=== PATIENT | male | born 1955 | race Caucasian/White ===

== ENCOUNTER 2016-04-16 00:38 | Emergency (ER) | payer BC, OTHER ==
[2016-04-16] MEDS ORDERED: IPRATROPIUM-ALBUTEROL 3 ML NEB INHALATION STA (01:43)
[2016-04-16 02:15] VITALS: PULSE 82
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
--- NOTE | 2016-04-16 02:43 | XR ---
EXAMINATION TYPE: XR chest 2V DATE OF EXAM: 04/16/2016 2:23 AM COMPARISON: 03/26/2016 HISTORY: Cough TECHNIQUE: Frontal and lateral views of the chest are obtained. FINDINGS: Heart and mediastinum are normal. Lungs are clear of consolidation. There are no hilar mas ses. There is no sign of pleural effusion. There are sternal wires. Bony thorax is intact. IMPRESSION: No active cardiac pulmonary disease. No change.
[2016-04-16 03:21] VITALS: BP 129/75; RESP 18; TEMP 97.9
== END 2016-04-16 03:23 | disposition home or self-care (01) ==
LOC: EC 00:38
DX: R05 Cough (principal); T46.4X5A Adverse effect of angiotensin-converting-enzyme inhibitors, initial encounter; I10 Essential (primary) hypertension; E78.5 Hyperlipidemia, unspecified; E11.9 Type 2 diabetes mellitus without complications; F41.9 Anxiety disorder, unspecified; F32.9 Major depressive disorder, single episode, unspecified; Z79.82 Long term (current) use of aspirin; Z79.84 Long term (current) use of oral hypoglycemic drugs; Z79.899 Other long term (current) drug therapy; Z88.2 Allergy status to sulfonamides; Z88.3 Allergy status to other anti-infective agents; Z88.5 Allergy status to narcotic agent; Z87.891 Personal history of nicotine dependence
CPT/HCPCS: 71020; 87502; 94640; 99284

== ENCOUNTER 2016-05-01 14:33 | Inpatient (IN) | payer BC, OTHER ==
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
[2016-05-01] MEDS ORDERED: LORazepam 2 MG/ML SYRINGE IM STA (19:00)
[2016-05-01] MEDS ORDERED: MAGNESIUM HYDROXIDE 2,400 MG/10 ML CUP PO PRN (21:39)
[2016-05-01] MEDS ORDERED: MAG HYDROX/AL HYDROX/SIMETH 30 ML CUP PO PRN (21:39)
[2016-05-01] MEDS ORDERED: ACETAMINOPHEN TAB 325 MG TAB PO PRN (21:39)
[2016-05-01] MEDS ORDERED: ZIPRASIDONE 20 MG VIAL IM PRN (21:39)
[2016-05-01] MEDS ORDERED: NITROGLYCERIN SL TABS 0.4 MG TAB SUBLINGUAL PRN ×2 (21:43→22:38)
[2016-05-01] MEDS ORDERED: ONDANSETRON 4 MG/2 ML VIAL IM PRN (22:34)
[2016-05-01] MEDS ORDERED: ONDANSETRON 4 MG TAB PO PRN (22:34)
[2016-05-01] MEDS ORDERED: IBUPROFEN 600 MG TAB PO PRN (22:40)
[2016-05-01] MEDS: ATORVASTATIN 20 MG TAB PO SCH (22:50)
[2016-05-01] MEDS: traZODone HCL 50 MG TAB PO SCH (22:50)
[2016-05-01] MEDS: LORazepam 1 MG TAB PO SCH (22:50)
[2016-05-02] MEDS: LORazepam 1 MG TAB PO SCH ×6 (00:38→23:22)
[2016-05-02] MEDS: DIPHENOX-ATROP 2.5-0.025 MG 1 EACH TAB PO PRN (01:48)
[2016-05-02 03:13] VITALS: BMI 38.4
[2016-05-02 06:18] LABS: Glucose,Whole Blood 140 mg/dL (75-99)
[2016-05-02] MEDS: glipiZIDE 5 MG TAB PO SCH ×2 (09:34→17:56)
[2016-05-02] MEDS: LISINOPRIL 20 MG TAB PO SCH (09:49)
[2016-05-02] MEDS: ASPIRIN 81 MG CHEW PO SCH (09:49)
[2016-05-02] MEDS: NICOTINE 14MG/24HR PATCH TRANSDERM SCH (09:50)
[2016-05-02] MEDS: FLUoxetine HCL 20 MG CAP PO SCH (09:52)
[2016-05-02] MEDS: PANTOPRAZOLE 40 MG TABLET PO SCH (09:52)
[2016-05-02] MEDS ORDERED: HYDROcodone/APAP 5-325MG 1 EACH TAB PO PRN (09:54)
[2016-05-02] MEDS: ALBUTEROL INHALER 60 PUFF/8 GM INHALER INHALATION PRN (11:10)
[2016-05-02 11:30] LABS: Anisocytosis Slight; Basophils # (A) 0.1 k/uL (0-0.2); Basophils % (A) 1 %; CH 32.4; CHCM 33.6; Eosinophils # (A) 0.1 k/uL (0-0.7); Eosinophils % (A) 0 %; HCT 35.7 % (39.0-53.0); HDW 2.67; HGB 11.6 gm/dL (13.0-17.5); Luc # (Auto) 0.28; Luc % (Auto) 2; Lymphocytes # (A) 3.4 k/uL (1.0-4.8); Lymphocytes % (A) 29 %; MCH 31.6 pg (25.0-35.0); MCHC 32.5 g/dL (31.0-37.0); MCV 97.2 fL (80.0-100.0); Macrocytosis Slight; Mean Platelet Volume 7.3; Monocytes # (A) 0.9 k/uL (0-1.0); Monocytes % (A) 7 %; Neutrophils # (A) 7.2 k/uL (1.3-7.7); Neutrophils % (A) 60 %; RBC 3.68 m/uL (4.30-5.90); RDW 16.9 % (11.5-15.5); WBC 11.9 k/uL (3.8-10.6); WBC (Perox) 12.44
[2016-05-02 12:02] LABS: ALT 86 U/L (21-72); AST 80 U/L (17-59); Alkaline Phosphatase 116 U/L (38-126); Anion Gap 13 mmol/L; Bilirubin, Delta 0.4 mg/dL (0.0-0.2); Blood Urea Nitrogen 21 mg/dL (9-20); Calcium 9.3 mg/dL (8.4-10.2); Carbon Dioxide 24 mmol/L (22-30); Chloride 102 mmol/L (98-107); Glucose 105 mg/dL (74-99); Non-African American GFR(MDRD) >60 (>60 ml/min/1.73 sqM); Potassium 3.7 mmol/L (3.5-5.1); Sodium 139 mmol/L (137-145); Total Bilirubin 1.8 mg/dL (0.2-1.3)
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
[2016-05-02] MEDS: FOLIC ACID 1 MG TAB PO SCH (12:50)
[2016-05-02] MEDS: THIAMINE 100 MG TAB PO SCH (12:50)
[2016-05-02] MEDS: HYDROcodone/APAP 5-325MG 1 EACH TAB PO PRN ×2 (12:51→20:55)
[2016-05-02 12:57] LABS: Glucose,Whole Blood 115 mg/dL (75-99)
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
[2016-05-02 17:22] LABS: Glucose,Whole Blood 178 mg/dL (75-99)
[2016-05-02] MEDS: traZODone HCL 50 MG TAB PO SCH (20:31)
[2016-05-02] MEDS: lamoTRIgine 100 MG TAB PO SCH (20:31)
[2016-05-02] MEDS: ATORVASTATIN 20 MG TAB PO SCH (20:31)
[2016-05-02 21:26] LABS: Glucose,Whole Blood 172 mg/dL (75-99)
[2016-05-03] MEDS: LORazepam 2 MG/ML SYRINGE IM PRN (02:39)
[2016-05-03] MEDS: LORazepam 1 MG TAB PO SCH ×4 (06:07→20:54)
[2016-05-03] MEDS: ALBUTEROL INHALER 60 PUFF/8 GM INHALER INHALATION PRN ×2 (06:10→10:49)
[2016-05-03] MEDS: HYDROcodone/APAP 5-325MG 1 EACH TAB PO PRN ×3 (06:16→22:34)
[2016-05-03 07:17] LABS: Glucose,Whole Blood 169 mg/dL (75-99)
[2016-05-03] MEDS: ASPIRIN 81 MG CHEW PO SCH (07:59)
[2016-05-03] MEDS: LISINOPRIL 20 MG TAB PO SCH (07:59)
[2016-05-03] MEDS: glipiZIDE 5 MG TAB PO SCH ×2 (07:59→17:59)
[2016-05-03] MEDS: NICOTINE 14MG/24HR PATCH TRANSDERM SCH (07:59)
[2016-05-03] MEDS: FLUoxetine HCL 20 MG CAP PO SCH (08:01)
[2016-05-03] MEDS: PANTOPRAZOLE 40 MG TABLET PO SCH (08:02)
[2016-05-03 10:09] LABS: ALT 76 U/L (21-72); AST 64 U/L (17-59); Alkaline Phosphatase 126 U/L (38-126); Anion Gap 15 mmol/L; Blood Urea Nitrogen 24 mg/dL (9-20); Calcium 9.4 mg/dL (8.4-10.2); Carbon Dioxide 22 mmol/L (22-30); Chloride 103 mmol/L (98-107); Glucose 156 mg/dL (74-99); Non-African American GFR(MDRD) >60 (>60 ml/min/1.73 sqM); Potassium 3.7 mmol/L (3.5-5.1); Sodium 140 mmol/L (137-145); Total Bilirubin 1.6 mg/dL (0.2-1.3)
[2016-05-03] MEDS: FOLIC ACID 1 MG TAB PO SCH (11:12)
[2016-05-03] MEDS: THIAMINE 100 MG TAB PO SCH (11:14)
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
[2016-05-03 12:47] LABS: Glucose,Whole Blood 108 mg/dL (75-99)
[2016-05-03 18:11] LABS: Glucose,Whole Blood 165 mg/dL (75-99)
[2016-05-03 19:56] LABS: Glucose,Whole Blood 159 mg/dL (75-99)
[2016-05-03] MEDS: ATORVASTATIN 20 MG TAB PO SCH (20:52)
[2016-05-03] MEDS: lamoTRIgine 100 MG TAB PO SCH (20:52)
[2016-05-03] MEDS: traZODone HCL 50 MG TAB PO SCH (22:30)
[2016-05-04] MEDS: LORazepam 2 MG/ML SYRINGE IM PRN (05:25)
[2016-05-04 06:12] LABS: Glucose,Whole Blood 168 mg/dL (75-99)
[2016-05-04] MEDS: HYDROcodone/APAP 5-325MG 1 EACH TAB PO PRN ×3 (07:12→21:18)
[2016-05-04] MEDS: glipiZIDE 5 MG TAB PO SCH ×2 (07:57→17:48)
[2016-05-04] MEDS: ASPIRIN 81 MG CHEW PO SCH (08:33)
[2016-05-04] MEDS: PANTOPRAZOLE 40 MG TABLET PO SCH (08:33)
[2016-05-04] MEDS: FLUoxetine HCL 20 MG CAP PO SCH (08:33)
[2016-05-04] MEDS: LISINOPRIL 20 MG TAB PO SCH (08:33)
[2016-05-04] MEDS: LORazepam 1 MG TAB PO SCH ×2 (08:33→21:17)
[2016-05-04] MEDS: NICOTINE 14MG/24HR PATCH TRANSDERM SCH (08:36)
[2016-05-04] MEDS: ALBUTEROL INHALER 60 PUFF/8 GM INHALER INHALATION PRN ×3 (09:06→18:53)
[2016-05-04] MEDS: FOLIC ACID 1 MG TAB PO SCH (10:55)
[2016-05-04] MEDS: THIAMINE 100 MG TAB PO SCH (10:56)
--- NOTE | 2016-05-04 11:47 | P.DS ---
Providers Date of admission: 05/01/16 21:19 Attending physician: Abiel Cochran MD Consults: 05/01/16 21:39 Consult Physician Routine Consulting Provider: Parmjit Murdock Consult Reason/Comments: h&p and medical follow-up Do you want consulting provider notified?: Yes, Notify in am Primary care physician: Parmjit Roque Mathieu - Discharge Diagnosis(es) (1) Injury due to unintentional cut, puncture, perforation or hemorrhage during administration of enema Current Visit: Yes Status: Resolved Priority: Medium (2) Alcohol use disorder, severe, dependence Current Visit: Yes Status: Acute Priority: High (3) Alcohol withdrawal Current Visit: Yes Status: Resolved Priority: High (4) Sedative, hypnotic or anxiolytic abuse Current Visit: Yes Status: Chronic Priority: High (5) Marital conflict Current Visit: Yes Status: Chronic Priority: High (6) Conflict between patient and family Current Visit: Yes Status: Chronic Priority: High (7) Alcohol-induced mood disorder Current Visit: Yes Status: Chronic Priority: Medium (8) Personality disorder, unspecified Current Visit: Yes Status: Chronic Priority: High (9) Elevated liver enzymes Current Visit: No Status: Chronic Priority: Medium Hospital Course: DENTIFYING DATA: He is a 60-year-old male admitted to the psychiatric unit involuntarily. His completed a Petition/Application for Hospitalization. On the petition she wrote "last night Anthony asked me where your jugular vein was. He then went into the bathroom and came out with a cut on his left wrist that was bleeding. I bandaged it. He told me he cut it with electric razor. He then looked for his fifth of jodi. He has been drinking at least a fifth of liquor a day. He slept, woke up and said he was going to the hospital because he wanted to . He then passed out on bed. Today he cut his right wrist in a suicide attempt." HISTORY OF PRESENT ILLNESS: I reviewed the medical record and interviewed Mr. Feldman. He was angry about the circumstances that led to this admission. He stated he accidentally cut his wrist and vehemently denied that he cut his wrist with the intent to end his life. He described a situation where he was attempting to change a double edged razor blade. He was tremulous and dropped the plate. He attempted to grab the blade "before it fell into the sink drain" and in the process the blade cut his wrist. The ER physician documented that Mr. Feldman's explanation of the incident was improbable because the cut was a deep single laceration to the wrist that required multiple sutures for closure. He described feeling depressed but denied that he had thoughts of or suicide. He was depressed over his relationship with his daughter, her decision to limit contact with her children and his son's behavior. He stated his son who is a heroin user recently threatened several people. He is concerned because he believes this son is unstable as a result of his experiencing this during the [place] War. He denied persistent feelings of sadness and pessimism. He denied feeling as though he were a failure. He denied feelings of guilt or punishment. He denied self dislike and self criticalness. She denied crying episodes, agitation, loss of interest and indecisiveness. He does not feel worthless, irritable or has difficulty with concentration or attention. A recurrent theme during the interview was his lack of personal responsibility for his actions and the response of others due to his behavior. The theme was present in his description of his relationship with his , his daughter,his less than honorable discharge from the [facility], a past legal problem, his alcohol use and his prior psychiatric hospitalizations. With regard to his alcohol use, he drinks up to one fifth of jodi daily. He denies that he has encountered problems as a result of his alcohol use. He drinks because he has a persistent "sore throat". He has not tried cutting down his drinking and minimized the complaints of family regarding his alcohol use. His initial CIWA score was 22 indicating severe symptoms of alcohol withdrawal He denied use of other drugs to get high, help him sleep or changes mood. He denied use of marijuana. According to medical record there is some concern about excessive use of opiate pain medications. However, he denied that he has ever misuse prescribed opiate pain medications. PAST PSYCHIATRIC HISTORY: This is his fourth admission to the unit. The last was in February 2016. His completed a petition indicating that he was not caring for himself and he was demonstrating paranoid thinking. The admitting psychiatrist noted that he was depressed and expressed feeling of hopelessness. He was transferred to medicine service the day of admission because he was "caught swallowing" his fentanyl patch. Once medically stabilized he returned to the psychiatric unit. 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 He stated that his outpatient psychiatrist is Dr. Jeffery. SUBSTANCE USE HISTORY: He has a history of alcohol use disorder including one admission to [facility] about 2 years ago" for the treatment of his alcohol use problems. He alleged he his drinks less than one fifth of jodi per day but the information from his is that he drinks at least one fifth per day. He minimizes his alcohol use. As mentioned above, we have some evidence of abuse of prescribed opiates pain medications. However, he denies that he has ever misused or abused prescription opiate pain medications. He is complained of tremulousness, nausea and abdominal distress. He has night sweats and sound sensitivity. He denied tactile or visual disturbances. HOSPITAL COURSE: We admitted him to the psychiatric unit under the care of this commercial insurance underwriter. We provided a biopsychosocial assessment. The underwriting consultant private mortgage banker safe completed the physical exam and medical history. The private mortgage banker safe diagnosed history of pancreatitis, BPH, IBS, history of coronary disease and CABG, diabetes type 2, hypertension, sleep apnea, chronic back pain and elevated liver enzymes. We addressed his alcohol withdrawal with a CIWA and lorazepam. He had severe symptoms of alcohol withdrawal uncomplicated by delirium or psychosis. He alleged that he has been drinking (according to his at least 1 pint of jodi per day) over the last 2 months. However, the history of pancreatitis and a chronically elevated liver enzymes suggest that his alcohol use has been present for much longer period of time. We continued his outpatient psychotropic medications including fluoxetine 40 mg daily, Lamictal 200 mg at bedtime and trazodone 50 mg at bedtime. We substituted his outpatient dose of Xanax (2 mg twice a day) with lorazepam 1 mg 4 times a day. We gradually reduce the dose to 1 mg twice a day and recommended he stop all benzodiazepines because of his chronic and high alcohol use. He is not interested in reentering a substance use treatment program. Throughout the hospitalization he maintained that he did not intentionally cut himself. Laceration to his wrist was in accident as he was trying to change a double ends razor blade. We suspect that the self injury that led to this hospitalization was related to the alcohol and benzodiazepine use because his memory of events is not consistent with that provided to the social insurance specialist by his . An ongoing theme during our interviews was the perceptions that he has been mistreated by family. He shows little insight or understanding of his responsibility in the marital and family conflict. At time of discharge he complained of feeling angry towards his and family. However, he denied thoughts of harm to himself, his for his family. His plan is to move leave his and family and move to [place] in the fall of 2016. He described feelings of depression but denied hopelessness or helplessness. He denied psychotic symptoms. Patient Condition at Discharge: Fair Plan - Discharge Summary New Discharge Prescriptions: FLUoxetine HCL [PROzac] 40 mg PO DAILY 30 Days lamoTRIgine [LaMICtal] 200 mg PO HS 30 Days traZODone HCL [Desyrel] 50 mg PO HS 30 Days Discharge Medication List Nitroglycerin Sl Tabs [Nitrostat] 0.4 mg SUBLINGUAL Q5M PRN 04/12/15 [History] Enalapril [Vasotec] 5 mg PO BID 04/13/15 [History] Aspirin 81 mg PO DAILY 10/31/15 [History] Omeprazole 40 mg PO DAILY 10/31/15 [History] glipiZIDE [Glucotrol] 5 mg PO AC-BID tab 02/20/16 [Rx] Atorvastatin [Lipitor] 20 mg PO HS 03/26/16 [History] Meclizine [Antivert] 12.5 mg PO Q6H #20 tablet 03/26/16 [Rx] Albuterol Inhaler [Ventolin Hfa Inhaler] 1 - 2 puff INHALATION RT-Q6H PRN [History] FLUoxetine HCL [PROzac] 40 mg PO DAILY 30 Days 05/04/16 [Rx] lamoTRIgine [LaMICtal] 200 mg PO HS 30 Days 05/04/16 [Rx] traZODone HCL [Desyrel] 50 mg PO HS 30 Days 05/04/16 [Rx] Follow up Appointment(s)/Referral(s): [facility] [Outside] - 1 Week (Saturday May 07, 2016 at 9 am with Brendon. Saturday June 04, [address] at [address] Saha.) Parmjit Murdock MD [Primary Care Provider] - 1 Week Patient Instructions/Handouts: Depression (DC), Suicide Prevention for Adults ( DC) Activity/Diet/Wound Care/Special Instructions: Activity and diet as tolerated. Avoid the use of street drugs and alcohol. Take all medications as prescribed. When you are in need of refills on your medications please contact your outpatient medical provider and/or psychiatrist to have this done. Please go to scheduled outpatient appointment for aftercare. If symptoms return or become worse call the crisis line at and/ or go to the nearest emergency room for an evaluation. Discharge Disposition: HOME SELF-CARE
--- NOTE | 2016-05-04 12:11 | P.PN ---
Progress Note - Text SUBJECTIVE: The patient denied having thoughts of or suicide. He denied alcohol withdrawal symptoms except increased sensitivity to sound. He continues to deny that the laceration to his wrist was a suicide attempt. He talked about his anger towards his and family. He continues to minimize his responsibility for the impairment in their relationships. For example, he is angry at his daughter for not allowing him to visit with his grandchildren. He believes that she is present contact with the children because he became angry when he called her a "troll". We had planned on discharging him home after the family meeting. However, his became distressed during the meeting because he "would not admit" the laceration was a suicide attempt. Both he and his ended the meeting distressed. He alleged that he would not go home to live with her. He alleged that he could not live with other family (he has estranged himself from family and friends). When the social worker masters suggested discharged to a alf he replied "I'll just go back to drinking." OBJECTIVE: He presented as a casually groomed moderately obese and pale appearing male who was pleasant on approach. He maintained eye contact and attended to the exam. He had a clean dry bandage on his right wrist. He had a angry facial expression. He was alert and oriented to person, place and time. He showed no abnormality of psychomotor behavior. He had no abnormal movements. His speech was spontaneous with normal rate, rhythm and volume. His affect was dysphoric consisting of mixture of anger, depression and anxiety. He denied suicidal ideation or wishes. He denied homicidal ideation. He denied depressive cognitions such as hopelessness, helplessness or worthlessness. ASSESSMENT: He has no signs and symptoms of alcohol withdrawal. I suspect his presentation was later to combine use of alcohol and high-dose benzodiazepines. I also suspect that he may not have full recollection of what occurred when he cut his wrist. He is denying thoughts of suicide or self-harm. He remains angry at his and family and is refusing to return home. PLAN: Cancel the discharge to allow the overall level of emotional distress between he and his to joanna, continue to taper lorazepam, continue other psychotropic medications as prescribed, continue to encourage participation in therapeutic groups and activities, evaluate clinical status response to treatment daily basis.
[2016-05-04 12:44] LABS: Glucose,Whole Blood 105 mg/dL (75-99)
[2016-05-04] MEDS: DIPHENOX-ATROP 2.5-0.025 MG 1 EACH TAB PO PRN (13:36)
[2016-05-04 17:41] LABS: Glucose,Whole Blood 125 mg/dL (75-99)
[2016-05-04 20:21] LABS: Glucose,Whole Blood 108 mg/dL (75-99)
[2016-05-04 21:12] LABS: Appearance,Urine Clear (Clear); Bilirubin,Urine Negative (Negative); Glucose,Urine (UA) Negative (Negative); Ketones,Urine Negative (Negative); Leukocyte Esterase,Urine Negative (Negative); Nitrite,Urine Negative (Negative); PH, Urine 5.5 (5.0-8.0); Protein,Urine Negative (Negative); Specific Gravity,Urine 1.009 (1.001-1.035); UA Billing (MACRO vs. MICRO) CHEM; Urobilinogen,Urine <2.0 mg/dL (<2.0)
[2016-05-04] MEDS: ATORVASTATIN 20 MG TAB PO SCH (21:16)
[2016-05-04] MEDS: traZODone HCL 50 MG TAB PO SCH (21:17)
[2016-05-04] MEDS: lamoTRIgine 100 MG TAB PO SCH (21:17)
[2016-05-05] MEDS: HYDROcodone/APAP 5-325MG 1 EACH TAB PO PRN ×2 (05:56→13:46)
[2016-05-05 06:28] LABS: Glucose,Whole Blood 147 mg/dL (75-99)
[2016-05-05] MEDS: ASPIRIN 81 MG CHEW PO SCH (08:44)
[2016-05-05] MEDS: LORazepam 1 MG TAB PO SCH (08:44)
[2016-05-05] MEDS: glipiZIDE 5 MG TAB PO SCH ×2 (08:44→16:21)
[2016-05-05] MEDS: FLUoxetine HCL 20 MG CAP PO SCH (08:44)
[2016-05-05] MEDS: PANTOPRAZOLE 40 MG TABLET PO SCH (08:45)
[2016-05-05] MEDS: LISINOPRIL 20 MG TAB PO SCH (09:56)
[2016-05-05] MEDS: FOLIC ACID 1 MG TAB PO SCH (12:20)
[2016-05-05] MEDS: THIAMINE 100 MG TAB PO SCH (12:20)
[2016-05-05 12:32] LABS: Glucose,Whole Blood 73 mg/dL (75-99)
[2016-05-05] MEDS: ALBUTEROL INHALER 60 PUFF/8 GM INHALER INHALATION PRN (12:33)
[2016-05-05] MEDS ORDERED: lamoTRIgine 100 MG TAB PO SCH (13:00)
--- NOTE | 2016-05-05 15:13 | P.PN ---
Progress Note - Text SUBJECTIVE: We talked about the family meeting yesterday. He and his argued throughout the meeting. She does not believe the cut to his wrist was accidental and wanted him to remain in the hospital longer. He on the other hand maintains that the cut was accidental and not a suicide attempt. She also brought up his statements that he made suggesting suicidal thoughts and threats. He again minimize the statements alleging he made them out of anger or to gain her attention. He again complained about his relationship with his and children. He reiterated that his plans are to "tough it out at home" until he is able to move to [place] and live in his motor home. He again denied that he cut himself in a suicide attempt or suicide gesture. He continues to maintain that it was an accident as he was attempting to change a razor blade. He complained of right hand pain, numbness of his thumb and index finger and difficulty opposing his thumb and his fingers. OBJECTIVE: He presented as a casually dressed 60-year-old male who was pleasant and cooperative. He maintained eye contact and attended to interview. He had a blunted but bright facial expression. He was alert and oriented to person, place and time. He showed no abnormality of psychomotor activity. He had a slow but stable gait. His speech was spontaneous with normal rate, rhythm and volume. His affect was slightly depressed but appropriate and stable. He denied suicidal ideation or wishes. He denied depressive cognitions such as hopelessness, helplessness and worthlessness. He did not express ideas reference or paranoid ideation. His thinking was abstract and associations were coherent and goal directed. ASSESSMENT: He is showing minimal symptoms of depression and continues denied that the laceration on his wrist was a suicide attempt. He is complaining of increasing pain and decreased functioning of the hand. PLAN: Decrease lorazepam to 1 mg daily then discontinue tomorrow, continue other medications as prescribed, consult medicine for reevaluation of a laceration. Continue encourage participation in therapeutic groups and activities. Evaluate clinical status response to treatment daily basis.
[2016-05-05 17:37] LABS: Glucose,Whole Blood 116 mg/dL (75-99)
--- NOTE | 2016-05-05 19:02 | CONS ---
I am covering for Dr. Parmjit Murdock. REASON FOR CONSULTATION: Weakness and numbness of the right hand. HISTORY OF PRESENT ILLNESS: This 54-year-old gentleman with a past history of depression. GERD, diabetes mellitus, hypertension, history of sleep apnea, history of CAD, CABG being followed by Dr. Parmjit Murdock in the outpatient setting admitted with lacerated wound on the right wrist, apparent suicidal attempt, which was sutured in the ER which is clean, incised. Currently the patient is complaining of numbness, weakness and some pain and difficulty in folding the fingers on the right hand. It is more toward the lateral 3 digits than the medial ones. There is no history of any fever, rigors, chills. No history of headache, loss of consciousness, any seizures. No history of any complaints to other legs at this time. PAST MEDICAL HISTORY: History of diabetes mellitus, history of GERD, hypertension, hyperlipidemia, sleep apnea, appendectomy, CAD, CABG. Medications prior to admission include home medications are: 1. Glucotrol 5 mg a.c. b.i.d. 2. Omeprazole 40 mg p.o. daily. 3. Nitrostat 0.4 sublingual p.r.n. 4. Antivert 12.5 mg every 6 hours p.r.n. 5. Vasotec 5 mg p.o. b.i.d. 6. Lipitor 20 mg q.h.s. 7. Aspirin 81 mg daily. 81 to 2 puffs every 6 hours p.r.n. 9. Desyrel. 10. Lamictal. 11. Prozac 40 mg daily. ALLERGIES ARE KETOROLAC, FLAGYL, SULFA. FAMILY HISTORY: No history of heart disease, strokes in the family. SOCIAL HISTORY: History of alcohol. REVIEW OF SYSTEMS: ENT: No diminished hearing or diminished vision. CARDIOVASCULAR: No angina or palpitations. RESPIRATORY: No cough. GI: No nausea. : No dysuria. NERVOUS: As mentioned earlier. ALLERGY/IMMUNOLOGY: No asthma or hay fever. MUSCULOSKELETAL: As mentioned earlier. HEMATOLOGY/ONCOLOGY: No history of anemia. ENDOCRINE: Diabetes mellitus. CONSTITUTIONAL: As mentioned earlier. DERMATOLOGY: Negative. PSYCHIATRY: As mentioned earlier. PHYSICAL EXAM: Patient alert and oriented x3. Pulse 99, blood pressure 126/69, respirations 18, temperature 97.9 pulse ox normal. HEENT: Conjunctivae normal. Oral mucosa moist. NECK: No jugular venous distention. No carotid bruits. No lymph node enlargement. CARDIOVASCULAR: S1 and S2 muffled. No S3. No S4. RESPIRATORY: Breath sounds diminished at the bases. No rhonchi. No crackles. Abdomen is soft, nontender. No masses palpable. LEGS: No edema. No swelling. NERVOUS SYSTEM: Higher function as mentioned. Cranial nerves 2-12 intact grossly intact. Right hand incised wound is lacerated wound which is sutured in the right wrist present. Otherwise, minimal weakness and difficulty in motion. Some pain and some swelling of all the fingers noted, mainly the lateral 3 digits. SKIN: As mentioned earlier. LYMPHATIC: No lymphadenopathy in neck, axillae or groin. Lab investigations are WBC 11.9, hemoglobin 11.6. Glucose 73, AST, ALT noted. ASSESSMENT: 1. Lacerated wound on the right wrist and numbness, rule out median nerve injury or compression. 2. Rule out carpal tunnel syndrome. 3. Increased AST, ALT. 4. Diabetes mellitus type 2. 5. Increased WBC. 6. Anemia, normocytic. 7. History of hypertension. 8. Hyperlipidemia. 9. Coronary artery disease, coronary artery bypass grafting. 10. History of sleep apnea. 11. Depression. 12. History of nephrolithiasis. 13. History of irritable bowel syndrome. 14. History of gastric ulcer. 15. History of diverticulitis. 16. History of degenerative joint disease, chronic low back pain 17. History of migraine. 18. History of cholecystectomy. 19. Anxiety, depression, posttraumatic stress disorder. 20. Remote history of nicotine dependence. 21. History of EtOH. RECOMMENDATIONS AND DISCUSSION: In this 60-year-old gentleman who presented with multiple medical problems, will monitor the patient closely. Continue symptomatic treatment. The patient appears to have some neurological findings in the right hand. I would recommend a neurology consultation to rule out the possibility of median nerve injury or even a carpal tunnel compression which could be related to direct injury or because of the swelling associated with the incision as well as suturing. In case of abnormal finding, I would also recommend an orthopedic consultation to evaluate the injury as well. Otherwise, recommend Motrin for now and continue the rest of the medications. Diabetes control. The wound does not look infected, but will continue to follow. Further recommendations to follow. The patient may be asked to follow up with Dr. Murdock closely after discharge. MEGAN
[2016-05-05 20:13] LABS: Glucose,Whole Blood 111 mg/dL (75-99)
[2016-05-05] MEDS: lamoTRIgine 100 MG TAB PO SCH (21:05)
[2016-05-05] MEDS: ATORVASTATIN 20 MG TAB PO SCH (21:05)
[2016-05-05] MEDS: traZODone HCL 50 MG TAB PO SCH (21:05)
[2016-05-06] MEDS: HYDROcodone/APAP 5-325MG 1 EACH TAB PO PRN ×3 (03:06→16:59)
[2016-05-06] MEDS: ALBUTEROL INHALER 60 PUFF/8 GM INHALER INHALATION PRN ×3 (05:36→20:39)
[2016-05-06 05:56] LABS: Glucose,Whole Blood 186 mg/dL (75-99)
[2016-05-06] MEDS: ASPIRIN 81 MG CHEW PO SCH (08:55)
[2016-05-06] MEDS: PANTOPRAZOLE 40 MG TABLET PO SCH (08:55)
[2016-05-06] MEDS: glipiZIDE 5 MG TAB PO SCH ×2 (08:56→16:57)
[2016-05-06] MEDS: FLUoxetine HCL 20 MG CAP PO SCH (08:56)
[2016-05-06] MEDS: LISINOPRIL 20 MG TAB PO SCH (08:56)
[2016-05-06] MEDS ORDERED: LORazepam 1 MG TAB PO SCH (09:00)
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
[2016-05-06] MEDS: FOLIC ACID 1 MG TAB PO SCH (12:05)
[2016-05-06] MEDS: THIAMINE 100 MG TAB PO SCH ×2 (12:05→21:16)
[2016-05-06 12:46] LABS: Glucose,Whole Blood 87 mg/dL (75-99)
[2016-05-06] MEDS: INSULIN LISPRO (humaLOG) 300 UNIT/3 ML VIAL SQ SCH ×3 (12:55→21:13)
[2016-05-06 13:38] LABS: Hemoglobin A1C 6.3 % (4.2-6.1)
--- NOTE | 2016-05-06 13:43 | P.PN ---
Progress Note - Text SUBJECTIVE: He complained of pain, numbness and weakness of his right hand. He requested an increase in Narco for pain. He also expressed concern about the taper of lorazepam. I explained my concerns about his use of lorazepam and alcohol. He is denying alcohol withdrawal symptoms. He is denied feeling depressed or having thoughts of or suicide. He continues to maintain that he did not cut his risk in a suicide attempt. He was concerned that his may object to his discharge tomorrow OBJECTIVE: Medicine and neurology consult appreciated. He presented as a casually groomed pleasant and appropriate 60-year-old male. He maintained eye contact and attended to the interview. The lacerations on his right wrist was intact. He had swelling of his first 3 digits on the right hand. He had difficulty making a fist. He had slight bilateral hand tremor. He did not demonstrate abnormality of psychomotor activity. He had a slow but steady gait. His speech was spontaneous with normal rate, rhythm and volume. He had no articulation difficulties. His affect was dysphoric with a mixture of anxiety and depression. His affect was stable and appropriate. He denied suicidal ideation or wishes. He denied homicidal ideation. He denied depressive cognitions such as hopelessness, helplessness or worthlessness. He did not express ideas reference or paranoid ideation. His thinking was abstract and associations were coherent and logical. He denied hallucinations and did not appear to responding to internal stimuli. ASSESSMENT: He is much improved from admission and is demonstrating no alcohol withdrawal symptoms. Medicine and neurology evaluated the symptoms in his right hand. Neurology recommended IV steroids to reduce inflammation, nerve conduction studies and orthopedic follow-up as an outpatient. PLAN: Continue Prozac 40 mg daily, Lamictal 200 mg at bedtime and trazodone 50 mg at bedtime. Follow recommendations of the consulting neurologist regarding methylprednisolone administration. Encourage continued participation in therapeutic groups and activities. Evaluate clinical status response to treatment daily basis. Upon discharge 05/07/2016.
[2016-05-06 17:45] LABS: Glucose,Whole Blood 135 mg/dL (75-99)
[2016-05-06 20:29] LABS: Glucose,Whole Blood 250 mg/dL (75-99)
[2016-05-06] MEDS: ATORVASTATIN 20 MG TAB PO SCH (21:16)
[2016-05-06] MEDS: lamoTRIgine 100 MG TAB PO SCH (21:16)
[2016-05-06] MEDS: traZODone HCL 50 MG TAB PO SCH (22:34)
[2016-05-06] MEDS: diphenhydrAMINE 25 MG CAP PO PRN (22:34)
[2016-05-07] MEDS: HYDROcodone/APAP 5-325MG 1 EACH TAB PO PRN ×4 (00:19→17:47)
[2016-05-07 02:55] VITALS: PULSE 95; RESP 18; TEMP 98.3
[2016-05-07] MEDS: diphenhydrAMINE 25 MG CAP PO PRN ×2 (03:39→14:35)
[2016-05-07 07:10] LABS: Glucose,Whole Blood 232 mg/dL (75-99)
[2016-05-07] MEDS: glipiZIDE 5 MG TAB PO SCH ×2 (07:58→17:48)
[2016-05-07] MEDS: INSULIN LISPRO (humaLOG) 300 UNIT/3 ML VIAL SQ SCH ×3 (07:58→18:02)
[2016-05-07] MEDS: ALBUTEROL INHALER 60 PUFF/8 GM INHALER INHALATION PRN ×2 (10:08→14:01)
[2016-05-07] MEDS: ASPIRIN 81 MG CHEW PO SCH (10:15)
[2016-05-07] MEDS: LISINOPRIL 20 MG TAB PO SCH ×2 (10:15→10:17)
[2016-05-07] MEDS: FLUoxetine HCL 20 MG CAP PO SCH (10:15)
[2016-05-07] MEDS: PANTOPRAZOLE 40 MG TABLET PO SCH (10:15)
[2016-05-07 12:25] LABS: Glucose,Whole Blood 126 mg/dL (75-99)
--- NOTE | 2016-05-07 12:44 | P.PN ---
Progress Note - Text SUBJECTIVE: He is thinking that "maybe" the laceration to his wrist was not accidental. The ED physician and neurologist told him that the cut was too long into deep to have been in accident. He remembers the razor blade following from his hands but does not remember cutting himself. I suggested that his use of alcohol and Xanax may have affected his memory; that he may may have a "blackout". She appeared resistant to the idea that his use of alcohol and benzodiazepines may have affected his memory. He is embarrassed that he may have cut his wrist intentionally. He talked about the effect of his self-harm on his family particularly on whether his daughter would consider the action in her decision to allow him to see his grandchildren. He talked about his anger and depression, his distress not be allowed to to see his daughter's children and the ongoing conflict with his and son. He complained of continued pain and numbness of the first 3 fingers of his right hand. He found little relief from the initial infusion of the prednisolone. OBJECTIVE: He presented as a casually groomed and dressed 60-year-old male who was pleasant on approach. He maintained eye contact and attended to the interview. His right wrist was bandaged. He had a distressed facial expression and crying intermittently during the interview. He showed no abnormality of psychomotor activity and no abnormal movements. His speech was spontaneous with normal rate, rhythm and volume. His affect was depressed and not reactive. He denied suicidal ideation and homicidal ideation. He expressed depressive cognitions including hopelessness and helplessness. He denied feelings of worthlessness. There is no evidence of psychotic thinking. ASSESSMENT: He is more depressed than on prior encounters. He is beginning to question his belief that the laceration on his wrist was unintentional. PLAN: I explained that he should not drink alcohol or continue with Xanax. I discussed aftercare and follow-up with the director social service and she arranged for him to meet with his outpatient therapist, Brendon, on , 05/10/2016 at 9: 40 AM. He is to schedule follow-up with [facility] in one week. Discharge home with follow-up appointments as scheduled.
[2016-05-07] MEDS: FOLIC ACID 1 MG TAB PO SCH (14:43)
[2016-05-07 17:22] LABS: Glucose,Whole Blood 243 mg/dL (75-99)
[2016-05-07 18:18] VITALS: BP 139/66
== END 2016-05-07 18:48 | disposition home or self-care (01) | DRG 885 ==
LOC: EC 14:33 → 3MHU 21:19
PROVIDERS: ADMIT Psychiatry & Neurology Psychiatry; ATTEND Psychiatry & Neurology Psychiatry
PROC: 0HQDXZZ Repair Right Lower Arm Skin, External Approach (ICD-10-PCS; principal; 2016-05-01)
PROC: HZ2ZZZZ Detoxification Services for Substance Abuse Treatment (ICD-10-PCS; 2016-05-01)
DX: F33.9 Major depressive disorder, recurrent, unspecified (principal); I10 Essential (primary) hypertension; E11.9 Type 2 diabetes mellitus without complications; F10.24 Alcohol dependence with alcohol-induced mood disorder; F10.239 Alcohol dependence with withdrawal, unspecified; D64.9 Anemia, unspecified; F11.10 Opioid abuse, uncomplicated; S61.511A Laceration without foreign body of right wrist, initial encounter; F43.10 Post-traumatic stress disorder, unspecified; I25.10 Atherosclerotic heart disease of native coronary artery without angina pectoris; F13.10 Sedative, hypnotic or anxiolytic abuse, uncomplicated; T38.0X5A Adverse effect of glucocorticoids and synthetic analogues, initial encounter; F41.9 Anxiety disorder, unspecified; G89.4 Chronic pain syndrome; K57.30 Diverticulosis of large intestine without perforation or abscess without bleeding; K29.70 Gastritis, unspecified, without bleeding; R20.0 Anesthesia of skin; G47.00 Insomnia, unspecified; K44.9 Diaphragmatic hernia without obstruction or gangrene; K42.9 Umbilical hernia without obstruction or gangrene; R20.2 Paresthesia of skin; R74.8 Abnormal levels of other serum enzymes; G43.909 Migraine, unspecified, not intractable, without status migrainosus; E78.5 Hyperlipidemia, unspecified; K58.9 Irritable bowel syndrome, unspecified; N40.0 Benign prostatic hyperplasia without lower urinary tract symptoms; G47.30 Sleep apnea, unspecified; K21.9 Gastro-esophageal reflux disease without esophagitis; M54.5 Low back pain; J02.9 Acute pharyngitis, unspecified; M47.9 Spondylosis, unspecified; F60.9 Personality disorder, unspecified; D72.829 Elevated white blood cell count, unspecified; L50.0 Allergic urticaria; Z65.3 Problems related to other legal circumstances; Z63.9 Problem related to primary support group, unspecified; Z79.84 Long term (current) use of oral hypoglycemic drugs; Z79.899 Other long term (current) drug therapy; Z79.82 Long term (current) use of aspirin; Z95.1 Presence of aortocoronary bypass graft; Z87.442 Personal history of urinary calculi; Z87.11 Personal history of peptic ulcer disease; Z90.49 Acquired absence of other specified parts of digestive tract; Z87.891 Personal history of nicotine dependence; Z83.3 Family history of diabetes mellitus; Z82.49 Family history of ischemic heart disease and other diseases of the circulatory system; Z87.81 Personal history of (healed) traumatic fracture; Z77.29 Contact with and (suspected) exposure to other hazardous substances; Z88.1 Allergy status to other antibiotic agents; Z88.5 Allergy status to narcotic agent; Z88.2 Allergy status to sulfonamides; Z87.828 Personal history of other (healed) physical injury and trauma; Z91.81 History of falling; Z87.19 Personal history of other diseases of the digestive system; Z81.3 Family history of other psychoactive substance abuse and dependence; Z63.0 Problems in relationship with spouse or partner; Z71.41 Alcohol abuse counseling and surveillance of alcoholic; X78.8XXA Intentional self-harm by other sharp object, initial encounter; Y92.002 Bathroom of unspecified non-institutional (private) residence as the place of occurrence of the external cause
CPT/HCPCS: 12002; 80053; 80306; 81003; 82075; 82248; 83036; 84443; 85025; 94640; 99285

== ENCOUNTER 2016-05-11 08:32 | Day surgery (SDC) | payer BC ==
[2016-02-09 14:39] VITALS: BMI 35.2
[~2016-05-11 08:32] MED LIST: LACTATED RINGERS 1,000 ML IV SCH
[2016-05-11 08:57] VITALS: TEMP 97.9
[2016-05-11] MEDS ORDERED: LIDOCAINE 1% 20 ML VIAL (10MG/ML) FOR IV START INTRADERMA ONE (08:57)
[2016-05-11] MEDS ORDERED: LIDOCAINE 1% 20 ML VIAL (10MG/ML) FOR IV START INTRADERMA PRN (09:02)
[2016-05-11 09:09] LABS: Glucose,Whole Blood 125 mg/dL (75-99)
[2016-05-11] MEDS ORDERED: LACTATED RINGERS 1,000 ML IV SCH (09:15)
[2016-05-11] MEDS ORDERED: PROPOFOL 10 MG/ML 20 ML VIAL IV ONE (09:32)
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
--- NOTE | 2016-05-11 09:51 | P.PCN ---
Date of Procedure: 05/11/16 Procedure(s) Performed: Preoperative Dx: Peptic ulcer disease Postoperative Dx: Erosive gastritis, mild distal esophagitis Procedure: EGD with Bx Anesthesia: Sedation Endoscopist: Dr. Galindo Specimens: Antrum, distal esophagus Endoscopic Procedure: The patient was on the endoscopy table in the left decubitus position. The Olympus gastroscope was inserted into the oropharynx and passed under direct visualization to the region of the third portion of the duodenum. From that point the scope was slowly withdrawn inspecting all surfaces carefully. There were no neoplastic inflammatory or polypoid lesions throughout the duodenum. The pylorus was widely patent. The stomach was carefully inspected. There was evidence of old blood in the stomach. There was gastritis present with multiple small superficial erosions seen. Biopsies of the antrum took place. Retroflexion revealed a normal hiatus. The esophagus was then carefully examined. There was mild distal esophagitis present. This measured less than 1 mL in size and was non-circumferential. Biopsies were taken. The remainder the esophagus appear normal. The patient was then taken to the recovery room in stable condition per anesthesia guidelines. Recommendations: Await biopsy results. Continue antiacid therapy. Minimize alcohol use. The patient admitted to drinking heavily this week.
[2016-05-11 10:01] VITALS: RESP 18
[2016-05-11 10:30] VITALS: BP 136/73; PULSE 62
== END 2016-05-11 10:56 | disposition home or self-care (01) ==
LOC: ORWHC2ENDO 08:32
PROVIDERS: ATTEND Surgery
DX: K29.50 Unspecified chronic gastritis without bleeding (principal); R13.10 Dysphagia, unspecified; K20.9 Esophagitis, unspecified; Z87.11 Personal history of peptic ulcer disease; J44.9 Chronic obstructive pulmonary disease, unspecified; J45.909 Unspecified asthma, uncomplicated; F39 Unspecified mood [affective] disorder; Z87.891 Personal history of nicotine dependence; Z79.84 Long term (current) use of oral hypoglycemic drugs; Z79.82 Long term (current) use of aspirin; Z79.891 Long term (current) use of opiate analgesic; Z79.899 Other long term (current) drug therapy; Z95.1 Presence of aortocoronary bypass graft; Z88.2 Allergy status to sulfonamides; Z88.1 Allergy status to other antibiotic agents; Z88.8 Allergy status to other drugs, medicaments and biological substances
CPT/HCPCS: 88305; 88342; 43239; J2704; 99153

== ENCOUNTER 2016-05-22 22:20 | Inpatient (IN) | payer BC, OTHER ==
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
[2016-05-23] MEDS ORDERED: LORazepam 2 MG/ML SYRINGE IM STA (01:01)
[2016-05-23] MEDS ORDERED: HALOPERIDOL LACTATE 5 MG/ML 1 ML VIAL IM STA (01:02)
[2016-05-23 13:27] LABS: Glucose,Whole Blood 210 mg/dL (75-99)
[2016-05-23] MEDS ORDERED: ACETAMINOPHEN TAB 325 MG TAB PO PRN (14:41)
[2016-05-23] MEDS ORDERED: MAG HYDROX/AL HYDROX/SIMETH 30 ML CUP PO PRN (14:41)
[2016-05-23] MEDS ORDERED: MAGNESIUM HYDROXIDE 2,400 MG/10 ML CUP PO PRN (14:41)
[2016-05-23] MEDS ORDERED: LORazepam 1 MG TAB PO PRN (14:43)
[2016-05-23 15:41] VITALS: BMI 37.0
[2016-05-23] MEDS: HYDROcodone/APAP 5-325MG 1 EACH TAB PO PRN ×2 (16:26→21:55)
[2016-05-23] MEDS: GABAPENTIN 100 MG CAP PO SCH ×2 (16:26→21:55)
[2016-05-23] MEDS: LORazepam 1 MG TAB PO PRN ×2 (16:27→21:57)
[2016-05-23] MEDS: LOPERAMIDE 2 MG CAP PO PRN ×2 (16:42→21:06)
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
[2016-05-23 17:19] LABS: Glucose,Whole Blood 142 mg/dL (75-99)
[2016-05-23] MEDS ORDERED: NITROGLYCERIN SL TABS 0.4 MG TAB SUBLINGUAL PRN (18:19)
[2016-05-23] MEDS: ASPIRIN 81 MG CHEW PO SCH (18:54)
[2016-05-23] MEDS: ATORVASTATIN 40 MG TAB PO SCH (18:54)
[2016-05-23] MEDS: PANTOPRAZOLE 40 MG TABLET PO SCH (18:54)
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
[2016-05-23 21:54] LABS: Glucose,Whole Blood 175 mg/dL (75-99)
[2016-05-23] MEDS: lamoTRIgine 100 MG TAB PO SCH (21:55)
[2016-05-23] MEDS: LISINOPRIL 10 MG TAB PO SCH (21:55)
[2016-05-24] MEDS: LORazepam 1 MG TAB PO PRN ×2 (04:35→12:48)
[2016-05-24] MEDS: HYDROcodone/APAP 5-325MG 1 EACH TAB PO PRN ×3 (04:35→21:02)
[2016-05-24 05:56] LABS: Glucose,Whole Blood 126 mg/dL (75-99)
[2016-05-24] MEDS: glipiZIDE 5 MG TAB PO SCH ×2 (09:16→16:34)
[2016-05-24] MEDS: ATORVASTATIN 40 MG TAB PO SCH (09:17)
[2016-05-24] MEDS: LISINOPRIL 10 MG TAB PO SCH ×2 (09:17→20:59)
[2016-05-24] MEDS: GABAPENTIN 100 MG CAP PO SCH (09:17)
[2016-05-24] MEDS: PANTOPRAZOLE 40 MG TABLET PO SCH (09:17)
[2016-05-24] MEDS: ASPIRIN 81 MG CHEW PO SCH (09:17)
[2016-05-24] MEDS: FLUoxetine HCL 20 MG CAP PO SCH (09:17)
[2016-05-24] MEDS: ALBUTEROL INHALER 60 PUFF/8 GM INHALER INHALATION PRN ×3 (09:21→20:34)
[2016-05-24] MEDS: LOPERAMIDE 2 MG CAP PO PRN ×2 (09:31→21:04)
[2016-05-24 10:59] LABS: Basophils # (A) 0.1 k/uL (0-0.2); Basophils % (A) 1 %; CH 31.4; CHCM 32.4; Eosinophils # (A) 0.1 k/uL (0-0.7); Eosinophils % (A) 1 %; HCT 35.9 % (39.0-53.0); HDW 3.78; HGB 11.6 gm/dL (13.0-17.5); Hypochromasia Moderate; Luc # (Auto) 0.27; Luc % (Auto) 3; Lymphocytes # (A) 2.5 k/uL (1.0-4.8); Lymphocytes % (A) 28 %; MCH 31.4 pg (25.0-35.0); MCHC 32.3 g/dL (31.0-37.0); MCV 97.4 fL (80.0-100.0); Mean Platelet Volume 6.8; Monocytes # (A) 0.4 k/uL (0-1.0); Monocytes % (A) 5 %; Neutrophils # (A) 5.5 k/uL (1.3-7.7); Neutrophils % (A) 62 %; Poikilocytosis Slight; RBC 3.69 m/uL (4.30-5.90); RDW 15.7 % (11.5-15.5); WBC 8.9 k/uL (3.8-10.6)
[2016-05-24 11:09] LABS: ALT 56 U/L (21-72); AST 48 U/L (17-59); Alkaline Phosphatase 111 U/L (38-126); Amylase 40 U/L (30-110); Anion Gap 16 mmol/L; Blood Urea Nitrogen 13 mg/dL (9-20); Carbon Dioxide 21 mmol/L (22-30); Chloride 103 mmol/L (98-107); Glucose 290 mg/dL (74-99); Non-African American GFR(MDRD) >60 (>60 ml/min/1.73 sqM); Potassium 3.2 mmol/L (3.5-5.1); Sodium 140 mmol/L (137-145); Total Bilirubin 2.3 mg/dL (0.2-1.3); Total Protein 6.6 g/dL (6.3-8.2)
[2016-05-24 12:42] LABS: Glucose,Whole Blood 199 mg/dL (75-99)
[2016-05-24 13:08] LABS: Hemoglobin A1C 6.3 % (4.2-6.1)
--- NOTE | 2016-05-24 13:52 | P.PN ---
Progress Note - Text SUBJECTIVE: Patient endorses poor sleep "Up three or four times",lot of somatic complain , talked about his depression and anger due to ongoing conflict with and not able to see his daughter children for 6 months,he reports that he has been drinking more since he lost his license last year because"I had blackout",his insight to his SA issue is impaired saying "I am not using Vicodin as before , only [place] ,I do drink in moderation "I discussed with him his use of alcohol , Xanax and Opium affected his memory and mental stability but he was resistant to the idea and blaming his depression on his living situation and struggling with pain saying"Now I can not use my right hand and I have pain and numbness especially on first 3 fingers" OBJECTIVE: Patient is casually dressed ,pleasant on approach,good eyes contact,mood "Angry because my petitioned me",affect is labile ,speech is spontaneous and normal in rate and rhythm,he expressed feeling helpless and overwhelmed with living situation,he denies suicidal or homicidal ideation ,no psychotic features ,his insight to his SA is questionable ASSESSMENT: Patient is depressed ,somatic preoccupied ,blaming his and daughter for his ongoing depression ,still indecisive about future of his marriage PLAN: Decrease PRN Ativan and [place],increase Neurontin for anxiety and pain , discussed possibility of inpatient SA rehab however patient was resistant ,add Seroquel for sleep ,continue Prozac and Lamictal ,encourage groups participation
[2016-05-24] MEDS: GABAPENTIN 300 MG CAP PO SCH ×2 (16:34→20:58)
[2016-05-24 18:05] LABS: Glucose,Whole Blood 182 mg/dL (75-99)
[2016-05-24 19:54] LABS: Glucose,Whole Blood 214 mg/dL (75-99)
[2016-05-24] MEDS: QUEtiapine 50 MG TAB PO SCH (20:59)
[2016-05-24] MEDS: lamoTRIgine 100 MG TAB PO SCH (20:59)
[2016-05-24] MEDS: LORazepam 0.5 MG TAB PO PRN (21:01)
[2016-05-24] MEDS ORDERED: POTASSIUM CHLORIDE ER 20 MEQ TAB.ER PO ONE (22:24)
[2016-05-25 06:08] LABS: Glucose,Whole Blood 105 mg/dL (75-99)
[2016-05-25] MEDS: LORazepam 0.5 MG TAB PO PRN (06:48)
[2016-05-25] MEDS: HYDROcodone/APAP 5-325MG 1 EACH TAB PO PRN ×3 (06:48→23:27)
[2016-05-25] MEDS: INSULIN LISPRO (humaLOG) 300 UNIT/3 ML VIAL SQ SCH ×4 (07:56→20:41)
[2016-05-25] MEDS: glipiZIDE 5 MG TAB PO SCH ×2 (08:07→17:36)
[2016-05-25] MEDS: ATORVASTATIN 40 MG TAB PO SCH (09:34)
[2016-05-25] MEDS: LISINOPRIL 10 MG TAB PO SCH ×2 (09:34→22:08)
[2016-05-25] MEDS: ASPIRIN 81 MG CHEW PO SCH (09:34)
[2016-05-25] MEDS: GABAPENTIN 300 MG CAP PO SCH ×3 (09:37→22:08)
[2016-05-25] MEDS: PANTOPRAZOLE 40 MG TABLET PO SCH (09:37)
[2016-05-25] MEDS: FLUoxetine HCL 20 MG CAP PO SCH (09:37)
[2016-05-25] MEDS: IBUPROFEN 400 MG TAB PO PRN (09:38)
[2016-05-25 12:32] LABS: Glucose,Whole Blood 112 mg/dL (75-99)
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
[2016-05-25 14:15] LABS: Potassium 3.8 mmol/L (3.5-5.1)
[2016-05-25] MEDS ORDERED: ONDANSETRON 4 MG TAB PO PRN (14:17)
[2016-05-25] MEDS: QUEtiapine 25 MG TAB PO PRN (16:26)
[2016-05-25] MEDS: ALBUTEROL INHALER 60 PUFF/8 GM INHALER INHALATION PRN ×2 (16:42→20:43)
[2016-05-25] MEDS: LOPERAMIDE 2 MG CAP PO PRN (17:16)
[2016-05-25 17:17] LABS: Glucose,Whole Blood 117 mg/dL (75-99)
[2016-05-25 20:07] LABS: Glucose,Whole Blood 171 mg/dL (75-99)
[2016-05-25] MEDS: FAMOTIDINE 20 MG TAB PO SCH (22:08)
[2016-05-25] MEDS: lamoTRIgine 100 MG TAB PO SCH (22:08)
[2016-05-25] MEDS: QUEtiapine 50 MG TAB PO SCH (22:08)
[2016-05-26 06:53] LABS: Glucose,Whole Blood 114 mg/dL (75-99)
[2016-05-26] MEDS: HYDROcodone/APAP 5-325MG 1 EACH TAB PO PRN ×3 (06:56→22:40)
[2016-05-26] MEDS: INSULIN LISPRO (humaLOG) 300 UNIT/3 ML VIAL SQ SCH ×4 (07:52→20:39)
[2016-05-26] MEDS: glipiZIDE 5 MG TAB PO SCH ×2 (07:53→17:25)
--- NOTE | 2016-05-26 08:59 | P.PN ---
Progress Note - Text Interval history: The patient is found in the hallway he follows me to an interview room. He is being seen today in coverage for Dr. East. The patient states he was readmitted because he was relapsing with alcohol. We have been monitoring him for alcohol withdrawal. Vital signs stable. Ativan was discontinued yesterday. He is finding the Seroquel helpful for anxiety. He reports full attendance of groups she's been eating and he feels that he is stabilizing. His mood is improving. He is somewhat apprehensive about the family meeting scheduled for this weekend involving his but feels more assured that his brother will help stabilize the meeting. He states that it seems he has changed his drug of choice from opiates to alcohol. We discussed the possibility of attending inpatient chemical dependency rehab he states "I' ve done rehab". Mental status exam: The patient is an overweight male he seated calmly he's pleasant and cooperative. Hygiene grooming adequate speech fluent spontaneous nonpressured. He reports his moods improving he is reporting no acute suicidal or homicidal ideation today. He is reporting no symptoms of psychosis is no evidence of psychosis. Thought process is linear there is no evidence of hypomanic or manic symptoms. Insight and judgment is improving. He demonstrates no verbal or physical aggressiveness. There is no evidence of tremor. Plan: The patient will continue on his current medications they have recently been adjusted. He appears to be stabilizing. We will monitor him for safety area we will continue to monitor vital signs he is encouraged to continue participating in the milieu.
[2016-05-26] MEDS: LISINOPRIL 10 MG TAB PO SCH ×2 (09:05→21:53)
[2016-05-26] MEDS: ATORVASTATIN 40 MG TAB PO SCH (09:05)
[2016-05-26] MEDS: ASPIRIN 81 MG CHEW PO SCH (09:05)
[2016-05-26] MEDS: LORATADINE 10 MG TAB PO SCH (09:05)
[2016-05-26] MEDS: FAMOTIDINE 20 MG TAB PO SCH ×2 (09:08→21:52)
[2016-05-26] MEDS: PANTOPRAZOLE 40 MG TABLET PO SCH (09:09)
[2016-05-26] MEDS: GABAPENTIN 300 MG CAP PO SCH ×3 (09:09→21:53)
[2016-05-26] MEDS: lamoTRIgine 100 MG TAB PO SCH ×2 (09:09→21:52)
[2016-05-26] MEDS: FLUoxetine HCL 20 MG CAP PO SCH (09:09)
[2016-05-26] MEDS: QUEtiapine 25 MG TAB PO PRN (09:10)
[2016-05-26 11:59] LABS: Glucose,Whole Blood 145 mg/dL (75-99)
[2016-05-26] MEDS: SODIUM CHLORIDE 0.65% NASAL SPRAY 44 ML BTL NASAL PRN ×2 (12:03→20:15)
[2016-05-26] MEDS: ALBUTEROL INHALER 60 PUFF/8 GM INHALER INHALATION PRN ×2 (12:50→21:49)
[2016-05-26] MEDS: LOPERAMIDE 2 MG CAP PO PRN ×2 (15:26→22:40)
[2016-05-26 17:27] LABS: Glucose,Whole Blood 139 mg/dL (75-99)
[2016-05-26] MEDS ORDERED: diphenhydrAMINE 50 MG CAP PO STA (18:32)
[2016-05-26 20:15] LABS: Glucose,Whole Blood 187 mg/dL (75-99)
[2016-05-26] MEDS: IBUPROFEN 400 MG TAB PO PRN (20:15)
[2016-05-26] MEDS: QUEtiapine 50 MG TAB PO SCH (21:53)
[2016-05-26] MEDS: traZODone HCL 50 MG TAB PO PRN (22:46)
[2016-05-27] MEDS: QUEtiapine 25 MG TAB PO PRN (03:41)
[2016-05-27] MEDS: SODIUM CHLORIDE 0.65% NASAL SPRAY 44 ML BTL NASAL PRN ×3 (03:41→23:23)
[2016-05-27 06:37] LABS: Glucose,Whole Blood 117 mg/dL (75-99)
[2016-05-27] MEDS: glipiZIDE 5 MG TAB PO SCH ×2 (07:54→17:28)
[2016-05-27] MEDS: HYDROcodone/APAP 5-325MG 1 EACH TAB PO PRN ×3 (07:54→23:19)
[2016-05-27] MEDS: INSULIN LISPRO (humaLOG) 300 UNIT/3 ML VIAL SQ SCH ×4 (07:54→21:01)
[2016-05-27] MEDS: ALBUTEROL INHALER 60 PUFF/8 GM INHALER INHALATION PRN ×4 (09:08→22:01)
[2016-05-27] MEDS: ASPIRIN 81 MG CHEW PO SCH (09:32)
[2016-05-27] MEDS: GABAPENTIN 300 MG CAP PO SCH (09:33)
[2016-05-27] MEDS: FAMOTIDINE 20 MG TAB PO SCH ×2 (09:33→21:04)
[2016-05-27] MEDS: FLUoxetine HCL 20 MG CAP PO SCH (09:33)
[2016-05-27] MEDS: LORATADINE 10 MG TAB PO SCH (09:33)
[2016-05-27] MEDS: PANTOPRAZOLE 40 MG TABLET PO SCH (09:33)
[2016-05-27] MEDS: ATORVASTATIN 40 MG TAB PO SCH (09:33)
[2016-05-27] MEDS: LISINOPRIL 10 MG TAB PO SCH ×2 (09:33→21:05)
[2016-05-27] MEDS: lamoTRIgine 100 MG TAB PO SCH ×2 (09:33→21:04)
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
[2016-05-27 12:19] LABS: Glucose,Whole Blood 188 mg/dL (75-99)
[2016-05-27] MEDS: IBUPROFEN 400 MG TAB PO PRN (12:46)
[2016-05-27] MEDS: GABAPENTIN 400 MG CAP PO SCH ×2 (15:00→21:09)
[2016-05-27 17:30] LABS: Glucose,Whole Blood 101 mg/dL (75-99)
[2016-05-27 19:59] LABS: Glucose,Whole Blood 180 mg/dL (75-99)
[2016-05-27] MEDS: QUEtiapine 50 MG TAB PO SCH (21:08)
[2016-05-27] MEDS: traZODone HCL 50 MG TAB PO PRN (21:15)
[2016-05-28] MEDS: SODIUM CHLORIDE 0.65% NASAL SPRAY 44 ML BTL NASAL PRN ×2 (05:50→23:16)
[2016-05-28 05:51] LABS: Glucose,Whole Blood 113 mg/dL (75-99)
[2016-05-28] MEDS: HYDROcodone/APAP 5-325MG 1 EACH TAB PO PRN ×3 (07:54→23:14)
[2016-05-28] MEDS: QUEtiapine 25 MG TAB PO PRN (07:54)
[2016-05-28] MEDS: INSULIN LISPRO (humaLOG) 300 UNIT/3 ML VIAL SQ SCH ×4 (08:20→20:20)
[2016-05-28] MEDS: ALBUTEROL INHALER 60 PUFF/8 GM INHALER INHALATION PRN ×4 (08:57→21:14)
[2016-05-28] MEDS: ASPIRIN 81 MG CHEW PO SCH (09:54)
[2016-05-28] MEDS: glipiZIDE 5 MG TAB PO SCH ×2 (09:54→16:54)
[2016-05-28] MEDS: PANTOPRAZOLE 40 MG TABLET PO SCH (09:54)
[2016-05-28] MEDS: FAMOTIDINE 20 MG TAB PO SCH (09:55)
[2016-05-28] MEDS: lamoTRIgine 100 MG TAB PO SCH ×2 (09:55→21:55)
[2016-05-28] MEDS: LISINOPRIL 10 MG TAB PO SCH ×2 (09:55→21:55)
[2016-05-28] MEDS: FLUoxetine HCL 20 MG CAP PO SCH (09:56)
[2016-05-28] MEDS: LORATADINE 10 MG TAB PO SCH (09:56)
[2016-05-28] MEDS: GABAPENTIN 400 MG CAP PO SCH (09:56)
[2016-05-28] MEDS: ATORVASTATIN 40 MG TAB PO SCH (09:56)
[2016-05-28 13:06] LABS: Glucose,Whole Blood 93 mg/dL (75-99)
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
[2016-05-28] MEDS: hydrOXYzine PAMOATE 25 MG CAP PO PRN (14:50)
[2016-05-28] MEDS: GABAPENTIN 300 MG CAP PO SCH ×2 (16:14→21:55)
[2016-05-28] MEDS: IBUPROFEN 400 MG TAB PO PRN (16:53)
[2016-05-28 17:26] LABS: Glucose,Whole Blood 148 mg/dL (75-99)
[2016-05-28 19:48] LABS: Glucose,Whole Blood 157 mg/dL (75-99)
[2016-05-28] MEDS: traZODone HCL 50 MG TAB PO PRN (21:55)
[2016-05-28] MEDS: QUEtiapine 50 MG TAB PO SCH (21:55)
[2016-05-29] MEDS: SODIUM CHLORIDE 0.65% NASAL SPRAY 44 ML BTL NASAL PRN ×2 (06:23→22:42)
[2016-05-29] MEDS: hydrOXYzine PAMOATE 25 MG CAP PO PRN (06:23)
[2016-05-29 06:32] LABS: Glucose,Whole Blood 136 mg/dL (75-99)
[2016-05-29] MEDS: HYDROcodone/APAP 5-325MG 1 EACH TAB PO PRN ×3 (06:44→22:40)
[2016-05-29] MEDS: glipiZIDE 5 MG TAB PO SCH ×2 (07:58→17:58)
[2016-05-29] MEDS: GABAPENTIN 300 MG CAP PO SCH ×3 (07:59→21:06)
[2016-05-29] MEDS: ASPIRIN 81 MG CHEW PO SCH (07:59)
[2016-05-29] MEDS: ATORVASTATIN 40 MG TAB PO SCH (07:59)
[2016-05-29] MEDS: LORATADINE 10 MG TAB PO SCH (07:59)
[2016-05-29] MEDS: lamoTRIgine 100 MG TAB PO SCH ×2 (07:59→21:07)
[2016-05-29] MEDS: FLUoxetine HCL 20 MG CAP PO SCH (07:59)
[2016-05-29] MEDS: PANTOPRAZOLE 40 MG TABLET PO SCH (08:00)
[2016-05-29] MEDS: LISINOPRIL 10 MG TAB PO SCH ×2 (08:00→21:06)
[2016-05-29] MEDS: INSULIN LISPRO (humaLOG) 300 UNIT/3 ML VIAL SQ SCH ×4 (08:02→20:14)
--- NOTE | 2016-05-29 08:47 | P.PN ---
Subjective SUBJECTIVE: The patient states "My told me lot of bad news ,I do feel terrible", patient stated that his youngest daughter lost her dog , has infection and abdominal pain since her three months ago,his son is using Steroid and his three grandchildren having bad Flu ,he reports high anxiety and does not feel that Vistaril is helping ,was able to sleep 6 -7 hours with Trazodone and Seroquel .He rates his anxiety and pain 8/10 ,10 being the worse,discussed treatment options and to avoid any habit forming drugs ,patient was receptive. He states that it seems he has changed his drug of choice from opiates to alcohol. We discussed the possibility of attending inpatient chemical dependency rehab he states "I've done rehab" Mental status exam: The patient is an overweight male he seated calmly he's pleasant and cooperative. Hygiene grooming adequate speech fluent spontaneous ,was tearful at times when talking about his children , he is reporting no acute suicidal or homicidal ideation today. He is reporting no symptoms of psychosis is no evidence of brent. Thought process is linear ,at times circumstantial. Insight and judgment is fair He demonstrates no verbal or physical aggressiveness. There is no evidence of tremor. Plan: Discontinue Vistaril and add low dose of Seroquel TID PRN for anxiety, continue rest of medications . We will monitor him for safety area we will continue to monitor vital signs he is encouraged to continue participating in the milieu. I called patient who stated that she did not remove guns from home as she was busy taking care of her sick grandchildren ,according to her she will remove all guns from home tonight Objective - Vital Signs Vital signs: Vital Signs Temp 97.9 F 05/29/16 06:32 Pulse 86 05/29/16 08:02 Resp 18 05/29/16 08:02 BP 112/63 05/29/16 08:02 Pulse Ox 96 05/27/16 14:58 - Labs CBC & Chem 7: 05/24/16 09:45 05/25/16 09:22 Labs: Abnormal Lab Results - Last 24 Hours (Table) 05/28/16 05/28/16 05/29/16 Range/Units 17:21 19:47 06:31 POC Glucose (mg/dL) 148 H 157 H 136 H (75-99) mg/dL
[2016-05-29] MEDS: ALBUTEROL INHALER 60 PUFF/8 GM INHALER INHALATION PRN ×3 (09:23→20:56)
[2016-05-29 12:56] LABS: Glucose,Whole Blood 99 mg/dL (75-99)
[2016-05-29] MEDS: IBUPROFEN 400 MG TAB PO PRN (15:31)
[2016-05-29] MEDS: QUEtiapine 25 MG TAB PO PRN (16:15)
[2016-05-29 17:01] LABS: Glucose,Whole Blood 239 mg/dL (75-99)
[2016-05-29 20:17] LABS: Glucose,Whole Blood 146 mg/dL (75-99)
[2016-05-29] MEDS: QUEtiapine 50 MG TAB PO SCH (21:10)
[2016-05-30 06:24] LABS: Glucose,Whole Blood 146 mg/dL (75-99)
[2016-05-30] MEDS: QUEtiapine 25 MG TAB PO PRN (06:37)
[2016-05-30] MEDS: IBUPROFEN 400 MG TAB PO PRN ×2 (06:38→14:15)
[2016-05-30] MEDS: HYDROcodone/APAP 5-325MG 1 EACH TAB PO PRN ×2 (06:38→14:12)
[2016-05-30] MEDS: SODIUM CHLORIDE 0.65% NASAL SPRAY 44 ML BTL NASAL PRN (06:38)
[2016-05-30 06:58] VITALS: TEMP 97.7
[2016-05-30] MEDS: glipiZIDE 5 MG TAB PO SCH ×2 (08:01→18:09)
[2016-05-30] MEDS: ASPIRIN 81 MG CHEW PO SCH (08:02)
[2016-05-30] MEDS: ATORVASTATIN 40 MG TAB PO SCH (08:02)
[2016-05-30] MEDS: LORATADINE 10 MG TAB PO SCH (08:05)
[2016-05-30] MEDS: lamoTRIgine 100 MG TAB PO SCH (08:05)
[2016-05-30] MEDS: GABAPENTIN 300 MG CAP PO SCH ×2 (08:05→16:26)
[2016-05-30] MEDS: PANTOPRAZOLE 40 MG TABLET PO SCH (08:05)
[2016-05-30] MEDS: FLUoxetine HCL 20 MG CAP PO SCH (08:06)
[2016-05-30] MEDS: LISINOPRIL 10 MG TAB PO SCH (08:06)
[2016-05-30] MEDS: INSULIN LISPRO (humaLOG) 300 UNIT/3 ML VIAL SQ SCH ×3 (08:10→18:09)
[2016-05-30] MEDS: ALBUTEROL INHALER 60 PUFF/8 GM INHALER INHALATION PRN ×2 (09:03→17:02)
[2016-05-30 12:39] LABS: Glucose,Whole Blood 110 mg/dL (75-99)
[2016-05-30 14:54] VITALS: RESP 16
[2016-05-30 16:28] VITALS: BP 112/55; PULSE 86
[2016-05-30 17:02] LABS: Glucose,Whole Blood 179 mg/dL (75-99)
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
[2016-05-31] MEDS ORDERED: NALTREXONE HCL 50 MG TAB PO SCH (09:00)
== END 2016-05-30 18:51 | disposition home or self-care (01) | DRG 885 ==
LOC: EC 22:20 → 3MHU 05-23 13:06
PROVIDERS: ADMIT Psychiatry & Neurology Psychiatry; ATTEND Psychiatry & Neurology Psychiatry
DX: F33.9 Major depressive disorder, recurrent, unspecified (principal); E11.9 Type 2 diabetes mellitus without complications; R45.851 Suicidal ideations; F10.239 Alcohol dependence with withdrawal, unspecified; I10 Essential (primary) hypertension; E78.5 Hyperlipidemia, unspecified; F43.10 Post-traumatic stress disorder, unspecified; G47.30 Sleep apnea, unspecified; G89.4 Chronic pain syndrome; I25.10 Atherosclerotic heart disease of native coronary artery without angina pectoris; K21.9 Gastro-esophageal reflux disease without esophagitis; K57.30 Diverticulosis of large intestine without perforation or abscess without bleeding; K58.9 Irritable bowel syndrome, unspecified; N40.0 Benign prostatic hyperplasia without lower urinary tract symptoms; Z79.82 Long term (current) use of aspirin; Z82.49 Family history of ischemic heart disease and other diseases of the circulatory system; Z87.891 Personal history of nicotine dependence; Z95.1 Presence of aortocoronary bypass graft; Z88.2 Allergy status to sulfonamides; Z79.899 Other long term (current) drug therapy
CPT/HCPCS: 36415; 80051; 80053; 80306; 80320; 82150; 83036; 83690; 85025; 94640; 96372; 99285

== ENCOUNTER → 2016-06-18 | Outpatient (CLI) | payer BC, OTHER ==
--- NOTE | 2016-06-18 12:56 | XR ---
EXAMINATION TYPE: XR lumbar spine with bend/flex DATE OF EXAM: 06/18/2016 12:45 PM CLINICAL HISTORY: Low back pain TECHNIQUE: Frontal, lateral, and dynamic flexion and extension lateral images of the lumbar spine are obtained. COMPARISON: Lumbar spine x-ray September 14, 2015. CT abdomen and pelvis May 27, 2015 FINDINGS: There are 5 lumbar type vertebral bodies redemonstrated. The lumbar spine shows satisfact ory alignment without evidence of acute fracture or dislocation. Vertebral body heights are within no rmal limits. Mild disc space narrowing and spurring at L2-L3 and L3-L4 levels is redemonstrated. Dee Dee lacey flexion and extension views show no suspicious subluxation or increased disc space narrowing. Vas cular calcification of overlying abdominal aorta and iliac branch vessels is noted. Cholecystectomy c lips are redemonstrated. IMPRESSION: Stable degenerative changes as detailed above.
== END ==
LOC: RADXRMAIN 12:27
PROVIDERS: ATTEND Psychiatry & Neurology Neurology
DX: M47.816 Spondylosis without myelopathy or radiculopathy, lumbar region (principal)
CPT/HCPCS: 72114

== ENCOUNTER → 2016-07-18 | Outpatient (CLI) | payer BC ==
[2016-07-18 14:37] LABS: Blood Urea Nitrogen 14 mg/dL (9-20); Non-African American GFR(MDRD) >60 (>60 ml/min/1.73 sqM)
--- NOTE | 2016-07-18 15:39 | CT ---
EXAMINATION TYPE: CT soft tissue neck w con DATE OF EXAM: 07/18/2016 3:30 PM COMPARISON: NONE HISTORY: Cough and throat swelling x 5 months. Right neck swelling (marked by BB). Hemoptysis x [address] DLP: 640.70 mGycm CONTRAST: Patient injected with 100 mL of Omnipaque 300. TECHNIQUE: Axial images at 3 mm thick sections. Reconstructed images in the coronal plane and sagitt al plane are reviewed. FINDINGS: Limited CT sections are obtained the lung apices. The lung apices appear clear. CT neck: The torus tubarius and fossa of Rosenmuller are normal. Director [employer] spaces are normal. Para nasal sinuses and mastoid air cells are clear. Parotid glands appear normal and symmetrical. Submandibular glands, are normal. Parapharyngeal spac es are normal. No suspicious adenopathy is evident. The hypopharynx appears within normal limits. Vocal cord level appear symmetrical. Thyroid as visualized is normal. Osseous structures are normal. BB was placed over palpable region on the right lower neck. This is below the salivary glands. No und erlying masses are identified. IMPRESSIONS: 1. Normal CT neck. 2. No suspicious mass at the level of the palpable area marked by the BB. This lies below the salivar y gland. Consider salivary gland prominence on the right compared to the left.
== END | disposition home or self-care (01) ==
LOC: RADCTMAIN 13:52
PROVIDERS: ATTEND Otolaryngology
DX: J32.9 Chronic sinusitis, unspecified (principal); R13.10 Dysphagia, unspecified
CPT/HCPCS: 82565; 84520; 70491; 36415; Q9967

== ENCOUNTER → 2016-07-27 | Outpatient (CLI) | payer BC ==
--- NOTE | 2016-07-27 12:20 | XR ---
EXAMINATION TYPE: XR chest 2V DATE OF EXAM: 07/27/2016 12:12 PM COMPARISON: 04/16/16 HISTORY: Shortness of breath TECHNIQUE: Frontal and lateral views of the chest are obtained. FINDINGS: Scattered senescent parenchymal changes noted. Hyperinflation compatible with COPD. No evidence for infiltrate. No evidence for atelectasis. Heart size is stable. Mediastinal structures are stable and grossly unremarkable. No evidence for hilar prominence. Degenerative changes dorsal spine. IMPRESSION: 1. No evidence for acute pulmonary disease.
== END ==
LOC: RADXRMAIN 11:58
PROVIDERS: ATTEND Orthopaedic Surgery Hand Surgery
DX: Z00.00 Encounter for general adult medical examination without abnormal findings (principal)
CPT/HCPCS: 71020

== ENCOUNTER → 2017-01-29 | Outpatient (CLI) | payer MEDICARE, BC ==
--- NOTE | 2017-01-29 17:47 | MR ---
EXAMINATION TYPE: MR brain wo con DATE OF EXAM: 01/29/2017 COMPARISON: NONE HISTORY: Some Memory Loss, Headaches Daily CONTRAST: Performed utilizing 0 mL intravenous Gadavist gadolinium contrast. TECHNIQUE: Multiplanar, multiecho imaging on a 3.0 Alina magnet is performed through the brain. Stud y is performed within 24 hours of arrival to the hospital. The craniovertebral junction is normal. The pituitary is normal. Diffusion-weighted imaging is performed. No abnormal hyperintensity is present to suggest an acute i ntracranial infarct or acute ischemic change. Some artifact from vascular pulsation is present in the temporal lobes. No suspicious signal abnormal ity is identified. Ventricles and sulci are appropriate for the patient age. IMPRESSIONS: 1. No acute intracranial process.
== END ==
LOC: RADMRIMAIN 15:29
PROVIDERS: ATTEND Psychiatry & Neurology Pain Medicine
DX: R41.3 Other amnesia (principal)
CPT/HCPCS: 70551

== ENCOUNTER 2017-02-05 17:07 | Emergency (ER) | payer MEDICARE, BC ==
[2017-02-05 17:11] VITALS: BP 126/60; PULSE 87; RESP 16; TEMP 97
[2017-02-05] MEDS ORDERED: HYDROmorphone 1 MG/ML 1 ML SYRINGE IM STA (17:31)
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
== END 2017-02-05 18:03 | disposition home or self-care (01) ==
LOC: EC 17:07
DX: G89.4 Chronic pain syndrome (principal); M54.5 Low back pain; E78.5 Hyperlipidemia, unspecified; I10 Essential (primary) hypertension; I25.10 Atherosclerotic heart disease of native coronary artery without angina pectoris; K21.9 Gastro-esophageal reflux disease without esophagitis; Z87.891 Personal history of nicotine dependence; Z79.82 Long term (current) use of aspirin; Z79.899 Other long term (current) drug therapy; Z88.1 Allergy status to other antibiotic agents; Z88.2 Allergy status to sulfonamides; Z88.6 Allergy status to analgesic agent; Z82.69 Family history of other diseases of the musculoskeletal system and connective tissue
CPT/HCPCS: 99283; 96372; J1170

== ENCOUNTER 2017-03-03 20:11 | Inpatient (IN) | payer MEDICARE, BC ==
[2017-03-03 20:33] LABS: Glucose,Whole Blood 274 mg/dL (75-99)
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
[2017-03-03 21:11] LABS: Anisocytosis Slight; Basophils # (A) 0.1 k/uL (0-0.2); Basophils % (A) 1 %; CH 29.6; CHCM 31.5; Eosinophils # (A) 0.3 k/uL (0-0.7); Eosinophils % (A) 3 %; HCT 43.3 % (39.0-53.0); HDW 2.58; HGB 13.6 gm/dL (13.0-17.5); Luc # (Auto) 0.27; Luc % (Auto) 3; Lymphocytes # (A) 1.9 k/uL (1.0-4.8); Lymphocytes % (A) 23 %; MCH 29.7 pg (25.0-35.0); MCHC 31.4 g/dL (31.0-37.0); MCV 94.5 fL (80.0-100.0); Mean Platelet Volume 7.4; Monocytes # (A) 0.8 k/uL (0-1.0); Monocytes % (A) 9 %; Neutrophils # (A) 5.2 k/uL (1.3-7.7); Neutrophils % (A) 62 %; RBC 4.58 m/uL (4.30-5.90); RDW 16.2 % (11.5-15.5); WBC 8.4 k/uL (3.8-10.6); WBC (Perox) 8.93
--- NOTE | 2017-03-03 21:12 | XR ---
EXAMINATION TYPE: XR chest 2V DATE OF EXAM: 03/03/2017 COMPARISON: 07/27/2016 HISTORY: Dizziness TECHNIQUE: Frontal and lateral views of the chest are obtained. FINDINGS: There is no heart failure nor confluent pneumonic infiltrate. There is some linear density at the left lung base. There are sternal wires. Mediastinum is normal. Bony thorax is intact. IMPRESSION: There is some new linear infiltrate and atelectasis at the left lung base compared to la st exam. No heart failure.
[2017-03-03 21:21] LABS: Calcium 9.2 mg/dL (8.4-10.2); Potassium 4.3 mmol/L (3.5-5.1); Total Protein 6.5 g/dL (6.3-8.2)
[2017-03-03 21:23] LABS: Creatine Kinase 65 U/L (55-170)
[2017-03-03 21:26] LABS: Glucose,Whole Blood 310 mg/dL (75-99)
[2017-03-03 21:27] LABS: INR 0.9 (<1.2); Prothrombin Time 9.4 sec (9.0-12.0)
--- NOTE | 2017-03-03 21:28 | CT ---
EXAMINATION TYPE: CT brain wo con DATE OF EXAM: 03/03/2017 COMPARISON: 02/12/2016 HISTORY: Prior on synapse 2015, dizziness for 1 week with multiple syncopal episodes CT DLP: DLP:1047.10 mGycm Automated exposure control for dose reduction was used. FINDINGS: Ventricles and sulci appear normal. There is no mass effect nor midline shift. There is no sign of in tracranial hemorrhage. The calvarium is intact. IMPRESSION: NEGATIVE CT SCAN OF THE BRAIN. NO CHANGE.
[2017-03-03 21:36] LABS: Creatine Kinase MB 1.8 ng/mL (0.0-2.4); Troponin I <0.012 ng/mL (0.000-0.034)
[2017-03-03 21:40] LABS: Appearance,Urine Clear (Clear); Bilirubin,Urine Negative (Negative); Glucose,Urine (UA) 4+ (Negative); Ketones,Urine Negative (Negative); Leukocyte Esterase,Urine Negative (Negative); Nitrite,Urine Negative (Negative); PH, Urine 5.5 (5.0-8.0); Protein,Urine Trace (Negative); Specific Gravity,Urine 1.019 (1.001-1.035); UA Billing (MACRO vs. MICRO) CHEM
[2017-03-03 21:41] LABS: Partial Thromboplastin Time 19.6 sec (22.0-30.0)
[2017-03-03] MEDS ORDERED: INSULIN REGULAR 100 UNIT/ML VIAL SQ ONE (21:42)
[2017-03-03] MEDS ORDERED: SODIUM CHLORIDE 0.9% 500 ML IV STA (21:42)
[2017-03-03] MEDS ORDERED: HYDROcodone/APAP 10-325MG 1 EACH TAB PO ONE (22:23)
[2017-03-03 22:44] LABS: Glucose,Whole Blood 291 mg/dL (75-99)
[2017-03-03 23:28] LABS: Glucose,Whole Blood 374 mg/dL (75-99)
[2017-03-03] MEDS ORDERED: NALOXONE 0.4 MG/ML 1 ML VIAL IV PRN (23:53)
[2017-03-03] MEDS ORDERED: SODIUM CHLORIDE 0.9% 1,000 ML IV STA (23:55)
[2017-03-04 00:54] LABS: Glucose,Whole Blood 262 mg/dL (75-99)
[2017-03-04 01:04] VITALS: BMI 38.9
[2017-03-04] MEDS: SODIUM CHLORIDE 0.9% 1,000 ML IV SCH ×3 (02:43→17:50)
[2017-03-04] MEDS: traZODone HCL 50 MG TAB PO SCH ×2 (02:44→20:59)
[2017-03-04] MEDS: QUEtiapine 50 MG TAB PO SCH ×2 (02:44→20:59)
[2017-03-04] MEDS: QUEtiapine 25 MG TAB PO SCH ×2 (02:44→20:59)
[2017-03-04 02:50] LABS: Creatine Kinase 93 U/L (55-170)
[2017-03-04 03:01] LABS: Troponin I <0.012 ng/mL (0.000-0.034)
[2017-03-04 03:12] LABS: Creatine Kinase MB 2.9 ng/mL (0.0-2.4)
[2017-03-04] MEDS: HYDROcodone/APAP 10-325MG 1 EACH TAB PO PRN ×3 (05:34→17:48)
[2017-03-04 06:01] LABS: Glucose,Whole Blood 243 mg/dL (75-99)
[2017-03-04] MEDS: INSULIN ASPART 100 UNIT/ML 1 ML 10 ML VIAL SQ SCH ×4 (06:33→21:13)
[2017-03-04] MEDS ORDERED: HYDROcodone/APAP 10-325MG 1 EACH TAB PO SCH (09:00)
[2017-03-04 09:20] LABS: Creatine Kinase 96 U/L (55-170)
[2017-03-04 09:34] LABS: Troponin I <0.012 ng/mL (0.000-0.034)
[2017-03-04] MEDS ORDERED: ALBUTEROL NEBULIZED 2.5 MG/3 ML INHALATION PRN (10:36)
[2017-03-04] MEDS: ASPIRIN 325 MG TAB PO SCH (12:05)
[2017-03-04] MEDS: FLUoxetine HCL 20 MG CAP PO SCH (12:05)
[2017-03-04] MEDS: LOSARTAN 50 MG TAB PO SCH (12:06)
[2017-03-04] MEDS: MAGNESIUM OXIDE 400 MG TAB PO SCH (12:06)
[2017-03-04] MEDS: glipiZIDE 5 MG TAB PO SCH ×2 (12:06→17:50)
[2017-03-04] MEDS: lamoTRIgine 100 MG TAB PO SCH ×2 (12:06→20:59)
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
[2017-03-04 12:21] LABS: Glucose,Whole Blood 230 mg/dL (75-99)
--- NOTE | 2017-03-04 12:59 | ECHOF ---
Referral Reason:syncope MEASUREMENTS -------- HEIGHT: 170.2 cm WEIGHT: 112.5 kg BP: 99/58 RVIDd: 3.7 cm (< 3.3) IVSd: 1.0 cm (0.6 - 1.1) LVIDd: 4.7 cm (3.9 - 5.3) LVPWd: 1.1 cm (0.6 - 1.1) IVSs: 1.6 cm LVIDs: 3.0 cm LVPWs: 1.5 cm LAESV Index (A-L): 22.99 ml/m Ao Diam: 3.1 cm (2.0 - 3.7) AV Cusp: 2.1 cm (1.5 - 2.6) LA Diam: 4.6 cm (2.7 - 3.8) EPSS: 0.6 cm MV E Barry: 1.00 m/s MV DecT: 255 ms MV A Barry: 0.80 m/s MV E/A Ratio: 1.24 RAP: 5.00 mmHg RVSP: 10.76 mmHg MV EF SLOPE: 106.05 mm/s (70 - 150) MV EXCURSION: 1.82 cm (> 18.000) FINDINGS -------- Sinus rhythm. This was a technically adequate study. The left ventricular size is normal. Left ventricular wall thickness is normal. Overall left vent ricular systolic function is normal with, an EF between 55 - 60 %. The right ventricle is mildly enlarged. Normal LA size by volume 22+/-6 ml/m2. The right atrium is normal in size. Aortic valve is trileaflet and is mildly thickened. There is no evidence of aortic regurgitation. There is no evidence of aortic stenosis. The mitral valve leaflets are mildly thickened. There is trace to mild mitral regurgitation. Trace tricuspid regurgitation present. Right ventricular systolic pressure is normal at < 35 mmHg. There is no evidence of pulmonary hypertension. The pulmonic valve was not well visualized. The aortic root size is normal. IVC Not well visulized. CONCLUSIONS -------- 1. Sinus rhythm. 2. This was a technically adequate study. 3. The left ventricular size is normal. 4. Left ventricular wall thickness is normal. 5. Overall left ventricular systolic function is normal with, an EF between 55 - 60 %. 6. The right ventricle is mildly enlarged. 7. Normal LA size by volume 22+/-6 ml/m2. 8. Aortic valve is trileaflet and is mildly thickened. 9. The mitral valve leaflets are mildly thickened. 10. There is trace to mild mitral regurgitation. 11. Trace tricuspid regurgitation present. 12. Right ventricular systolic pressure is normal at < 35 mmHg. 13. There is no evidence of pulmonary hypertension. 14. The pulmonic valve was not well visualized. 15. The aortic root size is normal. 16. IVC Not well visulized. ONLINE CONTENT EDITOR: Ashok Ren RDCS
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
--- NOTE | 2017-03-04 14:52 | CONS ---
CONSULTATION This is a 61-year-old obese gentleman who sees a pyridine operator in the [facility]. His primary care physician is Dr. Plascencia. He came into the hospital after having some diarrhea for 3 days, feeling weak, tired, exhausted, and while he was trying to walk, he did not have any strength in his legs and he fell down 3 times and he also hurt himself. He never lost consciousness. This fall/syncope or near syncope appears to be noncardiac in origin. He does have lumbosacral spine disease and has some weakness in his legs. There may be some motor weakness as well. At the time of my evaluation, he has no orthostatic changes. He is resting comfortably. Denies any chest pain or shortness of breath. His troponin levels appear to be normal. So far, there is no evidence of any arrhythmia on his event monitor, but he is hypokalemic with a potassium level of 3.0, and he is already receiving potassium supplements. This gentleman has history of CAD and previous bypass surgery. According to him, more than 15 years ago. Details are not available. He also has the history of hypertension, hypercholesterolemia and chronic pain syndrome with lumbosacral spine disease. PAST MEDICAL HISTORY: 1. CAD with previous bypass surgery, details are unavailable. 2. Hypertension. 3. Hyperlipidemia. 4. History of back pain with lumbosacral spine disease and on pain medications. ALLERGIES: He is allergic to FLAGYL, TORADOL and SULFA. MEDICATIONS: At home include magnesium oxide, Seroquel, Protonix, losartan 100 mg daily, [place], atorvastatin 40 mg daily, aspirin and he takes Lamictal and trazodone. PHYSICAL EXAMINATION: Blood pressure is 140/70. No orthostatic changes. Pulse rate is 80 per minute. HEENT: Unremarkable. Fundus was not examined by me. Neck is supple. There is JVD of 1 cm. No carotid bruit. Heart exam reveals S1, S2 with somewhat distant heart sounds. Lungs reveal diminished air entry. Abdomen is soft, nontender. Lower extremities with diminished pulses. Central nervous system is normal. EKG revealed sinus mechanism with incomplete right bundle branch block type pattern, nonspecific ST-T changes. Troponin levels are normal. This patient also has some chronic cough and reactive airway disease-type picture. IMPRESSION: 1. Episode of fall, not related to cardiac etiology. Probably this may be related to his spine disease with some motor dysfunction or lack of coordination. 2. Coronary artery disease with previous bypass surgery. No evidence of acute ongoing ischemia. 3. Acute bronchitis/bronchial asthma, advised Pulmonary evaluation. 4. Evidence of recent diarrhea, some dehydration. RECOMMENDATIONS: Cardiac-linton, no intervention. Will continue monitoring. Obtain echocardiogram. I will recommend a pulmonary evaluation and also evaluation from Dr. Arslan Manriquez to look for any lumbosacral spine disease that may require intervention. We will supplement potassium aggressively. I discussed my thoughts in detail with the patient. Thank you very much for the consult. MMODL / IJN: [id number] /
--- NOTE | 2017-03-04 15:11 | XR ---
EXAMINATION TYPE: XR lumbar spine 2 or 3V DATE OF EXAM: 03/04/2017 CLINICAL HISTORY: pain TECHNIQUE: Three views of the lumbar spine are submitted. COMPARISON: None. FINDINGS: There are 5 lumbar type vertebral bodies identified. The lumbar spine shows satisfactory alignment w ithout evidence of acute fracture or dislocation. Vertebral body heights are within normal limits. Mild degenerative disc space narrowing and spondylosis. Facet joint arthropathy. The overlying soft tissue appears unremarkable. IMPRESSION: No acute fracture or dislocation is seen in the lumbar spine. ICD 10 NO FRACTURE, INITIAL EVALUATION
--- NOTE | 2017-03-04 15:29 | CT ---
EXAMINATION TYPE: CT chest wo con DATE OF EXAM: 03/04/2017 COMPARISON: September 18, 2014 HISTORY: Cough x [address] DLP: 765.[address] of the chest was performed with lung and mediastinal window settings submitted. The la ck of contrast limits evaluation of the vascular, mediastinal and parenchymal structures including th e upper abdomen. LUNGS: Left basilar dependent atelectasis noted. No pulmonary nodule or mass is detected. No pleural effusion. No CT evidence of interstitial lung disease. MEDIASTINUM/ROBERTA: Thoracic aorta is of normal caliber with limited evaluation given lack of contrast . The heart is not enlarged. No evidence for mediastinal mass. No lymph nodes greater than 1cm. UPPER ABDOMEN: Small amount of pneumobilia noted. Cholecystectomy clips are in place. OTHER: No significant other abnormality. IMPRESSION: 1. No distinct abnormality to account for the patient's symptoms. 2. Small amount of pneumobilia.
[2017-03-04] MEDS: IPRATROPIUM-ALBUTEROL 3 ML NEB INHALATION SCH ×3 (15:42→20:01)
--- NOTE | 2017-03-04 16:22 | US ---
EXAMINATION TYPE: US kidneys/renal and bladder DATE OF EXAM: 03/04/2017 COMPARISON: 02/14/2016 CLINICAL HISTORY: [place]. Abnormal labs EXAM MEASUREMENTS: Right Kidney: 10.9 x 6.3 x 6.8 cm Left Kidney: 11.8 x 4.9 x 6.1 cm Right Kidney: No hydronephrosis or masses seen. Dromedary hump. Left Kidney: No hydronephrosis or masses seen Bladder: distended, wnl as visualized Bilateral Jets not seen There is no evidence for hydronephrosis at this point in time. No nephrolithiasis is seen. No kalyn s are identified. The urinary bladder is anechoic. IMPRESSION: Poor distention of the urinary bladder. Kidneys appear unremarkable. .
[2017-03-04 16:55] LABS: Glucose,Whole Blood 226 mg/dL (75-99)
[2017-03-04] MEDS: HEPARIN SODIUM,PORCINE 5,000 UNIT/ML 1 ML VIAL SQ SCH (17:50)
[2017-03-04] MEDS: methylPREDNISolone SOD SUCCI 40 MG/ML 1 ML VIAL IV SCH (17:56)
[2017-03-04] MEDS: BUDESONIDE 0.5 MG/2 ML NEBU INHALATION SCH (20:01)
[2017-03-04 20:51] LABS: Glucose,Whole Blood 274 mg/dL (75-99)
[2017-03-04] MEDS: MONTELUKAST 10 MG TAB PO SCH (20:59)
[2017-03-05] MEDS: HEPARIN SODIUM,PORCINE 5,000 UNIT/ML 1 ML VIAL SQ SCH ×3 (00:04→17:30)
[2017-03-05] MEDS: HYDROcodone/APAP 10-325MG 1 EACH TAB PO PRN ×4 (00:04→17:31)
[2017-03-05] MEDS: methylPREDNISolone SOD SUCCI 40 MG/ML 1 ML VIAL IV SCH ×3 (00:04→20:33)
[2017-03-05] MEDS ORDERED: HYDROmorphone 2 MG/ML 1 ML SYRINGE IVP STA (03:12)
[2017-03-05] MEDS: SODIUM CHLORIDE 0.9% 1,000 ML IV SCH ×2 (04:51→09:43)
[2017-03-05] MEDS: PANTOPRAZOLE 40 MG TABLET PO SCH (06:09)
[2017-03-05] MEDS: glipiZIDE 5 MG TAB PO SCH (06:09)
[2017-03-05 06:18] LABS: Glucose,Whole Blood 307 mg/dL (75-99)
[2017-03-05] MEDS: INSULIN ASPART 100 UNIT/ML 1 ML 10 ML VIAL SQ SCH ×3 (07:03→17:53)
[2017-03-05] MEDS: BUDESONIDE 0.5 MG/2 ML NEBU INHALATION SCH ×2 (07:34→20:23)
[2017-03-05] MEDS: IPRATROPIUM-ALBUTEROL 3 ML NEB INHALATION SCH ×4 (07:34→20:23)
[2017-03-05] MEDS ORDERED: INSULIN DETEMIR 100 UNIT/ML 10 ML VIAL SQ SCH (09:00)
[2017-03-05] MEDS: FLUoxetine HCL 20 MG CAP PO SCH (09:28)
[2017-03-05] MEDS: ATORVASTATIN 40 MG TAB PO SCH (09:28)
[2017-03-05] MEDS: ASPIRIN 325 MG TAB PO SCH (09:28)
[2017-03-05] MEDS: MAGNESIUM OXIDE 400 MG TAB PO SCH (09:29)
[2017-03-05] MEDS: lamoTRIgine 100 MG TAB PO SCH ×2 (09:29→20:33)
[2017-03-05] MEDS: LOSARTAN 50 MG TAB PO SCH (09:30)
[2017-03-05] MEDS: LEVOFLOXACIN 250 MG TAB PO SCH (09:30)
[2017-03-05 11:39] LABS: Glucose,Whole Blood 423 mg/dL (75-99)
[2017-03-05] MEDS: amLODIPine 5 MG TAB PO SCH ×2 (12:21→20:42)
[2017-03-05] MEDS: HYDROmorphone 2 MG/ML 1 ML SYRINGE IVP PRN ×2 (12:22→18:48)
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
[2017-03-05 13:35] LABS: Glucose,Whole Blood 441 mg/dL (75-99)
[2017-03-05] MEDS ORDERED: INSULIN ASPART 100 UNIT/ML 1 ML 10 ML VIAL SQ ONE (13:35)
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
--- NOTE | 2017-03-05 14:32 | P.PN ---
Subjective Progress Note Date: 03/05/17 Principal diagnosis: Falls Patient seen and examined. Patient states his breathing is much better today. He is still complaining of lower extremity weakness. His CT results are discussed with him today. Objective - Vital Signs Vital signs: Vital Signs Temp 96.8 F L 03/05/17 12:00 Pulse 77 03/05/17 12:00 Resp 16 03/05/17 12:00 BP 138/64 03/05/17 12:00 Pulse Ox 93 L 03/05/17 12:00 Intake & Output 03/04/17 03/05/17 03/05/17 18:59 06:59 18:59 Intake Total 200 625 840 Output Total 600 Balance -400 625 840 Weight 112.7 kg 113.3 kg Intake: IV 625 Sodium Chloride 0.9% 1, 625 000 ml @ 125 mls/hr IV . Q8H [facility] Rx#:[id number] Oral 200 840 Output: Urine 600 Other: Voiding Method Toilet Toilet Toilet Urinal Urinal Urinal Incontinent Incontinent Incontinent # Voids 0 # Bowel Movements 0 - Exam Gen.: Patient is alert and oriented 3, no acute distress, morbidly obese Cardiovascular: Regular rate and rhythm, S1/S2 Lungs: Diffuse bilateral expiratory wheezing - improving Abdomen: Soft nontender nondistended positive bowel sounds Extremities: No edema - Labs CBC & Chem 7: 03/03/17 20:35 03/03/17 20:35 Labs: Abnormal Lab Results - Last 24 Hours (Table) 03/04/17 03/04/17 03/04/17 Range/Units 02:11 16:54 20:49 POC Glucose (mg/dL) 226 H 274 H (75-99) mg/dL Hemoglobin A1c 8.9 H (4.0-6.0) % 03/05/17 03/05/17 03/05/17 Range/Units 06:15 11:35 13:31 POC Glucose (mg/dL) 307 H 423 H 441 H (75-99) mg/dL Hemoglobin A1c (4.0-6.0) % Assessment and Plan Assessment: AECOPD Left basilar atelectasis, no evidence of pneumonia on CT scan Mild hemoptysis History of tobacco use CAMILLE DM2 ASCAD Generalized weakness GERD/PUD Dyslipidemia Hypertension Suspected LUCINA History of alcohol abuse, pancreatitis Depression Chronic pain syndrome Maintain O2 saturation > 90%, currently on RA Bronchodilators Pulmicort Solumedrol taper Antibiotics: Levaquin Neuro and cardio recs Gentle hydration Blood sugar control Singulair Sputum culture GI and DVT prophylaxis Incentive spirometry and pulmonary hygiene Pain control Continued smoking cessation Outpatient PFT and PSG recommended CT results discussed with patient. No need for further imaging from pulmonary standpoint at this time. Respiratory status is stable.
[2017-03-05 14:54] LABS: Glucose,Whole Blood 436 mg/dL (75-99)
--- NOTE | 2017-03-05 15:30 | P.PN ---
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 On history of CAD with prior bypass surgery which details are unavailable, hypertension, hyperlipidemia and back pain with lumbosacral disease. He is admitted to the hospital after having some diarrhea for a few days, feeling weak , tired, exhausted mother is trying to walk he lost the strength in his legs. He never lost consciousness. Patient has been monitored on telemetry and has not been found to have any arrhythmia. His troponin levels were negative. The patient has been hypertensive today and is currently on losartan 100 mg daily. Continue the patient, he had a rough night. Had episodes of leg weakness without evidence of hypotension or arrhythmias. Objective - Vital Signs Vital signs: Vital Signs Temp 97.9 F 03/05/17 14:56 Pulse 78 03/05/17 14:56 Resp 18 03/05/17 14:56 BP 107/56 03/05/17 14:56 Pulse Ox 93 L 03/05/17 14:56 Intake & Output 03/04/17 03/05/17 03/05/17 18:59 06:59 18:59 Intake Total 200 625 840 Output Total 600 Balance -400 625 840 Weight 112.7 kg 113.3 kg Intake: IV 625 Sodium Chloride 0.9% 1, 625 000 ml @ 125 mls/hr IV . Q8H [facility] Rx#:[id number] Oral 200 840 Output: Urine 600 Other: Voiding Method Toilet Toilet Toilet Urinal Urinal Urinal Incontinent Incontinent Incontinent # Voids 0 # Bowel Movements 0 - Exam PHYSICAL EXAMINATION: HEENT: Head is atraumatic, normocephalic. Pupils equal, round. Neck is supple. There is no elevated jugular venous pressure. HEART EXAMINATION: Heart sounds regular, S1 and S2 normal. No murmur or gallop heard. CHEST EXAMINATION: Lungs reveal diminished air entry. No chest wall tenderness is noted on palpation or with deep breathing. ABDOMEN: Soft, obese, nontender. Bowel sounds are heard. No organomegaly noted. EXTREMITIES: 2+ peripheral pulses with no evidence of peripheral edema and no calf tenderness noted. NEUROLOGIC patient is awake, alert and oriented x3. . - Labs CBC & Chem 7: 03/03/17 20:35 03/03/17 20:35 Labs: Abnormal Lab Results - Last 24 Hours (Table) 03/04/17 03/04/17 03/04/17 Range/Units 02:11 16:54 20:49 POC Glucose (mg/dL) 226 H 274 H (75-99) mg/dL Hemoglobin A1c 8.9 H (4.0-6.0) % 03/05/17 03/05/17 03/05/17 Range/Units 06:15 11:35 13:31 POC Glucose (mg/dL) 307 H 423 H 441 H (75-99) mg/dL Hemoglobin A1c (4.0-6.0) % 03/05/17 Range/Units 14:53 POC Glucose (mg/dL) 436 H (75-99) mg/dL Hemoglobin A1c (4.0-6.0) % Assessment and Plan Assessment: #1 episodes of falling secondary to lower extremity weakness #2 bronchitis/bronchial asthma and pulmonary is on consultation #3 coronary artery disease with prior bypass surgery, no evidence of acute ongoing ischemia # 4 recent diarrhea with some dehydration Plan: From cardiology's perspective, patient is falling are not cardiac in origin. At this time we recommend follow-up with his primary director drug. We will follow the patient on an as-needed basis. Please do not hesitate to contact us with questions. [employer] note has been reviewed, I agree with a documented findings and plan of care. Patient was seen and examined.
[2017-03-05] MEDS ORDERED: ALPRAZolam 0.5 MG TAB PO STA (15:35)
[2017-03-05] MEDS: INSULIN REGULAR 100 UNIT in SODIUM CHLORIDE 0.9% 100 ML IV SCH (17:21)
[2017-03-05 17:33] LABS: Glucose,Whole Blood 293 mg/dL (75-99)
[2017-03-05 18:07] LABS: Glucose,Whole Blood 222 mg/dL (75-99)
[2017-03-05 20:09] LABS: Glucose,Whole Blood 112 mg/dL (75-99)
[2017-03-05] MEDS: traZODone HCL 50 MG TAB PO SCH (20:32)
[2017-03-05] MEDS: MONTELUKAST 10 MG TAB PO SCH (20:32)
[2017-03-05] MEDS: QUEtiapine 25 MG TAB PO SCH (20:33)
[2017-03-05] MEDS: QUEtiapine 50 MG TAB PO SCH (20:33)
[2017-03-05 21:12] LABS: Glucose,Whole Blood 114 mg/dL (75-99)
[2017-03-05 22:26] LABS: Glucose,Whole Blood 197 mg/dL (75-99)
--- NOTE | 2017-03-05 23:55 | MR ---
EXAMINATION TYPE: MR lumbar spine wo con DATE OF EXAM: 03/05/2017 COMPARISON: 05/03/2014 HISTORY: Frequent falls, bladder incontinence, chronic LBP TECHNIQUE: Multiplanar, multisequence images of the lumbar spine were acquired. Lumbar vertebra have normal alignment. Disc spaces are fairly normal. Lumbar nerve roots appear dax l. There is no evidence of lumbar disc herniation. Posterior elements are intact. Sacroiliac joints a re intact. There is no paraspinal mass. I see no bony destructive process. The neuroforamina are fair ly well-maintained. There is no spinal stenosis.. IMPRESSION: Lumbar spine appears normal for age. No change compared to old exam.
[2017-03-06] MEDS: HYDROcodone/APAP 10-325MG 1 EACH TAB PO PRN ×3 (00:15→12:28)
[2017-03-06] MEDS: HEPARIN SODIUM,PORCINE 5,000 UNIT/ML 1 ML VIAL SQ SCH ×3 (00:16→17:30)
[2017-03-06 00:17] LABS: Glucose,Whole Blood 215 mg/dL (75-99)
[2017-03-06] MEDS: HYDROmorphone 2 MG/ML 1 ML SYRINGE IVP PRN ×2 (01:21→08:34)
[2017-03-06 02:15] LABS: Glucose,Whole Blood 197 mg/dL (75-99)
[2017-03-06 04:06] LABS: Glucose,Whole Blood 162 mg/dL (75-99)
[2017-03-06 06:22] LABS: Glucose,Whole Blood 151 mg/dL (75-99)
[2017-03-06] MEDS: BUDESONIDE 0.5 MG/2 ML NEBU INHALATION SCH (07:20)
[2017-03-06] MEDS: IPRATROPIUM-ALBUTEROL 3 ML NEB INHALATION SCH ×3 (07:20→15:08)
[2017-03-06 08:22] VITALS: RESP 16
[2017-03-06 08:23] LABS: Glucose,Whole Blood 185 mg/dL (75-99)
[2017-03-06] MEDS: methylPREDNISolone SOD SUCCI 40 MG/ML 1 ML VIAL IV SCH (08:23)
[2017-03-06] MEDS: MAGNESIUM OXIDE 400 MG TAB PO SCH (08:24)
[2017-03-06] MEDS: lamoTRIgine 100 MG TAB PO SCH (08:24)
[2017-03-06] MEDS: ASPIRIN 325 MG TAB PO SCH (08:24)
[2017-03-06] MEDS: ATORVASTATIN 40 MG TAB PO SCH (08:24)
[2017-03-06] MEDS: FLUoxetine HCL 20 MG CAP PO SCH (08:24)
[2017-03-06] MEDS: LEVOFLOXACIN 250 MG TAB PO SCH (08:24)
[2017-03-06] MEDS: LOSARTAN 50 MG TAB PO SCH (08:24)
[2017-03-06] MEDS: INSULIN ASPART 100 UNIT/ML 1 ML 10 ML VIAL SQ SCH ×3 (08:25→17:28)
[2017-03-06] MEDS: PANTOPRAZOLE 40 MG TABLET PO SCH (08:25)
[2017-03-06] MEDS: amLODIPine 5 MG TAB PO SCH (08:25)
[2017-03-06] MEDS: INSULIN REGULAR 100 UNIT in SODIUM CHLORIDE 0.9% 100 ML IV SCH (10:07)
[2017-03-06 10:23] LABS: Glucose,Whole Blood 289 mg/dL (75-99)
--- NOTE | 2017-03-06 10:23 | P.PN ---
Subjective Progress Note Date: 03/06/17 We are covering for [facility] 03/06/17- patient being seen examined and followed up with today on rounds. Patient states his breathing has been stable. He is seen on room air. Denies any shortness of breath cough or congestion. He continues to have some complaints of lower extremity weakness. She did undergo a fall related to bilateral lower extremity weakness. Ortho is on consults and the patient did undergo an MRI of the lumbar spine which showed that the lumbar spine appears normal for age and there was no change compared to old exam. Cardiology was also on consult for the patient and feels the patient's fall was not cardiac in origin and have signed off and will see the patient on an as-needed basis. All have the reports have been reviewed. Objective - Vital Signs Vital signs: Vital Signs Temp 97.2 F L 03/06/17 07:00 Pulse 57 L 03/06/17 07:37 Resp 16 03/06/17 07:00 BP 110/58 03/06/17 07:00 Pulse Ox 96 03/06/17 07:20 Intake & Output 03/05/17 03/06/17 03/06/17 18:59 06:59 18:59 Intake Total 850.267 52.067 15.366 Balance 850.267 52.067 15.366 Intake: Intake, IV Titration 10.267 52.067 15.366 Amount Insulin Regular 100 unit 10.267 52.067 15.366 In Sodium Chloride 0.9% 100 ml @ Titrate IV .Q0M [facility] Rx#:[id number] Oral 840 Other: Voiding Method Toilet Toilet Toilet Urinal Urinal Urinal Incontinent # Voids 1 1 # Bowel Movements 0 - Exam GENERAL EXAM: Alert, active, comfortable in no apparent distress. HEAD: Normocephalic. EYES: Normal reaction of pupils, equal size. NOSE: Clear with pink turbinates. THROAT: No erythema or exudates. NECK: No masses, no JVD. CHEST: No chest wall deformity. LUNGS: Equal air entry with very faint expiratory wheeze no crackles, rhonchi or dullness. CVS: S1 and S2 normal with no audible mumurs, regular rhythm. ABDOMEN: No hepatosplenomegaly, normal bowel sounds, no guarding or rigidity. EXTREMITIES: No edema noted, pedal pulses palpable. SKIN: No rashes - Labs CBC & Chem 7: 03/03/17 20:35 03/03/17 20:35 Labs: Abnormal Lab Results - Last 24 Hours (Table) 03/05/17 03/05/17 03/05/17 Range/Units 11:35 13:31 14:53 POC Glucose (mg/dL) 423 H 441 H 436 H (75-99) mg/dL 03/05/17 03/05/17 03/05/17 Range/Units 17:13 18:02 20:07 POC Glucose (mg/dL) 293 H 222 H 112 H (75-99) mg/dL 03/05/17 03/05/17 03/06/17 Range/Units 21:09 22:14 00:04 POC Glucose (mg/dL) 114 H 197 H 215 H (75-99) mg/dL 03/06/17 03/06/17 03/06/17 Range/Units 02:03 04:03 06:12 POC Glucose (mg/dL) 197 H 162 H 151 H (75-99) mg/dL 03/06/17 Range/Units 08:00 POC Glucose (mg/dL) 185 H (75-99) mg/dL Assessment and Plan Assessment: Assessment AECOPD Left basilar atelectasis, no evidence of pneumonia on CT scan Mild hemoptysis History of tobacco use CAMILLE DM2 ASCAD Generalized weakness GERD/PUD Dyslipidemia Hypertension Suspected LUCINA History of alcohol abuse, pancreatitis Depression Chronic pain syndrome Plan Maintain O2 saturation > 90%, currently on RA Bronchodilators Pulmicort Solumedrol taper Antibiotics: Levaquin Neuro and cardio recs Gentle hydration Blood sugar control Singulair Sputum culture GI and DVT prophylaxis Incentive spirometry and pulmonary hygiene Pain control Continued smoking cessation Outpatient PFT and PSG recommended CT results discussed with patient. No need for further imaging from pulmonary standpoint at this time. Respiratory status is stable. I performed an examination of the patient and discussed their management with the nurse practitioner. I have reviewed the nurse practitioner's note and agree with the documented findings and plan of care.
[2017-03-06] MEDS ORDERED: INSULIN DETEMIR 100 UNIT/ML 10 ML VIAL SQ SCH (10:45)
[2017-03-06 11:43] LABS: Glucose,Whole Blood 244 mg/dL (75-99)
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
[2017-03-06 15:23] VITALS: BP 103/55; PULSE 70; TEMP 97.6
[2017-03-06 17:43] LABS: Glucose,Whole Blood 312 mg/dL (75-99)
== END 2017-03-06 17:55 | disposition home health service (06) | DRG 552 ==
LOC: EC 20:11 → 6SEL 23:56 → 5MS5E 03-05 12:44
PROVIDERS: ADMIT Internal Medicine; ATTEND Internal Medicine
DX: M51.16 Intervertebral disc disorders with radiculopathy, lumbar region (principal); N17.9 Acute kidney failure, unspecified; E11.65 Type 2 diabetes mellitus with hyperglycemia; I11.9 Hypertensive heart disease without heart failure; F33.9 Major depressive disorder, recurrent, unspecified; J44.1 Chronic obstructive pulmonary disease with (acute) exacerbation; J98.11 Atelectasis; M43.16 Spondylolisthesis, lumbar region; E66.9 Obesity, unspecified; E78.00 Pure hypercholesterolemia, unspecified; E86.0 Dehydration; E87.6 Hypokalemia; F17.200 Nicotine dependence, unspecified, uncomplicated; F41.1 Generalized anxiety disorder; F43.10 Post-traumatic stress disorder, unspecified; G47.00 Insomnia, unspecified; G47.30 Sleep apnea, unspecified; G89.4 Chronic pain syndrome; I25.10 Atherosclerotic heart disease of native coronary artery without angina pectoris; K21.9 Gastro-esophageal reflux disease without esophagitis; K27.9 Peptic ulcer, site unspecified, unspecified as acute or chronic, without hemorrhage or perforation; K57.30 Diverticulosis of large intestine without perforation or abscess without bleeding; R29.6 Repeated falls; R32 Unspecified urinary incontinence; Z87.820 Personal history of traumatic brain injury; T38.0X5A Adverse effect of glucocorticoids and synthetic analogues, initial encounter; Z79.4 Long term (current) use of insulin; Z79.82 Long term (current) use of aspirin; Z79.899 Other long term (current) drug therapy; Z82.49 Family history of ischemic heart disease and other diseases of the circulatory system; Z83.3 Family history of diabetes mellitus; Z87.442 Personal history of urinary calculi; Z95.1 Presence of aortocoronary bypass graft
CPT/HCPCS: 36415; 70450; 71020; 71250; 72100; 72148; 76770; 80053; 81003; 82550; 82553; 83036; 84484; 85025; 85379; 85610; 85730; 87070; 87205; 93005; 93306; 94640; 94760; 96360; 96361; 99285

== ENCOUNTER 2017-07-14 23:49 | Emergency (ER) | payer MEDICARE, BC ==
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
[2017-07-15 00:30] LABS: Basophils % (A) 1 %; Eosinophils # (A) 0.2 k/uL (0-0.7); Eosinophils % (A) 3 %; HCT 41.6 % (39.0-53.0); HGB 14.2 gm/dL (13.0-17.5); Lymphocytes # (A) 2.6 k/uL (1.0-4.8); Lymphocytes % (A) 39 %; MCH 28.7 pg (25.0-35.0); MCHC 34.2 g/dL (31.0-37.0); MCV 83.9 fL (80.0-100.0); Mean Platelet Volume 7.3; Monocytes # (A) 0.4 k/uL (0-1.0); Monocytes % (A) 6 %; Neutrophils # (A) 3.1 k/uL (1.3-7.7); Neutrophils % (A) 47 %; Platelet Count 213 k/uL (150-450); RBC 4.95 m/uL (4.30-5.90); RDW 15.2 % (11.5-15.5); WBC 6.6 k/uL (3.8-10.6)
[2017-07-15] MEDS ORDERED: ORPHENADRINE 30 MG/ML 2 ML VIAL IM STA (00:44)
[2017-07-15 00:48] LABS: ALT 35 U/L (21-72); AST 37 U/L (17-59); Albumin 3.9 g/dL (3.5-5.0); Alkaline Phosphatase 146 U/L (38-126); Amylase 41 U/L (30-110); Anion Gap 16 mmol/L; Blood Urea Nitrogen 12 mg/dL (9-20); Calcium 9.2 mg/dL (8.4-10.2); Carbon Dioxide 22 mmol/L (22-30); Chloride 108 mmol/L (98-107); Glucose 183 mg/dL (74-99); Lipase 118 U/L (23-300); Magnesium 1.8 mg/dL (1.6-2.3); Sodium 146 mmol/L (137-145); Total Bilirubin 0.5 mg/dL (0.2-1.3); Total Protein 6.8 g/dL (6.3-8.2)
[2017-07-15 00:49] LABS: D-Dimer 0.68 mg/L FEU (<0.60); Prothrombin Time 9.5 sec (9.0-12.0)
[2017-07-15 00:52] LABS: Creatine Kinase 195 U/L (55-170)
--- NOTE | 2017-07-15 00:52 | XR ---
EXAMINATION TYPE: XR chest 1V portable DATE OF EXAM: 07/15/2017 COMPARISON: 04/02/2017 HISTORY: Chest pain TECHNIQUE: Single frontal view of the chest is obtained. FINDINGS: There is no heart failure nor confluent pneumonic infiltrate. There are sternal wires. Cos tophrenic angles are clear. There are chest leads. IMPRESSION: No active cardiopulmonary disease. Inspiration is improved slightly compared to old exam .
[2017-07-15 00:54] LABS: Partial Thromboplastin Time 21.3 sec (22.0-30.0)
[2017-07-15 01:05] LABS: Troponin I <0.012 ng/mL (0.000-0.034)
[2017-07-15 01:10] LABS: Creatine Kinase MB 3.4 ng/mL (0.0-2.4)
[2017-07-15] MEDS ORDERED: RX INFO: IV CONTRAST WAS GIVEN 1 EACH MISC MISCELLANE PRN (01:32)
[2017-07-15] MEDS ORDERED: MORPHINE SULF 5MG/10ML VL IV STA (02:07)
--- NOTE | 2017-07-15 02:11 | CT ---
EXAMINATION TYPE: CT chest angio for PE DATE OF EXAM: 07/15/2017 COMPARISON: 10/31/2015 HISTORY: Prior on synapse, chronic low back pain and chest pain today, history of hypertension, eleva augusto d-dimer R/O PE CT DLP: 817.20 mGycm Automated exposure control for dose reduction was used. CONTRAST: CT Chest for pulmonary embolism performed with with IV Contrast, patient injected with 70 mL of Isovu e 370. FINDINGS: There is slight coarsening of pulmonary interstitial markings in the subpleural lung bases and working manager ior lung banks. There is no evidence of a pulmonary mass. There is no pleural effusion. There is no pericardial effusion. There is air in the anterior biliary tree. There are clips from cholecystectomy . There is normal contrast opacification of the pulmonary arteries. I see no filling defects. There is no evidence of aortic aneurysm or dissection. There is no mediastinal adenopathy. IMPRESSION: No evidence of pulmonary embolism. There is new minimal subpleural interstitial infiltrate at the jessica g bases compared to old exam. There is new air in the biliary tree probably from surgery.
[2017-07-15 03:45] VITALS: BP 168/78; PULSE 80; RESP 17; TEMP 97.9
== END 2017-07-15 03:51 | disposition home or self-care (01) ==
LOC: EC 23:49
DX: M54.9 Dorsalgia, unspecified (principal); G89.29 Other chronic pain; R07.9 Chest pain, unspecified; I25.10 Atherosclerotic heart disease of native coronary artery without angina pectoris; K21.9 Gastro-esophageal reflux disease without esophagitis; E78.5 Hyperlipidemia, unspecified; I10 Essential (primary) hypertension; M46.90 Unspecified inflammatory spondylopathy, site unspecified; F90.9 Attention-deficit hyperactivity disorder, unspecified type; F32.9 Major depressive disorder, single episode, unspecified; F43.10 Post-traumatic stress disorder, unspecified; Z87.891 Personal history of nicotine dependence; Z95.1 Presence of aortocoronary bypass graft; Z79.82 Long term (current) use of aspirin; Z79.891 Long term (current) use of opiate analgesic; Z79.52 Long term (current) use of systemic steroids; Z88.6 Allergy status to analgesic agent; Z88.1 Allergy status to other antibiotic agents; Z88.2 Allergy status to sulfonamides
CPT/HCPCS: 36415; 93005; 85379; 80053; 82150; 82550; 82553; 83690; 83735; 84484; 85025; 85610; 85730; 71045; 71275; 99285; 96374; 96372; J2360; Q9967; J2270

== ENCOUNTER 2017-10-04 21:43 | Emergency (ER) | payer MEDICARE, BC ==
[2017-10-04 21:48] VITALS: TEMP 98.2
[2017-10-04 22:55] LABS: Anisocytosis Slight; Appearance,Urine Clear (Clear); Basophils % (A) 1 %; Bilirubin,Urine Negative (Negative); Blood,Urine Negative (Negative); Color,Urine Yellow; Eosinophils # (A) 0.2 k/uL (0-0.7); Eosinophils % (A) 3 %; Glucose,Urine (UA) Negative (Negative); HCT 43.3 % (39.0-53.0); HGB 14.6 gm/dL (13.0-17.5); Ketones,Urine Negative (Negative); Leukocyte Esterase,Urine Negative (Negative); Lymphocytes # (A) 2.6 k/uL (1.0-4.8); Lymphocytes % (A) 30 %; MCH 30.2 pg (25.0-35.0); MCHC 33.6 g/dL (31.0-37.0); MCV 89.9 fL (80.0-100.0); Mean Platelet Volume 6.5; Monocytes # (A) 0.5 k/uL (0-1.0); Monocytes % (A) 6 %; Neutrophils # (A) 4.9 k/uL (1.3-7.7); Neutrophils % (A) 58 %; Nitrite,Urine Negative (Negative); PH, Urine 6.5 (5.0-8.0); Platelet Count 220 k/uL (150-450); Protein,Urine Trace (Negative); RBC 4.82 m/uL (4.30-5.90); RDW 16.6 % (11.5-15.5); Specific Gravity,Urine 1.017 (1.001-1.035); Urobilinogen,Urine <2.0 mg/dL (<2.0); WBC 8.4 k/uL (3.8-10.6)
[2017-10-04 23:03] LABS: ALT 35 U/L (21-72); AST 28 U/L (17-59); Albumin 4.4 g/dL (3.5-5.0); Alkaline Phosphatase 119 U/L (38-126); Anion Gap 14 mmol/L; Blood Urea Nitrogen 18 mg/dL (9-20); Calcium 9.7 mg/dL (8.4-10.2); Carbon Dioxide 20 mmol/L (22-30); Chloride 108 mmol/L (98-107); Glucose 208 mg/dL (74-99); Lipase 99 U/L (23-300); Potassium 4.3 mmol/L (3.5-5.1); Sodium 142 mmol/L (137-145); Total Bilirubin 0.4 mg/dL (0.2-1.3)
--- NOTE | 2017-10-04 23:57 | CT ---
EXAMINATION TYPE: CT renal stones wo con DATE OF EXAM: 10/04/2017 HISTORY: Right flank pain, R/O stones CT DLP: 1192.20 mGycm. Automated Exposure Control for Dose Reduction was Utilized. TECHNIQUE: CT scan of the abdomen and pelvis is performed without oral or IV contrast. COMPARISON: 05/27/2015 FINDINGS: Lung bases are clear. There is no pleural effusion. There is air in the anterior biliary t ree. Spleen appears normal. There is no pancreatic mass. There are clips from cholecystectomy. Bile d ucts are not dilated. There is no adrenal mass. There are numerous bilateral small renal calculi. The ureters are not dilat ed. There is no retroperitoneal adenopathy. There is no ascites. There is no intestinal wall thickeni ng. There are no dilated loops. Bladder distends smoothly. There is no evidence of a pelvic mass. The re is 15 mm rounded nodular density in the peritoneal fat on the left side lateral to the splenic fle xure of the colon. There is no sign of free air. Appendix is not seen. There is no sign of appendicitis. IMPRESSION: Numerous bilateral renal calculi without evidence of obstruction. The number of calcifications is sig nificantly increased compared to old exam. There is a stable nodule in the intraperitoneal fat in the left upper quadrant of uncertain significance. Appendix is not seen no sign of appendicitis. There is more air in the biliary tree compared to last exam consistent with reflux.
[2017-10-05] VITALS: BP 111/63; PULSE 73; RESP 18
[2017-10-05] MEDS ORDERED: MORPHINE SULFATE 2 MG/ML SYRINGE IVP STA (00:10)
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
== END 2017-10-05 00:46 | disposition home or self-care (01) ==
LOC: EC 21:43
DX: N20.0 Calculus of kidney (principal); R19.02 Left upper quadrant abdominal swelling, mass and lump; E78.5 Hyperlipidemia, unspecified; I10 Essential (primary) hypertension; I25.10 Atherosclerotic heart disease of native coronary artery without angina pectoris; K21.9 Gastro-esophageal reflux disease without esophagitis; G89.4 Chronic pain syndrome; F32.9 Major depressive disorder, single episode, unspecified; F41.9 Anxiety disorder, unspecified; Z87.891 Personal history of nicotine dependence; Z79.52 Long term (current) use of systemic steroids; Z79.82 Long term (current) use of aspirin; Z79.891 Long term (current) use of opiate analgesic; Z79.899 Other long term (current) drug therapy; Z88.1 Allergy status to other antibiotic agents; Z88.2 Allergy status to sulfonamides; Z88.6 Allergy status to analgesic agent; Z90.49 Acquired absence of other specified parts of digestive tract
CPT/HCPCS: 36415; 80053; 83690; 85025; 81003; 74150; 99284; 96374; J2270

== ENCOUNTER → 2017-10-17 | Outpatient (CLI) | payer MEDICARE, BC ==
--- NOTE | 2017-10-17 17:21 | XR ---
EXAMINATION TYPE: XR KUB DATE OF EXAM: 10/17/2017 COMPARISON: 05/30/2015 HISTORY: Bilateral renal stones TECHNIQUE: 2 supine views. FINDINGS: There is no sign of intestinal obstruction or pneumoperitoneum. Fecal pattern is normal. Th ere are 4 mm calcification over the central left kidney. There are clips from cholecystectomy. There is no evidence of a mass. IMPRESSION: There is probably left renal calculus without change. Nonacute abdomen.
== END | disposition home or self-care (01) ==
LOC: RADXRMAIN 16:27
PROVIDERS: ATTEND Urology
DX: N20.0 Calculus of kidney (principal)
CPT/HCPCS: 74018

== ENCOUNTER 2017-11-22 08:16 | Emergency (ER) | payer MEDICARE, BC ==
[2017-11-22 08:23] VITALS: RESP 18
[2017-11-22] MEDS ORDERED: SODIUM CHLORIDE 0.9% 1,000 ML IV STA ×2 (08:35)
[2017-11-22] MEDS ORDERED: MORPHINE SULFATE 2 MG/ML SYRINGE IVP STA ×2 (08:35→10:16)
[2017-11-22] MEDS ORDERED: ONDANSETRON 4 MG/2 ML VIAL IVP STA (08:35)
[2017-11-22] MEDS ORDERED: TAMSULOSIN 0.4 MG CAP.ER.24H PO STA (08:38)
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
[2017-11-22 09:08] LABS: Basophils # (A) 0.1 k/uL (0-0.2); Basophils % (A) 1 %; Eosinophils # (A) 0.3 k/uL (0-0.7); Eosinophils % (A) 3 %; HCT 42.3 % (39.0-53.0); HGB 13.8 gm/dL (13.0-17.5); Lymphocytes # (A) 2.9 k/uL (1.0-4.8); Lymphocytes % (A) 34 %; MCH 30.2 pg (25.0-35.0); MCHC 32.6 g/dL (31.0-37.0); MCV 92.7 fL (80.0-100.0); Mean Platelet Volume 6.5; Monocytes # (A) 0.5 k/uL (0-1.0); Monocytes % (A) 6 %; Neutrophils # (A) 4.5 k/uL (1.3-7.7); Neutrophils % (A) 53 %; Platelet Count 207 k/uL (150-450); RBC 4.56 m/uL (4.30-5.90); RDW 14.6 % (11.5-15.5); WBC 8.5 k/uL (3.8-10.6)
--- NOTE | 2017-11-22 09:10 | XR ---
EXAMINATION TYPE: XR KUB DATE OF EXAM: 11/22/2017 9:03 AM CLINICAL HISTORY: Left flank pain with history of nephrolithiasis. TECHNIQUE: Single upright image of the abdomen is obtained. COMPARISON: 10/17/2017. FINDINGS: Mildly dilated loops of small bowel are seen within the left mid abdomen in given this briana ent's history of left flank pain is could represent sentinel loops surrounding inflammation or ileus. Air-fluid levels are scattered throughout the right mid abdomen and left upper quadrant. There appea rs to be a 7 mm left renal calculus and possible second ill-defined 3 mm calculus. Stool is noted within the rectal vault and no colonic dilatation is seen. Lung bases are well aerated . Post CABG changes the chest are noted with dehiscence of the visualized sternotomy wires. Surgical clips from prior cholecystectomy are present within the right upper quadrant. Mild degenerative young es of the lumbosacral junction are noted. IMPRESSION: 1. Mildly dilated left upper quadrant small bowel loops given the patient's left upper quadrant pain may represent sentinel loops of adjacent inflammatory change or mild ileus. 2. Left-sided nephrolithiasis overall appearing similar to the prior of 10/17/2017.
[2017-11-22 09:17] LABS: ALT 29 U/L (21-72); AST 29 U/L (17-59); Albumin 4.2 g/dL (3.5-5.0); Alkaline Phosphatase 80 U/L (38-126); Amylase 68 U/L (30-110); Anion Gap 12 mmol/L; Appearance,Urine Clear (Clear); Bacteria,Urine Rare /hpf; Bilirubin,Urine Negative (Negative); Blood Urea Nitrogen 17 mg/dL (9-20); Blood,Urine Large (Negative); Calcium 9.4 mg/dL (8.4-10.2); Carbon Dioxide 21 mmol/L (22-30); Chloride 107 mmol/L (98-107); Color,Urine Yellow; Glucose 133 mg/dL (74-99); Glucose,Urine (UA) Negative (Negative); Ketones,Urine Negative (Negative); Leukocyte Esterase,Urine Negative (Negative); Lipase 300 U/L (23-300); Mucus,Urine Rare /hpf; Nitrite,Urine Negative (Negative); PH, Urine 5.5 (5.0-8.0); Potassium 3.9 mmol/L (3.5-5.1); Protein,Urine Negative (Negative); RBC,Urine >182 /hpf (0-5); Sodium 140 mmol/L (137-145); Specific Gravity,Urine 1.013 (1.001-1.035); Squamous Epithelial Cell,Urine <1 /hpf (0-4); Total Bilirubin 0.8 mg/dL (0.2-1.3); Total Protein 6.8 g/dL (6.3-8.2); Urobilinogen,Urine <2.0 mg/dL (<2.0)
--- NOTE | 2017-11-22 09:58 | CT ---
EXAMINATION TYPE: CT abdomen pelvis wo con DATE OF EXAM: 11/22/2017 COMPARISON: 10/04/2017 HISTORY: 61-year-old male pain, Left flank pain. CT DLP: 1146 mGycm. Automated exposure control for dose reduction was used. TECHNIQUE: Contiguous axial scanning of the abdomen and pelvis without IV contrast. Coronal and sagit soumya reconstructions performed. FINDINGS: Heart normal size without pericardial effusion. Coronary vessel calcifications are present. Lung base s clear without pleural effusion. Redemonstrated pneumobilia preferentially in the left liver lobe. C holecystectomy clips. Adrenal glands, spleen with anterior splenule, and pancreas show no gross abnormality by noncontrast CT. Bilateral nephrolithiasis redemonstrated. Approximately 8 on the right measuring up to 3 mm and 10 on the left, mostly punctate, largest measuring 7 mm. Mild bilateral perinephric stranding is unchanged likely senescent change. No hydronephrosis on either side. No suspicious calcification seen along th e course of either ureter. Mild atherosclerotic calcifications within the abdominal aorta and iliac arteries. 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 No dilated small bowel, free fluid, or free air. Mild stool burden without pericolonic inflammatory change. Redundant sigmoid colon. No mesenteric or retroperitoneal lymphadenopathy. Scattered prominent but nonenlarged mesenteric lymp h nodes are noted. Bladder is urine distended. Prostate gland mildly enlarged at 4.8 cm wide. No abnormal fluid collecti on in the pelvis or pelvic lymphadenopathy. Bones: Degenerative changes of the hips and lower lumbar spine. No osseous destructive process. IMPRESSION: 1. Redemonstrated bilateral nonobstructive nephrolithiasis measuring up to 3 mm on the right and 7 m m and the left. No hydronephrosis or suspicious ureteral calculus seen. 2. 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 Stable back to at least 2016. Portosystemic shunting can be seen i n the setting of portal venous hypertension. There are no additional CT findings of portal venous hyp ertension. Clinically correlate. 3. Stable pneumobilia likely secondary to prior sphincterotomy.
[2017-11-22 10:36] VITALS: BP 127/58; PULSE 58; TEMP 97.8
== END 2017-11-22 10:54 | disposition home or self-care (01) ==
LOC: EC 08:16
DX: N20.0 Calculus of kidney (principal); G89.29 Other chronic pain; K56.7 Ileus, unspecified; I25.10 Atherosclerotic heart disease of native coronary artery without angina pectoris; K21.9 Gastro-esophageal reflux disease without esophagitis; E78.5 Hyperlipidemia, unspecified; I10 Essential (primary) hypertension; N40.0 Benign prostatic hyperplasia without lower urinary tract symptoms; F41.9 Anxiety disorder, unspecified; F32.9 Major depressive disorder, single episode, unspecified; F43.10 Post-traumatic stress disorder, unspecified; Z90.49 Acquired absence of other specified parts of digestive tract; Z95.1 Presence of aortocoronary bypass graft; Z95.818 Presence of other cardiac implants and grafts; Z87.891 Personal history of nicotine dependence; Z87.19 Personal history of other diseases of the digestive system; Z79.82 Long term (current) use of aspirin; Z79.891 Long term (current) use of opiate analgesic; Z79.52 Long term (current) use of systemic steroids; Z79.899 Other long term (current) drug therapy; Z88.6 Allergy status to analgesic agent; Z88.1 Allergy status to other antibiotic agents; Z88.2 Allergy status to sulfonamides
CPT/HCPCS: 36415; 80053; 82150; 83690; 85025; 81001; 87086; 74018; 74176; 99284; 96374; 96375; 96376; 96361 ×2; J2405; J2270

== ENCOUNTER → 2018-02-18 | Outpatient (CLI) | payer MEDICARE, BC ==
--- NOTE | 2018-02-18 21:20 | MR ---
EXAMINATION TYPE: MR lumbar spine wo con DATE OF EXAM: 02/18/2018 COMPARISON: Prior MRIs lumbar spine March 05, 2017 HISTORY: Low back pain per order. Chronic back pain for 40 years per patient. TECHNIQUE: Multiplanar, multisequence imaging of the lumbar spine is performed without IV contrast. FINDINGS: Sagittal images of the lumbar spine show vertebral body heights and alignment to remain sat isfactory. Multilevel disc desiccation is redemonstrated but this space heights are maintained. No ne w or large posterior disc herniations are seen on sagittal images. The conus medullaris is normal in position and signal ending inferior L1 level. The bone marrow signal intensity is within normal limi ts. Mild multilevel anterior spurring is present. Axial images redemonstrate T12-L1, L1-L2, L2-L3, and L3-L4 levels all to appear within normal limits. Axial images at L4-L5 level redemonstrate mild to moderate facet degenerative changes bilaterally. Sp inal canal is preserved. Bilateral neural foramina are patent. Axial images at L5-S1 level shows more prominent moderate facet degenerative changes bilaterally. Spi nal canal is preserved. Bilateral neural foramina are patent. No suspicious incidental retroperitoneal findings are seen. IMPRESSION: Increasing facet arthropathy lower lumbar spine. No new or suspicious disc herniation fred dent.
== END | disposition home or self-care (01) ==
LOC: RADMRIMAIN 18:28
PROVIDERS: ATTEND Psychiatry & Neurology Neurology
DX: M46.96 Unspecified inflammatory spondylopathy, lumbar region (principal); Z88.2 Allergy status to sulfonamides; Z88.6 Allergy status to analgesic agent
CPT/HCPCS: 72148

== ENCOUNTER 2018-05-13 15:33 | Inpatient (IN) | payer MEDICARE, BC ==
[2018-05-13] MEDS ORDERED: NALOXONE 0.4 MG/ML 1 ML VIAL IV STA (16:07)
[2018-05-13] MEDS ORDERED: SODIUM CHLORIDE 0.9% 2,000 ML IV ONE (16:09)
[2018-05-13] MEDS ORDERED: SODIUM CHLORIDE 0.9% 1,000 ML IV STA ×2 (16:11→18:54)
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
[2018-05-13 17:15] LABS: Basophils # (A) 0.1 k/uL (0-0.2); Basophils % (A) 1 %; Eosinophils # (A) 0.2 k/uL (0-0.7); Eosinophils % (A) 3 %; HCT 39.7 % (39.0-53.0); HGB 13.3 gm/dL (13.0-17.5); Lymphocytes # (A) 2.9 k/uL (1.0-4.8); Lymphocytes % (A) 38 %; MCH 31.1 pg (25.0-35.0); MCHC 33.5 g/dL (31.0-37.0); Mean Platelet Volume 7.2; Monocytes # (A) 0.4 k/uL (0-1.0); Monocytes % (A) 6 %; Neutrophils # (A) 3.8 k/uL (1.3-7.7); Neutrophils % (A) 50 %; Platelet Count 216 k/uL (150-450); RBC 4.27 m/uL (4.30-5.90); WBC 7.7 k/uL (3.8-10.6)
[2018-05-13 17:26] LABS: Albumin 3.7 g/dL (3.5-5.0); Calcium 9.4 mg/dL (8.4-10.2); Magnesium 1.8 mg/dL (1.6-2.3); Potassium 4.5 mmol/L (3.5-5.1); Total Bilirubin 0.8 mg/dL (0.2-1.3); Total Protein 6.4 g/dL (6.3-8.2)
[2018-05-13 17:29] LABS: Creatine Kinase 107 U/L (55-170)
[2018-05-13 17:33] LABS: INR 0.9 (<1.2); Prothrombin Time 9.9 sec (9.0-12.0)
[2018-05-13 17:41] LABS: Creatine Kinase MB 1.6 ng/mL (0.0-2.4); Troponin I <0.012 ng/mL (0.000-0.034)
--- NOTE | 2018-05-13 19:29 | XR ---
EXAMINATION TYPE: XR chest 2V DATE OF EXAM: 05/13/2018 COMPARISON: July 15, 2017 HISTORY: Syncope TECHNIQUE: Frontal and lateral views of the chest are obtained. FINDINGS: There is no heart failure nor confluent pneumonic infiltrate. Costophrenic angles are ayden r. There are sternal wires. There are chest leads. Diaphragm is normal. Bony thorax is intact. IMPRESSION: No active cardiopulmonary disease. No change. Normal heart.
[2018-05-13 19:38] LABS: Appearance,Urine Clear (Clear); Bilirubin,Urine Negative (Negative); Blood,Urine Negative (Negative); Color,Urine Yellow; Glucose,Urine (UA) Negative (Negative); Ketones,Urine Negative (Negative); Leukocyte Esterase,Urine Negative (Negative); Nitrite,Urine Negative (Negative); PH, Urine 5.5 (5.0-8.0); Protein,Urine Negative (Negative); Specific Gravity,Urine 1.012 (1.001-1.035)
[2018-05-13] MEDS ORDERED: ACETAMINOPHEN TAB 325 MG TAB PO PRN (20:20)
[2018-05-13] MEDS ORDERED: NALOXONE 0.4 MG/ML 1 ML VIAL IV PRN (20:20)
[2018-05-13] MEDS: HYDROcodone/APAP 5-325MG 1 EACH TAB PO PRN (21:01)
[2018-05-13 21:45] LABS: Glucose,Whole Blood 101 mg/dL (75-99)
[2018-05-13 22:00] VITALS: BMI 37.2
[2018-05-14] MEDS: HYDROcodone/APAP 5-325MG 1 EACH TAB PO PRN ×5 (01:04→17:02)
[2018-05-14 01:10] VITALS: RESP 18
[2018-05-14 06:23] LABS: Glucose,Whole Blood 161 mg/dL (75-99)
[2018-05-14] MEDS: INSULIN ASPART 100 UNIT/ML 1 ML 10 ML VIAL SQ SCH ×2 (06:43→12:37)
[2018-05-14 08:32] LABS: Glucose,Whole Blood 147 mg/dL (75-99)
[2018-05-14] MEDS ORDERED: FAMOTIDINE 20 MG TAB PO PRN (09:16)
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
[2018-05-14 11:45] LABS: Glucose,Whole Blood 200 mg/dL (75-99)
[2018-05-14] MEDS ORDERED: carBAMazepine 100 MG TAB.ER.12H PO SCH (12:00)
[2018-05-14] MEDS ORDERED: lamoTRIgine 100 MG TAB PO SCH (12:00)
[2018-05-14] MEDS ORDERED: MEMANTINE 5 MG TAB PO SCH (12:00)
[2018-05-14] MEDS ORDERED: ATORVASTATIN 40 MG TAB PO SCH (12:00)
[2018-05-14] MEDS ORDERED: AMOXIC-POT CLAV 875-125MG 1 EACH TAB PO SCH (12:00)
[2018-05-14] MEDS ORDERED: INSULIN DETEMIR 100 UNIT/ML 10 ML VIAL SQ SCH (12:00)
[2018-05-14] MEDS ORDERED: FLUoxetine HCL 20 MG CAP PO SCH (12:00)
[2018-05-14] MEDS ORDERED: busPIRone HCl 5 MG TAB PO SCH (12:00)
[2018-05-14 12:05] VITALS: BP 152/70; PULSE 65; TEMP 98.2
[2018-05-14] MEDS ORDERED: INSULIN ASPART 100 UNIT/ML 1 ML 10 ML VIAL SQ SCH (12:30)
[2018-05-14 14:32] LABS: Hemoglobin A1C 7.9 % (4.0-6.0)
--- NOTE | 2018-05-14 15:12 | CDI ---
Documentation Clarification Form Date: 05/14/2018 2:45:00 PM From: Lakeisha Cantu RN, CCDS Admit Date: 05/13/2018 8:20:00 PM Patient Name: Anthony Obando Visit Number: [id number] Discharge Date: ATTENTION: The Clinical Documentation Specialists (CDI) and [facility] Coding Staff appreciate your assistance in clarifying documentation. Please respond to the clarification below the line at the bottom and electronically sign. The CDI & [facility] Coding staff will review the response and follow-up if needed. Please note: Queries are made part of the Legal Health Record. If you have any questions, please contact the author of this message via ITS. Dr. Parmjit Murdock Hypotension is documented in the ED evaluation and your H/P. History/Risk Factors: Coronary Artery Disease, Diabetes mellitus, Hypertension Clinical Indicators: Patient was sent from psychiatrist's office for hypotension and lethargy. Patient noted he took 600 mg of Zanaflex and 2 [place] prior to arrival today. 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 Drug Induced Hypotension Idiopathic Hypertension Other Condition, please specify Unable to determine (Last Revision: January 2017) MTDD
--- NOTE | 2018-05-14 15:46 | P.DS ---
Providers Date of admission: 05/13/18 20:20 Expected date of discharge: 05/14/18 Attending physician: Parmjit Murdock Primary care physician: Parmjit Murdock [facility] Course: 62-year-old male was brought to the emergency room with report of fall hypotension. Patient was visiting a psychiatrist. Patient was given fluid bolus the blood pressure recovered. Patient is anxious me discharge at this time. Assessment hypotension drug-induced Zanaflex and [place] history of coronary disease with CABG diabetes type II GERD hyperlipidemia hypertension degenerative joint disease with opiate dependency treated by pain management history of polypharmacy PTSD depression/anxiety acute sinusitis Plan follow up with family physician pain management and psychiatrist Patient Condition at Discharge: Fair Plan - Discharge Summary Discharge Rx Participant: No New Discharge Prescriptions: New RX: Amoxic-Pot Clav 875-125Mg [Augmentin 875-125] 1 each PO Q12HR 10 Days # 20 tab Continue RX: Albuterol Inhaler [Ventolin Hfa Inhaler] 1 - 2 puff INHALATION RT-Q6H PRN PRN Reason: Shortness Of Breath RX: Losartan Potassium 100 mg PO DAILY RX: lamoTRIgine [LaMICtal] 100 mg PO BID RX: Atorvastatin [Lipitor] 40 mg PO DAILY RX: Insulin Aspart [NovoLOG Flexpen] 15 unit SQ AC-TID RX: Insulin Detemir [Levemir Flextouch] 40 unit SQ DAILY RX: busPIRone HCl [Buspar] 5 mg PO BID RX: carBAMazepine [carBAMazepine ER] 100 mg PO DAILY RX: FLUoxetine HCL [PROzac] 20 mg PO DAILY RX: Gabapentin 600 mg PO TID RX: HYDROcodone/APAP 7.5-325MG [[place] 7.5-325] 1 tab PO TID PRN PRN Reason: Pain RX: Ipratropium/Albuterol Sulfate [Combivent Respimat Inhaler] 1 puff INHALATION RT-QID RX: Memantine [Namenda] 5 mg PO BID RX: Montelukast [Singulair] 10 mg PO HS RX: Oxybutynin Xl [Ditropan XL] 5 mg PO DAILY RX: QUEtiapine [SEROquel] 100 mg PO HS RX: Ranitidine HCl [Zantac] 150 mg PO BID PRN PRN Reason: Heartburn Discontinued RX: Pantoprazole [Protonix] 40 mg PO DAILY RX: FLUoxetine HCL [PROzac] 40 mg PO DAILY RX: tiZANidine HCL 6 mg PO TID PRN PRN Reason: Muscle Spasm RX: traZODone HCL 50 mg PO HS Discharge Medication List RX: Albuterol Inhaler [Ventolin Hfa Inhaler] 1 - 2 puff INHALATION RT-Q6H PRN [History] RX: Atorvastatin [Lipitor] 40 mg PO DAILY 02/05/17 [History] RX: Losartan Potassium 100 mg PO DAILY 02/05/17 [History] RX: lamoTRIgine [LaMICtal] 100 mg PO BID 02/05/17 [History] RX: FLUoxetine HCL [PROzac] 20 mg PO DAILY 05/13/18 [History] RX: Gabapentin 600 mg PO TID 05/13/18 [History] RX: HYDROcodone/APAP 7.5-325MG [[place] 7.5-325] 1 tab PO TID PRN 05/13/18 [ History] RX: Insulin Aspart [NovoLOG Flexpen] 15 unit SQ AC-TID 05/13/18 [History] RX: Insulin Detemir [Levemir Flextouch] 40 unit SQ DAILY 05/13/18 [History] RX: Ipratropium/Albuterol Sulfate [Combivent Respimat Inhaler] 1 puff INHALATION RT-QID 05/13/18 [History] RX: Memantine [Namenda] 5 mg PO BID 05/13/18 [History] RX: Montelukast [Singulair] 10 mg PO HS 05/13/18 [History] RX: Oxybutynin Xl [Ditropan XL] 5 mg PO DAILY 05/13/18 [History] RX: QUEtiapine [SEROquel] 100 mg PO HS 05/13/18 [History] RX: Ranitidine HCl [Zantac] 150 mg PO BID PRN 05/13/18 [History] RX: busPIRone HCl [Buspar] 5 mg PO BID 05/13/18 [History] RX: carBAMazepine [carBAMazepine ER] 100 mg PO DAILY 05/13/18 [History] RX: Amoxic-Pot Clav 875-125Mg [Augmentin 875-125] 1 each PO Q12HR 10 Days #20 tab 05/14/18 [Rx] Follow up Appointment(s)/Referral(s): Parmjit Murdock MD [Primary Care Provider] - 1-2 days
[2018-05-14 16:58] LABS: Urine Alcohol Negative (Negative); Urine Barbiturate Negative (Negative); Urine Cocaine Negative (Negative); Urine Methadone Negative (Negative); Urine Opiates Positive (Negative); Urine Phencyclidine Negative (Negative)
[2018-05-14] MEDS ORDERED: MONTELUKAST 10 MG TAB PO SCH (21:00)
[2018-05-14] MEDS ORDERED: QUEtiapine 100 MG TAB PO SCH (21:00)
== END 2018-05-14 18:04 | disposition home or self-care (01) | DRG 312 ==
LOC: EC 15:33 → 3SCARD 20:20
PROVIDERS: ADMIT Family Medicine; ATTEND Family Medicine
DX: I95.2 Hypotension due to drugs (principal); F11.20 Opioid dependence, uncomplicated; T39.1X5A Adverse effect of 4-Aminophenol derivatives, initial encounter; T42.8X5A Adverse effect of antiparkinsonism drugs and other central muscle-tone depressants, initial encounter; E11.9 Type 2 diabetes mellitus without complications; E78.5 Hyperlipidemia, unspecified; E86.0 Dehydration; F43.10 Post-traumatic stress disorder, unspecified; F90.9 Attention-deficit hyperactivity disorder, unspecified type; F41.9 Anxiety disorder, unspecified; F32.9 Major depressive disorder, single episode, unspecified; G89.4 Chronic pain syndrome; I10 Essential (primary) hypertension; I25.10 Atherosclerotic heart disease of native coronary artery without angina pectoris; J01.90 Acute sinusitis, unspecified; K21.9 Gastro-esophageal reflux disease without esophagitis; K57.30 Diverticulosis of large intestine without perforation or abscess without bleeding; K58.9 Irritable bowel syndrome, unspecified; M19.90 Unspecified osteoarthritis, unspecified site; N40.0 Benign prostatic hyperplasia without lower urinary tract symptoms; G43.909 Migraine, unspecified, not intractable, without status migrainosus; G47.00 Insomnia, unspecified; K42.9 Umbilical hernia without obstruction or gangrene; K44.9 Diaphragmatic hernia without obstruction or gangrene; M54.5 Low back pain; M47.9 Spondylosis, unspecified; Z79.4 Long term (current) use of insulin; Z79.899 Other long term (current) drug therapy; Z95.1 Presence of aortocoronary bypass graft; Z87.891 Personal history of nicotine dependence; Z87.442 Personal history of urinary calculi; Z87.11 Personal history of peptic ulcer disease; Z88.1 Allergy status to other antibiotic agents; Z88.5 Allergy status to narcotic agent; Z88.2 Allergy status to sulfonamides; Z90.49 Acquired absence of other specified parts of digestive tract; Z82.49 Family history of ischemic heart disease and other diseases of the circulatory system; Z83.3 Family history of diabetes mellitus
CPT/HCPCS: 36415; 71046; 80053; 80306; 81003; 82550; 82553; 83036; 83605; 83735; 83880; 84484; 85025; 85610; 85730; 93005; 96361; 96374; 99285

== ENCOUNTER 2018-05-23 04:52 | Inpatient (IN) | payer MEDICARE, BC ==
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
[2018-05-23] MEDS ORDERED: MORPHINE SULFATE 2 MG/ML SYRINGE IVP STA (05:25)
[2018-05-23] MEDS ORDERED: MORPHINE SULFATE 4 MG/ML SYRINGE IVP STA (06:10)
[2018-05-23] MEDS ORDERED: SODIUM CHLORIDE 0.9% 1,000 ML IV ONE (06:11)
--- NOTE | 2018-05-23 06:19 | XR ---
EXAM: XR Chest, 2 Views CLINICAL HISTORY: Chest Pain TECHNIQUE: Frontal and lateral views of the chest. COMPARISON: 05/13/18 FINDINGS: Lungs: Unremarkable. No consolidation. Pleural space: Unremarkable. No pneumothorax. Heart: Unremarkable. No cardiomegaly. Mediastinum: Unremarkable. Bones/joints: Unremarkable. IMPRESSION: No acute abnormality in the lungs
[2018-05-23] MEDS ORDERED: ONDANSETRON 4 MG/2 ML VIAL IVP PRN (07:10)
[2018-05-23] MEDS ORDERED: NALOXONE 0.4 MG/ML 1 ML VIAL IV PRN (07:10)
[2018-05-23 07:38] LABS: Basophils % (A) 0 %; Eosinophils # (A) 0.1 k/uL (0-0.7); Eosinophils % (A) 1 %; HCT 39.9 % (39.0-53.0); HGB 12.6 gm/dL (13.0-17.5); Lymphocytes # (A) 0.7 k/uL (1.0-4.8); Lymphocytes % (A) 8 %; MCH 30.1 pg (25.0-35.0); MCHC 31.6 g/dL (31.0-37.0); MCV 95.4 fL (80.0-100.0); Mean Platelet Volume 6.7; Monocytes # (A) 0.4 k/uL (0-1.0); Monocytes % (A) 4 %; Neutrophils # (A) 8.2 k/uL (1.3-7.7); Neutrophils % (A) 87 %; Platelet Count 138 k/uL (150-450); RBC 4.18 m/uL (4.30-5.90); RDW 14.8 % (11.5-15.5); WBC 9.5 k/uL (3.8-10.6)
[2018-05-23 07:39] LABS: ALT 559 U/L (21-72); AST 730 U/L (17-59); Albumin 3.5 g/dL (3.5-5.0); Alkaline Phosphatase 449 U/L (38-126); Amylase 49 U/L (30-110); Anion Gap 6 mmol/L; Blood Urea Nitrogen 20 mg/dL (9-20); Calcium 8.7 mg/dL (8.4-10.2); Carbon Dioxide 24 mmol/L (22-30); Chloride 111 mmol/L (98-107); Glucose 255 mg/dL (74-99); Lipase 291 U/L (23-300); Magnesium 1.5 mg/dL (1.6-2.3); Potassium 4.3 mmol/L (3.5-5.1); Sodium 141 mmol/L (137-145); Total Bilirubin 2.3 mg/dL (0.2-1.3); Total Protein 6.1 g/dL (6.3-8.2)
[2018-05-23 07:41] LABS: D-Dimer 1.72 mg/L FEU (<0.60); INR 0.9 (<1.2); Prothrombin Time 9.7 sec (9.0-12.0)
[2018-05-23 07:55] LABS: Creatine Kinase 72 U/L (55-170)
[2018-05-23] MEDS: SODIUM CHLORIDE 0.9% 1,000 ML IV SCH ×2 (08:05→14:27)
[2018-05-23] MEDS: HYDROmorphone 0.5 MG/0.5 ML SYRINGE IVP PRN ×2 (08:06→10:50)
[2018-05-23 08:09] LABS: Creatine Kinase MB 1.3 ng/mL (0.0-2.4); Troponin I <0.012 ng/mL (0.000-0.034)
[2018-05-23 08:13] LABS: Partial Thromboplastin Time 20.9 sec (22.0-30.0)
[2018-05-23 08:56] LABS: Appearance,Urine Clear (Clear); Bilirubin,Urine Negative (Negative); Blood,Urine Negative (Negative); Color,Urine Yellow; Glucose,Urine (UA) 4+ (Negative); Ketones,Urine Negative (Negative); Leukocyte Esterase,Urine Negative (Negative); Nitrite,Urine Negative (Negative); Protein,Urine Trace (Negative); Specific Gravity,Urine 1.018 (1.001-1.035)
[2018-05-23] MEDS: PANTOPRAZOLE 40 MG/10 ML VIAL IV SCH (09:16)
[2018-05-23] MEDS: MORPHINE SULFATE 4 MG/ML SYRINGE IV PRN ×3 (09:23→17:34)
[2018-05-23] MEDS ORDERED: ALBUTEROL NEBULIZED 2.5 MG/3 ML INHALATION PRN (11:33)
--- NOTE | 2018-05-23 11:49 | US ---
EXAMINATION TYPE: US gallbladder DATE OF EXAM: 05/23/2018 COMPARISON: CT 2018 CLINICAL HISTORY: pain. Abdomen pain, history of cholecystectomy EXAM MEASUREMENTS: Liver Length: 15.5 cm Gallbladder Wall: surgically absent CBD: 1.4 cm Right Kidney: 11.1 x 6.2 x 5.6 cm Difficult and limited study due to patient body habitus Pancreas: obscured by overlying midline bowel gas Liver: heterogeneous, mild intrahepatic ductal dilation Gallbladder: surgically absent Evidence for sonographic Avelar's sign: no CBD: dilated Right Kidney: wnl Suboptimal study due to patient's large body habitus. Visualized liver is heterogeneously hyperechoic with mild intrahepatic biliary dilatation. Pneumatosis on CT is less well seen on ultrasound images saved. Evaluation for focal masses is suboptimal due to the heterogeneity. No surrounding ascites is present. Gallbladder surgically absent. Common bile duct is mildly dilated at 14 mm but I get measure ments up to [address] Limited images right kidney show no gross hydronephrosis. Pancreas is suboptimally evaluated on images saved secondary to shadowing from overlying bowel gas. IMPRESSION: Pneumobilia not as well identified on ultrasound. There is stable mild central intrahepat ic and extra hepatic biliary dilatation from CT. Suboptimal study noted without acute finding clearly present.
[2018-05-23] MEDS: MAGNESIUM SULFATE-D5W PMX 1 GM in DEXTROSE/WATER 1 100ML.BAG IVPB SCH ×2 (12:07→14:26)
[2018-05-23] MEDS: INSULIN ASPART (NovoLOG) 100 UNIT/ML VIAL SQ SCH ×2 (12:08→17:29)
[2018-05-23 12:27] LABS: Glucose,Whole Blood 169 mg/dL (75-99)
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
--- NOTE | 2018-05-23 14:24 | CT ---
EXAMINATION TYPE: CT chest angio for PE DATE OF EXAM: 05/23/2018 COMPARISON: Chest CT July 15, 2017 HISTORY: Elevated D-dimer. CT DLP: 462.0 mGycm. Automated Exposure Control for Dose Reduction was Utilized. CONTRAST: CTA scan of the thorax is performed with IV Contrast, patient injected with 73 mL of Isovue 370, pulm onary embolism protocol. MIP Images are created on CT scanner and reviewed. FINDINGS: LUNGS: Dependent atelectasis in both lower lobes is present. There is additional patchy linear scarri ng and/or atelectasis in both bases. No suspicious focal consolidation is present. No pleural effusio n or pneumothorax is identified. Some mild pleural thickening inferiorly is present. No worrisome mas s is identified. MEDIASTINUM: There is suboptimal bolus with near equal contrast in right and left heart systems but t here is no CT evidence for acute pulmonary embolism. There are no greater than 1 cm hilar or mediast inal lymph nodes. No significant pericardial effusion is seen. Coronary artery calcification is red emonstrated but there are post CABG changes with mediastinal clips and sternal wires again identified . Heart size is upper limits of normal. OTHER: Pneumobilia is redemonstrated. Liver is low dense consistent with fatty infiltration. There is redemonstration of prominent vessel presumed draining vein along medial margin of stomach. Moderate multilevel spurring in thoracic spine is redemonstrated. IMPRESSION: 1. Suboptimal study without CT evidence for acute pulmonary embolism. 2. No suspicious acute pulmonary process.
[2018-05-23] MEDS: IPRATROPIUM-ALBUTEROL 3 ML NEB INHALATION SCH ×3 (15:38→19:05)
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
[2018-05-23] MEDS: GABAPENTIN 300 MG CAP PO SCH ×2 (16:28→21:00)
[2018-05-23 17:24] LABS: Glucose,Whole Blood 207 mg/dL (75-99)
[2018-05-23 20:34] LABS: Glucose,Whole Blood 197 mg/dL (75-99)
[2018-05-23] MEDS: lamoTRIgine 100 MG TAB PO SCH (20:58)
[2018-05-23] MEDS: busPIRone HCl 5 MG TAB PO SCH (20:58)
[2018-05-23] MEDS: MONTELUKAST 10 MG TAB PO SCH (20:59)
[2018-05-23] MEDS: QUEtiapine 100 MG TAB PO SCH (20:59)
[2018-05-23] MEDS: MEMANTINE 5 MG TAB PO SCH (20:59)
[2018-05-24] MEDS: SODIUM CHLORIDE 0.9% 1,000 ML IV SCH ×5 (02:09→21:31)
[2018-05-24] MEDS: MORPHINE SULFATE 4 MG/ML SYRINGE IV PRN ×5 (02:09→18:55)
[2018-05-24 07:44] LABS: Glucose,Whole Blood 136 mg/dL (75-99)
[2018-05-24] MEDS: PANTOPRAZOLE 40 MG/10 ML VIAL IV SCH (07:48)
[2018-05-24] MEDS: INSULIN ASPART (NovoLOG) 100 UNIT/ML VIAL SQ SCH ×3 (07:51→17:37)
[2018-05-24] MEDS: IPRATROPIUM-ALBUTEROL 3 ML NEB INHALATION SCH ×4 (07:54→21:13)
[2018-05-24] MEDS ORDERED: LEVOFLOXACIN 500MG-D5W PMX 500 MG in DEXTROSE/WATER 1 100ML.BAG IVPB ONE (08:00)
[2018-05-24] MEDS: INSULIN DETEMIR (LEVEMIR) 100 UNIT/ML SYR SQ SCH (08:51)
[2018-05-24] MEDS ORDERED: IV FLUID CONTINUATION 1,000 ML IV ONE (09:53)
[2018-05-24] MEDS ORDERED: PROPOFOL 10 MG/ML 20 ML VIAL IV ONE (10:02)
[2018-05-24] MEDS ORDERED: MIDAZOLAM 2 MG/2 ML VIAL ONE (10:02)
[2018-05-24] MEDS ORDERED: KETAMINE 10 MG/ML 20 ML VIAL ONE (10:02)
[2018-05-24] MEDS ORDERED: GLYCOPYRROLATE 0.2 MG/ML 2 ML VIAL ONE (10:02)
[2018-05-24 10:03] LABS: ALT 554 U/L (21-72); AST 373 U/L (17-59); Albumin 3.2 g/dL (3.5-5.0); Alkaline Phosphatase 405 U/L (38-126); Anion Gap 8 mmol/L; Bilirubin, Conjugated 1.7 mg/dL (0.0-0.3); Bilirubin, Delta 1.4 mg/dL (0.0-0.2); Bilirubin,Unconjugated 1.6 mg/dL (0.0-1.1); Blood Urea Nitrogen 9 mg/dL (9-20); Calcium 8.3 mg/dL (8.4-10.2); Carbon Dioxide 22 mmol/L (22-30); Chloride 112 mmol/L (98-107); Glucose 163 mg/dL (74-99); Magnesium 1.8 mg/dL (1.6-2.3); Potassium 3.3 mmol/L (3.5-5.1); Sodium 142 mmol/L (137-145); Total Bilirubin 4.7 mg/dL (0.2-1.3); Total Protein 5.9 g/dL (6.3-8.2)
[2018-05-24] MEDS ORDERED: IOPAMIDOL-300 50ML BTL MISCELLANE ONE (10:30)
--- NOTE | 2018-05-24 10:32 | P.PCN ---
Date of Procedure: 05/24/18 Procedure(s) Performed: Brief history: Patient is a 62-year-old pleasant white male, scheduled for an ERCP as part of evaluation of abdominal pain and elevated serum transaminases for the last 2 days' duration. he status post bypass surgery 15 years ago for symptomatic gallstones. He had intermittent episodes of epigastric pain for the last several weeks duration. During this hospitalization is noted to have elevated bili up to 4.7 and AST/ALT in the range of 500s. CT of abdomen showed evidence of intra-and extra hepatic biliary ductal dilation. Because of the clinical suspicion for CBD stones he scheduled for an ERCP today. Procedure performed: ERCP with balloon stone extraction Preoperative diagnoses: intermittent episodes of epigastric pain/elevated LFTs rule out CBD stones IV sedation per anesthesia: Procedure: After informed consent was obtained from the patient and after the risks benefits and complications including bleeding perforation and pancreatitis explained in detail the patient was brought into the endoscopy unit. The patient was placed in prone position and IV conscious sedation was administered by anesthesia under continuous monitoring. The Olympus side-viewing duodenoscope was then inserted into the mouth and esophagus intubated without any difficulty. The scope was gradually advanced into the stomach and duodenum. The major papilla was identified without any difficulty. There was evidence of previous biliary sphincterotomy that appeared patent. Using a taper-tip catheter the CBD was cannulated without any difficulty and upon injection of the dye the common bile duct appeared slightly dilated measuring 1 cm in diameter with a faint filling defect in the distal common bile duct. At this time the catheter was exchanged over a guidewire and an 8.5 and millimeters balloon was passed over the guidewire into the proximal CBD. He was gently inflated and withdrawn and a small stone was seen in the ampulla. Repeat occlusion cholangiograms was performed and no other filling defects were identified. The pancreatic duct was intentionally not cannulated. Patient tolerated the procedure well. Impression: Evidence of previous biliary sphincterotomy that was patent Dilated CBD with a small faint filling defect status post balloon extraction and small stones seen exiting the ampulla. Pancreatic duct intentionally not cannulated. Recommendations: The findings of this examination were discussed with the patient. He will be started on a clear liquid diet and repeat labs in the morning. y
[2018-05-24] MEDS ORDERED: LACTATED RINGERS 1,000 ML IV ONE (10:35)
[2018-05-24] MEDS: busPIRone HCl 5 MG TAB PO SCH ×2 (10:56→20:10)
[2018-05-24] MEDS: OXYBUTYNIN XL 5 MG TAB.ER.24 PO SCH (10:56)
[2018-05-24] MEDS: carBAMazepine 100 MG TAB.ER.12H PO SCH (10:57)
[2018-05-24] MEDS: lamoTRIgine 100 MG TAB PO SCH ×2 (10:57→20:10)
[2018-05-24] MEDS: GABAPENTIN 300 MG CAP PO SCH ×3 (10:57→20:10)
[2018-05-24] MEDS: LOSARTAN 50 MG TAB PO SCH (10:57)
[2018-05-24] MEDS: FLUoxetine HCL 20 MG CAP PO SCH (10:57)
[2018-05-24] MEDS: MEMANTINE 5 MG TAB PO SCH ×2 (10:57→20:10)
[2018-05-24 11:42] LABS: Glucose,Whole Blood 139 mg/dL (75-99)
[2018-05-24] MEDS ORDERED: HYDROmorphone 1 MG/ML 1 ML SYRINGE IVP STA (12:05)
[2018-05-24 12:58] LABS: Amylase 35 U/L (30-110); Lipase 57 U/L (23-300)
--- NOTE | 2018-05-24 14:26 | FL ---
EXAMINATION TYPE: FL ERCP DATE OF EXAM: 05/24/2018 CLINICAL HISTORY: Common bile duct stone. ERCP fluoroscopy documentation. TECHNIQUE: Fluoroscopy. COMPARISON: None. FINDINGS: Fluoroscopic guidance was provided during procedure performed by Dr. Kebede. A total of 2 m inutes and 14 seconds of fluoroscopic time was utilized during the procedure and 2 spot images was ac quired during ERCP with cannulation and opacification in a retrograde manner of the common bile duct. IMPRESSION: As Above.
--- NOTE | 2018-05-24 14:31 | P.PN ---
Subjective 62-year-old admitted secondary to epigastric abdominal pain which is most probably secondary to common bile duct stone patient underwent ERCP and removal of the stone. Patient may have some peptic ulcer disease as the patient on Protonix and monitor him today. Possibly of discharge tomorrow. Still complaining of abdominal pain moderately severe and epigastric area Constitutional: Denied any fatigue denied any fever. Cardio vascular: denied any chest pain, palpitations Gastrointestinal denied any nausea vomiting Pulmonary: Denied any shortness of breath cough Neurologic denied any new focal deficits All inpatient medications were reviewed and appropriate changes in these medications as dictated in the interval history and assessment and plan. Objective - Vital Signs Vital signs: Vital Signs Temp 98.2 F 05/24/18 10:50 Pulse 83 05/24/18 12:05 Resp 18 05/24/18 10:50 BP 148/73 05/24/18 12:05 Pulse Ox 93 L 05/24/18 12:05 Intake & Output 05/23/18 05/24/18 05/24/18 18:59 06:59 18:59 Intake Total 300 400 400 Balance 300 400 400 Intake: IV 400 Oral 300 400 Other: # Voids 2 1 - Exam PHYSICAL EXAMINATION: GENERAL: The patient is alert and oriented x3, not in any acute distress. Well developed, well nourished. HEENT: Pupils are round and equally reacting to light. EOMI. No scleral icterus. No conjunctival pallor. Normocephalic, atraumatic. No pharyngeal erythema. No thyromegaly. CARDIOVASCULAR: S1 and S2 present. No murmurs, rubs, or gallops. PULMONARY: Chest is clear to auscultation, no wheezing or crackles. ABDOMEN: Soft, minimal subjective tenderness in the epigastric area no rebound or rigidity, Avelar sign is negative does have bowel sounds no organomegaly MUSCULOSKELETAL: No joint swelling or deformity. EXTREMITIES: No cyanosis, clubbing, or pedal edema. NEUROLOGICAL: Gross neurological examination did not reveal any focal deficits. SKIN: No rashes. - Labs CBC & Chem 7: 05/23/18 07:05 05/24/18 09:25 Labs: Abnormal Lab Results - Last 24 Hours (Table) 05/23/18 05/23/18 05/24/18 Range/Units 17:17 20:11 07:15 Potassium (3.5-5.1) mmol/L Chloride (98-107) mmol/L Glucose (74-99) mg/dL POC Glucose (mg/dL) 207 H 197 H 136 H (75-99) mg/dL Calcium (8.4-10.2) mg/dL Total Bilirubin (0.2-1.3) mg/dL Conjugated Bilirubin (0.0-0.3) mg/dL Unconjugated Bilirubin (0.0-1.1) mg/dL Delta Bilirubin (0.0-0.2) mg/dL AST (17-59) U/L ALT (21-72) U/L Alkaline Phosphatase (38-126) U/L Total Protein (6.3-8.2) g/dL Albumin (3.5-5.0) g/dL 05/24/18 05/24/18 Range/Units 09:25 11:37 Potassium 3.3 L (3.5-5.1) mmol/L Chloride 112 H (98-107) mmol/L Glucose 163 H (74-99) mg/dL POC Glucose (mg/dL) 139 H (75-99) mg/dL Calcium 8.3 L (8.4-10.2) mg/dL Total Bilirubin 4.7 H (0.2-1.3) mg/dL Conjugated Bilirubin 1.7 H (0.0-0.3) mg/dL Unconjugated Bilirubin 1.6 H (0.0-1.1) mg/dL Delta Bilirubin 1.4 H (0.0-0.2) mg/dL AST 373 H (17-59) U/L ALT 554 H (21-72) U/L Alkaline Phosphatase 405 H (38-126) U/L Total Protein 5.9 L (6.3-8.2) g/dL Albumin 3.2 L (3.5-5.0) g/dL Assessment and Plan Plan: -epigastric abdominal pain probably due to common bile stone gastritis: Gastroenterology valid the patient patient underwent ERCP and extraction of the stone -Elevated liver enzymes secondary to common bile duct stone -coronary artery diseasewith CABG in the past -Hyperlipidemia Hypertension hypertension -Type 2 diabetes mellitus -bipolar disorder depression and PTSD For above-mentioned chronic medical problems patient will be resumed on appropriate home medications. I don't have any other choice except to use opiates for pain which will be continued.
[2018-05-24 17:25] LABS: Glucose,Whole Blood 137 mg/dL (75-99)
[2018-05-24] MEDS: QUEtiapine 100 MG TAB PO SCH (20:10)
[2018-05-24] MEDS: MONTELUKAST 10 MG TAB PO SCH (20:10)
[2018-05-24 20:35] LABS: Glucose,Whole Blood 61 mg/dL (75-99)
[2018-05-24 20:54] LABS: Glucose,Whole Blood 64 mg/dL (75-99)
[2018-05-24 21:16] LABS: Glucose,Whole Blood 94 mg/dL (75-99)
[2018-05-25] MEDS: MORPHINE SULFATE 4 MG/ML SYRINGE IV PRN ×6 (00:27→21:32)
[2018-05-25] MEDS: SODIUM CHLORIDE 0.9% 1,000 ML IV SCH ×3 (03:38→20:08)
[2018-05-25] MEDS: IPRATROPIUM-ALBUTEROL 3 ML NEB INHALATION SCH ×4 (07:02→20:08)
[2018-05-25 07:19] LABS: Glucose,Whole Blood 155 mg/dL (75-99)
[2018-05-25] MEDS: PANTOPRAZOLE 40 MG/10 ML VIAL IV SCH (07:38)
[2018-05-25] MEDS: LOSARTAN 50 MG TAB PO SCH (07:41)
[2018-05-25] MEDS: FLUoxetine HCL 20 MG CAP PO SCH (07:41)
[2018-05-25] MEDS: GABAPENTIN 300 MG CAP PO SCH ×3 (07:42→21:36)
[2018-05-25] MEDS: carBAMazepine 100 MG TAB.ER.12H PO SCH (07:42)
[2018-05-25] MEDS: MEMANTINE 5 MG TAB PO SCH ×2 (07:42→21:32)
[2018-05-25] MEDS: OXYBUTYNIN XL 5 MG TAB.ER.24 PO SCH (07:42)
[2018-05-25] MEDS: busPIRone HCl 5 MG TAB PO SCH ×2 (07:42→21:32)
[2018-05-25] MEDS: lamoTRIgine 100 MG TAB PO SCH ×2 (07:42→21:32)
[2018-05-25] MEDS: INSULIN ASPART (NovoLOG) 100 UNIT/ML VIAL SQ SCH ×3 (07:43→17:38)
[2018-05-25] MEDS: INSULIN DETEMIR (LEVEMIR) 100 UNIT/ML SYR SQ SCH (08:02)
[2018-05-25 08:29] LABS: ALT 443 U/L (21-72); AST 265 U/L (17-59); Albumin 3.2 g/dL (3.5-5.0); Alkaline Phosphatase 530 U/L (38-126); Anion Gap 9 mmol/L; Blood Urea Nitrogen 7 mg/dL (9-20); Calcium 8.5 mg/dL (8.4-10.2); Carbon Dioxide 22 mmol/L (22-30); Chloride 113 mmol/L (98-107); Glucose 160 mg/dL (74-99); Potassium 3.3 mmol/L (3.5-5.1); Sodium 144 mmol/L (137-145); Total Protein 5.9 g/dL (6.3-8.2)
--- NOTE | 2018-05-25 10:36 | PN ---
PROGRESS NOTE DATE OF SERVICE: 05/25/2018 REQUESTING PHYSICIAN: Dr. Parmjit Murdock The patient is a 62-year-old pleasant white male admitted to hospital with epigastric pain, elevated LFTs as well as jaundice. He had a prior history of gallbladder surgery 15 years ago for symptomatic gallstones. He underwent an ERCP yesterday that showed dilated CBD with a small filling defect. He underwent balloon stone extraction. Following the procedure, patient had some epigastric pain requiring pain medications. This morning he is feeling much better. He still has some epigastric discomfort but no nausea, vomiting. On a clear liquid diet, tolerating well. PHYSICAL EXAMINATION: He appears comfortable. No apparent distress. VITAL SIGNS: Stable. Blood pressure is 154/76, pulse is 71, temperature 98.8 HEENT examination unremarkable. Conjunctivae pink. Sclerae anicteric. Oral cavity no lesions. Neck no jugular venous distention or lymph node enlargement. Chest was clear to auscultation. HEART: Regular rate and rhythm. ABDOMEN: Soft. There was very minimal tenderness in the epigastric area. Bowel sounds are positive. No organomegaly. Extremities: No pedal edema. Skin no rashes. NEUROLOGIC: Alert and oriented x3. No focal deficits. LABS: Done today T bilirubin is up to 5, AST 265, ALT 443, alkaline phosphatase is 530. CBC not available. IMPRESSION: The patient presents with intermittent episodes of epigastric pain and prior history of gallbladder surgery noted to have elevated LFTs and jaundice. ERCP yesterday showed small CBD stone with biliary ductal dilation, status post balloon stone extraction. Serum transaminases have improved, but bilirubin went up to 5 g/dL. Clinically doing better. RECOMMENDATIONS: 1. Advance diet as tolerated. 2. Repeat labs in the morning. If they are improving, he can be discharged home with an outpatient follow up. Thank you for this consultation. MMODL / IJN: [id number] /
[2018-05-25 11:59] LABS: Glucose,Whole Blood 189 mg/dL (75-99)
[2018-05-25] MEDS ORDERED: POTASSIUM CHLORIDE ER 20 MEQ TAB.ER PO STA (12:38)
--- NOTE | 2018-05-25 13:39 | P.PN ---
Subjective 62-year-old admitted secondary to epigastric abdominal pain which is most probably secondary to common bile duct stone patient underwent ERCP and removal of the stone. Patient may have some peptic ulcer disease as the patient on Protonix and monitor him today. Possibly of discharge tomorrow. Still complaining of abdominal pain moderately severe and epigastric area 05/25/2018 Patient's abdominal pain is better but his bilirubin went up a bit we'll repeat the, his metabolic profile tomorrow. Patient does appear to have parotitis will start him on Rocephin and clindamycin ENT surgery will be consulted will leave further imaging to them. Constitutional: Denied any fatigue denied any fever. Cardio vascular: denied any chest pain, palpitations Gastrointestinal denied any nausea vomiting Pulmonary: Denied any shortness of breath cough Neurologic denied any new focal deficits All inpatient medications were reviewed and appropriate changes in these medications as dictated in the interval history and assessment and plan. Objective - Vital Signs Vital signs: Vital Signs Temp 98.8 F 05/25/18 05:50 Pulse 70 05/25/18 07:16 Resp 18 05/25/18 08:00 BP 154/76 05/25/18 05:50 Pulse Ox 97 05/25/18 05:50 Intake & Output 05/24/18 05/25/18 05/25/18 18:59 06:59 18:59 Intake Total 1000 975 Balance 1000 975 Intake: IV 400 Oral 600 975 Other: Voiding Method Toilet Toilet Toilet # Voids 3 3 3 - Exam PHYSICAL EXAMINATION: GENERAL: The patient is alert and oriented x3, not in any acute distress. Well developed, well nourished. HEENT: Pupils are round and equally reacting to light. EOMI. No scleral icterus. No conjunctival pallor. Normocephalic, atraumatic. No pharyngeal erythema. No thyromegaly. Patient does have bilateral parotid gland tenderness and mild enlargement CARDIOVASCULAR: S1 and S2 present. No murmurs, rubs, or gallops. PULMONARY: Chest is clear to auscultation, no wheezing or crackles. ABDOMEN: Soft, minimal subjective tenderness in the epigastric area no rebound or rigidity, Avelar sign is negative does have bowel sounds no organomegaly MUSCULOSKELETAL: No joint swelling or deformity. EXTREMITIES: No cyanosis, clubbing, or pedal edema. NEUROLOGICAL: Gross neurological examination did not reveal any focal deficits. SKIN: No rashes. - Labs CBC & Chem 7: 05/23/18 07:05 05/25/18 07:32 Labs: Abnormal Lab Results - Last 24 Hours (Table) 05/24/18 05/24/18 05/24/18 Range/Units 17:15 20:26 20:44 Potassium (3.5-5.1) mmol/L Chloride (98-107) mmol/L BUN (9-20) mg/dL Glucose (74-99) mg/dL POC Glucose (mg/dL) 137 H 61 L 64 L (75-99) mg/dL Total Bilirubin (0.2-1.3) mg/dL AST (17-59) U/L ALT (21-72) U/L Alkaline Phosphatase (38-126) U/L Total Protein (6.3-8.2) g/dL Albumin (3.5-5.0) g/dL 05/25/18 05/25/18 05/25/18 Range/Units 07:13 07:32 11:45 Potassium 3.3 L (3.5-5.1) mmol/L Chloride 113 H (98-107) mmol/L BUN 7 L (9-20) mg/dL Glucose 160 H (74-99) mg/dL POC Glucose (mg/dL) 155 H 189 H (75-99) mg/dL Total Bilirubin 5.0 H (0.2-1.3) mg/dL AST 265 H (17-59) U/L ALT 443 H (21-72) U/L Alkaline Phosphatase 530 H (38-126) U/L Total Protein 5.9 L (6.3-8.2) g/dL Albumin 3.2 L (3.5-5.0) g/dL Assessment and Plan Plan: -epigastric abdominal pain probably due to common bile duct stone or gastritis : Gastroenterology valid the patient patient underwent ERCP and extraction of the stone liver enzymes and bili within continued to go up because of which will repeat CMP tomorrow -Possibility of parotitis patient will be continued on IV fluids and patient the was started on Rocephin and clindamycin ENT will be consulted -Elevated liver enzymes secondary to common bile duct stone -coronary artery diseasewith CABG in the past -Hyperlipidemia Hypertension hypertension -Type 2 diabetes mellitus -bipolar disorder depression and PTSD For above-mentioned chronic medical problems patient will be resumed on appropriate home medications. I don't have any other choice except to use opiates for pain which will be continued.
[2018-05-25 17:04] LABS: Glucose,Whole Blood 77 mg/dL (75-99)
[2018-05-25] MEDS: CLINDAMYCIN 300 MG in DEXTROSE 5% IN WATER 50 ML IVPB SCH ×4 (17:52→23:33)
[2018-05-25 20:51] LABS: Glucose,Whole Blood 134 mg/dL (75-99)
[2018-05-25] MEDS: QUEtiapine 100 MG TAB PO SCH (21:32)
[2018-05-25] MEDS: MONTELUKAST 10 MG TAB PO SCH (21:32)
[2018-05-26] MEDS: MORPHINE SULFATE 4 MG/ML SYRINGE IV PRN ×6 (01:25→21:15)
[2018-05-26] MEDS: SODIUM CHLORIDE 0.9% 1,000 ML IV SCH ×2 (05:11→16:26)
[2018-05-26] MEDS: CLINDAMYCIN 300 MG in DEXTROSE 5% IN WATER 50 ML IVPB SCH ×8 (05:14→23:08)
[2018-05-26 07:00] LABS: Glucose,Whole Blood 177 mg/dL (75-99)
[2018-05-26] MEDS: IPRATROPIUM-ALBUTEROL 3 ML NEB INHALATION SCH ×4 (07:20→20:06)
[2018-05-26] MEDS: carBAMazepine 100 MG TAB.ER.12H PO SCH (07:59)
[2018-05-26] MEDS: lamoTRIgine 100 MG TAB PO SCH ×2 (07:59→21:11)
[2018-05-26] MEDS: busPIRone HCl 5 MG TAB PO SCH ×2 (07:59→21:11)
[2018-05-26] MEDS: PANTOPRAZOLE 40 MG/10 ML VIAL IV SCH (07:59)
[2018-05-26] MEDS: MEMANTINE 5 MG TAB PO SCH ×2 (07:59→21:11)
[2018-05-26] MEDS: INSULIN ASPART (NovoLOG) 100 UNIT/ML VIAL SQ SCH ×3 (07:59→17:08)
[2018-05-26] MEDS: OXYBUTYNIN XL 5 MG TAB.ER.24 PO SCH (07:59)
[2018-05-26] MEDS: FLUoxetine HCL 20 MG CAP PO SCH (07:59)
[2018-05-26] MEDS: LOSARTAN 50 MG TAB PO SCH (07:59)
[2018-05-26] MEDS: GABAPENTIN 300 MG CAP PO SCH ×3 (08:02→21:15)
[2018-05-26] MEDS: INSULIN DETEMIR (LEVEMIR) 100 UNIT/ML SYR SQ SCH (08:02)
--- NOTE | 2018-05-26 08:45 | CT ---
EXAMINATION TYPE: CT neck chest w con DATE OF EXAM: 05/26/2018 COMPARISON: None HISTORY: Parotitis CT DLP: 1739.20 mGycm CONTRAST: CT scan of the neck is performed with IV Contrast, patient injected with 100 ml mL of Isovue 300. Contrast enhanced CT of the neck was performed from the skull base through the lung apices. AIRWAY: The supraglottic, glottic, and subglottic portions of the airway appear patent and free of mass. SALIVARY GLANDS: Right parotid gland is mildly edematous with mild surrounding inflammatory change m ay reflect underlying Parotitis. No sialolithiasis noted. Left parotid gland is grossly unremarkable. No intraparotid lesions are evident. The submandibular glands are free of mass or inflammatory proce ss. THYROID GLAND: No nodules or masses seen. LYMPH NODES: No adenopathy seen greater than 1cm. LUNG APICES: No nodule or mass is seen. OTHER: Vascular structures are patent. No significant degenerative change of the cervical spine. N o abscess seen. IMPRESSION: 1. Correlate for mild right-sided Parotitis EXAMINATION TYPE: CT neck chest w con DATE OF EXAM: 05/26/2018 COMPARISON: 03/04/2017 HISTORY: Parotitis CT DLP: 1739.20 mGycm Automated exposure control for dose reduction was used. CONTRAST: CT scan of the chest is performed with IV Contrast, patient injected with 100 ml mL of Isovue 300. FINDINGS: LUNGS: The lungs are grossly clear, there is no concerning parenchymal mass or nodule identified. T here is no pleural effusion or pneumothorax seen. The tracheobronchial tree is patent. MEDIASTINUM: There are no greater than 1 cm hilar or mediastinal lymph nodes. No pericardial effusi on is seen. Thoracic aorta is of normal caliber. The heart is not enlarged. UPPER ABDOMEN: There is evidence of pneumobilia. Cholecystectomy clips are in place. OTHER: No additional significant abnormality is seen. IMPRESSION: 1. No significant abnormality of the chest.
[2018-05-26 09:33] LABS: Basophils % (A) 1 %; Eosinophils # (A) 0.3 k/uL (0-0.7); Eosinophils % (A) 5 %; HGB 10.8 gm/dL (13.0-17.5); Lymphocytes % (A) 34 %; MCH 30.6 pg (25.0-35.0); MCHC 31.9 g/dL (31.0-37.0); Mean Platelet Volume 7.4; Monocytes # (A) 0.4 k/uL (0-1.0); Monocytes % (A) 7 %; Neutrophils # (A) 2.9 k/uL (1.3-7.7); Neutrophils % (A) 49 %; Platelet Count 141 k/uL (150-450); RBC 3.54 m/uL (4.30-5.90); RDW 15.2 % (11.5-15.5); WBC 5.9 k/uL (3.8-10.6)
[2018-05-26 09:53] LABS: ALT 338 U/L (21-72); AST 145 U/L (17-59); Albumin 3.3 g/dL (3.5-5.0); Alkaline Phosphatase 515 U/L (38-126); Anion Gap 9 mmol/L; Blood Urea Nitrogen 5 mg/dL (9-20); Calcium 8.7 mg/dL (8.4-10.2); Carbon Dioxide 22 mmol/L (22-30); Chloride 112 mmol/L (98-107); Glucose 221 mg/dL (74-99); Potassium 3.7 mmol/L (3.5-5.1); Sodium 143 mmol/L (137-145); Total Bilirubin 2.8 mg/dL (0.2-1.3)
[2018-05-26 12:13] LABS: Glucose,Whole Blood 116 mg/dL (75-99)
[2018-05-26 17:07] LABS: Glucose,Whole Blood 130 mg/dL (75-99)
[2018-05-26 20:47] LABS: Glucose,Whole Blood 103 mg/dL (75-99)
[2018-05-26] MEDS: MONTELUKAST 10 MG TAB PO SCH (21:11)
[2018-05-26] MEDS: QUEtiapine 100 MG TAB PO SCH (21:11)
--- NOTE | 2018-05-26 22:25 | P.PN ---
Subjective Progress Note Date: 05/26/18 Principal diagnosis: Choledocholithiasis, elevated liver enzymes Patient lying in bed, reporting abdominal pain is still present but improved. No nausea or vomiting. Tolerating his diet. Objective - Vital Signs Vital signs: Vital Signs Temp 98.5 F 05/26/18 14:43 Pulse 90 05/26/18 15:09 Resp 18 05/26/18 21:55 BP 162/83 05/26/18 14:43 Pulse Ox 96 05/26/18 14:43 Intake & Output 05/26/18 05/26/18 05/27/18 06:59 18:59 06:59 Intake Total 300 Balance 300 Intake: Oral 300 Other: Voiding Method Toilet Toilet # Voids 2 3 # Bowel Movements 0 1 - Exam On physical examination, patient appears comfortable in no apparent distress. HEAD: Normocephalic, atraumatic. EYES: No scleral icterus. No conjunctival injection. MOUTH: No lesions, tongue midline. NECK: Trachea midline, no gross abnormalities. CHEST: Clear to auscultation with no wheezing or rhonchi appreciated. HEART: Regular rate and rhythm. ABDOMEN: Soft, obese. Bowel sounds are positive. No organomegaly. No guarding or rigidity. EXTREMITIES: No pedal edema. SKIN: No rashes, no jaundice. NEUROLOGIC: Alert and oriented x3. No focal deficits. - Labs CBC & Chem 7: 05/26/18 09:02 05/26/18 09:02 Labs: Abnormal Lab Results - Last 24 Hours (Table) 05/26/18 05/26/18 05/26/18 Range/Units 06:58 09:02 09:02 RBC 3.54 L (4.30-5.90) m/uL Hgb 10.8 L (13.0-17.5) gm/dL Hct 34.0 L (39.0-53.0) % Plt Count 141 L (150-450) k/uL Chloride 112 H (98-107) mmol/L BUN 5 L (9-20) mg/dL Glucose 221 H (74-99) mg/dL POC Glucose (mg/dL) 177 H (75-99) mg/dL Total Bilirubin 2.8 H (0.2-1.3) mg/dL AST 145 H (17-59) U/L ALT 338 H (21-72) U/L Alkaline Phosphatase 515 H (38-126) U/L Total Protein 6.0 L (6.3-8.2) g/dL Albumin 3.3 L (3.5-5.0) g/dL 05/26/18 05/26/18 05/26/18 Range/Units 12:03 17:04 20:32 RBC (4.30-5.90) m/uL Hgb (13.0-17.5) gm/dL Hct (39.0-53.0) % Plt Count (150-450) k/uL Chloride (98-107) mmol/L BUN (9-20) mg/dL Glucose (74-99) mg/dL POC Glucose (mg/dL) 116 H 130 H 103 H (75-99) mg/dL Total Bilirubin (0.2-1.3) mg/dL AST (17-59) U/L ALT (21-72) U/L Alkaline Phosphatase (38-126) U/L Total Protein (6.3-8.2) g/dL Albumin (3.5-5.0) g/dL Assessment and Plan (1) Abdominal pain Narrative/Plan: Patient presenting with his second episode of severe epigastric abdominal pain. He is status post cholecystectomy approximately 15 years ago and has had prior episodes of pancreatitis which she reports is secondary to use of Victoza , however on this hospitalization amylase and lipase were found to be normal. Patient is status post ERCP with balloon sweep and small stone removal. Pain is improved overall but still present. Current Visit: Yes Status: Acute Code(s): R10.9 - UNSPECIFIED ABDOMINAL PAIN SNOMED Code(s): 52884679 (2) Elevated liver enzymes Narrative/Plan: Patient presenting with abdominal pain and elevation in liver enzymes in both a cholestatic and hepatocellular pattern. Status post ERCP with removal of choledocholithiasis. Liver enzymes initially trended up however improved today. Current Visit: No Status: Chronic Priority: Medium Code(s): R74.8 - ABNORMAL LEVELS OF OTHER SERUM ENZYMES SNOMED Code(s): 733215490 Plan: Supportive care Continue fluid hydration Continue pain control We'll repeat liver enzymes tomorrow morning Okay for diet Thank you for allowing us to participate in the care of the patient we will continue to follow
[2018-05-27] MEDS: MORPHINE SULFATE 4 MG/ML SYRINGE IV PRN ×5 (01:21→20:28)
[2018-05-27] MEDS: SODIUM CHLORIDE 0.9% 1,000 ML IV SCH ×3 (02:46→21:50)
[2018-05-27] MEDS: CLINDAMYCIN 300 MG in DEXTROSE 5% IN WATER 50 ML IVPB SCH ×8 (05:13→23:23)
--- NOTE | 2018-05-27 05:23 | CONS ---
CONSULTATION DATE OF ADMISSION: 05/23/2018 DATE OF CONSULTATION: 05/26/2018. REASON FOR THE CONSULTATION: Parotitis, sore neck/throat. CONSULTING PHYSICIAN: Dr. Nestor Mena. HISTORY OF PRESENT ILLNESS: This patient is a very pleasant 62-year-old male who recently was admitted to [facility] via the emergency department for workup and evaluation of moderate to severe chronic epigastric pain/discomfort. In addition to this it was noted that the patient upon admission was noted to be slightly dehydrated. A GI consultation was obtained and the patient subsequently underwent a ERCP and it was found at that procedure that the patient had common bile duct stones. Postoperatively the patient did well. However, he subsequently began complaining of having stiffness/soreness in his neck as well as fullness in the left side of his neck. The patient states that he has had problems with a sore, stiff neck for at least 4 or 5 months. He denies any dysphagia or any referred otalgia. He is a nonsmoker and quit smoking 20+ years ago and uses no tobacco products whatsoever. He does have a history of gastroesophageal reflux disease (GERD). I was contacted as the ENT physician commercial solar sales consultant and ordered a CT scan of the neck with contrast, which showed evidence of very mild parotitis of the left parotid gland. This is most likely secondary to the patient's dehydrated state at the time of his admission and is very common. PAST MEDICAL HISTORY: Past medical history reveals patient has allergies to TORADOL, SULFA and FLAGYL. He is a nonsmoker. CURRENT MEDICATIONS: Current medications include Lamictal, Tegretol, BuSpar, Zantac, Seroquel, Ditropan, Singulair, Namenda, losartan, albuterol, Combivent, Levemir insulin, NovoLog insulin, [place], Lipitor, and Ventolin. REVIEW OF SYSTEMS: Review of systems is positive cardiovascular system for hypertension and ASHD. Respiratory is positive asthma. Gastrointestinal is positive for GERD (gastroesophageal reflux disorder). Musculoskeletal is positive for osteoarthritis. Metabolic endocrine system is positive for type 1 insulin-dependent diabetes mellitus and hypercholesterolemia. Remainder of the review of systems unremarkable. PHYSICAL EXAMINATION: This is a very pleasant 62-year-old male who is alert and cooperative. HEENT EXAMINATION: Patient is normocephalic. Tympanic membranes are normal. Middle ear spaces are free of any fluid or infection. Pupils equal, round, and react to light and accommodation. Intranasal examination reveals moderate to severe septal deviation with compensatory hypertrophy of the inferior turbinates bilaterally. Examination of oropharynx is unremarkable. Examination of the floor of the mouth is unremarkable. Deep palpation and bimanual palpation of the floor of mouth is negative for any neck masses or lymphadenopathy. However, the patient's neck is somewhat tender on both sides to deep palpation, especially with respect to the musculature. I do not palpate any suggestion of fullness, fluctuance, or masses. The area in the region of the left parotid gland is slightly more tender than would be expected. Examination of oropharynx and palpation of the left parotid gland did not reveal any purulent material coming from the parotid Stensen's duct on the left buccal mucosal wall. Cranial nerves 2 through 12 and the remainder of the head and neck exam is unremarkable. CHEST/CARDIOVASCULAR: Both lung banks are clear. There is no rales, rhonchi, wheezes. The patient is in regular sinus rhythm. S1, S2 are present without any murmurs. The remainder of physical exam is unremarkable. IMPRESSION: 1. Mild left parotitis, most likely secondary to dehydration. 2. Suspect cervical myalgia, which may have been exacerbated during the patient's operative procedure in which point his neck may have been hyperextended slightly since the patient states that the soreness in the neck increased significantly after his surgical procedure. The discomfort he is complaining of in his throat with regards to soreness and even a full sensation I suspect it is due to his acid reflux. PLAN: I would increase the patient's IV fluids as tolerated at least to 125 mL an hour and encourage the patient to drink plenty of fluids at home and try and take in at least up to 60 to 80 ounces of water daily. In addition to this, I advised him to avoid eating 3 hours before going to bed in an effort to reduce his GERD symptoms and he might benefit from being placed on a different type of a GERD medication, specifically one of the proton pump inhibitors if he is able to tolerate something such as Protonix, Prilosec etc. With respect to the patient's stiffness, I expect the parotitis to resolve on its own. If you wish to send him home on antibiotics you may send him home on something as mild as Keflex 500 mg t.i.d. for 7 days. #21. I advised the patient if he is still having problems with a sore neck, then certainly he could follow up in my office at which point then, I would most likely attempt to investigate his neck possibly with a CT scan of the cervical spine. Unfortunately because of this gentleman's size I am not sure that he would tolerate a standard closed MRI. I want to take this opportunity to thank you for allowing me to assist you in the care of the patient. If I can be of any further assistance, please feel free to call my office. Time spent with patient approximately 30 minutes. All of the patient's questions were answered. MMODL / IJN: [id number] /
[2018-05-27 07:06] LABS: Glucose,Whole Blood 95 mg/dL (75-99)
[2018-05-27] MEDS: IPRATROPIUM-ALBUTEROL 3 ML NEB INHALATION SCH ×4 (07:28→20:54)
[2018-05-27] MEDS: INSULIN ASPART (NovoLOG) 100 UNIT/ML VIAL SQ SCH ×4 (07:42→23:23)
[2018-05-27] MEDS: GABAPENTIN 300 MG CAP PO SCH ×3 (07:43→21:49)
[2018-05-27] MEDS: MEMANTINE 5 MG TAB PO SCH ×2 (07:43→20:28)
[2018-05-27] MEDS: LOSARTAN 50 MG TAB PO SCH (07:43)
[2018-05-27] MEDS: lamoTRIgine 100 MG TAB PO SCH ×2 (07:43→20:28)
[2018-05-27] MEDS: busPIRone HCl 5 MG TAB PO SCH ×2 (07:43→20:27)
[2018-05-27] MEDS: carBAMazepine 100 MG TAB.ER.12H PO SCH (07:43)
[2018-05-27] MEDS: PANTOPRAZOLE 40 MG/10 ML VIAL IV SCH (07:44)
[2018-05-27] MEDS: OXYBUTYNIN XL 5 MG TAB.ER.24 PO SCH (07:44)
[2018-05-27] MEDS: FLUoxetine HCL 20 MG CAP PO SCH (07:44)
[2018-05-27] MEDS: INSULIN DETEMIR (LEVEMIR) 100 UNIT/ML SYR SQ SCH (07:51)
--- NOTE | 2018-05-27 11:39 | P.PN ---
Subjective Patient resting in bed Planing of epigastric pain and left lower quadrant tenderness. Also complains of pain to the anterior neck. Patient also states he had blood in his stool this morning CBC and comp ordered Objective - Vital Signs Vital signs: Vital Signs Temp 98.2 F 05/27/18 07:00 Pulse 84 05/27/18 11:25 Resp 16 05/27/18 07:00 BP 176/90 05/27/18 07:00 Pulse Ox 97 05/27/18 07:00 Intake & Output 05/26/18 05/27/18 05/27/18 18:59 06:59 18:59 Intake Total 200 Balance 200 Intake: Oral 200 Other: Voiding Method Toilet Toilet # Voids 3 1 # Bowel Movements 1 - Constitutional General appearance: Present: mild distress - EENT Eyes: Present: PERRLA Ears: bilateral: normal - Neck Neck: Present: normal ROM - Respiratory Respiratory: bilateral: CTA - Cardiovascular Rhythm: regular - Gastrointestinal General gastrointestinal: Present: normal bowel sounds, soft Localized gastrointestinal: tender: LLQ, epigastric periumbilical - Integumentary Integumentary: Present: normal - Neurologic Neurologic: Present: CNII-XII intact - Musculoskeletal Musculoskeletal: Present: gait normal - Psychiatric Psychiatric: Present: A&O x's 3, appropriate affect, intact judgment & insight - Labs CBC & Chem 7: 05/26/18 09:02 05/26/18 09:02 Labs: Abnormal Lab Results - Last 24 Hours (Table) 05/26/18 05/26/18 05/26/18 Range/Units 12:03 17:04 20:32 POC Glucose (mg/dL) 116 H 130 H 103 H (75-99) mg/dL - Imaging and Cardiology Chest x-ray: report reviewed CT scan - chest: report reviewed Assessment and Plan Plan: Assessment Epigastric pain secondary to choledocholitis post ERCP Parotitis Elevated liver enzymes History of coronary disease with CABG Hyperlipidemia Hypertension Diabetes type 2 Bipolar disorder with PTSD Plan CBC and CMP ordered Continue consultation with Dr. Guzman Patient on Rocephin and clindamycin
[2018-05-27 11:43] LABS: Basophils # (A) 0.1 k/uL (0-0.2); Basophils % (A) 1 %; Eosinophils # (A) 0.4 k/uL (0-0.7); Eosinophils % (A) 6 %; HCT 35.9 % (39.0-53.0); HGB 12.1 gm/dL (13.0-17.5); Lymphocytes # (A) 2.5 k/uL (1.0-4.8); Lymphocytes % (A) 32 %; MCH 32.3 pg (25.0-35.0); MCHC 33.7 g/dL (31.0-37.0); MCV 95.9 fL (80.0-100.0); Mean Platelet Volume 6.9; Monocytes # (A) 0.5 k/uL (0-1.0); Monocytes % (A) 6 %; Neutrophils % (A) 52 %; Platelet Count 173 k/uL (150-450); RBC 3.74 m/uL (4.30-5.90); RDW 15.5 % (11.5-15.5); WBC 7.6 k/uL (3.8-10.6)
--- NOTE | 2018-05-27 11:48 | P.PN ---
Subjective Progress Note Date: 05/26/18 Interval history: 62-year-old admitted secondary to epigastric abdominal pain which is most probably secondary to common bile duct stone patient underwent ERCP and removal of the stone. Patient may have some peptic ulcer disease as the patient on Protonix and monitor him today. Possibly of discharge tomorrow. Still complaining of abdominal pain moderately severe and epigastric area 05/25/2018 Patient's abdominal pain is better but his bilirubin went up a bit we'll repeat the, his metabolic profile tomorrow. Patient does appear to have parotitis will start him on Rocephin and clindamycin ENT surgery will be consulted will leave further imaging to them. 05/26/2018 Neck/chest CT REPORTING POSSIBLE MILD RIGHT-SIDED PAROTIDITIS, no abscess seen, no significant abnormality of the chest.ENT evaluation/ recommendations pending. Tolerating diet with no nausea or vomiting, Complains of improving mid epigastric discomfort. Hemoglobin 10.8. No bleeding reported. Improving Elevated LFTs with total bili down to 2.8. Constitutional: Denied any fatigue denied any fever. Cardio vascular: denied any chest pain, palpitations Gastrointestinal denied any nausea vomiting Pulmonary: Denied any shortness of breath cough Neurologic denied any new focal deficits All inpatient medications were reviewed and appropriate changes in these medications as dictated in the interval history and assessment and plan. Objective - Vital Signs Vital signs: Vital Signs Temp 98.5 F 05/26/18 14:43 Pulse 90 05/26/18 15:09 Resp 18 05/26/18 14:43 BP 162/83 05/26/18 14:43 Pulse Ox 96 05/26/18 14:43 Intake & Output 05/26/18 05/26/18 05/27/18 06:59 18:59 06:59 Intake Total 300 Balance 300 Intake: Oral 300 Other: Voiding Method Toilet # Voids 2 3 # Bowel Movements 0 1 - Exam GENERAL: The patient is alert and oriented x3, not in any acute distress. Well developed, well nourished. HEENT: Pupils are round and equally reacting to light. EOMI. No scleral icterus. No conjunctival pallor. Normocephalic, atraumatic. No pharyngeal erythema. No thyromegaly. Patient does have bilateral parotid gland tenderness and mild enlargement. Oral mucosa moist CARDIOVASCULAR: S1 and S2 present. No murmurs, rubs, or gallops. PULMONARY: Chest is clear to auscultation, no wheezing or crackles. ABDOMEN: Soft, minimal subjective tenderness in the epigastric area no rebound or rigidity, positive bowel sounds, no guarding, no rigidity MUSCULOSKELETAL: No joint swelling or deformity. EXTREMITIES: No cyanosis, clubbing, or pedal edema. NEUROLOGICAL: Gross neurological examination did not reveal any focal deficits. SKIN: No rashes. No jaundice. - Labs CBC & Chem 7: 05/26/18 09:02 05/26/18 09:02 Labs: Abnormal Lab Results - Last 24 Hours (Table) 05/25/18 05/26/18 05/26/18 Range/Units 20:50 06:58 09:02 RBC 3.54 L (4.30-5.90) m/uL Hgb 10.8 L (13.0-17.5) gm/dL Hct 34.0 L (39.0-53.0) % Plt Count 141 L (150-450) k/uL Chloride (98-107) mmol/L BUN (9-20) mg/dL Glucose (74-99) mg/dL POC Glucose (mg/dL) 134 H 177 H (75-99) mg/dL Total Bilirubin (0.2-1.3) mg/dL AST (17-59) U/L ALT (21-72) U/L Alkaline Phosphatase (38-126) U/L Total Protein (6.3-8.2) g/dL Albumin (3.5-5.0) g/dL 05/26/18 05/26/18 05/26/18 Range/Units 09:02 12:03 17:04 RBC (4.30-5.90) m/uL Hgb (13.0-17.5) gm/dL Hct (39.0-53.0) % Plt Count (150-450) k/uL Chloride 112 H (98-107) mmol/L BUN 5 L (9-20) mg/dL Glucose 221 H (74-99) mg/dL POC Glucose (mg/dL) 116 H 130 H (75-99) mg/dL Total Bilirubin 2.8 H (0.2-1.3) mg/dL AST 145 H (17-59) U/L ALT 338 H (21-72) U/L Alkaline Phosphatase 515 H (38-126) U/L Total Protein 6.0 L (6.3-8.2) g/dL Albumin 3.3 L (3.5-5.0) g/dL Assessment and Plan Assessment: -epigastric abdominal pain probably due to common bile duct stone or gastritis : s/p ERCP ,extraction of the stone liver enzymes -Mild Parotitis -Elevated liver enzymes secondary to common bile duct stone -coronary artery diseasewith CABG in the past -Hyperlipidemia Hypertension hypertension -Type 2 diabetes mellitus -bipolar disorder depression and PTSD Plan: Continue on current medication regime ,monitoring and symptomatic treatment. Pain management. ENT recommendations pending. Follow closely with GI. Maintain IV fluid hydration, IV antibiotics. Close monitoring of CBC, CMP with repeat labs for a.m. ordered. Discharge planning in progress for tomorrow. The impression and plan of care has been dictated as directed. : I performed a history and examination of this patient, discussed the same with the dictator. I agree with the dictator's note ,documented as a scribe. Any additional findings or plans will be noted.
[2018-05-27 11:54] LABS: ALT 248 U/L (21-72); AST 78 U/L (17-59); Albumin 3.3 g/dL (3.5-5.0); Alkaline Phosphatase 466 U/L (38-126); Anion Gap 9 mmol/L; Blood Urea Nitrogen 8 mg/dL (9-20); Calcium 9.6 mg/dL (8.4-10.2); Carbon Dioxide 25 mmol/L (22-30); Chloride 110 mmol/L (98-107); Glucose 154 mg/dL (74-99); Potassium 3.7 mmol/L (3.5-5.1); Sodium 144 mmol/L (137-145); Total Bilirubin 2.1 mg/dL (0.2-1.3); Total Protein 6.1 g/dL (6.3-8.2)
[2018-05-27 12:09] LABS: Glucose,Whole Blood 167 mg/dL (75-99)
[2018-05-27 16:56] LABS: Glucose,Whole Blood 104 mg/dL (75-99)
[2018-05-27] MEDS: MONTELUKAST 10 MG TAB PO SCH (20:28)
[2018-05-27] MEDS: QUEtiapine 100 MG TAB PO SCH (20:28)
[2018-05-27 20:50] LABS: Glucose,Whole Blood 206 mg/dL (75-99)
--- NOTE | 2018-05-27 22:25 | P.PN ---
Subjective Progress Note Date: 05/27/18 Principal diagnosis: Choledocholithiasis, elevated liver enzymes Patient lying in bed, reporting abdominal pain is still present but improved. No nausea or vomiting. Tolerating his diet. He does report some blood with bowel movement yesterday, however hemoglobin was up to 12.1 from 10.8 yesterday. Objective - Vital Signs Vital signs: Vital Signs Temp 98.2 F 05/27/18 14:36 Pulse 64 05/27/18 21:04 Resp 16 05/27/18 14:36 BP 161/79 05/27/18 14:36 Pulse Ox 95 05/27/18 14:36 Intake & Output 05/27/18 05/27/18 05/28/18 06:59 18:59 06:59 Intake Total 200 Balance 200 Intake: Oral 200 Other: Voiding Method Toilet Toilet # Voids 1 3 - Exam On physical examination, patient appears comfortable in no apparent distress. HEAD: Normocephalic, atraumatic. EYES: No scleral icterus. No conjunctival injection. MOUTH: No lesions, tongue midline. NECK: Trachea midline, no gross abnormalities. CHEST: Clear to auscultation with no wheezing or rhonchi appreciated. HEART: Regular rate and rhythm. ABDOMEN: Soft, obese. Bowel sounds are positive. No organomegaly. No guarding or rigidity. EXTREMITIES: No pedal edema. SKIN: No rashes, no jaundice. NEUROLOGIC: Alert and oriented x3. No focal deficits. - Labs CBC & Chem 7: 05/27/18 11:18 05/27/18 11:15 Labs: Abnormal Lab Results - Last 24 Hours (Table) 05/27/18 05/27/18 05/27/18 Range/Units 11:15 11:18 12:07 RBC 3.74 L (4.30-5.90) m/uL Hgb 12.1 L (13.0-17.5) gm/dL Hct 35.9 L (39.0-53.0) % Chloride 110 H (98-107) mmol/L BUN 8 L (9-20) mg/dL Glucose 154 H (74-99) mg/dL POC Glucose (mg/dL) 167 H (75-99) mg/dL Total Bilirubin 2.1 H (0.2-1.3) mg/dL AST 78 H (17-59) U/L ALT 248 H (21-72) U/L Alkaline Phosphatase 466 H (38-126) U/L Total Protein 6.1 L (6.3-8.2) g/dL Albumin 3.3 L (3.5-5.0) g/dL 05/27/18 05/27/18 Range/Units 16:54 20:47 RBC (4.30-5.90) m/uL Hgb (13.0-17.5) gm/dL Hct (39.0-53.0) % Chloride (98-107) mmol/L BUN (9-20) mg/dL Glucose (74-99) mg/dL POC Glucose (mg/dL) 104 H 206 H (75-99) mg/dL Total Bilirubin (0.2-1.3) mg/dL AST (17-59) U/L ALT (21-72) U/L Alkaline Phosphatase (38-126) U/L Total Protein (6.3-8.2) g/dL Albumin (3.5-5.0) g/dL Assessment and Plan (1) Abdominal pain Narrative/Plan: Patient presenting with his second episode of severe epigastric abdominal pain. He is status post cholecystectomy approximately 15 years ago and has had prior episodes of pancreatitis which she reports is secondary to use of Victoza , however on this hospitalization amylase and lipase were found to be normal. Patient is status post ERCP with balloon sweep and small stone removal. Pain is improved overall but still present. Current Visit: Yes Status: Acute Code(s): R10.9 - UNSPECIFIED ABDOMINAL PAIN SNOMED Code(s): 10093654 (2) Elevated liver enzymes Narrative/Plan: Patient presenting with abdominal pain and elevation in liver enzymes in both a cholestatic and hepatocellular pattern. Status post ERCP with removal of choledocholithiasis. Liver enzymes initially trended up however improved today. Current Visit: No Status: Chronic Priority: Medium Code(s): R74.8 - ABNORMAL LEVELS OF OTHER SERUM ENZYMES SNOMED Code(s): 445086275 Plan: Supportive care Continue fluid hydration Continue pain control We'll repeat liver enzymes tomorrow morning Okay for diet Will order Anusol for rectal bleeding in the setting of improved hemoglobin Okay for discharge from gastroenterology standpoint Thank you for allowing us to participate in the care of the patient to gastroenterology service will stand by, please call us back with any questions or concerns
[2018-05-28] MEDS: MORPHINE SULFATE 4 MG/ML SYRINGE IV PRN ×6 (02:02→21:35)
[2018-05-28] MEDS: CLINDAMYCIN 300 MG in DEXTROSE 5% IN WATER 50 ML IVPB SCH ×8 (05:40→23:24)
[2018-05-28] MEDS: IPRATROPIUM-ALBUTEROL 3 ML NEB INHALATION SCH ×4 (06:46→19:12)
[2018-05-28] MEDS ORDERED: INSULIN ASPART (NovoLOG) 100 UNIT/ML VIAL SQ SCH (07:30)
[2018-05-28 07:39] LABS: Glucose,Whole Blood 113 mg/dL (75-99)
[2018-05-28] MEDS: INSULIN DETEMIR (LEVEMIR) 100 UNIT/ML SYR SQ SCH (07:45)
[2018-05-28] MEDS: INSULIN ASPART (NovoLOG) 100 UNIT/ML VIAL SQ SCH ×7 (07:45→21:35)
[2018-05-28] MEDS: LOSARTAN 50 MG TAB PO SCH (07:46)
[2018-05-28] MEDS: busPIRone HCl 5 MG TAB PO SCH ×2 (07:46→20:19)
[2018-05-28] MEDS: carBAMazepine 100 MG TAB.ER.12H PO SCH (07:46)
[2018-05-28] MEDS: PANTOPRAZOLE 40 MG/10 ML VIAL IV SCH (07:46)
[2018-05-28] MEDS: OXYBUTYNIN XL 5 MG TAB.ER.24 PO SCH (07:46)
[2018-05-28] MEDS: lamoTRIgine 100 MG TAB PO SCH ×2 (07:47→20:19)
[2018-05-28] MEDS: SODIUM CHLORIDE 0.9% 1,000 ML IV SCH ×2 (07:47→15:51)
[2018-05-28] MEDS: HYDROCORTISONE SUPPOSITORY 25 MG SUPP RECTAL SCH (07:47)
[2018-05-28] MEDS: FLUoxetine HCL 20 MG CAP PO SCH (07:47)
[2018-05-28] MEDS: MEMANTINE 5 MG TAB PO SCH ×2 (07:47→20:19)
[2018-05-28] MEDS: GABAPENTIN 300 MG CAP PO SCH ×3 (07:50→20:19)
--- NOTE | 2018-05-28 11:22 | P.PN ---
Subjective Patient resting in bed continues to complain of diffuse abdominal cramping. Suppository ordered for constipation. Patient has been cleared medically for discharge from ENT and gastroenterology. Hopeful discharge soon if pain level is decrease Objective - Vital Signs Vital signs: Vital Signs Temp 98.2 F 05/28/18 07:01 Pulse 64 05/28/18 11:09 Resp 18 05/28/18 07:01 BP 179/80 05/28/18 07:01 Pulse Ox 97 05/28/18 07:01 Intake & Output 05/27/18 05/28/18 05/28/18 18:59 06:59 18:59 Intake Total 100 Balance 100 Intake: Oral 100 Other: Voiding Method Toilet Toilet # Voids 3 2 1 - Constitutional General appearance: Present: mild distress - EENT Eyes: Present: PERRLA Ears: bilateral: normal - Neck Neck: Present: normal ROM - Respiratory Respiratory: negative: CTA - Cardiovascular Rhythm: regular Abnormal Heart Sounds: Present: systolic murmur - Gastrointestinal General gastrointestinal: Present: normal bowel sounds, soft Localized gastrointestinal: tender: diffuse - Integumentary Integumentary: Present: normal - Neurologic Neurologic: Present: CNII-XII intact - Musculoskeletal Musculoskeletal: Present: gait normal - Psychiatric Psychiatric: Present: A&O x's 3, appropriate affect, intact judgment & insight - Labs CBC & Chem 7: 05/27/18 11:18 05/27/18 11:15 Labs: Abnormal Lab Results - Last 24 Hours (Table) 05/27/18 05/27/18 05/27/18 Range/Units 11:15 11:18 12:07 RBC 3.74 L (4.30-5.90) m/uL Hgb 12.1 L (13.0-17.5) gm/dL Hct 35.9 L (39.0-53.0) % Chloride 110 H (98-107) mmol/L BUN 8 L (9-20) mg/dL Glucose 154 H (74-99) mg/dL POC Glucose (mg/dL) 167 H (75-99) mg/dL Total Bilirubin 2.1 H (0.2-1.3) mg/dL AST 78 H (17-59) U/L ALT 248 H (21-72) U/L Alkaline Phosphatase 466 H (38-126) U/L Total Protein 6.1 L (6.3-8.2) g/dL Albumin 3.3 L (3.5-5.0) g/dL 05/27/18 05/27/18 05/28/18 Range/Units 16:54 20:47 07:03 RBC (4.30-5.90) m/uL Hgb (13.0-17.5) gm/dL Hct (39.0-53.0) % Chloride (98-107) mmol/L BUN (9-20) mg/dL Glucose (74-99) mg/dL POC Glucose (mg/dL) 104 H 206 H 113 H (75-99) mg/dL Total Bilirubin (0.2-1.3) mg/dL AST (17-59) U/L ALT (21-72) U/L Alkaline Phosphatase (38-126) U/L Total Protein (6.3-8.2) g/dL Albumin (3.5-5.0) g/dL Assessment and Plan Plan: Assessment Epigastric pain secondary to common bile duct stone choledoclithiasis post ERCP Parotitis Elevated liver enzymes secondary to his bile duct stone Coronary disease with history CABG Hyperlipidemia Hypertension Diabetes type 2 Bipolar with PTSD Plan Hopeful discharge soon if pain level decreases and patient has bowel movement
[2018-05-28 12:10] LABS: Glucose,Whole Blood 225 mg/dL (75-99)
[2018-05-28 17:21] LABS: Glucose,Whole Blood 130 mg/dL (75-99)
[2018-05-28] MEDS: MONTELUKAST 10 MG TAB PO SCH (20:19)
[2018-05-28] MEDS: QUEtiapine 100 MG TAB PO SCH (20:19)
[2018-05-28 21:24] LABS: Glucose,Whole Blood 176 mg/dL (75-99)
[2018-05-29] MEDS: MORPHINE SULFATE 4 MG/ML SYRINGE IV PRN ×4 (02:39→14:43)
[2018-05-29] MEDS: SODIUM CHLORIDE 0.9% 1,000 ML IV SCH ×2 (06:26→14:26)
[2018-05-29] MEDS: CLINDAMYCIN 300 MG in DEXTROSE 5% IN WATER 50 ML IVPB SCH ×4 (06:26→11:20)
[2018-05-29 07:13] LABS: Glucose,Whole Blood 225 mg/dL (75-99)
[2018-05-29] MEDS ORDERED: PANTOPRAZOLE 40 MG TABLET PO SCH (07:30)
[2018-05-29] MEDS: IPRATROPIUM-ALBUTEROL 3 ML NEB INHALATION SCH ×2 (07:35→11:32)
[2018-05-29 07:45] VITALS: RESP 16; TEMP 97.5
[2018-05-29] MEDS: INSULIN ASPART (NovoLOG) 100 UNIT/ML VIAL SQ SCH ×4 (09:05→12:35)
[2018-05-29] MEDS: INSULIN DETEMIR (LEVEMIR) 100 UNIT/ML SYR SQ SCH (09:09)
[2018-05-29] MEDS: busPIRone HCl 5 MG TAB PO SCH (10:25)
[2018-05-29] MEDS: GABAPENTIN 300 MG CAP PO SCH (10:26)
[2018-05-29] MEDS: FLUoxetine HCL 20 MG CAP PO SCH (10:27)
[2018-05-29] MEDS: OXYBUTYNIN XL 5 MG TAB.ER.24 PO SCH (10:28)
[2018-05-29] MEDS: MEMANTINE 5 MG TAB PO SCH (10:28)
[2018-05-29] MEDS: carBAMazepine 100 MG TAB.ER.12H PO SCH (10:29)
[2018-05-29] MEDS: lamoTRIgine 100 MG TAB PO SCH (10:29)
[2018-05-29] MEDS: HYDROCORTISONE SUPPOSITORY 25 MG SUPP RECTAL SCH ×2 (10:30→12:28)
[2018-05-29] MEDS: LOSARTAN 50 MG TAB PO SCH (10:35)
--- NOTE | 2018-05-29 11:11 | P.PN ---
Subjective Patient states abdominal pain improved. Remains constipated will receive prune juice and suppository. Hopeful discharge after bowel movement Objective - Vital Signs Vital signs: Vital Signs Temp 97.5 F L 05/29/18 07:08 Pulse 64 05/29/18 07:48 Resp 16 05/29/18 08:00 BP 166/79 05/29/18 07:08 Pulse Ox 93 L 05/29/18 07:08 Intake & Output 05/28/18 05/29/18 05/29/18 18:59 06:59 18:59 Intake Total 925 Balance 925 Intake: Oral 925 Other: Voiding Method Toilet Toilet # Voids 2 2 - Constitutional General appearance: Present: mild distress - EENT Eyes: Present: PERRLA Ears: bilateral: normal - Neck Neck: Present: normal ROM - Respiratory Respiratory: bilateral: CTA - Cardiovascular Rhythm: regular - Gastrointestinal General gastrointestinal: Present: normal bowel sounds, soft Localized gastrointestinal: tender: diffuse - Integumentary Integumentary: Present: normal - Neurologic Neurologic: Present: CNII-XII intact - Musculoskeletal Musculoskeletal: Present: gait normal - Psychiatric Psychiatric: Present: A&O x's 3, appropriate affect, intact judgment & insight - Labs CBC & Chem 7: 05/27/18 11:18 05/27/18 11:15 Labs: Abnormal Lab Results - Last 24 Hours (Table) 05/28/18 05/28/18 05/28/18 Range/Units 12:04 17:19 21:20 POC Glucose (mg/dL) 225 H 130 H 176 H (75-99) mg/dL 05/29/18 Range/Units 07:07 POC Glucose (mg/dL) 225 H (75-99) mg/dL Assessment and Plan Plan: Assessment Epigastric abdominal pain related to common bile duct stones Post ERCP Parotits Elevated liver enzymes related to common bile duct stone History of coronary disease with CABG Hyperlipidemia Hypertension Diabetes type 2 Bipolar with PTSD Plan Patient cleared for discharge after bowel movement
[2018-05-29 11:53] LABS: Glucose,Whole Blood 235 mg/dL (75-99)
[2018-05-29 14:06] LABS: ALT 164 U/L (21-72); AST 52 U/L (17-59); Albumin 3.9 g/dL (3.5-5.0); Alkaline Phosphatase 384 U/L (38-126); Anion Gap 11 mmol/L; Blood Urea Nitrogen 13 mg/dL (9-20); Calcium 9.8 mg/dL (8.4-10.2); Carbon Dioxide 24 mmol/L (22-30); Chloride 107 mmol/L (98-107); Glucose 182 mg/dL (74-99); Potassium 4.1 mmol/L (3.5-5.1); Sodium 142 mmol/L (137-145); Total Bilirubin 1.7 mg/dL (0.2-1.3)
[2018-05-29 15:47] VITALS: BP 145/69; PULSE 68
--- NOTE | 2018-05-29 16:13 | P.DS ---
Providers Date of admission: 05/24/18 13:29 Expected date of discharge: 05/29/18 Attending physician: Parmjit Murdock Consults: 05/25/18 12:54 Consult Physician Routine Consulting Provider: Nestor Mena Consult Reason/Comments: neck pain/swelling Do you want consulting provider notified?: Yes Primary care physician: Parmjit Murdock Hospital Course: 62 year old male was admitted for complaints of epigastric pain found to have a bile duct stone in the common bile duct. ERCP was done.Liver enzymes and pain improved.Was evaluated for parotitis.Constipation has been resolved Assessment Epigastric abd pain related to bile duct stone post ERCP elevated liver study resolving CAD with CABG DMII hyperlipidemia hypertension bipolar with PTSD PLan Follow up with Dr Mena ENT Dr Guzman GI family physician Dr Parmjit Murdock Patient Condition at Discharge: Stable Plan - Discharge Summary Discharge Rx Participant: No New Discharge Prescriptions: Continue Albuterol Inhaler [Ventolin Hfa Inhaler] 1 - 2 puff INHALATION RT-Q6H PRN PRN Reason: Shortness Of Breath Losartan Potassium 100 mg PO DAILY lamoTRIgine [LaMICtal] 100 mg PO BID Atorvastatin [Lipitor] 40 mg PO DAILY Insulin Aspart [NovoLOG Flexpen] 15 unit SQ AC-TID Insulin Detemir [Levemir Flextouch] 40 unit SQ DAILY busPIRone HCl [Buspar] 5 mg PO BID carBAMazepine [carBAMazepine ER] 100 mg PO DAILY FLUoxetine HCL [PROzac] 20 mg PO DAILY Gabapentin 600 mg PO TID HYDROcodone/APAP 7.5-325MG [Gordon 7.5-325] 1 tab PO TID PRN PRN Reason: Pain Ipratropium/Albuterol Sulfate [Combivent Respimat Inhaler] 1 puff INHALATION RT-QID Memantine [Namenda] 5 mg PO BID Montelukast [Singulair] 10 mg PO HS Oxybutynin Xl [Ditropan XL] 5 mg PO DAILY QUEtiapine [SEROquel] 100 mg PO HS Ranitidine HCl [Zantac] 150 mg PO BID PRN PRN Reason: Heartburn Discontinued Amoxic-Pot Clav 875-125Mg [Augmentin 875-125] 1 each PO Q12HR 10 Days #20 tab Discharge Medication List Albuterol Inhaler [Ventolin Hfa Inhaler] 1 - 2 puff INHALATION RT-Q6H PRN [History] Atorvastatin [Lipitor] 40 mg PO DAILY 02/05/17 [History] Losartan Potassium 100 mg PO DAILY 02/05/17 [History] lamoTRIgine [LaMICtal] 100 mg PO BID 02/05/17 [History] FLUoxetine HCL [PROzac] 20 mg PO DAILY 05/13/18 [History] Gabapentin 600 mg PO TID 05/13/18 [History] HYDROcodone/APAP 7.5-325MG [Gordon 7.5-325] 1 tab PO TID PRN 05/13/18 [History] Insulin Aspart [NovoLOG Flexpen] 15 unit SQ AC-TID 05/13/18 [History] Insulin Detemir [Levemir Flextouch] 40 unit SQ DAILY 05/13/18 [History] Ipratropium/Albuterol Sulfate [Combivent Respimat Inhaler] 1 puff INHALATION RT- QID 05/13/18 [History] Memantine [Namenda] 5 mg PO BID 05/13/18 [History] Montelukast [Singulair] 10 mg PO HS 05/13/18 [History] Oxybutynin Xl [Ditropan XL] 5 mg PO DAILY 05/13/18 [History] QUEtiapine [SEROquel] 100 mg PO HS 05/13/18 [History] Ranitidine HCl [Zantac] 150 mg PO BID PRN 05/13/18 [History] busPIRone HCl [Buspar] 5 mg PO BID 05/13/18 [History] carBAMazepine [carBAMazepine ER] 100 mg PO DAILY 05/13/18 [History] Follow up Appointment(s)/Referral(s): Parmjit Murdock MD [Primary Care Provider] - 06/05/18 11:10 am Nena Guzman MD [STAFF PHYSICIAN] - 07/01/18 8:00 am Nestor Mena MD [STAFF PHYSICIAN] - As Needed Ambulatory/Diagnostic Orders: Complete Blood Count w/diff [LAB.AMB] Time Frame: 3 Days, Location: None Selected Patient Instructions/Handouts: ERCP (Endoscopic Retrograde Cholangiopancreatography) (DC) Activity/Diet/Wound Care/Special Instructions: followup with Dr. Seo outpatient regarding continuing prescribed prn pain meds Activity as tolerated.
== END 2018-05-29 16:59 | disposition home or self-care (01) | DRG 446 ==
LOC: EC 04:52 → 4MS4W 07:11 → OBSVTOIN 05-24 13:29
PROVIDERS: ADMIT Family Medicine; ATTEND Family Medicine
PROC: BF101ZZ Fluoroscopy of Bile Ducts using Low Osmolar Contrast (ICD-10-PCS; 2018-05-24)
PROC: 0FC98ZZ Extirpation of Matter from Common Bile Duct, Via Natural or Artificial Opening Endoscopic (ICD-10-PCS; principal; 2018-05-24 09:00)
DX: K80.50 Calculus of bile duct without cholangitis or cholecystitis without obstruction (principal); E11.42 Type 2 diabetes mellitus with diabetic polyneuropathy; E66.9 Obesity, unspecified; K21.9 Gastro-esophageal reflux disease without esophagitis; I25.10 Atherosclerotic heart disease of native coronary artery without angina pectoris; I10 Essential (primary) hypertension; E78.5 Hyperlipidemia, unspecified; N40.0 Benign prostatic hyperplasia without lower urinary tract symptoms; K58.9 Irritable bowel syndrome, unspecified; G89.4 Chronic pain syndrome; M19.90 Unspecified osteoarthritis, unspecified site; F90.9 Attention-deficit hyperactivity disorder, unspecified type; F43.10 Post-traumatic stress disorder, unspecified; F41.9 Anxiety disorder, unspecified; F32.9 Major depressive disorder, single episode, unspecified; K44.9 Diaphragmatic hernia without obstruction or gangrene; G47.00 Insomnia, unspecified; E86.0 Dehydration; J45.909 Unspecified asthma, uncomplicated; E78.00 Pure hypercholesterolemia, unspecified; K11.20 Sialoadenitis, unspecified; K57.30 Diverticulosis of large intestine without perforation or abscess without bleeding; K42.9 Umbilical hernia without obstruction or gangrene; M54.2 Cervicalgia; Z68.35 Body mass index [BMI] 35.0-35.9, adult; Z79.4 Long term (current) use of insulin; Z79.899 Other long term (current) drug therapy; Z87.442 Personal history of urinary calculi; Z87.11 Personal history of peptic ulcer disease; Z90.49 Acquired absence of other specified parts of digestive tract; Z95.1 Presence of aortocoronary bypass graft; Z87.891 Personal history of nicotine dependence; Z88.1 Allergy status to other antibiotic agents; Z88.8 Allergy status to other drugs, medicaments and biological substances; Z83.3 Family history of diabetes mellitus; Z82.49 Family history of ischemic heart disease and other diseases of the circulatory system
CPT/HCPCS: 36415; 43264; 70491; 71046; 71260; 71275; 74330; 76705; 80053; 81003; 82150; 82248; 82550; 82553; 83690; 83735; 84484; 85025; 85379; 85610; 85730; 87502; 93005; 94640; 94760; 96361; 96374; 96375; 96376; 99285

== ENCOUNTER 2018-08-17 19:03 | Emergency (ER) | payer MEDICARE, BC ==
[2018-08-17] MEDS ORDERED: SODIUM CHLORIDE 0.9% 1,000 ML IV STA (19:35)
[2018-08-17] MEDS ORDERED: HYDROmorphone 1 MG/ML 1 ML SYRINGE IVP STA (19:35)
[2018-08-17] MEDS ORDERED: ONDANSETRON 4 MG/2 ML VIAL IVP STA (19:35)
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
[2018-08-17 20:07] LABS: Basophils # (A) 0.1 k/uL (0-0.2); Basophils % (A) 1 %; Eosinophils # (A) 0.1 k/uL (0-0.7); Eosinophils % (A) 1 %; HCT 40.9 % (39.0-53.0); Lymphocytes # (A) 2.8 k/uL (1.0-4.8); Lymphocytes % (A) 27 %; MCH 31.8 pg (25.0-35.0); MCHC 34.1 g/dL (31.0-37.0); MCV 93.3 fL (80.0-100.0); Mean Platelet Volume 6.3; Monocytes # (A) 0.6 k/uL (0-1.0); Monocytes % (A) 6 %; Neutrophils # (A) 6.3 k/uL (1.3-7.7); Neutrophils % (A) 61 %; Platelet Count 203 k/uL (150-450); RBC 4.39 m/uL (4.30-5.90); RDW 13.8 % (11.5-15.5); WBC 10.3 k/uL (3.8-10.6)
[2018-08-17 20:11] LABS: Appearance,Urine Clear (Clear); Bilirubin,Urine Negative (Negative); Blood,Urine Moderate (Negative); Color,Urine Yellow; Glucose,Urine (UA) Negative (Negative); Hyaline Casts,Urine 3 /lpf (0-2); Ketones,Urine Negative (Negative); Leukocyte Esterase,Urine Negative (Negative); Mucus,Urine Rare /hpf; Nitrite,Urine Negative (Negative); PH, Urine 5.5 (5.0-8.0); Protein,Urine Negative (Negative); RBC,Urine 125 /hpf (0-5); Specific Gravity,Urine 1.014 (1.001-1.035); Squamous Epithelial Cell,Urine <1 /hpf (0-4); Urobilinogen,Urine <2.0 mg/dL (<2.0); WBC,Urine 4 /hpf (0-5)
[2018-08-17 20:20] LABS: Albumin 4.5 g/dL (3.5-5.0); Calcium 10.1 mg/dL (8.4-10.2); Potassium 3.9 mmol/L (3.5-5.1); Total Bilirubin 0.8 mg/dL (0.2-1.3); Total Protein 7.3 g/dL (6.3-8.2)
--- NOTE | 2018-08-17 20:38 | XR ---
EXAMINATION TYPE: XR KUB DATE OF EXAM: 08/17/2018 COMPARISON: 11/22/2017 HISTORY: Right flank pain TECHNIQUE: 2 views upright FINDINGS: There is no sign of intestinal obstruction or pneumoperitoneum. Fecal pattern is normal. Th ere is no sign of a mass. There are no pathologic calcifications over the kidneys. Lung bases are sariah ar. IMPRESSION: Nonacute abdomen. No change.
[2018-08-17] MEDS ORDERED: TAMSULOSIN 0.4 MG CAP.ER.24H PO STA (20:46)
[2018-08-17] MEDS ORDERED: HYDROmorphone 2 MG/ML 1 ML SYRINGE IVP STA (20:46)
[2018-08-17 21:22] VITALS: BP 134/59; PULSE 68; RESP 15; TEMP 98.2
== END 2018-08-17 21:19 | disposition home or self-care (01) ==
LOC: EC 19:03
DX: N20.0 Calculus of kidney (principal); I25.10 Atherosclerotic heart disease of native coronary artery without angina pectoris; K21.9 Gastro-esophageal reflux disease without esophagitis; E78.5 Hyperlipidemia, unspecified; I10 Essential (primary) hypertension; E11.40 Type 2 diabetes mellitus with diabetic neuropathy, unspecified; F41.9 Anxiety disorder, unspecified; F32.9 Major depressive disorder, single episode, unspecified; F43.10 Post-traumatic stress disorder, unspecified; Z87.19 Personal history of other diseases of the digestive system; Z90.49 Acquired absence of other specified parts of digestive tract; Z95.1 Presence of aortocoronary bypass graft; Z95.818 Presence of other cardiac implants and grafts; Z98.890 Other specified postprocedural states; Z87.891 Personal history of nicotine dependence; Z79.4 Long term (current) use of insulin; Z79.899 Other long term (current) drug therapy; Z88.6 Allergy status to analgesic agent; Z88.1 Allergy status to other antibiotic agents; Z88.2 Allergy status to sulfonamides
CPT/HCPCS: 36415; 80053; 82150; 83690; 85025; 81001; 74018; 99284; 96374; 96375; 96376; 96361; J1170 ×2; J2405

== ENCOUNTER 2018-10-18 00:05 | Emergency (ER) | payer MEDICARE, BC ==
[2018-10-18 00:23] VITALS: RESP 16
[2018-10-18] MEDS ORDERED: MORPHINE SULFATE 4 MG/ML SYRINGE IVP STA (01:50)
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
[2018-10-18 02:26] LABS: Basophils # (A) 0.1 k/uL (0-0.2); Basophils % (A) 1 %; Eosinophils # (A) 0.2 k/uL (0-0.7); Eosinophils % (A) 2 %; HCT 42.4 % (39.0-53.0); HGB 14.3 gm/dL (13.0-17.5); Lymphocytes # (A) 4.4 k/uL (1.0-4.8); Lymphocytes % (A) 42 %; MCH 31.5 pg (25.0-35.0); MCHC 33.6 g/dL (31.0-37.0); MCV 93.9 fL (80.0-100.0); Mean Platelet Volume 6.6; Monocytes # (A) 0.5 k/uL (0-1.0); Monocytes % (A) 5 %; Neutrophils # (A) 4.8 k/uL (1.3-7.7); Neutrophils % (A) 47 %; Platelet Count 196 k/uL (150-450); RBC 4.52 m/uL (4.30-5.90); RDW 14.6 % (11.5-15.5); WBC 10.4 k/uL (3.8-10.6)
[2018-10-18 02:36] LABS: Albumin 4.4 g/dL (3.5-5.0); Calcium 9.2 mg/dL (8.4-10.2); Potassium 3.9 mmol/L (3.5-5.1); Total Bilirubin 0.6 mg/dL (0.2-1.3); Total Protein 7.2 g/dL (6.3-8.2)
[2018-10-18 02:56] LABS: Appearance,Urine Clear (Clear); Bilirubin,Urine Negative (Negative); Blood,Urine Moderate (Negative); Color,Urine Yellow; Glucose,Urine (UA) Negative (Negative); Ketones,Urine Trace (Negative); Leukocyte Esterase,Urine Negative (Negative); Mucus,Urine Rare /hpf; Nitrite,Urine Negative (Negative); PH, Urine 5.5 (5.0-8.0); Protein,Urine Negative (Negative); RBC,Urine 61 /hpf (0-5); Specific Gravity,Urine 1.017 (1.001-1.035); Urobilinogen,Urine <2.0 mg/dL (<2.0); WBC,Urine 3 /hpf (0-5)
--- NOTE | 2018-10-18 03:37 | CT ---
EXAM: CT Abdomen and Pelvis With Intravenous Contrast CLINICAL HISTORY: Abdominal pain. History of cholecystectomy, lithotripsy and appendectomy. TECHNIQUE: Axial computed tomography images of the abdomen and pelvis with intravenous contrast. CTDI is 34.3 mGy and DLP is 1524.3 mGy-cm. This CT exam was performed using one or more of the following dose reduction techniques: automated exposure control, adjustment of the mA and/or kV according to patient size, and/or use of iterative reconstruction technique. COMPARISON: 11/22/2017 FINDINGS: Lung bases: Unremarkable. No mass. No consolidation. ABDOMEN: Liver: Unremarkable. No mass. Gallbladder and bile ducts: Scattered pneumobilia, predominantly involving the left lobe of the liver is less prominent from the previous examination and suggests incompetence of the ampulla. Status post cholecystectomy. The common bile duct is prominent but similar to the previous exam. Pancreas: Unremarkable. No mass. No ductal dilation. Spleen: Unremarkable. No splenomegaly. Adrenals: Unremarkable. No mass. Kidneys and ureters: There is scattered nonobstructive subcentimeter nephrolithiasis noted bilaterally with the largest calcification measuring 7 mm on the left. Stomach and bowel: No evidence for bowel obstruction. PELVIS: Appendix: The appendix is not identified, consistent with prior appendectomy. Bladder: The bladder is minimally distended without significant wall abnormalities or calcifications. Reproductive: Unremarkable as visualized. ABDOMEN and PELVIS: Intraperitoneal space: Unremarkable. No free air. No significant fluid collection. Bones/joints: No acute fracture. No dislocation. Soft tissues: Unremarkable. Vasculature: Incidental note is made of a prominent venous collateral communication between the portal vein and the left renal vein which runs along the lesser curvature the stomach, stable. No abdominal aortic aneurysm. Lymph nodes: Unremarkable. No enlarged lymph nodes. IMPRESSION: 1. Scattered pneumobilia, predominantly involving the left lobe of the liver is less prominent from the previous examination and suggests incompetence of the ampulla. 2. There is scattered nonobstructive subcentimeter nephrolithiasis noted bilaterally with the largest calcification measuring 7 mm on the left. No ureteral stones or hydronephrosis. No bladder calcifications. 3. No evidence for bowel obstruction. No significant focal bowel mucosal abnormality. No pneumoperitoneum or free intraperitoneal fluid.
[2018-10-18] MEDS ORDERED: ACET/COD 300 MG/30 MG STARTER PACK 6 TAB BTL PO STA (03:55)
[2018-10-18 04:18] VITALS: BP 139/83; PULSE 76; TEMP 98
== END 2018-10-18 04:16 | disposition home or self-care (01) ==
LOC: EC 00:05
DX: M54.5 Low back pain (principal); G89.29 Other chronic pain; N20.0 Calculus of kidney; I25.119 Atherosclerotic heart disease of native coronary artery with unspecified angina pectoris; E11.40 Type 2 diabetes mellitus with diabetic neuropathy, unspecified; K21.9 Gastro-esophageal reflux disease without esophagitis; E78.5 Hyperlipidemia, unspecified; I10 Essential (primary) hypertension; N40.0 Benign prostatic hyperplasia without lower urinary tract symptoms; M19.90 Unspecified osteoarthritis, unspecified site; F90.9 Attention-deficit hyperactivity disorder, unspecified type; F32.9 Major depressive disorder, single episode, unspecified; F41.9 Anxiety disorder, unspecified; F43.10 Post-traumatic stress disorder, unspecified; Z87.891 Personal history of nicotine dependence; Z79.4 Long term (current) use of insulin; Z79.899 Other long term (current) drug therapy; Z88.1 Allergy status to other antibiotic agents; Z88.2 Allergy status to sulfonamides; Z88.6 Allergy status to analgesic agent; Z95.1 Presence of aortocoronary bypass graft; Z90.49 Acquired absence of other specified parts of digestive tract
CPT/HCPCS: 36415; 80053; 85025; 81001; 74177; 99284; 96374; J2270; Q9967

== ENCOUNTER 2019-01-13 13:13 | Observation (INO) | payer MEDICARE, BC ==
[2019-01-13] MEDS ORDERED: SODIUM CHLORIDE 0.9% 1,000 ML IV STA ×2 (13:41→14:52)
[2019-01-13] MEDS ORDERED: HYDROcodone/APAP 5-325MG 1 EACH TAB PO STA ×2 (13:43→16:24)
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
[2019-01-13 14:04] LABS: Basophils % (A) 0 %; Eosinophils # (A) 0.2 k/uL (0-0.7); Eosinophils % (A) 2 %; HCT 35.4 % (39.0-53.0); HGB 12.4 gm/dL (13.0-17.5); Lymphocytes # (A) 3.1 k/uL (1.0-4.8); Lymphocytes % (A) 29 %; MCH 32.3 pg (25.0-35.0); MCHC 35.1 g/dL (31.0-37.0); MCV 92.1 fL (80.0-100.0); Mean Platelet Volume 5.7; Monocytes # (A) 0.7 k/uL (0-1.0); Monocytes % (A) 7 %; Neutrophils # (A) 6.1 k/uL (1.3-7.7); Neutrophils % (A) 59 %; Platelet Count 186 k/uL (150-450); RBC 3.84 m/uL (4.30-5.90); RDW 13.7 % (11.5-15.5); WBC 10.4 k/uL (3.8-10.6)
[2019-01-13 14:18] LABS: ALT 24 U/L (21-72); AST 19 U/L (17-59); African American GFR (CKD) >90 (>60 ml/min/1.73 sqM); Albumin 3.5 g/dL (3.5-5.0); Alkaline Phosphatase 92 U/L (38-126); Anion Gap 10 mmol/L; Blood Urea Nitrogen 13 mg/dL (9-20); Calcium 8.7 mg/dL (8.4-10.2); Carbon Dioxide 22 mmol/L (22-30); Chloride 108 mmol/L (98-107); Creatine Kinase 71 U/L (55-170); Glucose 190 mg/dL (74-99); Potassium 3.9 mmol/L (3.5-5.1); Sodium 140 mmol/L (137-145); Total Bilirubin 0.8 mg/dL (0.2-1.3)
--- NOTE | 2019-01-13 14:28 | CT ---
EXAMINATION TYPE: CT brain wo con DATE OF EXAM: 01/13/2019 COMPARISON: 04/02/2017 HISTORY: Syncope CT DLP: 1173.[address] of the brain was performed. The ventricles, basal cisterns and sulci overlying the cerebral convexities demonstrate mild enlargem ent. There is no evidence for intracranial hemorrhage or sulcal effacement. There is decreased attenuation about the periventricular white matter and deep white matter of both c erebral hemispheres, compatible with chronic small vessel ischemia. Differential diagnosis does inclu de demyelination. No mass effects are seen.No midline shift. Osseous calvarium is intact. If symptoms persist consider MRI. IMPRESSION: 1. Age related atrophic and chronic small vessel ischemic change without acute intracranial process s een at this time.
--- NOTE | 2019-01-13 14:29 | XR ---
EXAMINATION TYPE: XR chest 2V DATE OF EXAM: 01/13/2019 COMPARISON: May 23, 2018 HISTORY: Shortness of breath TECHNIQUE: Frontal and lateral views of the chest are obtained. FINDINGS: Scattered senescent parenchymal changes noted. Hyperinflation compatible with COPD. No evidence for infiltrate. No evidence for atelectasis. Heart size is stable. Mediastinal structures are stable and grossly unremarkable. No evidence for hilar prominence. Degenerative changes dorsal spine. IMPRESSION: 1. No evidence for acute pulmonary disease.
[2019-01-13 14:31] LABS: INR 0.9 (<1.2); Partial Thromboplastin Time 22.5 sec (22.0-30.0); Prothrombin Time 9.8 sec (9.0-12.0)
[2019-01-13] MEDS ORDERED: NALOXONE 0.4 MG/ML 1 ML VIAL IV PRN (16:01)
[2019-01-13] MEDS: SODIUM CHLORIDE 0.9% 1,000 ML IV SCH (16:30)
[2019-01-13] MEDS ORDERED: BACLOFEN 10 MG TAB PO PRN (16:39)
[2019-01-13 19:22] VITALS: RESP 18
[2019-01-13] MEDS: INSULIN ASPART (NovoLOG) 100 UNIT/ML VIAL SQ SCH (19:26)
[2019-01-13] MEDS ORDERED: IPRATROPIUM-ALBUTEROL 3 ML NEB INHALATION SCH (20:00)
[2019-01-13 20:03] VITALS: BMI 39.2
[2019-01-13] MEDS: lamoTRIgine 100 MG TAB PO SCH (20:04)
[2019-01-13] MEDS: oxyCODONE-APAP 10-325MG 1 EACH TAB PO PRN (20:04)
[2019-01-13] MEDS: MEMANTINE 5 MG TAB PO SCH (20:04)
[2019-01-13] MEDS: busPIRone HCl 5 MG TAB PO SCH (20:04)
[2019-01-13] MEDS: GABAPENTIN 300 MG CAP PO SCH (20:05)
[2019-01-13] MEDS ORDERED: traZODone HCL 50 MG TAB PO SCH (21:00)
[2019-01-13] MEDS ORDERED: MONTELUKAST 10 MG TAB PO SCH (21:00)
[2019-01-13] MEDS: HYDROmorphone 1 MG/ML 1 ML SYRINGE IVP PRN (22:17)
[2019-01-13 22:41] LABS: Appearance,Urine Clear (Clear); Bilirubin,Urine Negative (Negative); Blood,Urine Large (Negative); Color,Urine Yellow; Glucose,Urine (UA) Trace (Negative); Ketones,Urine Negative (Negative); Leukocyte Esterase,Urine Negative (Negative); Mucus,Urine Rare /hpf; Nitrite,Urine Negative (Negative); PH, Urine 5.5 (5.0-8.0); Protein,Urine Negative (Negative); RBC,Urine 110 /hpf (0-5); Specific Gravity,Urine 1.015 (1.001-1.035); Squamous Epithelial Cell,Urine <1 /hpf (0-4); Urobilinogen,Urine <2.0 mg/dL (<2.0); WBC,Urine 4 /hpf (0-5)
[2019-01-13 23:14] LABS: Glucose,Whole Blood 182 mg/dL (75-99)
[2019-01-14] VITALS: TEMP 97.7
[2019-01-14] MEDS: SODIUM CHLORIDE 0.9% 1,000 ML IV SCH (01:36)
[2019-01-14] MEDS: oxyCODONE-APAP 10-325MG 1 EACH TAB PO PRN ×2 (03:02→11:16)
[2019-01-14] MEDS: HYDROmorphone 1 MG/ML 1 ML SYRINGE IVP PRN ×2 (04:21→10:19)
[2019-01-14] MEDS ORDERED: INSULIN DETEMIR (LEVEMIR) 100 UNIT/ML SYR SQ SCH (07:00)
[2019-01-14 07:01] LABS: Glucose,Whole Blood 129 mg/dL (75-99)
[2019-01-14 07:52] VITALS: PULSE 96
[2019-01-14] MEDS ORDERED: PANTOPRAZOLE 40 MG TABLET PO SCH (09:00)
[2019-01-14] MEDS ORDERED: LOSARTAN 50 MG TAB PO SCH ×3 (09:00→11:15)
[2019-01-14] MEDS ORDERED: carBAMazepine 100 MG TAB.ER.12H PO SCH (09:00)
[2019-01-14] MEDS ORDERED: ATORVASTATIN 40 MG TAB PO SCH (09:00)
[2019-01-14] MEDS ORDERED: OXYBUTYNIN XL 5 MG TAB.ER.24 PO SCH (09:00)
[2019-01-14] MEDS ORDERED: FLUoxetine HCL 20 MG CAP PO SCH ×2 (09:00)
[2019-01-14 09:28] VITALS: BP 177/72
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
[2019-01-14] MEDS: INSULIN ASPART (NovoLOG) 100 UNIT/ML VIAL SQ SCH (11:11)
[2019-01-14] MEDS: lamoTRIgine 100 MG TAB PO SCH (11:16)
[2019-01-14] MEDS: MEMANTINE 5 MG TAB PO SCH (11:16)
[2019-01-14] MEDS: busPIRone HCl 5 MG TAB PO SCH (11:16)
[2019-01-14] MEDS: GABAPENTIN 300 MG CAP PO SCH (11:17)
[2019-01-14 11:48] LABS: Glucose,Whole Blood 161 mg/dL (75-99)
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
--- NOTE | 2019-01-14 12:33 | ECHOF ---
Referral Reason:cp, near syncope MEASUREMENTS -------- HEIGHT: 170.2 cm WEIGHT: 113.4 kg BP: 159/81 RVIDd: 3.3 cm (< 3.3) IVSd: 1.4 cm (0.6 - 1.1) LVIDd: 4.9 cm (3.9 - 5.3) LVPWd: 1.7 cm (0.6 - 1.1) IVSs: 1.9 cm LVIDs: 3.3 cm LVPWs: 2.1 cm LA Diam: 4.3 cm (2.7 - 3.8) LAESV Index (A-L): 28.35 ml/m Ao Diam: 3.2 cm (2.0 - 3.7) AV Cusp: 2.2 cm (1.5 - 2.6) MV EXCURSION: 19.436 mm (> 18.000) MV EF SLOPE: 161 mm/s (70 - 150) EPSS: 0.7 cm MV E Barry: 1.11 m/s MV DecT: 188 ms MV A Barry: 0.65 m/s MV E/A Ratio: 1.72 RAP: 5.00 mmHg RVSP: 32.76 mmHg TAPSE: 21.84 mm FINDINGS -------- Sinus rhythm. This was a technically adequate study. History of open heart surgery The left ventricular size is normal. There is moderate concentric left ventricular hypertrophy. O verall left ventricular systolic function is normal with, an EF between 60 - 65 %. The right ventricle is mildly enlarged. Normal LA size by volume 22+/-6 ml/m2. The right atrium is normal in size. Interatrial and interventricular septum intact. There is mild aortic valve sclerosis. There is trace to mild mitral regurgitation. Mild tricuspid regurgitation present. Right ventricular systolic pressure is normal at < 35 mmHg. The pulmonic valve was not well visualized. The aortic root size is normal. IVC Not well visulized. There is no pericardial effusion. CONCLUSIONS -------- 1. Sinus rhythm. 2. This was a technically adequate study. 3. History of open heart surgery 4. The left ventricular size is normal. 5. There is moderate concentric left ventricular hypertrophy. 6. Overall left ventricular systolic function is normal with, an EF between 60 - 65 %. 7. The right ventricle is mildly enlarged. 8. Normal LA size by volume 22+/-6 ml/m2. 9. The right atrium is normal in size. 10. Interatrial and interventricular septum intact. 11. There is mild aortic valve sclerosis. 12. There is trace to mild mitral regurgitation. 13. Mild tricuspid regurgitation present. 14. Right ventricular systolic pressure is normal at < 35 mmHg. 15. The pulmonic valve was not well visualized. 16. The aortic root size is normal. 17. IVC Not well visulized. 18. There is no pericardial effusion. MASTER PRINTER: Shadia Baron RDCS
[2019-01-14 18:32] LABS: Hemoglobin A1C 7.8 % (4.0-6.0)
--- NOTE | 2019-01-15 11:52 | P.DS ---
Providers Date of admission: 01/13/19 16:01 Expected date of discharge: 01/14/19 Attending physician: Parmjit Murdock Consults: 01/13/19 16:03 Consult Physician Urgent Consulting Provider: Rodriguez Borjas Consult Reason/Comments: near syncope Do you want consulting provider notified?: Yes Primary care physician: Parmjit Murdock [facility] Course: 63-year-old male was admitted to the emergency room with complaints of of hypotension andchest pain with palpitations. Patient has a history of coronary disease hyperlipidemia hypertension. Patient states that he's been having 3-4 months difficulty with hypotension and palpitations. Patient sees cardiology in [place] . Patient was discharged by cardiology to follow-up with family [employer] professional Assessment Chest pain troponins negative 3 History of coronary disease with CABG Hypertension Hyperlipidemia Osteoarthritis with opioid dependence BPH Near-syncope Plan Follow-up with [employer] [address] Smith Plan - Discharge Summary New Discharge Prescriptions: New Losartan [Cozaar] 50 mg PO BID #60 tab Continue lamoTRIgine [LaMICtal] 100 mg PO BID Atorvastatin [Lipitor] 40 mg PO DAILY Insulin Aspart [NovoLOG Flexpen] 14 unit SQ AC-TID Insulin Detemir [Levemir Flextouch] 40 unit SQ DAILY busPIRone HCl [Buspar] 5 mg PO BID carBAMazepine [carBAMazepine ER] 100 mg PO DAILY FLUoxetine HCL [PROzac] 20 mg PO DAILY Gabapentin 600 mg PO TID Ipratropium/Albuterol Sulfate [Combivent Respimat Inhaler] 1 puff INHALATION RT-QID Memantine [Namenda] 5 mg PO BID Montelukast [Singulair] 10 mg PO HS Oxybutynin Xl [Ditropan XL] 5 mg PO DAILY tiZANidine HCL 6 mg PO Q6HR PRN PRN Reason: Muscle Spasm traZODone HCL 50 mg PO HS Pantoprazole Sodium [Protonix] 40 mg PO DAILY oxyCODONE-APAP 10-325MG [Percocet 10-325 mg] 1 tab PO TID PRN PRN Reason: Pain Magnesium Oxide [Mag-Ox] 400 mg PO DAILY FLUoxetine HCL [PROzac] 40 mg PO DAILY Baclofen [Lioresal] 10 mg PO TID PRN PRN Reason: Muscle Spasm Aspirin EC [Ecotrin Low Dose] 81 mg PO DAILY Discontinued Losartan Potassium 100 mg PO DAILY Ranitidine HCl [Zantac] 150 mg PO BID Ibuprofen [Motrin] 800 mg PO TID PRN PRN Reason: Pain Discharge Medication List Atorvastatin [Lipitor] 40 mg PO DAILY 02/05/17 [History] lamoTRIgine [LaMICtal] 100 mg PO BID 02/05/17 [History] FLUoxetine HCL [PROzac] 20 mg PO DAILY 05/13/18 [History] Gabapentin 600 mg PO TID 05/13/18 [History] Insulin Aspart [NovoLOG Flexpen] 14 unit SQ AC-TID 05/13/18 [History] Insulin Detemir [Levemir Flextouch] 40 unit SQ DAILY 05/13/18 [History] Ipratropium/Albuterol Sulfate [Combivent Respimat Inhaler] 1 puff INHALATION RT- QID 05/13/18 [History] Memantine [Namenda] 5 mg PO BID 05/13/18 [History] Montelukast [Singulair] 10 mg PO HS 05/13/18 [History] Oxybutynin Xl [Ditropan XL] 5 mg PO DAILY 05/13/18 [History] busPIRone HCl [Buspar] 5 mg PO BID 05/13/18 [History] carBAMazepine [carBAMazepine ER] 100 mg PO DAILY 05/13/18 [History] Aspirin EC [Ecotrin Low Dose] 81 mg PO DAILY 01/13/19 [History] Baclofen [Lioresal] 10 mg PO TID PRN 01/13/19 [History] FLUoxetine HCL [PROzac] 40 mg PO DAILY 01/13/19 [History] Magnesium Oxide [Mag-Ox] 400 mg PO DAILY 01/13/19 [History] Pantoprazole Sodium [Protonix] 40 mg PO DAILY 01/13/19 [History] oxyCODONE-APAP 10-325MG [Percocet 10-325 mg] 1 tab PO TID PRN 01/13/19 [History] tiZANidine HCL 6 mg PO Q6HR PRN 01/13/19 [History] traZODone HCL 50 mg PO HS 01/13/19 [History] Losartan [Cozaar] 50 mg PO BID #60 tab 01/14/19 [Rx] Follow up Appointment(s)/Referral(s): Parmjit Murdock MD [Primary Care Provider] - 1-2 days
== END 2019-01-14 16:45 ==
LOC: EC 13:13 → 1SOBS 16:01
PROVIDERS: ADMIT Family Medicine; ATTEND Family Medicine
DX: R07.89 Other chest pain (principal); R55 Syncope and collapse; R06.00 Dyspnea, unspecified; R00.2 Palpitations; I25.10 Atherosclerotic heart disease of native coronary artery without angina pectoris; K21.9 Gastro-esophageal reflux disease without esophagitis; E78.5 Hyperlipidemia, unspecified; I10 Essential (primary) hypertension; E11.40 Type 2 diabetes mellitus with diabetic neuropathy, unspecified; N40.0 Benign prostatic hyperplasia without lower urinary tract symptoms; K58.9 Irritable bowel syndrome, unspecified; G89.4 Chronic pain syndrome; M54.5 Low back pain; G47.00 Insomnia, unspecified; G43.909 Migraine, unspecified, not intractable, without status migrainosus; M47.9 Spondylosis, unspecified; F90.9 Attention-deficit hyperactivity disorder, unspecified type; F41.9 Anxiety disorder, unspecified; F32.9 Major depressive disorder, single episode, unspecified; F43.10 Post-traumatic stress disorder, unspecified; F11.20 Opioid dependence, uncomplicated; I95.9 Hypotension, unspecified; Z90.49 Acquired absence of other specified parts of digestive tract; Z87.19 Personal history of other diseases of the digestive system; Z87.442 Personal history of urinary calculi; Z87.11 Personal history of peptic ulcer disease; Z87.440 Personal history of urinary (tract) infections; Z87.828 Personal history of other (healed) physical injury and trauma; Z91.81 History of falling; Z95.1 Presence of aortocoronary bypass graft; Z87.891 Personal history of nicotine dependence; Z79.82 Long term (current) use of aspirin; Z79.1 Long term (current) use of non-steroidal anti-inflammatories (NSAID); Z79.899 Other long term (current) drug therapy; Z79.4 Long term (current) use of insulin; Z88.1 Allergy status to other antibiotic agents; Z88.2 Allergy status to sulfonamides; Z88.8 Allergy status to other drugs, medicaments and biological substances; Z83.3 Family history of diabetes mellitus; Z82.49 Family history of ischemic heart disease and other diseases of the circulatory system; Z82.69 Family history of other diseases of the musculoskeletal system and connective tissue
CPT/HCPCS: 96374; 96376; 96361; 99285; 36415; 93005; 93306; 85379; 80053; 82550; 84484 ×2; 85025; 85610; 85730; 81001; 83036; 71046; 70450; G0378 ×2; J1170 ×2

== ENCOUNTER 2019-03-18 16:23 | Emergency (ER) | payer MEDICARE, BC ==
[2019-03-18 17:01] VITALS: BP 154/74; PULSE 65; RESP 20; TEMP 97.9
[2019-03-18] MEDS ORDERED: predniSONE 50 MG TAB PO STA (17:43)
[2019-03-18] MEDS ORDERED: MORPHINE SULFATE 4 MG/ML SYRINGE IM STA (17:43)
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
== END 2019-03-18 18:32 | disposition home or self-care (01) ==
LOC: EC 16:23
DX: M54.16 Radiculopathy, lumbar region (principal); I25.119 Atherosclerotic heart disease of native coronary artery with unspecified angina pectoris; E11.42 Type 2 diabetes mellitus with diabetic polyneuropathy; K21.9 Gastro-esophageal reflux disease without esophagitis; E78.5 Hyperlipidemia, unspecified; I10 Essential (primary) hypertension; M46.90 Unspecified inflammatory spondylopathy, site unspecified; N40.0 Benign prostatic hyperplasia without lower urinary tract symptoms; F32.9 Major depressive disorder, single episode, unspecified; F41.9 Anxiety disorder, unspecified; Z87.891 Personal history of nicotine dependence; Z88.1 Allergy status to other antibiotic agents; Z88.2 Allergy status to sulfonamides; Z88.6 Allergy status to analgesic agent; Z79.4 Long term (current) use of insulin; Z79.82 Long term (current) use of aspirin; Z79.899 Other long term (current) drug therapy; Z86.69 Personal history of other diseases of the nervous system and sense organs; Z95.1 Presence of aortocoronary bypass graft; Z82.69 Family history of other diseases of the musculoskeletal system and connective tissue
CPT/HCPCS: 99283; 96372; J2270; J7512

== ENCOUNTER 2019-05-27 11:44 | Inpatient (IN) | payer BC, MEDICARE, OTHER ==
[2019-05-27] MEDS ORDERED: NALOXONE 0.4 MG/ML 1 ML VIAL ONE (11:51)
[2019-05-27] MEDS ORDERED: ONDANSETRON 4 MG/2 ML VIAL ONE (11:54)
[2019-05-27] MEDS ORDERED: DIPH,PERTUS(ACELL)TETVAC-LF 0.5 ML VIAL IM ONE (11:56)
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
[2019-05-27 12:12] LABS: Glucose,Whole Blood 130 mg/dL (75-99)
[2019-05-27 12:17] LABS: ALT 26 U/L (4-49); AST 36 U/L (17-59); African American GFR (CKD) 64 (>60 ml/min/1.73 sqM); Albumin 4.4 g/dL (3.5-5.0); Alcohol <10 mg/dL; Alkaline Phosphatase 113 U/L (38-126); Amylase 37 U/L (30-110); Anion Gap 13 mmol/L; Blood Urea Nitrogen 23 mg/dL (9-20); Calcium 9.2 mg/dL (8.4-10.2); Carbon Dioxide 21 mmol/L (22-30); Chloride 106 mmol/L (98-107); Glucose 134 mg/dL (74-99); Non-African American GFR(CKD) 55 (>60 ml/min/1.73 sqM); Potassium 3.9 mmol/L (3.5-5.1); Sodium 140 mmol/L (137-145); Total Bilirubin 0.8 mg/dL (0.2-1.3)
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
[2019-05-27 12:27] LABS: Basophils # (A) 0.1 k/uL (0-0.2); Basophils % (A) 1 %; Eosinophils # (A) 0.3 k/uL (0-0.7); Eosinophils % (A) 4 %; HCT 43.3 % (39.0-53.0); Lymphocytes # (A) 2.8 k/uL (1.0-4.8); Lymphocytes % (A) 39 %; MCH 31.3 pg (25.0-35.0); MCHC 32.3 g/dL (31.0-37.0); Mean Platelet Volume 7.6; Monocytes # (A) 0.6 k/uL (0-1.0); Monocytes % (A) 9 %; Neutrophils # (A) 3.1 k/uL (1.3-7.7); Neutrophils % (A) 44 %; Platelet Count 186 k/uL (150-450); RBC 4.47 m/uL (4.30-5.90); RDW 14.1 % (11.5-15.5); WBC 7.1 k/uL (3.8-10.6)
[2019-05-27 12:37] LABS: Creatine Kinase 161 U/L (55-170)
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
[2019-05-27 12:43] LABS: INR 0.9 (<1.2); Prothrombin Time 9.7 sec (9.0-12.0)
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
[2019-05-27 12:50] LABS: Creatine Kinase MB 3.6 ng/mL (0.0-2.4); Troponin I <0.012 ng/mL (0.000-0.034)
[2019-05-27] MEDS ORDERED: HYDROmorphone 1 MG/ML 1 ML SYRINGE IVP STA ×2 (12:55→13:47)
[2019-05-27 12:56] LABS: Partial Thromboplastin Time 19.7 sec (22.0-30.0)
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
[2019-05-27] MEDS ORDERED: NALOXONE 0.4 MG/ML 1 ML VIAL IV PRN (14:55)
[2019-05-27] MEDS ORDERED: HYDROmorphone 0.5 MG/0.5 ML SYRINGE IVP PRN (14:55)
[2019-05-27] MEDS ORDERED: ONDANSETRON 4 MG/2 ML VIAL IVP PRN (14:55)
[2019-05-27] MEDS ORDERED: SODIUM CHLORIDE 0.9% 500 ML 500 ML IV ONE (16:18)
[2019-05-27 17:31] LABS: Glucose,Whole Blood 110 mg/dL (75-99)
[2019-05-27] MEDS: SODIUM CHLORIDE 0.9% 1,000 ML IV SCH (17:42)
[2019-05-27] MEDS: HYDROmorphone 1 MG/ML 1 ML SYRINGE IVP PRN ×2 (19:19→22:21)
[2019-05-27 20:55] LABS: Glucose,Whole Blood 131 mg/dL (75-99)
[2019-05-27] MEDS: INSULIN ASPART (NovoLOG) 100 UNIT/ML VIAL SQ SCH (21:16)
[2019-05-27 22:40] LABS: Glucose,Whole Blood 138 mg/dL (75-99)
[2019-05-27] MEDS: busPIRone HCl 5 MG TAB PO SCH (22:59)
[2019-05-27] MEDS: MONTELUKAST 10 MG TAB PO SCH (22:59)
[2019-05-27] MEDS: BACLOFEN 10 MG TAB PO SCH (22:59)
[2019-05-27] MEDS: lamoTRIgine 100 MG TAB PO SCH (23:00)
[2019-05-27] MEDS: INSULIN DETEMIR (LEVEMIR) 100 UNIT/ML SYR SQ SCH (23:00)
[2019-05-27] MEDS: traZODone HCL 50 MG TAB PO SCH (23:00)
[2019-05-27] MEDS: MEMANTINE 5 MG TAB PO SCH (23:00)
[2019-05-28] MEDS: HYDROmorphone 1 MG/ML 1 ML SYRINGE IVP PRN ×8 (01:30→23:27)
[2019-05-28 04:18] LABS: Appearance,Urine Clear (Clear); Bilirubin,Urine Negative (Negative); Blood,Urine Trace (Negative); Color,Urine Yellow; Glucose,Urine (UA) Negative (Negative); Ketones,Urine Negative (Negative); Leukocyte Esterase,Urine Negative (Negative); Mucus,Urine Rare /hpf; Nitrite,Urine Negative (Negative); PH, Urine 5.5 (5.0-8.0); Protein,Urine Trace (Negative); RBC,Urine 6 /hpf (0-5); Squamous Epithelial Cell,Urine <1 /hpf (0-4); Urobilinogen,Urine <2.0 mg/dL (<2.0); WBC,Urine 2 /hpf (0-5)
[2019-05-28 06:58] LABS: Glucose,Whole Blood 215 mg/dL (75-99)
[2019-05-28] MEDS: ALBUTEROL NEBULIZED 2.5 MG/3 ML INHALATION PRN (07:14)
[2019-05-28] MEDS: VALSARTAN 160 MG TAB PO SCH (07:23)
[2019-05-28] MEDS: INSULIN ASPART (NovoLOG) 100 UNIT/ML VIAL SQ SCH ×7 (07:58→20:44)
[2019-05-28] MEDS: ATORVASTATIN 40 MG TAB PO SCH (07:59)
[2019-05-28] MEDS: FAMOTIDINE 20 MG TAB PO SCH ×2 (07:59→20:28)
[2019-05-28] MEDS: PANTOPRAZOLE 40 MG TABLET PO SCH (07:59)
[2019-05-28] MEDS: BACLOFEN 10 MG TAB PO SCH ×2 (08:00→20:28)
[2019-05-28] MEDS: OXYBUTYNIN XL 5 MG TAB.ER.24 PO SCH (08:00)
[2019-05-28] MEDS: busPIRone HCl 5 MG TAB PO SCH ×2 (08:00→20:27)
[2019-05-28] MEDS: MEMANTINE 5 MG TAB PO SCH ×2 (08:00→20:28)
[2019-05-28] MEDS: FLUoxetine HCL 20 MG CAP PO SCH ×2 (08:00→08:01)
[2019-05-28] MEDS: lamoTRIgine 100 MG TAB PO SCH ×2 (08:00→20:27)
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
[2019-05-28] MEDS: oxyCODONE-APAP 10-325MG 1 EACH TAB PO PRN ×2 (10:35→18:22)
[2019-05-28] MEDS: SODIUM CHLORIDE 0.9% 1,000 ML IV SCH (11:46)
[2019-05-28 11:47] LABS: Glucose,Whole Blood 198 mg/dL (75-99)
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
[2019-05-28 16:45] LABS: Glucose,Whole Blood 151 mg/dL (75-99)
[2019-05-28] MEDS: traZODone HCL 50 MG TAB PO SCH (20:28)
[2019-05-28] MEDS: MONTELUKAST 10 MG TAB PO SCH (20:28)
[2019-05-28 20:31] LABS: Glucose,Whole Blood 167 mg/dL (75-99)
[2019-05-28] MEDS: INSULIN DETEMIR (LEVEMIR) 100 UNIT/ML SYR SQ SCH (20:44)
[2019-05-28] MEDS ORDERED: BUTALB/APAP/CAFF 50-325-40MG TAB PO PRN (21:45)
[2019-05-28] MEDS: GABAPENTIN 300 MG CAP PO SCH (23:22)
[2019-05-28] MEDS: HEPARIN SODIUM,PORCINE 5,000 UNIT/ML 1 ML VIAL SQ SCH (23:22)
[2019-05-29] MEDS: oxyCODONE-APAP 10-325MG 1 EACH TAB PO PRN ×3 (02:28→18:03)
[2019-05-29 02:39] LABS: Amphetamine Screen,Urine Not Detected (NotDetected); Barbiturate Screen,Urine Detected (NotDetected); Benzodiazepines Screen,Urine Not Detected (NotDetected); Cocaine Screen,Urine Not Detected (NotDetected); Methadone Screen, Urine Not Detected (NotDetected); Opiate Screen,Urine Detected (NotDetected); Oxycodone Screen, Urine Detected (NotDetected); Phencyclidine Screen,Urine Not Detected (NotDetected); Tricyclic Antidepressant,Urine Not Detected (NotDetected); Urn Cannabinoid Scrn Not Detected (NotDetected)
[2019-05-29] MEDS ORDERED: LACTATED RINGERS 1,000 ML IV SCH (05:49)
[2019-05-29] MEDS ORDERED: ONDANSETRON 4 MG/2 ML VIAL IVP PRN (05:49)
[2019-05-29] MEDS: HYDROmorphone 1 MG/ML 1 ML SYRINGE IVP PRN ×4 (07:06→22:35)
[2019-05-29 07:38] LABS: Glucose,Whole Blood 119 mg/dL (75-99)
[2019-05-29] MEDS: busPIRone HCl 5 MG TAB PO SCH ×2 (08:14→22:21)
[2019-05-29] MEDS: BACLOFEN 10 MG TAB PO SCH ×2 (08:14→22:21)
[2019-05-29] MEDS: GABAPENTIN 300 MG CAP PO SCH ×3 (08:15→22:20)
[2019-05-29] MEDS: lamoTRIgine 100 MG TAB PO SCH ×3 (08:15→22:20)
[2019-05-29] MEDS: FLUoxetine HCL 20 MG CAP PO SCH ×2 (08:15→08:25)
[2019-05-29] MEDS: FAMOTIDINE 20 MG TAB PO SCH (08:15)
[2019-05-29] MEDS: PANTOPRAZOLE 40 MG TABLET PO SCH (08:16)
[2019-05-29] MEDS: MEMANTINE 5 MG TAB PO SCH ×2 (08:16→22:21)
[2019-05-29] MEDS: OXYBUTYNIN XL 5 MG TAB.ER.24 PO SCH (08:16)
[2019-05-29] MEDS: ATORVASTATIN 40 MG TAB PO SCH (08:17)
[2019-05-29] MEDS: VALSARTAN 160 MG TAB PO SCH (08:19)
[2019-05-29 08:22] LABS: Basophils # (A) 0.1 k/uL (0-0.2); Basophils % (A) 1 %; Eosinophils # (A) 0.3 k/uL (0-0.7); Eosinophils % (A) 4 %; HCT 38.2 % (39.0-53.0); HGB 12.4 gm/dL (13.0-17.5); Lymphocytes % (A) 29 %; MCH 31.2 pg (25.0-35.0); MCHC 32.5 g/dL (31.0-37.0); MCV 95.9 fL (80.0-100.0); Mean Platelet Volume 7.1; Monocytes # (A) 0.7 k/uL (0-1.0); Monocytes % (A) 10 %; Neutrophils # (A) 3.7 k/uL (1.3-7.7); Neutrophils % (A) 52 %; Platelet Count 125 k/uL (150-450); RBC 3.98 m/uL (4.30-5.90); RDW 13.8 % (11.5-15.5)
[2019-05-29] MEDS: INSULIN ASPART (NovoLOG) 100 UNIT/ML VIAL SQ SCH ×7 (08:25→22:33)
[2019-05-29] MEDS: HEPARIN SODIUM,PORCINE 5,000 UNIT/ML 1 ML VIAL SQ SCH (08:25)
[2019-05-29 08:36] LABS: African American GFR (CKD) >90 (>60 ml/min/1.73 sqM); Anion Gap 9 mmol/L; Blood Urea Nitrogen 15 mg/dL (9-20); Calcium 8.8 mg/dL (8.4-10.2); Carbon Dioxide 25 mmol/L (22-30); Chloride 105 mmol/L (98-107); Glucose 118 mg/dL (74-99); Non-African American GFR(CKD) >90 (>60 ml/min/1.73 sqM); Potassium 4.2 mmol/L (3.5-5.1); Sodium 139 mmol/L (137-145)
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
[2019-05-29] MEDS: ALBUTEROL NEBULIZED 2.5 MG/3 ML INHALATION PRN ×2 (09:00→21:13)
[2019-05-29 11:13] LABS: Glucose,Whole Blood 129 mg/dL (75-99)
[2019-05-29] MEDS ORDERED: IV FLUID CONTINUATION 950 ML IV ONE (11:16)
[2019-05-29] MEDS ORDERED: fentaNYL (PF) 50 MCG/ML 2 ML AMP IV ONE ×2 (11:56)
[2019-05-29] MEDS ORDERED: MIDAZOLAM 2 MG/2 ML VIAL IV ONE (11:56)
[2019-05-29] MEDS ORDERED: MIDAZOLAM 2 MG/2 ML VIAL ONE (12:12)
[2019-05-29] MEDS ORDERED: SODIUM CHLORIDE 0.9% 50 ML with ceFAZolin 3,000 MG IV ONE ×2 (12:12)
[2019-05-29] MEDS ORDERED: ePHEDrine SULFATE/0.9% NACL/PF 50 MG/5 ML SYRINGE IV ONE (12:12)
[2019-05-29] MEDS ORDERED: fentaNYL (PF) 50 MCG/ML 2 ML AMP ONE (12:12)
--- NOTE | 2019-05-29 12:37 | P.ANPRN ---
Procedure Note - Anesthesia - Nerve Block Performed Left Adductor Canal Infusion Time Out Performed: Yes Date of Procedure: 05/29/19 Procedure Start Time: 11:56 Procedure Stop Time: 12:04 Location of Patient: PreOp Indication: Acute Post-Operative Pain, Dx/Pain Location, Requested by Surgeon Sedation Type: Sedate with meaningful contact maintained Preparation: Sterile Prep Position: Supine Catheter: Indwelling Needle Types: Pajunk Needle Gauge: 21 Ultrasound used to visualize needle placement: Yes Ultrasound used to observe medication spread: Yes Injectate: 0.5% Ropivacaine (see comment for volume) (20ML) Blood Aspirated: No Pain Paresthesia on Injection Noted: No Resistance on Injection: Normal Image Stored and Saved: Yes Events: Uneventful and Well Tolerated
[2019-05-29] MEDS ORDERED: SODIUM CHLORIDE 0.9% 1,000 ML IV ONE (12:54)
[2019-05-29] MEDS ORDERED: SENNOSIDES-DOCUSATE SODIUM 1 EACH TAB PO PRN (14:07)
--- NOTE | 2019-05-29 14:31 | XR ---
Fluoroscopy INDICATION: Pain FINDINGS: Fluoroscopy time: 58 seconds. Images obtained: 3. IMPRESSIONS: 1. Documentation of fluoroscopy.
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
[2019-05-29] MEDS ORDERED: ROPIVACAINE 0.2%-NS ON-Q PUMP 1,090 MG, EMPTY PAIN BALL 1 EACH MISCELLANE PRN (14:52)
[2019-05-29] MEDS ORDERED: ALBUTEROL NEBULIZED 2.5 MG/3 ML INHALATION ONE (14:54)
[2019-05-29] MEDS: HYDROmorphone 0.5 MG/0.5 ML SYRINGE IVP PRN ×4 (15:05→15:28)
--- NOTE | 2019-05-29 15:11 | FL ---
Fluoroscopy HISTORY: Open reduction internal fixation 58 seconds fluoroscopy time supplied to the referring clinician. 3 intraoperative C-arm images docum ent the procedure. See dictated report from orthopedic surgery.
[2019-05-29] MEDS: SODIUM CHLORIDE 0.9% 1,000 ML IV SCH (15:21)
[2019-05-29 15:32] LABS: Glucose,Whole Blood 144 mg/dL (75-99)
[2019-05-29] MEDS: LACTATED RINGERS 1,000 ML IV SCH (15:55)
[2019-05-29 16:58] LABS: Glucose,Whole Blood 172 mg/dL (75-99)
[2019-05-29] MEDS ORDERED: TEMAZEPAM 15 MG CAP PO PRN (20:00)
[2019-05-29] MEDS ORDERED: diphenhydrAMINE 25 MG CAP PO PRN (20:00)
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
[2019-05-29] MEDS: traZODone HCL 50 MG TAB PO SCH (22:20)
[2019-05-29] MEDS: MONTELUKAST 10 MG TAB PO SCH (22:21)
[2019-05-29] MEDS: APIXABAN 2.5 MG TABLET PO SCH (22:21)
[2019-05-29] MEDS: INSULIN DETEMIR (LEVEMIR) 100 UNIT/ML SYR SQ SCH (22:30)
[2019-05-29 22:32] LABS: Glucose,Whole Blood 256 mg/dL (75-99)
[2019-05-30] MEDS: LACTATED RINGERS 1,000 ML IV SCH ×3 (02:44→21:47)
[2019-05-30] MEDS: HYDROmorphone 1 MG/ML 1 ML SYRINGE IVP PRN ×6 (02:59→21:38)
[2019-05-30 06:49] LABS: Glucose,Whole Blood 234 mg/dL (75-99)
[2019-05-30] MEDS: INSULIN ASPART (NovoLOG) 100 UNIT/ML VIAL SQ SCH ×7 (07:35→21:45)
[2019-05-30] MEDS: FLUoxetine HCL 20 MG CAP PO SCH ×2 (07:38→07:39)
[2019-05-30] MEDS: APIXABAN 2.5 MG TABLET PO SCH ×2 (07:38→21:44)
[2019-05-30] MEDS: MEMANTINE 5 MG TAB PO SCH ×2 (07:38→21:44)
[2019-05-30] MEDS: OXYBUTYNIN XL 5 MG TAB.ER.24 PO SCH (07:38)
[2019-05-30] MEDS: busPIRone HCl 5 MG TAB PO SCH ×2 (07:38→21:43)
[2019-05-30] MEDS: BACLOFEN 10 MG TAB PO SCH ×2 (07:38→21:43)
[2019-05-30] MEDS: PANTOPRAZOLE 40 MG TABLET PO SCH (07:38)
[2019-05-30] MEDS: ATORVASTATIN 40 MG TAB PO SCH (07:38)
[2019-05-30] MEDS: ALBUTEROL NEBULIZED 2.5 MG/3 ML INHALATION PRN ×3 (07:41→15:42)
[2019-05-30] MEDS: GABAPENTIN 300 MG CAP PO SCH ×3 (07:43→21:43)
[2019-05-30] MEDS: VALSARTAN 160 MG TAB PO SCH (07:50)
[2019-05-30] MEDS: oxyCODONE-APAP 10-325MG 1 EACH TAB PO PRN ×4 (07:50→23:42)
[2019-05-30 08:15] LABS: Basophils # (A) 0.1 k/uL (0-0.2); Basophils % (A) 1 %; Eosinophils # (A) 0.1 k/uL (0-0.7); Eosinophils % (A) 1 %; HCT 34.3 % (39.0-53.0); HGB 11.2 gm/dL (13.0-17.5); Lymphocytes # (A) 1.2 k/uL (1.0-4.8); Lymphocytes % (A) 14 %; MCH 31.2 pg (25.0-35.0); MCHC 32.5 g/dL (31.0-37.0); Mean Platelet Volume 7.2; Monocytes % (A) 12 %; Neutrophils # (A) 5.8 k/uL (1.3-7.7); Neutrophils % (A) 69 %; Platelet Count 126 k/uL (150-450); RBC 3.58 m/uL (4.30-5.90); RDW 13.8 % (11.5-15.5); WBC 8.4 k/uL (3.8-10.6)
[2019-05-30 08:27] LABS: African American GFR (CKD) >90 (>60 ml/min/1.73 sqM); Anion Gap 9 mmol/L; Blood Urea Nitrogen 16 mg/dL (9-20); Calcium 8.8 mg/dL (8.4-10.2); Carbon Dioxide 23 mmol/L (22-30); Chloride 104 mmol/L (98-107); Glucose 197 mg/dL (74-99); Non-African American GFR(CKD) >90 (>60 ml/min/1.73 sqM); Potassium 4.3 mmol/L (3.5-5.1); Sodium 136 mmol/L (137-145)
--- NOTE | 2019-05-30 09:58 | P.PN ---
Subjective Progress Note Date: 05/30/19 Principal diagnosis: Status post ORIF left medial tibial plateau and left patella This is a 63 year-old male post ORIF left medial tibial plateau and left mott lla. This is post-op day 1. The patient was evaluated at the bedside today. The patient denies nausea, vomiting, abdominal pain, shortness of breath, and chest pain this morning. He states his pain is not controlled at this time with his home dose of Percocet 1 tab TID PRN. The patient has not been up with physical therapy. He also has left-sided L1, L2, L3 transverse process fractures. Objective - Vital Signs Vital signs: Vital Signs Temp 98 F 05/30/19 09:00 Pulse 108 H 05/30/19 07:54 Resp 12 05/30/19 07:51 BP 161/61 05/30/19 07:51 Pulse Ox 99 05/30/19 07:51 Intake & Output 05/29/19 05/30/19 05/30/19 18:59 06:59 18:59 Intake Total 2310 Output Total 150 1100 200 Balance 2160 -1100 -200 Weight 112.491 kg Intake: IV 1510 Invasive Line 3 10 Intake, IV Titration 800 Amount Sodium Chloride 0.9% 50 800 ml @ 0 mls/hr IV .STK-MED ONE with ceFAZolin 3,000 mg Rx#:[id number] Output: Urine 1100 200 Estimated Blood Loss 150 Other: Voiding Method Urinal Urinal # Voids 1 1 - Exam The patient does not appear in acute distress but is slightly diaphoretic. Alert and orientated x3. Dressing is clean dry and intact. Knee immobilizer in place. Calf is soft and nontender. Good foot and ankle motion without difficulty. Sensation and circulatory status is intact. - Labs CBC & Chem 7: 05/30/19 07:26 05/30/19 07:26 Labs: Abnormal Lab Results - Last 24 Hours (Table) 05/29/19 05/29/19 05/29/19 Range/Units 11:09 15:30 16:55 RBC (4.30-5.90) m/uL Hgb (13.0-17.5) gm/dL Hct (39.0-53.0) % Plt Count (150-450) k/uL Sodium (137-145) mmol/L Glucose (74-99) mg/dL POC Glucose (mg/dL) 129 H 144 H 172 H (75-99) mg/dL 05/29/19 05/30/19 05/30/19 Range/Units 22:26 06:47 07:26 RBC 3.58 L (4.30-5.90) m/uL Hgb 11.2 L (13.0-17.5) gm/dL Hct 34.3 L (39.0-53.0) % Plt Count 126 L (150-450) k/uL Sodium (137-145) mmol/L Glucose (74-99) mg/dL POC Glucose (mg/dL) 256 H 234 H (75-99) mg/dL 05/30/19 Range/Units 07:26 RBC (4.30-5.90) m/uL Hgb (13.0-17.5) gm/dL Hct (39.0-53.0) % Plt Count (150-450) k/uL Sodium 136 L (137-145) mmol/L Glucose 197 H (74-99) mg/dL POC Glucose (mg/dL) (75-99) mg/dL Assessment and Plan (1) Diabetes type 2, uncontrolled Current Visit: Yes Status: Acute Code(s): E11.65 - TYPE 2 DIABETES MELLITUS WITH HYPERGLYCEMIA SNOMED Code(s): 031982505 (2) Left patella fracture Current Visit: Yes Status: Acute Code(s): S82.002A - UNSP FRACTURE OF LEFT PATELLA, INIT FOR CLOS FX SNOMED Code(s): 69188135 (3) Lumbar transverse process fracture Current Visit: Yes Status: Acute Code(s): S32.009A - UNSP FRACTURE OF UNSP LUMBAR VERTEBRA, INIT FOR CLOS FX SNOMED Code(s): 365578419 (4) Tibial plateau fracture, left Current Visit: Yes Status: Acute Code(s): S82.142A - DISPLACED BICONDYLAR FRACTURE OF LEFT TIBIA, INIT SNOMED Code(s): 393157830 (5) Opioid use, unspecified with other opioid-induced disorder Current Visit: No Status: Chronic Code(s): F11.988 - OPIOID USE, UNSPECIFIED WITH OTHER OPIOID-INDUCED DISORDER SNOMED Code(s): 9884831 Plan: 1. Continue pain control, increase Percocet to q4 PRN. We will also consult pain management. 2. Anticoagulation with Eliquis 3. Start physical therapy and ambulation, non-weightbearing left lower extremity with knee immobilizer 4. LSO brace for transverse process fractures. To be worn when out of bed. 5. Anticipate home vs. skill rehab upon discharge depending on patient's course.
[2019-05-30] MEDS: MULTIVITAMINS, THERA 1 EACH TAB PO SCH (10:52)
[2019-05-30] MEDS: FOLIC ACID 1 MG TAB PO SCH (10:53)
[2019-05-30] MEDS: THIAMINE 100 MG TAB PO SCH (10:53)
[2019-05-30 11:36] LABS: Glucose,Whole Blood 217 mg/dL (75-99)
--- NOTE | 2019-05-30 11:38 | XR ---
EXAMINATION TYPE: XR chest 1V portable DATE OF EXAM: 05/30/2019 HISTORY: shortness of breath. REFERENCE: Previous study dated 05/27/2019. FINDINGS: There has been a midline sternotomy. The heart is enlarged. There is mild vascular congesti on without victoria edema. There is some scarring in the right midlung. Pleural spaces are clear. IMPRESSION: STABLE CARDIOMEGALY.
--- NOTE | 2019-05-30 13:57 | CT ---
EXAMINATION TYPE: CT chest angio for PE DATE OF EXAM: 05/30/2019 COMPARISON: None. HISTORY: Elevated d-dimer CT DLP: 957.5 mGycm Automated exposure control for dose reduction was used. CONTRAST: CT Chest for pulmonary embolism performed with with IV Contrast, patient injected with 100 mL of Isov ue 370. FINDINGS: There is minimal dependent atelectasis in the dependent portions of the lungs. There is no significant axillary, mediastinal or hilar adenopathy. There is no evidence of pulmonary embolus. The aorta is normal in caliber without evidence of dissection. There is no pleural or pericardial fluid heart is upper limits of normal in size. Within the abdomen, the gallbladder is been removed. The remainder the visualized abdomen is unremark able. There is hypertrophic spondylosis within the spine. IMPRESSION: This examination is negative for pulmonary embolus.
[2019-05-30] MEDS: SODIUM CHLORIDE 0.9% 1,000 ML IV SCH (14:34)
--- NOTE | 2019-05-30 14:54 | ECHOF ---
Referral Reason:cardiomegaly MEASUREMENTS -------- HEIGHT: 170.2 cm WEIGHT: 112.0 kg BP: RVIDd: 4.3 cm (< 3.3) IVSd: 1.2 cm (0.6 - 1.1) LVIDd: 4.8 cm (3.9 - 5.3) LVPWd: 1.8 cm (0.6 - 1.1) IVSs: 1.8 cm LVIDs: 3.1 cm LVPWs: 1.9 cm LA Diam: 3.9 cm (2.7 - 3.8) Ao Diam: 3.1 cm (2.0 - 3.7) AV Cusp: 1.6 cm (1.5 - 2.6) LA Diam: 4.7 cm (2.7 - 3.8) MV EXCURSION: 19.176 mm (> 18.000) MV EF SLOPE: 69 mm/s (70 - 150) EPSS: 0.4 cm MV E Barry: 1.04 m/s MV DecT: 146 ms MV A Barry: 0.91 m/s MV E/A Ratio: 1.15 RAP: 5.00 mmHg RVSP: 14.63 mmHg FINDINGS -------- Sinus rhythm. This was a technically adequate study. The left ventricular size is normal. There is mild concentric left ventricular hypertrophy. Overa ll left ventricular systolic function is low-normal with, an EF between 50 - 55 %. The right ventricle is normal in size. Paradoxical motion of the right ventricular septum is consis tent with post operative status. The left atrium is mildly dilated. The right atrial size is normal. There is mild aortic valve sclerosis. There is no evidence of aortic regurgitation. Mild mitral annular calcification present. Mild mitral regurgitation is present. Mild tricuspid regurgitation present. Right ventricular systolic pressure is normal at < 35 mmHg. There is no evidence of pulmonary hypertension. There is no pulmonic regurgitation present. The aortic root size is normal. There is no pericardial effusion. CONCLUSIONS -------- 1. Sinus rhythm. 2. This was a technically adequate study. 3. The left ventricular size is normal. 4. There is mild concentric left ventricular hypertrophy. 5. Overall left ventricular systolic function is low-normal with, an EF between 50 - 55 %. 6. The right ventricle is normal in size. 7. Paradoxical motion of the right ventricular septum is consistent with post operative status. 8. The left atrium is mildly dilated. 9. The right atrial size is normal. 10. There is mild aortic valve sclerosis. 11. Mild mitral annular calcification present. 12. Mild mitral regurgitation is present. 13. Mild tricuspid regurgitation present. 14. Right ventricular systolic pressure is normal at < 35 mmHg. 15. There is no evidence of pulmonary hypertension. 16. There is no pulmonic regurgitation present. 17. The aortic root size is normal. 18. There is no pericardial effusion. POLITICAL SCIENCE RESEARCH ASSISTANT: Nicci Cheng RDCS
[2019-05-30 16:47] LABS: Glucose,Whole Blood 229 mg/dL (75-99)
[2019-05-30 21:29] LABS: Glucose,Whole Blood 157 mg/dL (75-99)
[2019-05-30] MEDS: MONTELUKAST 10 MG TAB PO SCH (21:43)
[2019-05-30] MEDS: lamoTRIgine 100 MG TAB PO SCH (21:43)
[2019-05-30] MEDS: traZODone HCL 50 MG TAB PO SCH (21:44)
[2019-05-30] MEDS: INSULIN DETEMIR (LEVEMIR) 100 UNIT/ML SYR SQ SCH (21:46)
[2019-05-30] MEDS: LORazepam 0.5 MG TAB PO PRN (23:46)
[2019-05-31] MEDS: HYDROmorphone 1 MG/ML 1 ML SYRINGE IVP PRN ×7 (00:33→21:59)
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
[2019-05-31] MEDS: LACTATED RINGERS 1,000 ML IV SCH (05:43)
[2019-05-31] MEDS: oxyCODONE-APAP 10-325MG 1 EACH TAB PO PRN ×4 (06:03→21:01)
[2019-05-31 06:43] LABS: Glucose,Whole Blood 174 mg/dL (75-99)
[2019-05-31] MEDS: ALBUTEROL NEBULIZED 2.5 MG/3 ML INHALATION PRN ×2 (07:06→11:29)
[2019-05-31 07:12] LABS: Calcium 8.4 mg/dL (8.4-10.2); Potassium 4.1 mmol/L (3.5-5.1)
[2019-05-31 07:16] LABS: Basophils # (A) 0.1 k/uL (0-0.2); Basophils % (A) 2 %; Eosinophils # (A) 0.3 k/uL (0-0.7); Eosinophils % (A) 5 %; HCT 31.9 % (39.0-53.0); HGB 10.4 gm/dL (13.0-17.5); Lymphocytes # (A) 1.5 k/uL (1.0-4.8); Lymphocytes % (A) 20 %; MCHC 32.7 g/dL (31.0-37.0); MCV 97.8 fL (80.0-100.0); Mean Platelet Volume 7.5; Monocytes # (A) 0.7 k/uL (0-1.0); Monocytes % (A) 9 %; Neutrophils # (A) 4.4 k/uL (1.3-7.7); Neutrophils % (A) 61 %; Platelet Count 136 k/uL (150-450); RBC 3.26 m/uL (4.30-5.90); WBC 7.2 k/uL (3.8-10.6)
[2019-05-31] MEDS: INSULIN ASPART (NovoLOG) 100 UNIT/ML VIAL SQ SCH ×7 (07:43→21:04)
[2019-05-31] MEDS: OXYBUTYNIN XL 5 MG TAB.ER.24 PO SCH (07:44)
[2019-05-31] MEDS: busPIRone HCl 5 MG TAB PO SCH ×2 (07:44→21:02)
[2019-05-31] MEDS: VALSARTAN 160 MG TAB PO SCH (07:45)
[2019-05-31] MEDS: lamoTRIgine 100 MG TAB PO SCH ×2 (07:45→21:03)
[2019-05-31] MEDS: MEMANTINE 5 MG TAB PO SCH ×2 (07:45→21:02)
[2019-05-31] MEDS: FLUoxetine HCL 20 MG CAP PO SCH ×2 (07:45)
[2019-05-31] MEDS: ATORVASTATIN 40 MG TAB PO SCH (07:45)
[2019-05-31] MEDS: BACLOFEN 10 MG TAB PO SCH ×2 (07:46→21:02)
[2019-05-31] MEDS: APIXABAN 2.5 MG TABLET PO SCH ×2 (07:46→21:03)
[2019-05-31] MEDS: PANTOPRAZOLE 40 MG TABLET PO SCH (07:46)
[2019-05-31] MEDS: GABAPENTIN 300 MG CAP PO SCH ×3 (07:47→21:02)
--- NOTE | 2019-05-31 09:24 | P.PN ---
Subjective Progress Note Date: 05/31/19 Principal diagnosis: Status post ORIF left medial tibial plateau and left patella This is a 63 year-old male post ORIF left medial tibial plateau and left patella. This is post-op day 2. The patient was evaluated at the bedside today. The patient denies nausea, vomiting, abdominal pain, and chest pain this morning. He is having shortness of breath and has PRN updraft treatments ordered. He states his pain is still not controlled at this time with Percocet and Dilaudid. He sees Dr. Diaz for pain management on an outpatient basis. The patient has not been up with physical therapy. He also has left-sided L1, L2, L3 transverse process fractures. A chest CTA was performed yesterday which was negative for PE. Chest x-ray revealed cardiomegaly and an echo was ordered. Troponins have been negative. An EKG was negative for acute changes. Objective - Vital Signs Vital signs: Vital Signs Temp 98.5 F 05/31/19 06:46 Pulse 96 05/31/19 07:17 Resp 16 05/31/19 06:52 BP 125/77 05/31/19 06:46 Pulse Ox 96 05/31/19 06:46 Intake & Output 05/30/19 05/31/19 05/31/19 18:59 06:59 18:59 Intake Total 640 Output Total 700 800 Balance -60 -800 Intake: Intake, IV Titration 640 Amount Lactated Ringers 1,000 ml 600 @ 100 mls/hr IV .Q10H LE[facility] Rx#:[id number] Lactated Ringers 1,000 ml 40 @ 20 mls/hr IV .Q24H LEIGH [facility] Rx#:[id number] Output: Urine 700 800 Other: Voiding Method Urinal Urinal # Voids 1 1 - Exam The patient does not appear in acute distress but is slightly diaphoretic. Alert and orientated x3. He has audible wheezing. Dressing is clean dry and intact. Knee immobilizer in place. Calf is soft and nontender. Good foot and ankle motion without difficulty. Sensation and circulatory status is intact. - Labs CBC & Chem 7: 05/31/19 05:59 05/31/19 05:59 Labs: Abnormal Lab Results - Last 24 Hours (Table) 05/30/19 05/30/19 05/30/19 Range/Units 11:34 12:12 16:45 RBC (4.30-5.90) m/uL Hgb (13.0-17.5) gm/dL Hct (39.0-53.0) % Plt Count (150-450) k/uL D-Dimer 1.64 H (<0.60) mg/L FEU Glucose (74-99) mg/dL POC Glucose (mg/dL) 217 H 229 H (75-99) mg/dL 05/30/19 05/31/19 05/31/19 Range/Units 21:27 05:59 05:59 RBC 3.26 L (4.30-5.90) m/uL Hgb 10.4 L (13.0-17.5) gm/dL Hct 31.9 L (39.0-53.0) % Plt Count 136 L (150-450) k/uL D-Dimer (<0.60) mg/L FEU Glucose 157 H (74-99) mg/dL POC Glucose (mg/dL) 157 H (75-99) mg/dL 05/31/19 Range/Units 06:42 RBC (4.30-5.90) m/uL Hgb (13.0-17.5) gm/dL Hct (39.0-53.0) % Plt Count (150-450) k/uL D-Dimer (<0.60) mg/L FEU Glucose (74-99) mg/dL POC Glucose (mg/dL) 174 H (75-99) mg/dL Assessment and Plan (1) Diabetes type 2, uncontrolled Current Visit: Yes Status: Acute Code(s): E11.65 - TYPE 2 DIABETES MELLITUS WITH HYPERGLYCEMIA SNOMED Code(s): 711459790 (2) Left patella fracture Current Visit: Yes Status: Acute Code(s): S82.002A - UNSP FRACTURE OF LEFT PATELLA, INIT FOR CLOS FX SNOMED Code(s): 34824287 (3) Lumbar transverse process fracture Current Visit: Yes Status: Acute Code(s): S32.009A - UNSP FRACTURE OF UNSP LUMBAR VERTEBRA, INIT FOR CLOS FX SNOMED Code(s): 168367065 (4) Tibial plateau fracture, left Current Visit: Yes Status: Acute Code(s): S82.142A - DISPLACED BICONDYLAR FRACTURE OF LEFT TIBIA, INIT SNOMED Code(s): 367028881 (5) Opioid use, unspecified with other opioid-induced disorder Current Visit: No Status: Chronic Code(s): F11.988 - OPIOID USE, UNSPECIFIED WITH OTHER OPIOID-INDUCED DISORDER SNOMED Code(s): 4450857 Plan: 1. Continue pain control with Percocet to q4 PRN and Dilaudid if needed. We will also consult pain management. 2. Anticoagulation with Eliquis 3. Start physical therapy and ambulation, non-weightbearing left lower extremity with knee immobilizer 4. Anticipate home vs. skill rehab upon discharge depending on patient's course.
[2019-05-31] MEDS: METOPROLOL TARTRATE 25 MG TAB PO SCH (10:03)
[2019-05-31 11:36] LABS: Glucose,Whole Blood 217 mg/dL (75-99)
[2019-05-31] MEDS ORDERED: IPRATROPIUM-ALBUTEROL 3 ML NEB INHALATION PRN (11:51)
[2019-05-31] MEDS: THIAMINE 100 MG TAB PO SCH (12:05)
[2019-05-31] MEDS: FOLIC ACID 1 MG TAB PO SCH (12:06)
[2019-05-31] MEDS: MULTIVITAMINS, THERA 1 EACH TAB PO SCH (12:06)
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
[2019-05-31] MEDS: IPRATROPIUM-ALBUTEROL 3 ML NEB INHALATION SCH ×3 (15:14→20:53)
[2019-05-31] MEDS: SODIUM CHLORIDE 0.9% 1,000 ML IV SCH (15:29)
[2019-05-31] MEDS ORDERED: FUROSEMIDE 10 MG/ML 2 ML VIAL IV ONE (16:00)
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
[2019-05-31 17:00] LABS: Glucose,Whole Blood 169 mg/dL (75-99)
[2019-05-31] MEDS: methylPREDNISolone SOD SUCCI 125 MG/2 ML VIAL IV SCH (17:23)
[2019-05-31 20:01] LABS: Glucose,Whole Blood 215 mg/dL (75-99)
[2019-05-31] MEDS: FORMOTEROL FUMARATE 20 MCG/2 ML NEBU INHALATION SCH (20:53)
[2019-05-31] MEDS: BUDESONIDE 1 MG/2 ML NEBU INHALATION SCH (20:53)
[2019-05-31] MEDS: traZODone HCL 50 MG TAB PO SCH (21:02)
[2019-05-31] MEDS: MONTELUKAST 10 MG TAB PO SCH (21:02)
[2019-05-31] MEDS: INSULIN DETEMIR (LEVEMIR) 100 UNIT/ML SYR SQ SCH (21:05)
[2019-06-01] MEDS: methylPREDNISolone SOD SUCCI 125 MG/2 ML VIAL IV SCH ×5 (00:54→23:57)
[2019-06-01] MEDS: IPRATROPIUM-ALBUTEROL 3 ML NEB INHALATION SCH ×7 (01:18→23:56)
[2019-06-01] MEDS: HYDROmorphone 1 MG/ML 1 ML SYRINGE IVP PRN ×6 (03:38→21:32)
[2019-06-01] MEDS: LORazepam 0.5 MG TAB PO PRN (03:43)
[2019-06-01] MEDS: oxyCODONE-APAP 10-325MG 1 EACH TAB PO PRN ×5 (04:39→23:58)
[2019-06-01 07:25] LABS: Glucose,Whole Blood 290 mg/dL (75-99)
[2019-06-01] MEDS: lamoTRIgine 100 MG TAB PO SCH ×2 (07:48→21:32)
[2019-06-01] MEDS: APIXABAN 2.5 MG TABLET PO SCH ×2 (07:48→21:29)
[2019-06-01] MEDS: METOPROLOL TARTRATE 25 MG TAB PO SCH (07:48)
[2019-06-01] MEDS: busPIRone HCl 5 MG TAB PO SCH ×2 (07:48→21:29)
[2019-06-01] MEDS: BACLOFEN 10 MG TAB PO SCH ×2 (07:48→21:29)
[2019-06-01] MEDS: FLUoxetine HCL 20 MG CAP PO SCH ×2 (07:48→21:29)
[2019-06-01] MEDS: MEMANTINE 5 MG TAB PO SCH ×2 (07:49→21:32)
[2019-06-01] MEDS: VALSARTAN 160 MG TAB PO SCH (07:49)
[2019-06-01] MEDS: GABAPENTIN 300 MG CAP PO SCH ×3 (07:49→21:32)
[2019-06-01] MEDS: OXYBUTYNIN XL 5 MG TAB.ER.24 PO SCH (07:49)
[2019-06-01] MEDS: ATORVASTATIN 40 MG TAB PO SCH (07:49)
[2019-06-01] MEDS: PANTOPRAZOLE 40 MG TABLET PO SCH (07:49)
[2019-06-01] MEDS: INSULIN ASPART (NovoLOG) 100 UNIT/ML VIAL SQ SCH ×7 (07:50→21:30)
[2019-06-01 08:09] LABS: Basophils % (A) 0 %; Eosinophils % (A) 0 %; HCT 32.1 % (39.0-53.0); HGB 10.4 gm/dL (13.0-17.5); Lymphocytes # (A) 0.5 k/uL (1.0-4.8); Lymphocytes % (A) 5 %; MCH 31.5 pg (25.0-35.0); MCHC 32.3 g/dL (31.0-37.0); MCV 97.4 fL (80.0-100.0); Mean Platelet Volume 8.2; Monocytes # (A) 0.6 k/uL (0-1.0); Monocytes % (A) 5 %; Neutrophils # (A) 8.9 k/uL (1.3-7.7); Neutrophils % (A) 88 %; Platelet Count 191 k/uL (150-450); RBC 3.29 m/uL (4.30-5.90); RDW 13.7 % (11.5-15.5); WBC 10.1 k/uL (3.8-10.6)
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
[2019-06-01] MEDS: FORMOTEROL FUMARATE 20 MCG/2 ML NEBU INHALATION SCH ×2 (08:55→19:43)
[2019-06-01] MEDS: BUDESONIDE 1 MG/2 ML NEBU INHALATION SCH ×2 (08:55→19:43)
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
[2019-06-01 11:46] LABS: Glucose,Whole Blood 180 mg/dL (75-99)
[2019-06-01] MEDS: THIAMINE 100 MG TAB PO SCH (11:53)
[2019-06-01] MEDS: MULTIVITAMINS, THERA 1 EACH TAB PO SCH (11:53)
[2019-06-01] MEDS: FOLIC ACID 1 MG TAB PO SCH (11:53)
[2019-06-01 16:54] LABS: Glucose,Whole Blood 272 mg/dL (75-99)
--- NOTE | 2019-06-01 17:14 | XR ---
EXAMINATION TYPE: XR chest 1V portable DATE OF EXAM: 06/01/2019 COMPARISON: 05/30/2019 HISTORY: Short of breath TECHNIQUE: Single view FINDINGS: There is no heart failure nor confluent pneumonic infiltrate. Costophrenic angles are clear . There are sternal wires. IMPRESSION: No active cardiopulmonary disease. Normal heart. No change.
[2019-06-01 20:42] LABS: Glucose,Whole Blood 222 mg/dL (75-99)
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
[2019-06-01] MEDS: SODIUM CHLORIDE 0.9% 1,000 ML IV SCH (21:17)
[2019-06-01] MEDS: INSULIN DETEMIR (LEVEMIR) 100 UNIT/ML SYR SQ SCH (21:30)
[2019-06-01] MEDS: MONTELUKAST 10 MG TAB PO SCH (21:32)
[2019-06-01] MEDS: traZODone HCL 50 MG TAB PO SCH (21:32)
[2019-06-02] MEDS: HYDROmorphone 1 MG/ML 1 ML SYRINGE IVP PRN ×6 (00:53→20:45)
[2019-06-02] MEDS: IPRATROPIUM-ALBUTEROL 3 ML NEB INHALATION SCH ×6 (03:41→23:34)
[2019-06-02] MEDS: oxyCODONE-APAP 10-325MG 1 EACH TAB PO PRN ×5 (05:04→23:53)
[2019-06-02] MEDS: methylPREDNISolone SOD SUCCI 125 MG/2 ML VIAL IV SCH ×4 (05:10→23:54)
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
[2019-06-02 07:15] LABS: Glucose,Whole Blood 351 mg/dL (75-99)
[2019-06-02] MEDS: INSULIN ASPART (NovoLOG) 100 UNIT/ML VIAL SQ SCH ×7 (07:23→20:39)
[2019-06-02] MEDS: FORMOTEROL FUMARATE 20 MCG/2 ML NEBU INHALATION SCH ×2 (08:33→19:45)
[2019-06-02] MEDS: BUDESONIDE 1 MG/2 ML NEBU INHALATION SCH ×2 (08:33→19:45)
[2019-06-02] MEDS: lamoTRIgine 100 MG TAB PO SCH ×2 (09:48→20:33)
[2019-06-02] MEDS: busPIRone HCl 5 MG TAB PO SCH ×2 (09:48→20:32)
[2019-06-02] MEDS: GABAPENTIN 300 MG CAP PO SCH ×3 (09:48→20:34)
[2019-06-02] MEDS: FLUoxetine HCL 20 MG CAP PO SCH ×2 (09:48→20:33)
[2019-06-02] MEDS: METOPROLOL TARTRATE 25 MG TAB PO SCH (09:49)
[2019-06-02] MEDS: VALSARTAN 160 MG TAB PO SCH (09:49)
[2019-06-02] MEDS: MEMANTINE 5 MG TAB PO SCH ×2 (09:49→20:33)
[2019-06-02] MEDS: APIXABAN 2.5 MG TABLET PO SCH ×2 (09:49→20:32)
[2019-06-02] MEDS: BACLOFEN 10 MG TAB PO SCH ×2 (09:49→20:32)
[2019-06-02] MEDS: ATORVASTATIN 40 MG TAB PO SCH (09:49)
[2019-06-02] MEDS: PANTOPRAZOLE 40 MG TABLET PO SCH (09:49)
[2019-06-02] MEDS: OXYBUTYNIN XL 5 MG TAB.ER.24 PO SCH (09:49)
[2019-06-02 10:44] VITALS: BMI 38.8
[2019-06-02 11:41] LABS: Glucose,Whole Blood 240 mg/dL (75-99)
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
[2019-06-02] MEDS: MULTIVITAMINS, THERA 1 EACH TAB PO SCH (13:34)
[2019-06-02] MEDS: THIAMINE 100 MG TAB PO SCH (13:34)
[2019-06-02] MEDS: FOLIC ACID 1 MG TAB PO SCH (13:34)
[2019-06-02] MEDS: SODIUM CHLORIDE 0.9% 1,000 ML IV SCH (15:19)
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
[2019-06-02 16:57] LABS: Glucose,Whole Blood 177 mg/dL (75-99)
[2019-06-02 20:05] LABS: Glucose,Whole Blood 152 mg/dL (75-99)
[2019-06-02] MEDS: MONTELUKAST 10 MG TAB PO SCH (20:33)
[2019-06-02] MEDS: traZODone HCL 50 MG TAB PO SCH (20:34)
[2019-06-02] MEDS: INSULIN DETEMIR (LEVEMIR) 100 UNIT/ML SYR SQ SCH (20:40)
[2019-06-03] MEDS: HYDROmorphone 1 MG/ML 1 ML SYRINGE IVP PRN ×4 (01:01→12:21)
[2019-06-03] MEDS: IPRATROPIUM-ALBUTEROL 3 ML NEB INHALATION SCH ×3 (03:21→11:43)
[2019-06-03] MEDS: methylPREDNISolone SOD SUCCI 125 MG/2 ML VIAL IV SCH ×2 (05:47→12:57)
[2019-06-03] MEDS: oxyCODONE-APAP 10-325MG 1 EACH TAB PO PRN ×2 (06:34→10:46)
[2019-06-03] MEDS: BUDESONIDE 1 MG/2 ML NEBU INHALATION SCH (07:24)
[2019-06-03] MEDS: FORMOTEROL FUMARATE 20 MCG/2 ML NEBU INHALATION SCH (07:24)
[2019-06-03 07:31] LABS: Glucose,Whole Blood 318 mg/dL (75-99)
[2019-06-03 08:05] VITALS: BP 125/69; RESP 16; TEMP 98.3
[2019-06-03] MEDS: INSULIN ASPART (NovoLOG) 100 UNIT/ML VIAL SQ SCH ×4 (08:17→13:06)
[2019-06-03] MEDS: lamoTRIgine 100 MG TAB PO SCH (08:18)
[2019-06-03] MEDS: APIXABAN 2.5 MG TABLET PO SCH (08:18)
[2019-06-03] MEDS: OXYBUTYNIN XL 5 MG TAB.ER.24 PO SCH (08:20)
[2019-06-03] MEDS: GABAPENTIN 300 MG CAP PO SCH (08:20)
[2019-06-03] MEDS: MEMANTINE 5 MG TAB PO SCH (08:20)
[2019-06-03] MEDS: BACLOFEN 10 MG TAB PO SCH (08:21)
[2019-06-03] MEDS: VALSARTAN 160 MG TAB PO SCH (08:21)
[2019-06-03] MEDS: busPIRone HCl 5 MG TAB PO SCH (08:21)
[2019-06-03] MEDS: METOPROLOL TARTRATE 25 MG TAB PO SCH (08:21)
[2019-06-03] MEDS: FLUoxetine HCL 20 MG CAP PO SCH (08:21)
[2019-06-03] MEDS: ATORVASTATIN 40 MG TAB PO SCH (08:21)
[2019-06-03] MEDS: PANTOPRAZOLE 40 MG TABLET PO SCH (08:21)
[2019-06-03 11:55] LABS: Glucose,Whole Blood 246 mg/dL (75-99)
[2019-06-03 11:56] VITALS: PULSE 76
--- NOTE | 2019-06-03 13:04 | P.PN ---
Progress Note - Text Patient unable to be discharged last night. Has arrangements for equipment today has transportation home at 12:30
[2019-06-03] MEDS: THIAMINE 100 MG TAB PO SCH (13:06)
[2019-06-03] MEDS: MULTIVITAMINS, THERA 1 EACH TAB PO SCH (13:06)
[2019-06-03] MEDS: FOLIC ACID 1 MG TAB PO SCH (13:06)
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
[2019-06-03 15:38] LABS: T4, Free (Free Thyroxine) 0.84 ng/dL (0.78-2.19)
[2019-06-03 18:14] LABS: Hemoglobin A1C 7.3 % (4.0-6.0)
== END 2019-06-03 14:11 | DRG 492 ==
LOC: EC 11:44 → 4SSUR 14:55
PROVIDERS: ADMIT Family Medicine; ATTEND Family Medicine
PROC: 0QSF04Z Reposition Left Patella with Internal Fixation Device, Open Approach (ICD-10-PCS; principal; 2019-05-29 12:00)
PROC: 0QSH04Z Reposition Left Tibia with Internal Fixation Device, Open Approach (ICD-10-PCS; principal; 2019-05-29 12:00)
DX: S82.142A Displaced bicondylar fracture of left tibia, initial encounter for closed fracture (principal); G93.41 Metabolic encephalopathy; S82.092A Other fracture of left patella, initial encounter for closed fracture; S32.018A Other fracture of first lumbar vertebra, initial encounter for closed fracture; S32.028A Other fracture of second lumbar vertebra, initial encounter for closed fracture; S32.038A Other fracture of third lumbar vertebra, initial encounter for closed fracture; F11.20 Opioid dependence, uncomplicated; F33.9 Major depressive disorder, recurrent, unspecified; N17.9 Acute kidney failure, unspecified; J44.1 Chronic obstructive pulmonary disease with (acute) exacerbation; K86.1 Other chronic pancreatitis; M25.00 Hemarthrosis, unspecified joint; V49.49XA Driver injured in collision with other motor vehicles in traffic accident, initial encounter; Y92.410 Unspecified street and highway as the place of occurrence of the external cause; E11.65 Type 2 diabetes mellitus with hyperglycemia; E66.9 Obesity, unspecified; Z68.38 Body mass index [BMI] 38.0-38.9, adult; E78.5 Hyperlipidemia, unspecified; E86.0 Dehydration; T40.601A Poisoning by unspecified narcotics, accidental (unintentional), initial encounter; F43.10 Post-traumatic stress disorder, unspecified; F90.9 Attention-deficit hyperactivity disorder, unspecified type; G25.0 Essential tremor; E11.42 Type 2 diabetes mellitus with diabetic polyneuropathy; Z79.4 Long term (current) use of insulin; G89.4 Chronic pain syndrome; I11.9 Hypertensive heart disease without heart failure; I25.119 Atherosclerotic heart disease of native coronary artery with unspecified angina pectoris; I45.10 Unspecified right bundle-branch block; K21.9 Gastro-esophageal reflux disease without esophagitis; M19.90 Unspecified osteoarthritis, unspecified site; N40.0 Benign prostatic hyperplasia without lower urinary tract symptoms; V43.52XA Car driver injured in collision with other type car in traffic accident, initial encounter; Z74.1 Need for assistance with personal care; Z79.01 Long term (current) use of anticoagulants; Z79.82 Long term (current) use of aspirin; Z79.899 Other long term (current) drug therapy; Z82.49 Family history of ischemic heart disease and other diseases of the circulatory system; Z83.3 Family history of diabetes mellitus; Z87.11 Personal history of peptic ulcer disease; Z87.442 Personal history of urinary calculi; Z87.828 Personal history of other (healed) physical injury and trauma; Z87.891 Personal history of nicotine dependence; Z90.49 Acquired absence of other specified parts of digestive tract; Z95.1 Presence of aortocoronary bypass graft; S30.1XXA Contusion of abdominal wall, initial encounter; I08.1 Rheumatic disorders of both mitral and tricuspid valves; Z87.440 Personal history of urinary (tract) infections; Z88.2 Allergy status to sulfonamides; R07.9 Chest pain, unspecified; Z88.1 Allergy status to other antibiotic agents; Z88.5 Allergy status to narcotic agent; K57.90 Diverticulosis of intestine, part unspecified, without perforation or abscess without bleeding; K58.9 Irritable bowel syndrome, unspecified; K44.9 Diaphragmatic hernia without obstruction or gangrene; G47.00 Insomnia, unspecified; G43.909 Migraine, unspecified, not intractable, without status migrainosus; Z91.81 History of falling
CPT/HCPCS: 36415; 64448; 70450; 71045; 71260; 71275; 72125; 72170; 74177; 76942; 80048; 80053; 80306; 80320; 81001; 82150; 82550; 82553; 83036; 83605; 83690; 84439; 84443; 84484; 85025; 85379; 85610; 85730; 86850; 86900; 86901; 93005; 93306; 94640; 94760; 96374; 96376; 99291

== ENCOUNTER 2019-09-20 12:36 | Inpatient (IN) | payer BC, MEDICARE, OTHER ==
[2019-09-20] MEDS ORDERED: NALOXONE 0.4 MG/ML 1 ML VIAL IM STA (12:42)
[2019-09-20] MEDS ORDERED: SODIUM CHLORIDE 0.9% 500 ML 500 ML IV ONE ×2 (12:42→14:29)
[2019-09-20 13:16] LABS: Basophils % (A) 0 %; Eosinophils # (A) 0.1 k/uL (0-0.7); Eosinophils % (A) 1 %; HCT 43.2 % (39.0-53.0); HGB 13.5 gm/dL (13.0-17.5); Lymphocytes # (A) 1.1 k/uL (1.0-4.8); Lymphocytes % (A) 10 %; MCH 28.7 pg (25.0-35.0); MCHC 31.3 g/dL (31.0-37.0); MCV 91.6 fL (80.0-100.0); Monocytes # (A) 0.7 k/uL (0-1.0); Monocytes % (A) 7 %; Neutrophils # (A) 8.9 k/uL (1.3-7.7); Neutrophils % (A) 80 %; Platelet Count 165 k/uL (150-450); RBC 4.72 m/uL (4.30-5.90); RDW 15.4 % (11.5-15.5); WBC 11.1 k/uL (3.8-10.6)
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
[2019-09-20 13:25] LABS: Albumin 4.3 g/dL (3.5-5.0); Potassium 5.2 mmol/L (3.5-5.1)
--- NOTE | 2019-09-20 13:28 | XR ---
EXAMINATION TYPE: XR chest 2V DATE OF EXAM: 09/20/2019 HISTORY: altered mental status. REFERENCE: Previous study dated 06/01/2019. FINDINGS: Heart size upper limits of normal. There are senescent changes within the lungs. There is n o pneumonia or edema. Pleural spaces are clear. IMPRESSION: BORDERLINE CARDIOMEGALY.
[2019-09-20 13:34] LABS: Partial Thromboplastin Time 20.8 sec (22.0-30.0)
--- NOTE | 2019-09-20 14:08 | CT ---
EXAMINATION TYPE: CT brain wo con DATE OF EXAM: 09/20/2019 COMPARISON: Previous study dated 05/27/2019 HISTORY: altered mental status CT DLP: 1211.4 mGycm Automated exposure control for dose reduction was used. FINDINGS: Central structures are midline. There is no evidence of hydrocephalus. No acute focal lesion, mass ef fect or midline shift is seen. I do not see evidence of intracranial blood. Visualized portions of the paranasal sinuses and mastoids are clear. The bony calvarium is intact. IMPRESSION: NO ACUTE INTRACRANIAL ABNORMALITY.
[2019-09-20] MEDS ORDERED: NALOXONE 0.4 MG/ML 10 ML VIAL IVP STA ×2 (14:30→15:04)
[2019-09-20 15:09] LABS: Amorphous Sediment,Urine Few /hpf; Appearance,Urine Cloudy (Clear); Bilirubin,Urine Negative (Negative); Blood,Urine Moderate (Negative); Color,Urine Yellow; Glucose,Urine (UA) Negative (Negative); Granular Casts,Urine 3 /lpf (0); Hyaline Casts,Urine 94 /lpf (0-2); Ketones,Urine Negative (Negative); Leukocyte Esterase,Urine Negative (Negative); Mucus,Urine Occasional /hpf; Nitrite,Urine Negative (Negative); PH, Urine 5.5 (5.0-8.0); Protein,Urine 1+ (Negative); RBC,Urine 2 /hpf (0-5); Specific Gravity,Urine 1.024 (1.001-1.035); Squamous Epithelial Cell,Urine <1 /hpf (0-4); Urobilinogen,Urine <2.0 mg/dL (<2.0); WBC,Urine 4 /hpf (0-5)
[2019-09-20 15:12] LABS: Amphetamine Screen,Urine Not Detected (NotDetected); Benzodiazepines Screen,Urine Detected (NotDetected); Cocaine Screen,Urine Not Detected (NotDetected); Opiate Screen,Urine Detected (NotDetected); Phencyclidine Screen,Urine Not Detected (NotDetected); Urn Cannabinoid Scrn Not Detected (NotDetected)
[2019-09-20 15:13] LABS: Barbiturate Screen,Urine Not Detected (NotDetected); Methadone Screen, Urine Not Detected (NotDetected); Oxycodone Screen, Urine Detected (NotDetected); Tricyclic Antidepressant,Urine Not Detected (NotDetected)
[2019-09-20] MEDS ORDERED: SODIUM CHLORIDE 0.9% 1,000 ML IV ONE (15:38)
[2019-09-20] MEDS ORDERED: ONDANSETRON 4 MG/2 ML VIAL IVP PRN (16:55)
[2019-09-20] MEDS ORDERED: MORPHINE SULFATE 4 MG/ML SYRINGE IVP STA (17:26)
[2019-09-20 17:37] LABS: Glucose,Whole Blood 163 mg/dL (75-99)
[2019-09-20] MEDS ORDERED: BUTALB/APAP/CAFF 50-325-40MG TAB PO PRN (19:13)
[2019-09-20] MEDS: SODIUM CHLORIDE 0.9% 1,000 ML IV SCH (20:42)
[2019-09-20 20:49] LABS: Glucose,Whole Blood 197 mg/dL (75-99)
[2019-09-20] MEDS: busPIRone HCl 5 MG TAB PO SCH (20:58)
[2019-09-20] MEDS: traZODone HCL 50 MG TAB PO SCH (20:58)
[2019-09-20] MEDS: FAMOTIDINE 20 MG TAB PO SCH (20:58)
[2019-09-20] MEDS: MONTELUKAST 10 MG TAB PO SCH (20:58)
[2019-09-20] MEDS: BACLOFEN 10 MG TAB PO SCH (20:58)
[2019-09-20] MEDS: INSULIN DETEMIR (LEVEMIR) 100 UNIT/ML SYR SQ SCH (20:58)
[2019-09-20] MEDS: FLUoxetine HCL 20 MG CAP PO SCH (20:58)
[2019-09-20] MEDS: oxyCODONE-APAP 10-325MG 1 EACH TAB PO PRN (20:58)
[2019-09-20] MEDS: MEMANTINE 5 MG TAB PO SCH (20:58)
[2019-09-21] MEDS: MORPHINE SULFATE 4 MG/ML SYRINGE IVP PRN ×5 (01:07→22:12)
[2019-09-21] MEDS: SODIUM CHLORIDE 0.9% 1,000 ML IV SCH ×3 (01:10→21:44)
[2019-09-21] MEDS: oxyCODONE-APAP 10-325MG 1 EACH TAB PO PRN ×3 (03:08→20:22)
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
[2019-09-21 06:57] LABS: Glucose,Whole Blood 91 mg/dL (75-99)
[2019-09-21] MEDS: INSULIN ASPART (NovoLOG) 100 UNIT/ML VIAL SQ SCH ×3 (06:58→17:40)
[2019-09-21 07:41] LABS: Basophils # (A) 0.1 k/uL (0-0.2); Basophils % (A) 1 %; Eosinophils # (A) 0.2 k/uL (0-0.7); Eosinophils % (A) 2 %; HCT 38.8 % (39.0-53.0); HGB 11.9 gm/dL (13.0-17.5); Lymphocytes # (A) 2.7 k/uL (1.0-4.8); Lymphocytes % (A) 34 %; MCH 28.3 pg (25.0-35.0); MCHC 30.6 g/dL (31.0-37.0); MCV 92.3 fL (80.0-100.0); Mean Platelet Volume 7.5; Monocytes # (A) 0.7 k/uL (0-1.0); Monocytes % (A) 9 %; Neutrophils % (A) 50 %; Platelet Count 143 k/uL (150-450); RBC 4.21 m/uL (4.30-5.90); RDW 15.3 % (11.5-15.5); WBC 7.9 k/uL (3.8-10.6)
[2019-09-21 07:57] LABS: African American GFR (CKD) >90 (>60 ml/min/1.73 sqM); Anion Gap 7 mmol/L; Blood Urea Nitrogen 22 mg/dL (9-20); Calcium 8.6 mg/dL (8.4-10.2); Carbon Dioxide 22 mmol/L (22-30); Chloride 113 mmol/L (98-107); Glucose 88 mg/dL (74-99); Non-African American GFR(CKD) 90 (>60 ml/min/1.73 sqM); Potassium 4.4 mmol/L (3.5-5.1); Sodium 142 mmol/L (137-145)
[2019-09-21] MEDS: METOPROLOL TARTRATE 25 MG TAB PO SCH (08:10)
[2019-09-21] MEDS: busPIRone HCl 5 MG TAB PO SCH ×2 (08:10→21:40)
[2019-09-21] MEDS: PANTOPRAZOLE 40 MG TABLET PO SCH (08:10)
[2019-09-21] MEDS: FAMOTIDINE 20 MG TAB PO SCH ×2 (08:10→21:40)
[2019-09-21] MEDS: ATORVASTATIN 40 MG TAB PO SCH (08:10)
[2019-09-21] MEDS: BACLOFEN 10 MG TAB PO SCH ×2 (08:11→21:40)
[2019-09-21] MEDS: FLUoxetine HCL 20 MG CAP PO SCH ×2 (08:11→21:40)
[2019-09-21] MEDS: MEMANTINE 5 MG TAB PO SCH ×2 (08:11→21:40)
[2019-09-21] MEDS: OXYBUTYNIN XL 5 MG TAB.ER.24 PO SCH (08:11)
[2019-09-21] MEDS: carBAMazepine 100 MG TAB.ER.12H PO SCH (08:26)
[2019-09-21] MEDS: VALSARTAN 160 MG TAB PO SCH (08:26)
[2019-09-21 12:04] LABS: Glucose,Whole Blood 115 mg/dL (75-99)
[2019-09-21] MEDS: GABAPENTIN 300 MG CAP PO SCH ×3 (16:12→21:40)
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
[2019-09-21 17:26] LABS: Glucose,Whole Blood 142 mg/dL (75-99)
[2019-09-21 20:37] LABS: Glucose,Whole Blood 122 mg/dL (75-99)
[2019-09-21] MEDS: traZODone HCL 50 MG TAB PO SCH (21:40)
[2019-09-21] MEDS: INSULIN DETEMIR (LEVEMIR) 100 UNIT/ML SYR SQ SCH (21:40)
[2019-09-21] MEDS: MONTELUKAST 10 MG TAB PO SCH (21:40)
[2019-09-22] MEDS: MORPHINE SULFATE 4 MG/ML SYRINGE IVP PRN ×2 (02:11→08:12)
[2019-09-22] MEDS: oxyCODONE-APAP 10-325MG 1 EACH TAB PO PRN ×2 (04:02→10:23)
[2019-09-22 07:17] LABS: Lamotrigine (Lamictal) 3.2 ug/mL (2.0-15.0)
[2019-09-22] MEDS: FAMOTIDINE 20 MG TAB PO SCH (08:08)
[2019-09-22] MEDS: busPIRone HCl 5 MG TAB PO SCH (08:08)
[2019-09-22] MEDS: PANTOPRAZOLE 40 MG TABLET PO SCH (08:10)
[2019-09-22] MEDS: ATORVASTATIN 40 MG TAB PO SCH (08:10)
[2019-09-22] MEDS: OXYBUTYNIN XL 5 MG TAB.ER.24 PO SCH (08:10)
[2019-09-22] MEDS: METOPROLOL TARTRATE 25 MG TAB PO SCH (08:11)
[2019-09-22] MEDS: FLUoxetine HCL 20 MG CAP PO SCH (08:11)
[2019-09-22] MEDS: MEMANTINE 5 MG TAB PO SCH (08:11)
[2019-09-22] MEDS: GABAPENTIN 300 MG CAP PO SCH (08:11)
[2019-09-22] MEDS: BACLOFEN 10 MG TAB PO SCH (08:11)
[2019-09-22] MEDS: INSULIN ASPART (NovoLOG) 100 UNIT/ML VIAL SQ SCH ×2 (08:13→12:39)
[2019-09-22] MEDS: VALSARTAN 160 MG TAB PO SCH (08:16)
[2019-09-22] MEDS: carBAMazepine 100 MG TAB.ER.12H PO SCH (08:17)
[2019-09-22 08:21] VITALS: BP 128/54; PULSE 60; RESP 18; TEMP 98.1
[2019-09-22 08:34] LABS: Basophils # (A) 0.1 k/uL (0-0.2); Basophils % (A) 1 %; Eosinophils # (A) 0.3 k/uL (0-0.7); Eosinophils % (A) 3 %; HCT 41.2 % (39.0-53.0); HGB 12.8 gm/dL (13.0-17.5); Lymphocytes # (A) 2.6 k/uL (1.0-4.8); Lymphocytes % (A) 30 %; MCH 28.5 pg (25.0-35.0); MCHC 31.1 g/dL (31.0-37.0); MCV 91.6 fL (80.0-100.0); Monocytes # (A) 0.6 k/uL (0-1.0); Monocytes % (A) 7 %; Neutrophils # (A) 4.8 k/uL (1.3-7.7); Neutrophils % (A) 56 %; Platelet Count 149 k/uL (150-450); RBC 4.49 m/uL (4.30-5.90); RDW 15.2 % (11.5-15.5); WBC 8.6 k/uL (3.8-10.6)
[2019-09-22 08:53] LABS: African American GFR (CKD) >90 (>60 ml/min/1.73 sqM); Anion Gap 7 mmol/L; Calcium 8.9 mg/dL (8.4-10.2); Carbon Dioxide 23 mmol/L (22-30); Chloride 110 mmol/L (98-107); Glucose 105 mg/dL (74-99); Non-African American GFR(CKD) >90 (>60 ml/min/1.73 sqM); Sodium 140 mmol/L (137-145)
[2019-09-22 08:59] LABS: Blood Urea Nitrogen 13 mg/dL (9-20); Potassium 4.1 mmol/L (3.5-5.1)
[2019-09-22] MEDS: SODIUM CHLORIDE 0.9% 1,000 ML IV SCH (10:24)
[2019-09-22 12:40] LABS: Glucose,Whole Blood 99 mg/dL (75-99)
--- NOTE | 2019-09-24 08:11 | P.DS ---
Providers Date of admission: 09/20/19 15:38 Expected date of discharge: 09/22/19 Attending physician: Kayce Bautista Primary care physician: Parmjit Murdock Hospital Course: Final diagnosis Change in mental status with acute metabolic encephalopathy with possible medication induced, narcotics Acute renal failure, acute tubular necrosis with acute prerenal renal failure Diabetes mellitus type 2 Increased WBC History of coronary artery disease History of GERD Hypertension Hyperlipidemia and history of DJD history of chronic pain syndrome History of EtOH Remote history of nicotine dependence Obesity with a body mass index of 39.2 Discharge disposition Patient is being discharged in a stable condition with guarded prognosis to home and will follow-up with primary care provider in the outpatient setting. Patient also instructed to follow-up with pain management as well. Total time taken is 35 minutes. History of present illness This is a 63-year-old male who was recently admitted with change in mental status, suspected drug overdose of narcotics and/or benzo use and was being closely monitored. Patient received multiple doses of Narcan and showed improvement in the ER. Patient's mentation improved and would like to go home. Patient does take Lamictal and them at the levels were within normal limits. Patient denies any benzo use but does admit to taking prescribed Percocets from his primary care provider Dr. Murdock. 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 Currently no reports of chest pain, shortness of breath, or palpitations. Patient is afebrile. No reports of nausea or vomiting and patient is tolerating diet. Patient is alert and oriented 3. Patient will be discharged home today. On exam vital signs are stable. Temp is 98.1F, pulse is 60, respirations are 18, blood pressure is 128/54, oxygen saturation is 94% on room air. Cardio S1, S2 are present. Respiratory shows clear to auscultation. Abdomen is soft, obese, nontender. Nervous system shows no focal deficits. Please refer to medication reconciliation sheet for a list of medications. Patient Condition at Discharge: Good Plan - Discharge Summary Discharge Rx Participant: No New Discharge Prescriptions: Continue lamoTRIgine [LaMICtal] 150 mg PO DAILY Atorvastatin [Lipitor] 40 mg PO DAILY Insulin Aspart [NovoLOG Flexpen] 14 unit SQ AC-TID Insulin Detemir [Levemir Flextouch] 40 unit SQ HS FLUoxetine HCL [PROzac] 20 mg PO DAILY Memantine [Namenda] 5 mg PO BID Montelukast [Singulair] 10 mg PO HS Oxybutynin Xl [Ditropan XL] 5 mg PO DAILY traZODone HCL 50 mg PO HS Pantoprazole Sodium [Protonix] 40 mg PO DAILY FLUoxetine HCL [PROzac] 40 mg PO HS lamoTRIgine [LaMICtal] 200 mg PO HS Ranitidine HCl [Zantac] 150 mg PO BID Butalb/APAP/Caff 50-325-40Mg [Fioricet 50-325-40] 1 tab PO BID PRN PRN Reason: Headache Valsartan [Diovan] 160 mg PO DAILY Metoprolol Tartrate [Lopressor] 25 mg PO DAILY #30 tab carBAMazepine [carBAMazepine ER] 100 mg PO DAILY busPIRone HCL 7.5 mg PO BID Gabapentin [Neurontin] 300 mg PO TID Changed Baclofen [Lioresal] 10 mg PO DAILY #0 oxyCODONE-APAP 10-325MG [Percocet 10-325 mg] 1 tab PO BID #0 Discharge Medication List Atorvastatin [Lipitor] 40 mg PO DAILY 02/05/17 [History] lamoTRIgine [LaMICtal] 150 mg PO DAILY 02/05/17 [History] FLUoxetine HCL [PROzac] 20 mg PO DAILY 05/13/18 [History] Insulin Aspart [NovoLOG Flexpen] 14 unit SQ AC-TID 05/13/18 [History] Insulin Detemir [Levemir Flextouch] 40 unit SQ HS 05/13/18 [History] Memantine [Namenda] 5 mg PO BID 05/13/18 [History] Montelukast [Singulair] 10 mg PO HS 05/13/18 [History] Oxybutynin Xl [Ditropan XL] 5 mg PO DAILY 05/13/18 [History] FLUoxetine HCL [PROzac] 40 mg PO HS 01/13/19 [History] Pantoprazole Sodium [Protonix] 40 mg PO DAILY 01/13/19 [History] traZODone HCL 50 mg PO HS 01/13/19 [History] Butalb/APAP/Caff 50-325-40Mg [Fioricet 50-325-40] 1 tab PO BID PRN 05/27/19 [History] Ranitidine HCl [Zantac] 150 mg PO BID 05/27/19 [History] Valsartan [Diovan] 160 mg PO DAILY 05/27/19 [History] lamoTRIgine [LaMICtal] 200 mg PO HS 05/27/19 [History] Metoprolol Tartrate [Lopressor] 25 mg PO DAILY #30 tab 06/02/19 [Rx] Gabapentin [Neurontin] 300 mg PO TID 09/20/19 [History] busPIRone HCL 7.5 mg PO BID 09/20/19 [History] carBAMazepine [carBAMazepine ER] 100 mg PO DAILY 09/20/19 [History] Baclofen [Lioresal] 10 mg PO DAILY #0 09/22/19 [Rx] oxyCODONE-APAP 10-325MG [Percocet 10-325 mg] 1 tab PO BID #0 09/22/19 [Rx] Follow up Appointment(s)/Referral(s): Parmjit Murdock MD [Primary Care Provider] - 09/24/19 10:00 am Patient Instructions/Handouts: Narcotic Safety (DC), Prescription Narcotic Overdose (DC) Activity/Diet/Wound Care/Special Instructions: Activity Limited until follow-up Follow-up with primary care provider upon discharge Follow-up with neurology in the outpatient setting Continue current diet Continue monitoring blood sugars before meals at bedtime and treat accordingly Discharge Disposition: HOME SELF-CARE
== END 2019-09-22 14:55 | disposition home or self-care (01) | DRG 91 ==
LOC: EC 12:36 → 3SCARD 15:38 → 4SSUR 09-21 23:17
PROVIDERS: ADMIT Hospitalist; ATTEND Hospitalist
DX: G92 Toxic encephalopathy (principal); N17.0 Acute kidney failure with tubular necrosis; T40.605A Adverse effect of unspecified narcotics, initial encounter; Y92.009 Unspecified place in unspecified non-institutional (private) residence as the place of occurrence of the external cause; T40.601A Poisoning by unspecified narcotics, accidental (unintentional), initial encounter; E11.42 Type 2 diabetes mellitus with diabetic polyneuropathy; E66.9 Obesity, unspecified; E78.5 Hyperlipidemia, unspecified; F43.10 Post-traumatic stress disorder, unspecified; G47.00 Insomnia, unspecified; G89.4 Chronic pain syndrome; I10 Essential (primary) hypertension; I25.10 Atherosclerotic heart disease of native coronary artery without angina pectoris; N40.0 Benign prostatic hyperplasia without lower urinary tract symptoms; Z11.59 Encounter for screening for other viral diseases; F32.9 Major depressive disorder, single episode, unspecified; F41.9 Anxiety disorder, unspecified; F90.9 Attention-deficit hyperactivity disorder, unspecified type; G43.909 Migraine, unspecified, not intractable, without status migrainosus; K21.9 Gastro-esophageal reflux disease without esophagitis; K44.9 Diaphragmatic hernia without obstruction or gangrene; K57.90 Diverticulosis of intestine, part unspecified, without perforation or abscess without bleeding; K58.9 Irritable bowel syndrome, unspecified; M47.9 Spondylosis, unspecified; M25.519 Pain in unspecified shoulder; M54.2 Cervicalgia; D72.829 Elevated white blood cell count, unspecified; M19.90 Unspecified osteoarthritis, unspecified site; Z68.39 Body mass index [BMI] 39.0-39.9, adult; Z79.01 Long term (current) use of anticoagulants; Z79.4 Long term (current) use of insulin; Z79.82 Long term (current) use of aspirin; Z79.899 Other long term (current) drug therapy; Z95.1 Presence of aortocoronary bypass graft; Z87.891 Personal history of nicotine dependence; Z87.828 Personal history of other (healed) physical injury and trauma; Z87.442 Personal history of urinary calculi; Z87.11 Personal history of peptic ulcer disease; Z90.49 Acquired absence of other specified parts of digestive tract; Z88.1 Allergy status to other antibiotic agents; Z88.5 Allergy status to narcotic agent; Z87.440 Personal history of urinary (tract) infections; Z82.49 Family history of ischemic heart disease and other diseases of the circulatory system; Z83.3 Family history of diabetes mellitus
CPT/HCPCS: 36415; 70450; 71046; 80048; 80053; 80156; 80171; 80175; 80306; 80329; 81001; 84484; 85025; 85610; 85730; 93005; 96361; 96374; 96375; 96376; 99285

== ENCOUNTER 2020-03-06 02:57 | Inpatient (IN) | payer MEDICARE, OTHER ==
[2020-03-06] MEDS ORDERED: VANCOMYCIN IV PER PHARMACY 1 EACH MISC MISCELLANE PRN (03:21)
[2020-03-06] MEDS ORDERED: PIPERACILLIN-TAZOBACTAM 3.375 GM in SODIUM CHLORIDE 0.9% 100 ML IVPB STA (03:21)
[2020-03-06] MEDS ORDERED: MORPHINE SULFATE 4 MG/ML SYRINGE IV STA (03:21)
[2020-03-06] MEDS ORDERED: SODIUM CHLORIDE 0.9% 500 ML 500 ML IV STA (03:21)
[2020-03-06] MEDS ORDERED: SODIUM CHLORIDE 0.9% 1,000 ML IV STA (03:21)
[2020-03-06] MEDS ORDERED: VANCOMYCIN 1,750 MG in SODIUM CHLORIDE 0.9% 500 ML 500 ML IVPB STA (03:26)
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
[2020-03-06 04:01] LABS: Basophils # (A) 0.1 k/uL (0-0.2); Basophils % (A) 1 %; Eosinophils # (A) 0.3 k/uL (0-0.7); Eosinophils % (A) 3 %; HCT 36.6 % (39.0-53.0); HGB 12.3 gm/dL (13.0-17.5); Lymphocytes # (A) 1.9 k/uL (1.0-4.8); Lymphocytes % (A) 19 %; MCH 31.9 pg (25.0-35.0); MCHC 33.6 g/dL (31.0-37.0); Mean Platelet Volume 6.6; Monocytes # (A) 0.8 k/uL (0-1.0); Monocytes % (A) 8 %; Neutrophils # (A) 6.9 k/uL (1.3-7.7); Neutrophils % (A) 67 %; Platelet Count 195 k/uL (150-450); RBC 3.85 m/uL (4.30-5.90); RDW 13.4 % (11.5-15.5); WBC 10.3 k/uL (3.8-10.6)
[2020-03-06] MEDS ORDERED: ACETAMINOPHEN TAB 500 MG TAB PO STA (04:07)
[2020-03-06 04:11] LABS: INR 0.9 (<1.2); Prothrombin Time 9.8 sec (9.0-12.0)
[2020-03-06 04:14] LABS: Albumin 3.5 g/dL (3.5-5.0); Calcium 8.7 mg/dL (8.4-10.2); Magnesium 1.9 mg/dL (1.6-2.3); Phosphorus 2.7 mg/dL (2.5-4.5); Potassium 3.7 mmol/L (3.5-5.1); Total Bilirubin 0.6 mg/dL (0.2-1.3); Total Protein 6.2 g/dL (6.3-8.2)
--- NOTE | 2020-03-06 04:44 | CT ---
EXAM: CT Pelvis With Intravenous Contrast CLINICAL HISTORY: ITS.REASON CT Reason: abscess TECHNIQUE: Axial computed tomography images of the pelvis with intravenous contrast. CTDI is 34.97 mGy and DLP is 1408.6 mGy-cm. This CT exam was performed using one or more of the following dose reduction techniques: automated exposure control, adjustment of the mA and/or kV according to patient size, and/or use of iterative reconstruction technique. COMPARISON: 05/27/2019. FINDINGS: Kidneys and ureters: Minimal nonspecific stranding about the lower pole region of the visualized kidneys. Bowel: Mild quantity of stool throughout the visualized bowel loops. Ischiorectal fat is clean. No obstruction. No mucosal thickening. Appendix: No findings to suggest acute appendicitis. Intraperitoneal space: Unremarkable. No free air. No significant fluid collection. Bladder: The bladder is underdistended. Reproductive: Coarse calcifications within the prostate gland. Bones/joints: No acute fracture. No dislocation. Soft tissues: Best seen on series 201 image 54, there is a 5.5 x 2.8 cm perianal abscess collection. Clinical correlation is advised. Regional cellulitis is noted. Vasculature: Atherosclerotic disease of the abdominal aorta extending to the common iliac arteries without aneurysmal dilatation. Lymph nodes: Unremarkable. No enlarged lymph nodes. IMPRESSION: 5.5 cm perianal abscess collection. Surrounding regional cellulitis. Clinical correlation is advised. This finding is best seen on axial image 56.
[2020-03-06] MEDS ORDERED: HYDROmorphone 1 MG/ML 1 ML SYRINGE IVP STA ×2 (04:55→06:29)
[2020-03-06 05:29] LABS: Appearance,Urine Clear (Clear); Bilirubin,Urine Negative (Negative); Blood,Urine Negative (Negative); Color,Urine Yellow; Glucose,Urine (UA) Negative (Negative); Ketones,Urine Negative (Negative); Leukocyte Esterase,Urine Negative (Negative); Nitrite,Urine Negative (Negative); Protein,Urine Trace (Negative); Specific Gravity,Urine 1.032 (1.001-1.035); Urobilinogen,Urine <2.0 mg/dL (<2.0)
[2020-03-06] MEDS ORDERED: BUTALB/APAP/CAFF 50-325-40MG TAB PO PRN (09:59)
[2020-03-06] MEDS: oxyCODONE-APAP 10-325MG 1 EACH TAB PO SCH ×2 (11:15→20:32)
[2020-03-06] MEDS ORDERED: polyethylene glycoL 3350 17 GM POWD.PACK PO PRN (11:16)
[2020-03-06] MEDS: SODIUM CHLORIDE 0.9% 1,000 ML IV SCH ×2 (11:20→21:59)
[2020-03-06 11:35] LABS: Glucose,Whole Blood 140 mg/dL (75-99)
[2020-03-06] MEDS: PIPERACILLIN-TAZOBACTAM 3.375 GM in SODIUM CHLORIDE 0.9% 100 ML IVPB SCH ×2 (11:48→20:32)
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
[2020-03-06] MEDS: MORPHINE SULFATE 4 MG/ML SYRINGE IVP PRN ×2 (13:30→17:36)
[2020-03-06] MEDS: INSULIN ASPART (NovoLOG) 100 UNIT/ML VIAL SQ SCH ×2 (13:31→17:22)
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
[2020-03-06 16:28] LABS: Glucose,Whole Blood 92 mg/dL (75-99)
[2020-03-06] MEDS: GABAPENTIN 300 MG CAP PO SCH ×2 (17:25→20:32)
[2020-03-06] MEDS: HYDROmorphone 0.5 MG/0.5 ML SYRINGE IVP PRN ×2 (19:16→22:22)
[2020-03-06] MEDS: busPIRone HCl 5 MG TAB PO SCH (20:33)
[2020-03-06] MEDS: traZODone HCL 50 MG TAB PO SCH (20:33)
[2020-03-06] MEDS: BACLOFEN 10 MG TAB PO SCH (20:33)
[2020-03-06] MEDS: lamoTRIgine 100 MG TAB PO SCH (20:33)
[2020-03-06] MEDS: MEMANTINE 5 MG TAB PO SCH (20:34)
[2020-03-06] MEDS: FLUoxetine HCL 20 MG CAP PO SCH (20:34)
[2020-03-06] MEDS: MONTELUKAST 10 MG TAB PO SCH (20:34)
[2020-03-06] MEDS ORDERED: AMOXIC-POT CLAV 875-125MG 1 EACH TAB PO SCH (21:00)
[2020-03-06] MEDS ORDERED: oxyCODONE-APAP 10-325MG 1 EACH TAB PO SCH (21:00)
[2020-03-06] MEDS ORDERED: VANCOMYCIN 1,750 MG in SODIUM CHLORIDE 0.9% 500 ML 500 ML IVPB SCH ×4 (21:00)
[2020-03-06 21:29] LABS: Glucose,Whole Blood 141 mg/dL (75-99)
[2020-03-06] MEDS: INSULIN DETEMIR (LEVEMIR) 100 UNIT/ML SYR SQ SCH (21:58)
[2020-03-07] MEDS: HYDROmorphone 0.5 MG/0.5 ML SYRINGE IVP PRN ×7 (02:15→23:23)
[2020-03-07] MEDS: PIPERACILLIN-TAZOBACTAM 3.375 GM in SODIUM CHLORIDE 0.9% 100 ML IVPB SCH ×3 (04:38→20:19)
[2020-03-07 06:35] LABS: HCT 36.2 % (39.0-53.0); HGB 12.2 gm/dL (13.0-17.5); MCH 32.3 pg (25.0-35.0); MCHC 33.8 g/dL (31.0-37.0); MCV 95.6 fL (80.0-100.0); Mean Platelet Volume 6.5; Platelet Count 186 k/uL (150-450); RBC 3.79 m/uL (4.30-5.90); RDW 13.3 % (11.5-15.5)
[2020-03-07 07:12] LABS: Glucose,Whole Blood 112 mg/dL (75-99)
[2020-03-07] MEDS ORDERED: ONDANSETRON 4 MG/2 ML VIAL ONE (07:16)
[2020-03-07] MEDS ORDERED: IV FLUID CONTINUATION 1,000 ML IV ONE (07:19)
[2020-03-07] MEDS ORDERED: ONDANSETRON 4 MG/2 ML VIAL IVP ONE (07:20)
[2020-03-07] MEDS ORDERED: DEXAMETHASONE SOD PHOSPHATE 4 MG/ML 1 ML VIAL IVP ONE (07:21)
[2020-03-07] MEDS ORDERED: LIDOCAINE 1%-EPI 1:100,000 20 ML VIAL SQ ONE (08:20)
[2020-03-07] MEDS: SODIUM CHLORIDE 0.9% 1,000 ML IV SCH ×3 (08:23→21:55)
[2020-03-07] MEDS: INSULIN ASPART (NovoLOG) 100 UNIT/ML VIAL SQ SCH ×3 (08:23→17:08)
[2020-03-07] MEDS: PANTOPRAZOLE 40 MG TABLET PO SCH (08:23)
[2020-03-07] MEDS: busPIRone HCl 5 MG TAB PO SCH ×2 (08:23→20:19)
[2020-03-07] MEDS: ATORVASTATIN 40 MG TAB PO SCH (08:23)
[2020-03-07] MEDS: BACLOFEN 10 MG TAB PO SCH ×2 (08:23→20:19)
[2020-03-07] MEDS: OXYBUTYNIN XL 5 MG TAB.ER.24 PO SCH (08:24)
[2020-03-07] MEDS: lamoTRIgine 100 MG TAB PO SCH ×2 (08:24→20:19)
[2020-03-07] MEDS: GABAPENTIN 300 MG CAP PO SCH ×3 (08:24→21:55)
[2020-03-07] MEDS: FAMOTIDINE 20 MG TAB PO SCH (08:24)
[2020-03-07] MEDS: METOPROLOL TARTRATE 25 MG TAB PO SCH (08:24)
[2020-03-07] MEDS: oxyCODONE-APAP 10-325MG 1 EACH TAB PO SCH ×2 (08:24→21:54)
[2020-03-07] MEDS: ENOXAPARIN 40 MG/0.4 ML SYRINGE SQ SCH (08:24)
[2020-03-07] MEDS: FLUoxetine HCL 20 MG CAP PO SCH ×2 (08:24→20:18)
[2020-03-07] MEDS: VALSARTAN 160 MG TAB PO SCH (08:24)
[2020-03-07] MEDS: carBAMazepine 100 MG TAB.ER.12H PO SCH (08:24)
[2020-03-07] MEDS: MEMANTINE 5 MG TAB PO SCH ×2 (08:24→20:19)
[2020-03-07] MEDS ORDERED: LACTATED RINGERS 1,000 ML IV ONE (08:34)
[2020-03-07] MEDS ORDERED: HYDROmorphone 0.5 MG/0.5 ML SYRINGE IVP ONE ×2 (09:06→09:14)
[2020-03-07] MEDS ORDERED: HYDROmorphone 1 MG/ML 1 ML SYRINGE IVP ONE (09:06)
--- NOTE | 2020-03-07 09:16 | P.OP ---
Date of Procedure: 03/07/20 Description of Procedure: SURGEON: HAO SERRANO MD WOOD GRINDER: None. PREOPERATIVE DIAGNOSES: 1. Complicated left gluteal abscess 2. Failed outpatient antibiotic management 3. Insulin-dependent diabetes type 2 with diabetic neuropathy 4. Coronary artery disease 5. Depressive disorder 6. Morbid obesity due to excess calories, BMI 36.8 7. Hypertensive heart disease 8. Diabetic neuropathy 9. Seizure disorder 10. Gastroesophageal reflux disease 11. Hyperlipidemia POSTOPERATIVE DIAGNOSES: 1. Complicated left gluteal abscess 2. Failed outpatient antibiotic management 3. Insulin-dependent diabetes type 2 with diabetic neuropathy 4. Coronary artery disease 5. Depressive disorder 6. Morbid obesity due to excess calories, BMI 36.8 7. Hypertensive heart disease 8. Diabetic neuropathy 9. Seizure disorder 10. Gastroesophageal reflux disease 11. Hyperlipidemia PROCEDURES PERFORMED: 1. Excision of soft tissue benign lesion 3 x 2 cm the cutaneous tissue of left inferior medial buttock 2. Open drainage of complicated left gluteal abscess into subcutaneous tissue, deep 3. Mechanical debridement with 1 L warm normal saline solution of gluteal abscess ANESTHESIA: General. ESTIMATED BLOOD LOSS: 5 mL. SPECIMENS REMOVED: 1. Soft tissue excision. 2. Aerobic and anaerobic culture gluteal abscess COMPLICATIONS: None. FINDINGS: 1. Complex pocket over 3 cm extending to the deep subcutaneous tissue drained with cultures obtained left buttock 2. Packing with quarter inch iodoform and covered with gauze INDICATIONS: The patient is a 64-year-old male who presents with failed outpatient management of left gluteal abscess. Despite antibiotics, he continued to have pain. Surgical intervention was described. Benefits and risks of immediate drainage was reviewed including bleeding, infection, cosmetic deformity, need for further surgery, for which informed consent was obtained. DESCRIPTION OF PROCEDURE: The patient was brought to the operating room, laid in supine position. After general induction, the patient was repositioned to the prone jackknife position with the buttocks spread apart. The lower back and buttocks were prepped and draped in standard sterile fashion using Betadine. Prior to incision, a timeout protocol was confirmed with surgical team regarding patient's name, procedure to be performed, including preoperative medications for which he had received vancomycin. Fluctuance palpated just inferior the left buttock. Excision of benign lesion 3 x 2 cm was made after localizing the skin. Incision was deepened into subcutaneous tissue were victoria purulent malodorous drainage was drained. Aerobic and anaerobic cultures were obtained. Loculations were present using digital palpation. Bleeding was controlled with electro-Bovie cautery. Next, a total of 1 L of warm normal saline solution pulse lavage was used for mechanical debridement along the entire pocket of the wound. Next, the pocket was widely packed using 18 inches of 1/4-inch iodoform packing. The skin was cleansed. Next 4 x 4's were placed. The patient was awoken from anesthesia and transferred to the postanesthesia care in stable condition. Please note that the instrument, sponge, and needle count was verified correct by surgical oncologist.
[2020-03-07 09:22] LABS: Glucose,Whole Blood 159 mg/dL (75-99)
[2020-03-07 09:32] LABS: Anion Gap 7.7 mmol/L (4.00-12.00); BUN/Creat Ratio 12.5 Ratio (12.00-20.00); Calcium 8.5 mg/dL (8.7-10.3); Carbon Dioxide 24.3 mmol/L (21.6-31.8); Non-African American GFR(CKD) 95.7 (60.0-200.0); Potassium 3.8 mmol/L (3.5-5.5)
[2020-03-07] MEDS: VANCOMYCIN 1,750 MG in SODIUM CHLORIDE 0.9% 500 ML 500 ML IVPB SCH ×2 (11:03→23:23)
[2020-03-07 11:23] LABS: Glucose,Whole Blood 175 mg/dL (75-99)
--- NOTE | 2020-03-07 15:05 | P.PN ---
Subjective Progress Note Date: 03/07/20 64-year-old male came in with the complaints of pain in the perirectal area found to have abscess in the left buttock area that was inside incised and drained. Patient had fever yesterday. Patient was started on vancomycin and Zosyn. General surgery was consulted. Wound cultures and blood cultures were opted which are pending at this time 03/07/2020 Patient is seen and evaluated in follow-up currently underwent I&D with Dr. Alex of the left gluteal abscess. Awaiting culture finalization to determine discharge antibiotics. Disease consulted and pending at this time. Patient currently on IV antibiotics in the form of Zosyn and vancomycin and will continue at this time. Patient states he is having some left gluteal discomfort and surgical dressings are currently dry and intact. Labs within normal limits. Will continue to monitor blood sugars and continue with long-acting along with pre-meal insulins at this time. Review of systems: Constitutional: No reports of fatigue, fever, or chills Cardiovascular: No reports of chest pain or palpitations Respiratory: No reports of shortness of breath or cough GI: No reports of nausea, vomiting, or diarrhea : No reports of dysuria or retention Neurovascular: No reports of weakness or numbness All medications have been reviewed Objective - Vital Signs Vital signs: Vital Signs Temp 98.1 F 03/07/20 09:55 Pulse 79 03/07/20 12:00 Resp 18 03/07/20 09:55 BP 162/81 03/07/20 12:00 Pulse Ox 96 03/07/20 12:00 Intake & Output 03/06/20 03/07/20 03/07/20 18:59 06:59 18:59 Intake Total 379 469 5454 Output Total 5 Balance 203 241 1902 Weight 106.594 kg Intake: IV 1050 Oral 540 400 Output: Estimated Blood Loss 5 Other: # Voids 1 1 - Exam GENERAL: The patient is alert and oriented x3, not in any acute distress. Well developed, well nourished. HEENT: Pupils are round and equally reacting to light. EOMI. No scleral icterus. No conjunctival pallor. Normocephalic, atraumatic. No pharyngeal erythema. No thyromegaly. CARDIOVASCULAR: S1 and S2 present. No murmurs, rubs, or gallops. PULMONARY: Chest is clear to auscultation, no wheezing or crackles. ABDOMEN: Soft, nontender, nondistended, normoactive bowel sounds. No palpable organomegaly. Left buttock abscess site is packed with surgical packing status post surgical I&D this morning MUSCULOSKELETAL: No joint swelling or deformity. EXTREMITIES: No cyanosis, clubbing, or pedal edema. NEUROLOGICAL: Gross neurological examination did not reveal any focal deficits. SKIN: As mentioned above - Labs CBC & Chem 7: 03/07/20 06:26 03/07/20 06:26 Labs: Abnormal Lab Results - Last 24 Hours (Table) 03/06/20 03/07/20 03/07/20 Range/Units 21:28 06:26 06:26 RBC 3.79 L (4.30-5.90) m/uL Hgb 12.2 L (13.0-17.5) gm/dL Hct 36.2 L (39.0-53.0) % Chloride 111 H (96-109) mmol/L Glucose 137 H (70-110) mg/dL POC Glucose (mg/dL) 141 H (75-99) mg/dL Calcium 8.5 L (8.7-10.3) mg/dL 03/07/20 03/07/20 03/07/20 Range/Units 07:05 09:21 11:22 RBC (4.30-5.90) m/uL Hgb (13.0-17.5) gm/dL Hct (39.0-53.0) % Chloride (96-109) mmol/L Glucose (70-110) mg/dL POC Glucose (mg/dL) 112 H 159 H 175 H (75-99) mg/dL Calcium (8.7-10.3) mg/dL Microbiology - Last 24 Hours (Table) 03/06/20 03:28 Blood Culture - Preliminary Blood No Growth after 24 hours 03/06/20 05:20 Gram Stain - Preliminary Buttock Wound Culture - Preliminary Assessment and Plan Assessment: -Rectal/gluteal abscess: Status post I&D. Continue Zosyn and vancomycin, patient underwent surgical I&D with Dr. Alex this morning and awaiting culture finalization. Infectious disease consulted. -Acute renal failure either prerenal azotemia or acute tubular necrosis nonoliguric, improved -Coronary artery disease -Type 2 diabetes mellitus -Gastroesophageal reflux disease -Hyperlipidemia -Hypertension -Depression -DVT prophylaxis with Lovenox -GI prophylaxis: Protonix Plan: Continue IV antibiotic therapy. Currently awaiting culture finalization. Surgery following and infectious disease consulted. We'll monitor labs closely. Further recommendations to follow.
[2020-03-07 16:41] LABS: Glucose,Whole Blood 204 mg/dL (75-99)
[2020-03-07] MEDS: MONTELUKAST 10 MG TAB PO SCH (20:19)
[2020-03-07] MEDS: traZODone HCL 50 MG TAB PO SCH (20:19)
[2020-03-07 20:32] LABS: Glucose,Whole Blood 193 mg/dL (75-99)
[2020-03-07] MEDS: INSULIN DETEMIR (LEVEMIR) 100 UNIT/ML SYR SQ SCH (21:55)
[2020-03-07] MEDS: AMPICILLIN-SULBACTAM 3 GM in SODIUM CHLORIDE 0.9% 100 ML IVPB SCH (23:30)
[2020-03-08] MEDS: HYDROmorphone 0.5 MG/0.5 ML SYRINGE IVP PRN ×7 (02:20→22:32)
--- NOTE | 2020-03-08 03:44 | CONS ---
CONSULTATION DATE OF SERVICE: 03/07/2020 REASON FOR CONSULTATION: Left buttock abscess. HISTORY OF PRESENT ILLNESS: The patient is a 64-year-old male with past medical history significant for type 2 diabetes mellitus, hypertension, ADHD and constipation. The patient presented to hospital for evaluation of a painful region to his gluteal area. The patient mentioning that he has been constipated and has been straining on the stool for the last few days. The patient has developed a painful lump to his left gluteal area. The patient is describing the pain to be throbbing and dull aching with intensity of almost 10/10 by the time he presented to the hospital with no drainage from it. The patient did have some chills, but denies high-grade fever. Patient on presentation to the hospital did have a CT of the pelvis which did show 5.5 cm perianal abscess collection, surrounding regional cellulitis. The patient on admission was running a low grade fever of 100.4 and the patient did have a white count of 10.3. The patient subsequently has been evaluated by General Surgery. The patient was taken to the OR this morning and is status post excision and debridement and drainage of the left gluteal abscess. Culture has been obtained. There was no mention of any extension to the rectal area. The patient is currently being treated with vancomycin and Zosyn. Infectious Disease was consulted for further management of antibiotic therapy. REVIEW OF SYSTEMS: Positive points have been mentioned in HPI. Rest of the systems are negative. PAST MEDICAL HISTORY: Diabetes mellitus, gastroesophageal reflux disease, hypertension, hyperlipidemia, osteoarthritis, coronary artery disease. PAST SURGICAL HISTORY: Appendectomy, cholecystectomy, coronary artery bypass grafting, heart catheterization. SOCIAL HISTORY: Remote history of smoking. Did admit to marijuana use. FAMILY HISTORY: Strong family history of diabetes mellitus. Father history of ND. ALLERGIES: Allergies to METRONIDAZOLE, SULFA. MEDICATIONS: Medications include the patient is currently on Ditropan, Lopressor, Protonix, Zosyn, vancomycin, Desyrel, Diovan and saline. PHYSICAL EXAMINATION: Blood pressure 112/56, pulse of 82, temperature 98.4. He is 93% on room air. General description is a middle-aged male lying in bed in no distress. No tachypnea or accessory muscle of respiration use. HEENT: Shows slight pallor. No scleral icterus. Oral mucous membrane is dry. No pharyngeal erythema or thrush. NECK: Trachea central. No thyromegaly. LUNGS: Unlabored breathing, clear to auscultation anteriorly. No wheeze or crackle. HEART: S1, S2. Regular rate and rhythm. No added sounds. ABDOMEN: Soft, no tenderness. No guarding or rigidity. Examination of left gluteal area did show the wound, post surgical drainage, which is packed. No surrounding swelling, redness, induration or drainage. EXTREMITIES: No edema of feet. NEUROLOGICAL: Patient is awake, alert, oriented x3. Mood and affect normal. LABS: Hemoglobin is 12.2, white count 8.0 with a BUN of 10, creatinine 0.8. Electrolytes normal. Urine was negative. Cultures currently pending. Blood culture negative. CT report as mentioned above. DIAGNOSTIC IMPRESSION: Patient admitted to the hospital with left gluteal abscess, status post surgical drainage with no mention of any extension down to the perirectal area or involvement of the gastrointestinal tract. We will need to cover for the gram-positive for to be likely pathogen plus-minus gram-negative. PLAN: 1. Vancomycin, pharmacy to dose, target of 15. 2. Discontinue Zosyn and add Unasyn to cover for the gram-negative. 3. We will follow on his clinical condition and culture to further adjust his medication if needed. Thank you for this consultation. Will follow this patient along with you. MMODL / IJN: [id number] /
[2020-03-08] MEDS: AMPICILLIN-SULBACTAM 3 GM in SODIUM CHLORIDE 0.9% 100 ML IVPB SCH ×3 (05:27→17:49)
[2020-03-08 07:41] LABS: Glucose,Whole Blood 135 mg/dL (75-99)
[2020-03-08] MEDS: busPIRone HCl 5 MG TAB PO SCH ×2 (08:56→21:41)
[2020-03-08] MEDS: VALSARTAN 160 MG TAB PO SCH (08:56)
[2020-03-08] MEDS: MEMANTINE 5 MG TAB PO SCH ×2 (08:57→21:42)
[2020-03-08] MEDS: lamoTRIgine 100 MG TAB PO SCH ×2 (08:57→21:41)
[2020-03-08] MEDS: OXYBUTYNIN XL 5 MG TAB.ER.24 PO SCH (08:57)
[2020-03-08] MEDS: FLUoxetine HCL 20 MG CAP PO SCH ×2 (08:57→21:41)
[2020-03-08] MEDS: METOPROLOL TARTRATE 25 MG TAB PO SCH (08:57)
[2020-03-08] MEDS: oxyCODONE-APAP 10-325MG 1 EACH TAB PO SCH ×2 (08:57→21:42)
[2020-03-08] MEDS: FAMOTIDINE 20 MG TAB PO SCH (08:57)
[2020-03-08] MEDS: GABAPENTIN 300 MG CAP PO SCH ×3 (08:57→21:41)
[2020-03-08] MEDS: carBAMazepine 100 MG TAB.ER.12H PO SCH (08:57)
[2020-03-08] MEDS: PANTOPRAZOLE 40 MG TABLET PO SCH (08:57)
[2020-03-08] MEDS: ATORVASTATIN 40 MG TAB PO SCH (08:57)
[2020-03-08] MEDS: BACLOFEN 10 MG TAB PO SCH ×2 (08:58→21:41)
[2020-03-08] MEDS: ENOXAPARIN 40 MG/0.4 ML SYRINGE SQ SCH (08:58)
[2020-03-08] MEDS: INSULIN ASPART (NovoLOG) 100 UNIT/ML VIAL SQ SCH ×3 (08:59→17:47)
[2020-03-08] MEDS ORDERED: VANCOMYCIN TROUGH DUE 1 EACH MISC MISCELLANE ONE (10:00)
[2020-03-08 11:11] LABS: African American GFR (CKD) >90 (>60 ml/min/1.73 sqM); Non-African American GFR(CKD) >90 (>60 ml/min/1.73 sqM)
[2020-03-08] MEDS: DOCUSATE 100 MG CAP PO SCH ×2 (11:42→21:41)
[2020-03-08 11:56] LABS: Glucose,Whole Blood 94 mg/dL (75-99)
--- NOTE | 2020-03-08 12:24 | P.PN ---
Subjective Progress Note Date: 03/08/20 CHIEF COMPLAINT: Left gluteal abscess HISTORY OF PRESENT ILLNESS: Patient is being followed for a complicated left gluteal abscess he is status post Excision of soft tissue benign lesion 3 x 2 cm the cutaneous tissue of left inferior medial buttock, Open drainage of complicated left gluteal abscess into subcutaneous tissue, deep and Mechanical debridement. Patient reports that his pain is controlled. He's been seen by infectious disease. I have asked for adjusted. He is currently on Unasyn and vancomycin. Cultures are pending. Patient is requesting to take a shower. He is afebrile. WBC 8.0 patient is complaining of constipation. PHYSICAL EXAM: VITAL SIGNS: Reviewed GENERAL: Well-developed in no acute distress. HEENT: No sclera icterus. Extraocular movements grossly intact. Moist buccal mucosa. Head is atraumatic, normocephalic. Hears conversational speech. No nasal drainage. NECK: Supple without lymphadenopathy. CHEST: Non-labored respirations and equal bilateral excursions. CARDIOVASCULAR: Regular rate with regular rhythm. Palpable 2+ radial pulses. ABDOMEN: Soft. Nondistended. Nontender. MUSCULOSKELETAL: No clubbing or cyanosis. NEUROLOGIC: No focal or lateralizing signs. Cranial nerves II through XII grossly intact. PSYCH: Appropriate affect. Alert and oriented to person, place and time. SKIN: Well perfused. Good skin turgor. ASSESSMENT: 1. Complicated left gluteal abscess status post Excision of soft tissue benign lesion 3 x 2 cm the cutaneous tissue of left inferior medial buttock, Open drainage of complicated left gluteal abscess into subcutaneous tissue, deep and Mechanical debridement. 2. Failed outpatient antibiotic management 3. Insulin-dependent diabetes type 2 with diabetic neuropathy 4. Coronary artery disease 5. Depressive disorder 6. Morbid obesity due to excess calories, BMI 36.8 7. Hypertensive heart disease 8. Diabetic neuropathy 9. Seizure disorder 10. Gastroesophageal reflux disease 11. Hyperlipidemia PLAN: -Awaiting culture results to finalize -Continue antibiotics per ID recommendations -Okay for patient to take shower -Discussed with the nursing staff to change dressing and packing -Add Colace 100 mg twice a day and change MiraLAX to daily for constipation Physician Professor Of Counseling note has been reviewed by physician. Signing provider agrees with the documented findings, assessment, and plan of care. Objective - Vital Signs Vital signs: Vital Signs Temp 98.8 F 03/08/20 07:00 Pulse 55 L 11/24/20 07:00 Resp 20 03/08/20 07:00 BP 162/65 03/08/20 07:00 Pulse Ox 96 03/08/20 07:00 Intake & Output 03/07/20 03/08/20 03/08/20 18:59 06:59 18:59 Intake Total 1050 200 Output Total 5 Balance 1045 200 Intake: IV 1050 Oral 200 Output: Estimated Blood Loss 5 Other: Voiding Method Toilet # Voids 1 - Labs CBC & Chem 7: 03/07/20 06:26 03/08/20 10:33 Labs: Abnormal Lab Results - Last 24 Hours (Table) 03/07/20 03/07/20 03/08/20 Range/Units 16:40 20:31 07:34 POC Glucose (mg/dL) 204 H 193 H 135 H (75-99) mg/dL Microbiology - Last 24 Hours (Table) 03/07/20 08:33 Gram Stain - Preliminary Buttock Wound Culture - Preliminary 03/06/20 03:28 Blood Culture - Preliminary Blood No Growth after 48 hours 03/07/20 08:33 Anaerobic Culture - Preliminary Buttock
[2020-03-08] MEDS: VANCOMYCIN 1,750 MG in SODIUM CHLORIDE 0.9% 500 ML 500 ML IVPB SCH (12:36)
--- NOTE | 2020-03-08 14:23 | P.PN ---
Subjective Progress Note Date: 03/08/20 64-year-old male came in with the complaints of pain in the perirectal area found to have abscess in the left buttock area that was inside incised and drained. Patient had fever yesterday. Patient was started on vancomycin and Zosyn. General surgery was consulted. Wound cultures and blood cultures were opted which are pending at this time 03/07/2020 Patient is seen and evaluated in follow-up currently underwent I&D with Dr. Alex of the left gluteal abscess. Awaiting culture finalization to determine discharge antibiotics. Disease consulted and pending at this time. Patient currently on IV antibiotics in the form of Zosyn and vancomycin and will continue at this time. Patient states he is having some left gluteal discomfort and surgical dressings are currently dry and intact. Labs within normal limits. Will continue to monitor blood sugars and continue with long-acting along with pre-meal insulins at this time. Review of systems: Constitutional: No reports of fatigue, fever, or chills Cardiovascular: No reports of chest pain or palpitations Respiratory: No reports of shortness of breath or cough GI: No reports of nausea, vomiting, or diarrhea : No reports of dysuria or retention Neurovascular: No reports of weakness or numbness All medications have been reviewed 03/08/2020 Patient is seen and evaluated in follow-up status post surgical I&D of the left gluteal abscess. Preliminary cultures now showing gram-negative bacilli and currently awaiting for culture finalization to determine discharge antibiotics. Patient currently on antibiotics in the form of Zosyn and vancomycin and will likely need IV antibiotics upon discharge. Patient is requiring more than a 2 night stay of hospitalization due to failed outpatient therapy and the extent of infection of the left gluteal abscess and to determine proper antibiotics upon discharge. Case management consulted to arrange for discharge planning needs. Review of systems: Constitutional: No reports of fatigue, fever, or chills Cardiovascular: No reports of chest pain or palpitations Respiratory: No reports of shortness of breath or cough GI: No reports of nausea, vomiting, or diarrhea : No reports of dysuria or retention Neurovascular: No reports of weakness or numbness, reports left buttock discomfo rt and pain All medications have been reviewed Objective - Vital Signs Vital signs: Vital Signs Temp 98.8 F 03/08/20 07:00 Pulse 55 L 03/08/20 07:00 Resp 20 03/08/20 07:00 BP 162/65 03/08/20 07:00 Pulse Ox 96 03/08/20 07:00 Intake & Output 03/07/20 03/08/20 03/08/20 18:59 06:59 18:59 Intake Total 1050 200 Output Total 5 Balance 1045 200 Intake: IV 1050 Oral 200 Output: Estimated Blood Loss 5 Other: Voiding Method Toilet # Voids 1 - Exam GENERAL: The patient is alert and oriented x3, not in any acute distress. Well developed, well nourished. HEENT: Pupils are round and equally reacting to light. EOMI. No scleral icterus. No conjunctival pallor. Normocephalic, atraumatic. No pharyngeal erythema. No thyromegaly. CARDIOVASCULAR: S1 and S2 present. No murmurs, rubs, or gallops. PULMONARY: Chest is clear to auscultation, no wheezing or crackles. ABDOMEN: Soft, nontender, nondistended, normoactive bowel sounds. No palpable organomegaly. Left buttock abscess site is packed with surgical packing status post surgical I&D MUSCULOSKELETAL: No joint swelling or deformity. EXTREMITIES: No cyanosis, clubbing, or pedal edema. NEUROLOGICAL: Gross neurological examination did not reveal any focal deficits. SKIN: As mentioned above - Labs CBC & Chem 7: 03/07/20 06:26 03/08/20 10:33 Labs: Abnormal Lab Results - Last 24 Hours (Table) 03/07/20 03/07/20 03/07/20 Range/Units 11: 16:40 20:31 POC Glucose (mg/dL) 175 H 204 H 193 H (75-99) mg/dL 03/08/20 Range/Units 07:34 POC Glucose (mg/dL) 135 H (75-99) mg/dL Microbiology - Last 24 Hours (Table) 03/07/20 08:33 Gram Stain - Preliminary Buttock Wound Culture - Preliminary 03/06/20 03:28 Blood Culture - Preliminary Blood No Growth after 48 hours 03/07/20 08:33 Anaerobic Culture - Preliminary Buttock Assessment and Plan Assessment: -Rectal/gluteal abscess: Status post I&D. Continue Zosyn and vancomycin, patient underwent surgical I&D with Dr. Alex and awaiting culture finalization. Infectious disease following. Preliminary culture showing gram- negative bacilli and awaiting for culture finalization. Patient is maintained on Zosyn and vancomycin and will continue at this time. -Acute renal failure either prerenal azotemia or acute tubular necrosis nonoliguric, improved -Coronary artery disease -Type 2 diabetes mellitus -Gastroesophageal reflux disease -Hyperlipidemia -Hypertension -Depression -DVT prophylaxis with Lovenox -GI prophylaxis: Protonix Plan: Continue IV antibiotic therapy. Currently awaiting culture finalization. Pat ient will require more than a 2 night stay while awaiting for culture finalization in proper IV antibiotic coverage. Case management consulted to determine possible discharge planning needs and the stability of IV antibiotics upon discharge. Surgery and infectious disease following. Further recom mendations to follow. Possible discharge in 24-48 hours.
[2020-03-08] MEDS: SODIUM CHLORIDE 0.9% 1,000 ML IV SCH (16:26)
[2020-03-08 17:28] LABS: Glucose,Whole Blood 121 mg/dL (75-99)
[2020-03-08] MEDS: traZODone HCL 50 MG TAB PO SCH (21:41)
[2020-03-08] MEDS: MONTELUKAST 10 MG TAB PO SCH (21:41)
[2020-03-08 21:49] LABS: Glucose,Whole Blood 86 mg/dL (75-99)
[2020-03-09] MEDS: VANCOMYCIN 1,750 MG in SODIUM CHLORIDE 0.9% 500 ML 500 ML IVPB SCH ×2 (00:18→10:59)
[2020-03-09] MEDS: INSULIN DETEMIR (LEVEMIR) 100 UNIT/ML SYR SQ SCH ×2 (00:18→21:06)
[2020-03-09] MEDS: AMPICILLIN-SULBACTAM 3 GM in SODIUM CHLORIDE 0.9% 100 ML IVPB SCH ×5 (00:18→23:04)
[2020-03-09] MEDS: HYDROmorphone 0.5 MG/0.5 ML SYRINGE IVP PRN ×7 (01:39→23:09)
--- NOTE | 2020-03-09 01:51 | PN ---
PROGRESS NOTE DATE OF SERVICE: 03/08/2020 REASON FOR FOLLOWUP: Left gluteal abscess and cellulitis. INTERVAL HISTORY: The patient is currently afebrile, has been complaining of more pain to the left gluteal area. The patient denies having any chest pain. No shortness of breath or cough. No nausea, vomiting or diarrhea. PHYSICAL EXAMINATION: Blood pressure 108/58 with a pulse of 54, temperature 97.8. He is 97% on room air. General description is middle-aged male lying in bed in no distress. RESPIRATORY SYSTEM: Unlabored breathing, clear to auscultation anteriorly. HEART: S1, S2. Regular rate and rhythm. ABDOMEN: Soft, no tenderness. LABS: Wound culture with Gram-negative bacilli. DIAGNOSTIC IMPRESSION AND PLAN: Patient with left gluteal abscess, status post drainage. Culture with Gram-negative. Patient is covered with Unasyn as well as vancomycin to continue, adjusting antibiotic further based on culture report. Continue with supportive care. MMODL / IJN: [id number] /
[2020-03-09] MEDS: SODIUM CHLORIDE 0.9% 1,000 ML IV SCH ×3 (05:12→21:06)
[2020-03-09 06:59] LABS: Glucose,Whole Blood 110 mg/dL (75-99)
[2020-03-09] MEDS: VALSARTAN 160 MG TAB PO SCH (07:51)
[2020-03-09] MEDS: oxyCODONE-APAP 10-325MG 1 EACH TAB PO SCH ×2 (07:51→21:05)
[2020-03-09] MEDS: METOPROLOL TARTRATE 25 MG TAB PO SCH (07:52)
[2020-03-09] MEDS: lamoTRIgine 100 MG TAB PO SCH ×2 (07:52→21:06)
[2020-03-09] MEDS: MEMANTINE 5 MG TAB PO SCH ×2 (07:52→21:06)
[2020-03-09] MEDS: polyethylene glycoL 3350 17 GM POWD.PACK PO SCH ×2 (07:52→07:59)
[2020-03-09] MEDS: OXYBUTYNIN XL 5 MG TAB.ER.24 PO SCH (07:52)
[2020-03-09] MEDS: FLUoxetine HCL 20 MG CAP PO SCH ×2 (07:53→21:05)
[2020-03-09] MEDS: busPIRone HCl 5 MG TAB PO SCH ×2 (07:53→21:06)
[2020-03-09] MEDS: carBAMazepine 100 MG TAB.ER.12H PO SCH (07:53)
[2020-03-09] MEDS: ATORVASTATIN 40 MG TAB PO SCH (07:53)
[2020-03-09] MEDS: DOCUSATE 100 MG CAP PO SCH ×2 (07:53→21:05)
[2020-03-09] MEDS: GABAPENTIN 300 MG CAP PO SCH ×3 (07:53→21:06)
[2020-03-09] MEDS: FAMOTIDINE 20 MG TAB PO SCH (07:54)
[2020-03-09] MEDS: BACLOFEN 10 MG TAB PO SCH ×2 (07:54→21:17)
[2020-03-09] MEDS: ENOXAPARIN 40 MG/0.4 ML SYRINGE SQ SCH (07:54)
[2020-03-09] MEDS: PANTOPRAZOLE 40 MG TABLET PO SCH (07:54)
[2020-03-09] MEDS: INSULIN ASPART (NovoLOG) 100 UNIT/ML VIAL SQ SCH ×3 (07:56→17:46)
[2020-03-09 10:00] LABS: Non-African American GFR(CKD) 95.7 (60.0-200.0)
[2020-03-09 11:35] LABS: Glucose,Whole Blood 118 mg/dL (75-99)
--- NOTE | 2020-03-09 12:38 | P.PN ---
Subjective Progress Note Date: 03/09/20 CHIEF COMPLAINT: Left gluteal abscess HISTORY OF PRESENT ILLNESS: Patient is being followed for a complicated left gluteal abscess he is status post Excision of soft tissue benign lesion 3 x 2 cm the cutaneous tissue of left inferior medial buttock, Open drainage of complicated left gluteal abscess into subcutaneous tissue, deep and Mechanical debridement. Patient does report pain in his left gluteal site as well as lower back pain. He does report having a bowel movement yesterday. He is reporting a cough and some sore throat with chills this morning. I discussed case with medicine nurse practitioner and covid test has been ordered. Wound Cultures have grown Klebsiella oxytoca and strep agalactiae. Afebrile. PHYSICAL EXAM: VITAL SIGNS: Reviewed GENERAL: Well-developed in no acute distress. HEENT: No sclera icterus. Extraocular movements grossly intact. Moist buccal mucosa. Head is atraumatic, normocephalic. Hears conversational speech. No nasal drainage. NECK: Supple without lymphadenopathy. CHEST: Non-labored respirations and equal bilateral excursions. CARDIOVASCULAR: Regular rate with regular rhythm. Palpable 2+ radial pulses. ABDOMEN: Soft. Nondistended. Nontender. Left gluteal abscess improved greatly. Area is packed no redness or area of induration around the packing. Area is soft. MUSCULOSKELETAL: No clubbing or cyanosis. NEUROLOGIC: No focal or lateralizing signs. Cranial nerves II through XII grossly intact. PSYCH: Appropriate affect. Alert and oriented to person, place and time. SKIN: Well perfused. Good skin turgor. ASSESSMENT: 1. Complicated left gluteal abscess status post Excision of soft tissue benign lesion 3 x 2 cm the cutaneous tissue of left inferior medial buttock, Open drainage of complicated left gluteal abscess into subcutaneous tissue, deep and Mechanical debridement. 2. Failed outpatient antibiotic management 3. Insulin-dependent diabetes type 2 with diabetic neuropathy 4. Coronary artery disease 5. Depressive disorder 6. Morbid obesity due to excess calories, BMI 36.8 7. Hypertensive heart disease 8. Diabetic neuropathy 9. Seizure disorder 10. Gastroesophageal reflux disease 11. Hyperlipidemia PLAN: -Continue antibiotics per ID recommendations -Continue supportive care -Agree with checking Covid test -Home care has been arranged to help with packing and dressing the wound Physician Flame Cutter note has been reviewed by physician. Signing provider agrees with the documented findings, assessment, and plan of care. Objective - Vital Signs Vital signs: Vital Signs Temp 99.0 F 03/09/20 07:00 Pulse 60 03/09/20 07:00 Resp 16 03/09/20 07:00 BP 167/73 03/09/20 07:00 Pulse Ox 95 03/09/20 07:00 Intake & Output 03/08/20 03/09/20 03/09/20 18:59 06:59 18:59 Intake Total 1200 800 500 Balance 1200 800 500 Intake: IV 800 500 Sodium Chloride 0.9% 1, 800 000 ml @ 100 mls/hr IV . Q10H [facility] Rx#:[id number] Vancomycin 1,750 mg In 500 Sodium Chloride 0.9% 500 ml 500 ml @ 167 mls/hr IVPB Q12H [facility] Rx#: [id number] Intake, IV Titration 600 Amount Ampicillin-Sulbactam 3 gm 100 In Sodium Chloride 0.9% 100 ml @ 200 mls/hr IVPB Q6HR [facility] Rx#:[id number] Vancomycin 1,750 mg In 500 Sodium Chloride 0.9% 500 ml 500 ml @ 167 mls/hr IVPB Q12H [facility] Rx#: [id number] Oral 400 200 Other: # Voids 1 - Labs CBC & Chem 7: 03/07/20 06:26 03/09/20 06:56 Labs: Abnormal Lab Results - Last 24 Hours (Table) 03/08/20 03/09/20 03/09/20 Range/Units 16:45 06:58 11:34 POC Glucose (mg/dL) 121 H 110 H 118 H (75-99) mg/dL Microbiology - Last 24 Hours (Table) 03/07/20 08:33 Gram Stain - Final Buttock Wound Culture - Final 03/06/20 05:20 Gram Stain - Final Buttock Wound Culture - Preliminary Klebsiella oxytoca Strep agalactiae - (group b) 03/06/20 03:28 Blood Culture - Preliminary Blood No Growth after 72 hours
--- NOTE | 2020-03-09 12:55 | CT ---
EXAMINATION TYPE: CT angio chest DATE OF EXAM: 03/09/2020 12:34 PM COMPARISON: CT March 26, 2020 HISTORY: shortness of breath CT DLP: 654.6 mGycm Automated exposure control for dose reduction was used. CONTRAST: CTA scan of the thorax is performed with IV Contrast, patient injected with 100 mL of Isovue 370, pul monary embolism protocol. MIP images are created and reviewed. FINDINGS: LUNGS: Exam noted suboptimal as patient unable to hold breath. Lungs are grossly clear without new fo hema consolidation or groundglass opacity. Mild linear scarring in both bases left greater than right. No pleural effusion or pneumothorax noted bilaterally. No suspicious masses. MEDIASTINUM: There is satisfactory enhancement of the pulmonary artery and its branches, there is no CT evidence for pulmonary embolism. There are no greater than 1 cm hilar or mediastinal lymph nodes. No pericardial effusion is seen. Heart size mildly enlarged. Post-CABG changes with mediastinal cl ips and sternal wires is redemonstrated. Satisfactory enhancement of the thoracic aorta without aneur ysm or dissection. OTHER: Pneumobilia again seen. Cholecystectomy clips redemonstrated.. IMPRESSION: No CT evidence for acute pulmonary embolism. Cardiomegaly without acute pulmonary process .
[2020-03-09 16:39] LABS: Glucose,Whole Blood 123 mg/dL (75-99)
--- NOTE | 2020-03-09 19:30 | P.PN ---
Subjective Progress Note Date: 03/09/20 64-year-old male came in with the complaints of pain in the perirectal area found to have abscess in the left buttock area that was inside incised and drained. Patient had fever yesterday. Patient was started on vancomycin and Zosyn. General surgery was consulted. Wound cultures and blood cultures were opted which are pending at this time 03/07/2020 Patient is seen and evaluated in follow-up currently underwent I&D with Dr. Alex of the left gluteal abscess. Awaiting culture finalization to determine discharge antibiotics. Disease consulted and pending at this time. Patient currently on IV antibiotics in the form of Zosyn and vancomycin and will continue at this time. Patient states he is having some left gluteal discomfort and surgical dressings are currently dry and intact. Labs within normal limits. Will continue to monitor blood sugars and continue with long-acting along with pre-meal insulins at this time. Review of systems: Constitutional: No reports of fatigue, fever, or chills Cardiovascular: No reports of chest pain or palpitations Respiratory: No reports of shortness of breath or cough GI: No reports of nausea, vomiting, or diarrhea : No reports of dysuria or retention Neurovascular: No reports of weakness or numbness All medications have been reviewed 03/08/2020 Patient is seen and evaluated in follow-up status post surgical I&D of the left gluteal abscess. Preliminary cultures now showing gram-negative bacilli and currently awaiting for culture finalization to determine discharge antibiotics. Patient currently on antibiotics in the form of Zosyn and vancomycin and will likely need IV antibiotics upon discharge. Patient is requiring more than a 2 night stay of hospitalization due to failed outpatient therapy and the extent of infection of the left gluteal abscess and to determine proper antibiotics upon discharge. Case management consulted to arrange for discharge planning needs. Review of systems: Constitutional: No reports of fatigue, fever, or chills Cardiovascular: No reports of chest pain or palpitations Respiratory: No reports of shortness of breath or cough GI: No reports of nausea, vomiting, or diarrhea : No reports of dysuria or retention Neurovascular: No reports of weakness or numbness, reports left buttock discomfo rt and pain All medications have been reviewed 03/09/20 Patient seen in follow up and having continued left buttock pain and tenderness at the surgical site although looks good with minimal redness and swelling noted. Patient is also stating that he has been having a cough with some bilateral lower rib pain due to cough along with generalized fatigue and sore throat. Patient mentioned that he believes his daughter may have Covid 19 at home. Covid testing ordered along with a chest CTA. Patient wound cultures finalized showing klebsiella oxytoca and group b strep agalalactaie and is currently maintained on IV antibiotics. ID following along with surgery. Review of systems: Constitutional: reports of fatigue, with chills Cardiovascular: No reports of chest pain or palpitations Respiratory: reports of shortness of breath, sore throat, and cough GI: No reports of nausea, vomiting, or diarrhea : No reports of dysuria or retention Neurovascular: No reports of weakness or numbness, reports left buttock discomfort and pain All medications have been reviewed Objective - Vital Signs Vital signs: Vital Signs Temp 99.0 F 03/09/20 07:00 Pulse 60 03/09/20 07:00 Resp 16 03/09/20 07:00 BP 167/73 03/09/20 07:00 Pulse Ox 95 03/09/20 07:00 Intake & Output 03/08/20 03/09/20 03/09/20 18:59 06:59 18:59 Intake Total 1200 800 600 Balance 1200 800 600 Intake: IV 800 500 Sodium Chloride 0.9% 1, 800 000 ml @ 100 mls/hr IV . Q10H [facility] Rx#:[id number] Vancomycin 1,750 mg In 500 Sodium Chloride 0.9% 500 ml 500 ml @ 167 mls/hr IVPB Q12H [facility] Rx#: [id number] Intake, IV Titration 600 Amount Ampicillin-Sulbactam 3 gm 100 In Sodium Chloride 0.9% 100 ml @ 200 mls/hr IVPB Q6HR [facility] Rx#:[id number] Vancomycin 1,750 mg In 500 Sodium Chloride 0.9% 500 ml 500 ml @ 167 mls/hr IVPB Q12H [facility] Rx#: [id number] Oral 400 200 100 Other: Voiding Method Toilet # Voids 1 - Exam GENERAL: The patient is alert and oriented x3, not in any acute distress. Well developed, well nourished. HEENT: Pupils are round and equally reacting to light. EOMI. No scleral icterus. No conjunctival pallor. Normocephalic, atraumatic. No pharyngeal erythema. No thyromegaly. CARDIOVASCULAR: S1 and S2 present. No murmurs, rubs, or gallops. PULMONARY: Chest is clear to auscultation, no wheezing or crackles. ABDOMEN: Soft, nontender, nondistended, normoactive bowel sounds. No palpable organomegaly. Left buttock abscess site is packed with surgical packing status post surgical I&D MUSCULOSKELETAL: No joint swelling or deformity. EXTREMITIES: No cyanosis, clubbing, or pedal edema. NEUROLOGICAL: Gross neurological examination did not reveal any focal deficits. SKIN: As mentioned above - Labs CBC & Chem 7: 03/07/20 06:26 03/09/20 06:56 Labs: Abnormal Lab Results - Last 24 Hours (Table) 03/08/20 03/09/20 03/09/20 Range/Units 16:45 06:58 11:34 POC Glucose (mg/dL) 121 H 110 H 118 H (75-99) mg/dL Coronavirus (PCR) (Not Detectd) 03/09/20 Range/Units 12:43 POC Glucose (mg/dL) (75-99) mg/dL Coronavirus (PCR) Detected A (Not Detectd) Microbiology - Last 24 Hours (Table) 03/07/20 08:33 Gram Stain - Final Buttock Wound Culture - Final 03/06/20 05:20 Gram Stain - Final Buttock Wound Culture - Preliminary Klebsiella oxytoca Strep agalactiae - (group b) 03/06/20 03:28 Blood Culture - Preliminary Blood No Growth after 72 hours Assessment and Plan Assessment: -Rectal/gluteal abscess: Status post I&D. Continue Zosyn and vancomycin, patient underwent surgical I&D with Dr. Alex and awaiting culture finalization. Infectious disease following. Preliminary culture showing gram-negative bacilli and awaiting for culture finalization. Patient is maintained on Zosyn and vancomycin and will continue at this time. -Covid 19 positive -Acute renal failure either prerenal azotemia or acute tubular necrosis nonoliguric, improved -Coronary artery disease -Type 2 diabetes mellitus -Gastroesophageal reflux disease -Hyperlipidemia -Hypertension -Depression -DVT prophylaxis with Lovenox -GI prophylaxis: Protonix Plan: Continue IV antibiotic therapy. Cultures finalized showing klebsiella oxytoca and group b strep. Patient states he was experiencing some shortness of breath, cough, rib pain, and sore throat with chills. Covid 19 test performed and positive. Patient placed on isolation precautions. CTA was also done and negative for PE or acute process. Surgery and infectious disease following. Further recommendations to follow. Possible discharge in 24-48 hours.
[2020-03-09 20:36] LABS: Glucose,Whole Blood 165 mg/dL (75-99)
[2020-03-09] MEDS: MONTELUKAST 10 MG TAB PO SCH (21:06)
[2020-03-09] MEDS: traZODone HCL 50 MG TAB PO SCH (21:06)
[2020-03-09] MEDS: dexAMETHasone 2 MG TAB PO SCH (23:04)
--- NOTE | 2020-03-10 01:12 | PN ---
PROGRESS NOTE DATE OF SERVICE: 03/09/2020. REASON FOR FOLLOW UP: 1. Left gluteal abscess. 2. COVID-19 infection. INTERVAL HISTORY: The patient is currently afebrile, has been complaining of some shortness of breath and dry cough. No nausea, vomiting, abdominal pain, or any worsening pain to the left gluteal area. PHYSICAL EXAMINATION: Blood pressure 145/71 with a pulse of 59, temperature 98.8. He is 94% on room air. General description: The patient is a middle-aged male lying in bed in no distress. Respiratory system: Unlabored breathing, decreased breath sounds in the bases. No wheeze. Heart S1, S2. Regular rate and rhythm. ABDOMEN: Soft, no tenderness. LABS: Covid-19 test came back positive. Left gluteal culture with Klebsiella and Streptococcus agalactiae. DIAGNOSTIC IMPRESSION/PLAN: 1. Patient with left gluteal abscess status post drainage, culture with Klebsiella and Streptococcus agalactiae. Patient covered with Unasyn. Vancomycin will be discontinued. 2. Patient with Covid-19 positive test. Did have mild respiratory symptoms. CT angiogram was negative for any pneumonia. We will check his inflammatory markers and add zinc and Lovenox and Dexamethasone along with respiratory support and monitor clinical course closely. MMODL / IJN: [id number] /
[2020-03-10] MEDS ORDERED: ACETAMINOPHEN TAB 325 MG TAB PO PRN (02:40)
[2020-03-10] MEDS: HYDROmorphone 0.5 MG/0.5 ML SYRINGE IVP PRN ×5 (02:52→15:37)
[2020-03-10] MEDS: AMPICILLIN-SULBACTAM 3 GM in SODIUM CHLORIDE 0.9% 100 ML IVPB SCH ×2 (05:06→12:49)
[2020-03-10] MEDS: SODIUM CHLORIDE 0.9% 1,000 ML IV SCH ×2 (05:07→14:45)
[2020-03-10 05:43] VITALS: RESP 16
[2020-03-10 07:24] LABS: Glucose,Whole Blood 238 mg/dL (75-99)
[2020-03-10] MEDS: MEMANTINE 5 MG TAB PO SCH (08:19)
[2020-03-10] MEDS: busPIRone HCl 5 MG TAB PO SCH (08:19)
[2020-03-10] MEDS: VALSARTAN 160 MG TAB PO SCH (08:19)
[2020-03-10] MEDS: carBAMazepine 100 MG TAB.ER.12H PO SCH (08:19)
[2020-03-10] MEDS: ATORVASTATIN 40 MG TAB PO SCH (08:19)
[2020-03-10] MEDS: GABAPENTIN 300 MG CAP PO SCH ×2 (08:19→15:37)
[2020-03-10] MEDS: OXYBUTYNIN XL 5 MG TAB.ER.24 PO SCH (08:20)
[2020-03-10] MEDS: PANTOPRAZOLE 40 MG TABLET PO SCH (08:20)
[2020-03-10] MEDS: METOPROLOL TARTRATE 25 MG TAB PO SCH (08:20)
[2020-03-10] MEDS: lamoTRIgine 100 MG TAB PO SCH (08:20)
[2020-03-10] MEDS: FLUoxetine HCL 20 MG CAP PO SCH (08:20)
[2020-03-10] MEDS: ENOXAPARIN 40 MG/0.4 ML SYRINGE SQ SCH (08:20)
[2020-03-10] MEDS: dexAMETHasone 2 MG TAB PO SCH (08:20)
[2020-03-10] MEDS: FAMOTIDINE 20 MG TAB PO SCH (08:20)
[2020-03-10] MEDS: BACLOFEN 10 MG TAB PO SCH (08:20)
[2020-03-10] MEDS: DOCUSATE 100 MG CAP PO SCH (08:20)
[2020-03-10] MEDS: polyethylene glycoL 3350 17 GM POWD.PACK PO SCH (08:21)
[2020-03-10] MEDS: INSULIN ASPART (NovoLOG) 100 UNIT/ML VIAL SQ SCH ×2 (08:21→12:49)
[2020-03-10] MEDS: oxyCODONE-APAP 10-325MG 1 EACH TAB PO SCH (08:22)
[2020-03-10] MEDS ORDERED: ZINC SULFATE 220 MG CAP PO SCH (09:00)
[2020-03-10] MEDS ORDERED: VANCOMYCIN TROUGH DUE 1 EACH MISC MISCELLANE ONE (10:00)
[2020-03-10 10:42] LABS: Basophils % (A) 1 %; Eosinophils % (A) 0 %; HCT 35.5 % (39.0-53.0); HGB 11.9 gm/dL (13.0-17.5); Lymphocytes # (A) 0.7 k/uL (1.0-4.8); Lymphocytes % (A) 17 %; MCH 32.1 pg (25.0-35.0); MCHC 33.5 g/dL (31.0-37.0); MCV 95.8 fL (80.0-100.0); Mean Platelet Volume 7.3; Monocytes # (A) 0.2 k/uL (0-1.0); Monocytes % (A) 5 %; Neutrophils # (A) 3.1 k/uL (1.3-7.7); Neutrophils % (A) 76 %; Platelet Count 159 k/uL (150-450); RBC 3.71 m/uL (4.30-5.90); RDW 13.4 % (11.5-15.5)
[2020-03-10 11:38] LABS: Glucose,Whole Blood 165 mg/dL (75-99)
[2020-03-10 14:39] VITALS: BP 171/73; PULSE 41; TEMP 97.9
[2020-03-10] MEDS ORDERED: AMOXIC-POT CLAV 875-125MG 1 EACH TAB PO ONE (16:15)
[2020-03-10 17:06] LABS: Albumin 3.7 g/dL (3.80-4.90); Albumin/Globulin Ratio 1.76 (1.60-3.17); Anion Gap 6.4 mmol/L (4.00-12.00); BUN/Creat Ratio 16.25 Ratio (12.00-20.00); C Reactive Protein 3.5 mg/dL (0.0-0.8); Calcium 8.7 mg/dL (8.7-10.3); Carbon Dioxide 25.6 mmol/L (21.6-31.8); Globulin 2.1 g/dL (1.6-3.3); Non-African American GFR(CKD) 95.7 (60.0-200.0); Potassium 3.9 mmol/L (3.5-5.5); Total Bilirubin 0.3 mg/dL (0.3-1.2); Total Protein 5.8 g/dL (6.2-8.2)
--- NOTE | 2020-03-10 20:56 | PN ---
PROGRESS NOTE DATE OF SERVICE: 03/10/2020 REASON FOR FOLLOWUP: 1. Left gluteal abscess cellulitis. 2. COVID-19 positive. INTERVAL COURSE: The patient is currently afebrile. The patient is feeling much better. He is breathing comfortably. Patient denies having any chest pain. No shortness of breath or cough. No abdominal pain. No pain to the gluteal area. PHYSICAL EXAMINATION: Blood pressure 170/73 with a pulse of 59, temperature 97.9. He is 95% on room air. General description is a middle-aged male lying in bed in no distress. Respiratory system: Unlabored breathing, clear to auscultation. No wheeze. HEART: S1, S2. Regular rate and rhythm. Abdomen soft, no tenderness. LABS: Hemoglobin 11.9, white count 4.0. CT angiogram was negative for PE and no pneumonia. CRP and LDH has been ordered and not done. DIAGNOSTIC IMPRESSION AND PLAN: 1. Patient with left gluteal abscess status post drainage. Culture positive for Klebsiella, strep and anaerobes. I would advise Augmentin 875 b.i.d. for 10 days, prescription sent down. 2. Patient with COVID-19 positive test but no significant symptom. He is currently satting 95% on room air. The patient mentioned the had similar symptoms 2 weeks ago, more likely the patient have acquired nosocomial COVID and the CT angiogram was negative for any pneumonia. May consider short course of steroids ( ) discharge. Discussed with the admitting physician. SILASL / IJN: [id number] /
== END 2020-03-10 16:44 | disposition home health service (06) | DRG 570 ==
LOC: EC 02:57 → 4SSUR 05:26 → OBSVTOIN 03-08 13:54 → 4SSUR 03-09 14:49
PROVIDERS: ADMIT Hospitalist; ATTEND Hospitalist
PROC: 0J990ZZ Drainage of Buttock Subcutaneous Tissue and Fascia, Open Approach (ICD-10-PCS; principal; 2020-03-07 07:30)
PROC: 0JB90ZZ Excision of Buttock Subcutaneous Tissue and Fascia, Open Approach (ICD-10-PCS; principal; 2020-03-07 07:30)
DX: L02.31 Cutaneous abscess of buttock (principal); N17.0 Acute kidney failure with tubular necrosis; U07.1 COVID-19; K61.0 Anal abscess; E66.01 Morbid (severe) obesity due to excess calories; E78.5 Hyperlipidemia, unspecified; F12.90 Cannabis use, unspecified, uncomplicated; F32.9 Major depressive disorder, single episode, unspecified; F43.10 Post-traumatic stress disorder, unspecified; F90.9 Attention-deficit hyperactivity disorder, unspecified type; G40.909 Epilepsy, unspecified, not intractable, without status epilepticus; G89.4 Chronic pain syndrome; I11.9 Hypertensive heart disease without heart failure; I25.10 Atherosclerotic heart disease of native coronary artery without angina pectoris; K21.9 Gastro-esophageal reflux disease without esophagitis; E11.40 Type 2 diabetes mellitus with diabetic neuropathy, unspecified; E11.65 Type 2 diabetes mellitus with hyperglycemia; G62.9 Polyneuropathy, unspecified; N40.0 Benign prostatic hyperplasia without lower urinary tract symptoms; K59.00 Constipation, unspecified; B96.1 Klebsiella pneumoniae [K. pneumoniae] as the cause of diseases classified elsewhere; Z68.36 Body mass index [BMI] 36.0-36.9, adult; Z87.11 Personal history of peptic ulcer disease; Z79.4 Long term (current) use of insulin; Z79.899 Other long term (current) drug therapy; Z88.4 Allergy status to anesthetic agent; Z88.2 Allergy status to sulfonamides; Z88.8 Allergy status to other drugs, medicaments and biological substances; Z83.3 Family history of diabetes mellitus; Z95.1 Presence of aortocoronary bypass graft; Z87.891 Personal history of nicotine dependence; Z87.442 Personal history of urinary calculi; Z82.49 Family history of ischemic heart disease and other diseases of the circulatory system; Z90.49 Acquired absence of other specified parts of digestive tract; Z98.890 Other specified postprocedural states
CPT/HCPCS: 10160; 36415; 71275; 72193; 80048; 80053; 80202; 81003; 82550; 82565; 83605; 83615; 83735; 84100; 85025; 85027; 85379; 85610; 85730; 86140; 87040; 87070; 87075; 87077; 87186; 87205; 87635; 88304; 93005; 96365; 96366; 96367; 96375; 96376; 99285

== ENCOUNTER 2020-03-16 00:08 | Inpatient (IN) | payer MEDICARE ==
[2020-03-16] MEDS ORDERED: DEXAMETHASONE SOD PHOSPHATE 10 MG/ML 1 ML VIAL IV STA (00:19)
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
--- NOTE | 2020-03-16 00:45 | XR ---
EXAM: XR Chest, 1 View CLINICAL HISTORY: ITS.REASON XR Reason: Suspected COVID-19 pneumonia TECHNIQUE: Frontal view of the chest. COMPARISON: 09/20/2019. FINDINGS: Lungs: Diffuse patchy airspace disease is noted which predominate in the mid lower lung zones. Pleural space: See below. Heart: Cardiomegaly. Mediastinum: Unremarkable. Bones/joints: Sternotomy wires are noted in place. No pleural effusions. Osteopenia. IMPRESSION: 1. Findings worrisome for diffuse Covid-19 pneumonia. 2. Cardiomegaly. 3. Osteopenia.
[2020-03-16 00:55] LABS: Basophils # (A) 0.1 k/uL (0-0.2); Basophils % (A) 2 %; Eosinophils # (A) 0.1 k/uL (0-0.7); Eosinophils % (A) 1 %; HCT 42.8 % (39.0-53.0); HGB 14.1 gm/dL (13.0-17.5); Lymphocytes # (A) 1.1 k/uL (1.0-4.8); Lymphocytes % (A) 14 %; MCH 31.6 pg (25.0-35.0); MCV 95.6 fL (80.0-100.0); Mean Platelet Volume 6.9; Monocytes # (A) 0.3 k/uL (0-1.0); Monocytes % (A) 3 %; Neutrophils # (A) 6.6 k/uL (1.3-7.7); Neutrophils % (A) 80 %; Platelet Count 212 k/uL (150-450); RBC 4.47 m/uL (4.30-5.90); WBC 8.2 k/uL (3.8-10.6)
[2020-03-16 01:10] LABS: Albumin 3.9 g/dL (3.5-5.0); Calcium 8.6 mg/dL (8.4-10.2); Magnesium 1.8 mg/dL (1.6-2.3); Partial Thromboplastin Time 23.9 sec (22.0-30.0); Potassium 3.5 mmol/L (3.5-5.1); Prothrombin Time 10.4 sec (9.0-12.0); Total Protein 7.4 g/dL (6.3-8.2)
[2020-03-16 01:11] LABS: D-Dimer 1.32 mg/L FEU (<0.60)
[2020-03-16] MEDS ORDERED: MORPHINE SULFATE 4 MG/ML SYRINGE IVP STA (01:11)
[2020-03-16] MEDS ORDERED: ONDANSETRON 4 MG/2 ML VIAL IVP STA (01:11)
[2020-03-16 01:38] LABS: C Reactive Protein 178.9 mg/L (<10.0)
[2020-03-16] MEDS ORDERED: ACETAMINOPHEN TAB 325 MG TAB PO PRN (01:54)
[2020-03-16] MEDS ORDERED: ONDANSETRON 4 MG/2 ML VIAL IVP PRN (01:54)
[2020-03-16] MEDS ORDERED: NALOXONE 0.4 MG/ML 1 ML VIAL IV PRN (01:54)
[2020-03-16] MEDS ORDERED: ENOXAPARIN 40 MG/0.4 ML SYRINGE SQ STA (01:55)
[2020-03-16] MEDS ORDERED: HYDROmorphone 1 MG/ML 1 ML SYRINGE IVP STA (02:00)
[2020-03-16 04:42] LABS: D-Dimer 1.24 mg/L FEU (<0.60); Partial Thromboplastin Time 26.4 sec (22.0-30.0); Prothrombin Time 10.1 sec (9.0-12.0)
[2020-03-16] MEDS: MORPHINE SULFATE 4 MG/ML SYRINGE IV PRN ×4 (05:49→17:58)
[2020-03-16 06:49] LABS: ALT 28 U/L (4-49); AST 69 U/L (17-59); African American GFR (CKD) >90 (>60 ml/min/1.73 sqM); Albumin 3.4 g/dL (3.5-5.0); Alkaline Phosphatase 111 U/L (38-126); Anion Gap 8 mmol/L; Blood Urea Nitrogen 20 mg/dL (9-20); Calcium 8.2 mg/dL (8.4-10.2); Carbon Dioxide 20 mmol/L (22-30); Chloride 110 mmol/L (98-107); Creatine Kinase 81 U/L (55-170); Glucose 214 mg/dL (74-99); Magnesium 1.7 mg/dL (1.6-2.3); Non-African American GFR(CKD) 86 (>60 ml/min/1.73 sqM); Potassium 4.6 mmol/L (3.5-5.1); Sodium 138 mmol/L (137-145); Total Bilirubin 0.9 mg/dL (0.2-1.3); Total Protein 6.4 g/dL (6.3-8.2)
[2020-03-16 07:03] LABS: LDH 2107 U/L (313-618)
[2020-03-16 08:06] LABS: C Reactive Protein 194.6 mg/L (<10.0)
[2020-03-16] MEDS ORDERED: ALBUTEROL HFA INHALER INHALATION PRN (08:15)
[2020-03-16] MEDS ORDERED: dexAMETHasone 4 MG TAB PO SCH (09:00)
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
[2020-03-16] MEDS: ZINC SULFATE 220 MG CAP PO SCH (09:15)
[2020-03-16] MEDS: carBAMazepine 100 MG TAB.ER.12H PO SCH (09:15)
[2020-03-16] MEDS: ENOXAPARIN 40 MG/0.4 ML SYRINGE SQ SCH (09:15)
[2020-03-16] MEDS: METOPROLOL TARTRATE 25 MG TAB PO SCH (09:16)
[2020-03-16] MEDS: busPIRone HCl 5 MG TAB PO SCH ×2 (09:16→23:01)
[2020-03-16] MEDS: FAMOTIDINE 20 MG TAB PO SCH (09:16)
[2020-03-16] MEDS: ATORVASTATIN 40 MG TAB PO SCH (09:16)
[2020-03-16] MEDS: PANTOPRAZOLE 40 MG TABLET PO SCH (09:16)
[2020-03-16] MEDS: OXYBUTYNIN XL 5 MG TAB.ER.24 PO SCH (09:16)
[2020-03-16] MEDS: BACLOFEN 10 MG TAB PO SCH ×2 (09:16→23:02)
[2020-03-16] MEDS: lamoTRIgine 100 MG TAB PO SCH ×2 (09:16→23:02)
[2020-03-16] MEDS: dexAMETHasone 2 MG TAB PO SCH (09:16)
[2020-03-16] MEDS: AMOXIC-POT CLAV 875-125MG 1 EACH TAB PO SCH ×2 (09:16→23:01)
[2020-03-16] MEDS: ASCORBIC ACID 500 MG TAB PO SCH (09:16)
[2020-03-16] MEDS: CHOLECALCIFEROL 1,000 UNIT TAB PO SCH (09:16)
[2020-03-16] MEDS: MEMANTINE 5 MG TAB PO SCH ×2 (09:16→23:02)
[2020-03-16] MEDS: FLUoxetine HCL 20 MG CAP PO SCH ×2 (09:17→23:01)
[2020-03-16] MEDS: VALSARTAN 160 MG TAB PO SCH (09:17)
[2020-03-16] MEDS: GABAPENTIN 300 MG CAP PO SCH ×3 (09:25→23:02)
[2020-03-16] MEDS: oxyCODONE-APAP 10-325MG 1 EACH TAB PO SCH ×2 (09:39→23:01)
[2020-03-16] MEDS ORDERED: REMDESIVIR 200 MG in SODIUM CHLORIDE 0.9% 250 ML IVPB ONE (10:00)
--- NOTE | 2020-03-16 10:16 | CONS ---
CONSULTATION PULMONARY/CRITICAL CARE CONSULTATION: DATE OF SERVICE: 03/16/2020 REASON FOR CONSULTATION: Shortness of breath and COVID-19 pneumonia. A 64-year-old male who apparently I have seen in the past for COPD. The patient came into the emergency room a day or so before Thanksgiving for abscess. At that time, he was apparently tested for COVID and he did test positive. At that time, he was not really having much in the way of symptoms from the pulmonary status and from the pulmonary system and he was told to come back into the hospital should he get worse. Sure enough, over the last couple days, he has developed fever, chills, cough, shortness of breath, muscle aches, joint aches and generally just not feeling well. The patient is here in the emergency room. He has a high-flow nasal O2 at 15 L. His CAT scan that was done earlier, did not show any disease. More recently, he had a chest x-ray which showed diffuse bilateral infiltrates. The patient apparently sees Dr. Parmjit Ortega as a primary. Also sees a pain specialist. The patient will get all the usual treatments here including zinc, vitamin C, vitamin D3, Decadron, and Remdesivir. The patient will be admitted to the hospital. CURRENT HOME MEDICATIONS: Include Lipitor, Prozac, insulin, Namenda, Singulair Ditropan, Prozac, Protonix, trazodone, Fioricet, Diovan, Lamictal, Neurontin, BuSpar, Tegretol, Lioresal or baclofen, Pepcid, metoprolol \Augmentin, and Decadron. ALLERGIES: Include TORADOL, FLAGYL, and SULFA ANTIBIOTICS. MEDICAL HISTORY: CAD, angina, diabetes, GERD, hyperlipidemia, hypertension, osteoarthritis, and COPD. Apparently, I told him after PFT that he had moderately severe COPD. In addition, he has a history of sinusitis, diabetic neuropathy, pancreatitis, kidney stones, BPH, irritable bowel syndrome, chronic back pain, as well as a number of other major medical problems. This could all be seen in the ER corrina. SURGICAL HISTORY: Includes among other things appendectomy, cholecystectomy, bypass grafting, heart catheterization, EGD, colonoscopy, lithotripsy, testicular cyst removal, circumcision, and back injections. SOCIAL HISTORY: Positive for previous tobacco use. He smoked for 40 years. Does not smoke currently. Denies any alcohol use. He does use marijuana. FAMILY HISTORY: Positive for brother with diabetes, a sister with diabetes, a son who is healthy. a daughter who is healthy. A father with myocardial infarction and mother with a history of congestive heart failure, diabetes. REVIEW OF SYSTEMS: CONSTITUTIONAL: Fever, chills, weakness, muscle aches, joint aches. NEUROLOGIC: Negative. HEENT: Negative. CARDIOVASCULAR: Negative. PULMONARY: Shortness of breath, cough. GI: Negative. : Negative. RHEUMATOLOGIC: Negative. IMMUNOLOGIC: Negative. ENDOCRINOLOGIC: Negative. DERMATOLOGIC: Negative. Current vital signs are reviewed. Temperature is 100.5, T-max is 100.5, heart rate 61, respiratory rate 20, blood pressure 154/63 mean 93 saturations are in the low 90s on 15 L high flow. Appears in no acute distress. HEENT: Examination is grossly unremarkable. Mask in place. Nasal cannula noted. NECK: Supple. full range of motion. No adenopathy. Neck veins are flat. CARDIOVASCULAR: Examination reveals regular rhythm and rate. Heart sounds are distant. Heart rate about 70 beats per minute. S1, S2 normal. LUNGS: Reveal diffuse coarse rhonchi. Breath sounds equal. No wheezes or crackles. ABDOMEN: Soft. EXTREMITIES: Intact. No cyanosis, clubbing, or edema. SKIN: Without rash. NEUROLOGIC: Examination is nonfocal. LABS: Reviewed. White count 8.2, hemoglobin 14.1, hematocrit 42.8, platelet count 312,000. PT, INR is 10.1 and 1.0, PTT is 26.4, fibrinogen is 603. D-dimer 1.24. Sodium 138, potassium 4.6, chloride 110, CO2 is 20, anion gap is 8. BUN and creatinine are 20 and 0.95. Lactic acid is 1.3 down from 3.2. AST and ALT were 69 and 28 respectively. LDH was 2107. C-reactive protein 194.6. Microbiology is negative or pending. A chest x-ray done shows diffuse bilateral infiltrates. There is cardiomegaly. There are sternal wires from previous bypass grafting. The patient had a CT angiogram done on March 09. This is his first visit to the emergency room which was negative for pulmonary embolism. There is nothing acute in the lung windows. Currently medications are reviewed. He is on Tylenol, Augmentin, vitamin C, Lipitor, baclofen, BuSpar, Tegretol, vitamin D3, Decadron, Lovenox, famotidine, Prozac, Neurontin, insulin, Lamictal, Namenda, metoprolol, Singulair, morphine, Narcan, Zofran,, Ditropan, Percocet, Protonix, Remdesivir, trazodone, Diovan, and zinc. ASSESSMENT: 1. COVID-19 pneumonitis/pneumonia. 2. Acute hypoxemic respiratory failure secondary to COVID-19 pneumonia. 3. History of underlying COPD from previous tobacco use. 4. History of diabetes mellitus with diabetic neuropathy. 5. History of CAD, status post bypass grafting. 6. Angina pectoris. 7. Gastroesophageal reflux disease. 8. Hyperlipidemia. 9. Essential hypertension. 10.Osteoarthritis. 11.Chronic back pain. 12.Multiple other medical problems and comorbidities as listed in my medical history. PLAN: The patient will get the usual treatments as mentioned above, including Decadron, zinc, vitamin D3, vitamin C, Remdesivir, and we are going to add some medications including albuterol inhaler and Symbicort. Additional recommendations and suggestions are forthcoming. Prognosis is guarded. Will continue to follow. Repeat chest x-ray in a couple days. Repeat inflammatory markers in a couple days. MMODL / IJN: [id number] /
[2020-03-16 11:24] LABS: Ferritin 574.1 ng/mL (22.0-322.0)
[2020-03-16] MEDS: ALBUTEROL HFA INHALER INHALATION SCH ×3 (11:49→20:01)
[2020-03-16 13:14] LABS: Glucose,Whole Blood 207 mg/dL (75-99)
[2020-03-16] MEDS: INSULIN ASPART (NovoLOG) 100 UNIT/ML VIAL SQ SCH ×3 (14:01→23:05)
[2020-03-16 15:39] LABS: Carbamazepine (Tegretol) 3.8 ug/mL
[2020-03-16] MEDS: LORazepam 2 MG/ML INJ IV PRN (17:58)
[2020-03-16] MEDS: SYMBICORT 160-4.5 MCG INHALER INHALATION SCH (20:01)
[2020-03-16 22:19] LABS: Glucose,Whole Blood 194 mg/dL (75-99)
[2020-03-16] MEDS: MONTELUKAST 10 MG TAB PO SCH (23:01)
[2020-03-16] MEDS: traZODone HCL 50 MG TAB PO SCH (23:01)
[2020-03-17] MEDS: MORPHINE SULFATE 4 MG/ML SYRINGE IV PRN ×4 (02:19→21:08)
[2020-03-17] MEDS: INSULIN DETEMIR (LEVEMIR) 100 UNIT/ML SYR SQ SCH ×2 (02:35→20:59)
--- NOTE | 2020-03-17 05:07 | CONS ---
CONSULTATION DATE OF SERVICE: 03/16/2020 REASON FOR CONSULTATION: 1. COVID-19 pneumonia. 2. Left perirectal abscess, cellulitis. HISTORY OF PRESENT ILLNESS: The patient is a 64-year-old male who was recently admitted to this facility with left perirectal abscess in this patient who is status post surgical drainage of the same by Dr. Galloway. Local cultures were positive for Klebsiella, group B strep and anaerobes. The patient was treated with IV antibiotic therapy and subsequently discharged home on oral Augmentin, which the patient is currently taking. On the second last day of his hospital stay, the patient was complaining of some shortness of breath and congestion. The patient did have a nasopharyngeal swab which came back positive for COVID. Subsequently the patient did have a CT angiogram of the chest that was negative for any acute infiltrate. The patient was discharged on a dexamethasone, zinc sulfate and Augmentin. The patient mentioned after he was discharged from the hospital started having a problem with sore throat, some body aches and start having shortness of breath that has progressively got worse to the point he was unable to catch his breath. The patient called his primary care physician who advised the patient to go back to the hospital. On arrival to the ER, the patient did have a low-grade fever of 100.5. The patient was hypoxic with O2 saturation 78% on room air and is currently on a partial non-rebreather. The patient denies having any chest pain. He did have a cough, not bringing up any sputum. No nausea, no vomiting. No abdominal pain, no diarrhea. He denies having any pain, swelling, or drainage from his left gluteal wound area. On presentation to the hospital, low-grade fever. White count normal. No lymphopenia. The patient did have a D-dimer 1.32. Liver enzymes mildly elevated. LDH of 1895 with a CRP 178, repeat is 194. The patient did have a chest x-ray which shows diffuse patchy infiltrate suspicious for COVID-19 infection. The patient has been started on dexamethasone, Lovenox, remdesivir. Infectious Disease was consulted for further management. REVIEW OF SYSTEMS: Positive points have been mentioned in HPI. Rest of systems are negative. PAST MEDICAL HISTORY: Recent admission to the hospital left perirectal abscess, coronary artery disease, diabetes mellitus, gastroesophageal reflux disease, hypertension, hyperlipidemia, osteoarthritis. PAST SURGICAL HISTORY: Appendectomy, cholecystectomy, coronary bypass grafting, heart catheterization. SOCIAL HISTORY: Remote history of smoking. Did admit to marijuana use. FAMILY HISTORY: Strong family history of diabetes mellitus. ALLERGIES: Allergies to METRONIDAZOLE, SULFA, and KETOROLAC. MEDICATIONS: Medications include the patient is currently on remdesivir, Desyrel, zinc, Protonix, Percocet, Zofran, Narcan, morphine sulfate, Singulair, Lopressor, Namenda, Lamictal, Levemir, NovoLog, Prozac, Augmentin, and Lovenox. PHYSICAL EXAMINATION: Blood pressure is 128/64 with a pulse of 56, temperature 98.9. He is 98% on 45% FiO2. General description is a middle-aged male lying in bed in no distress. No tachypnea or accessory muscle of respiration use. HEENT EXAMINATION: No pallor or scleral icterus. Oral mucous membrane is dry. NECK: Trachea central. No thyromegaly. LUNGS: Unlabored breathing. Coarse breath sounds bilaterally. No wheeze. HEART: S1, S2. Regular rate and rhythm. ABDOMEN: Soft, no tenderness. No guarding or rigidity. EXAMINATION OF THE PERIRECTAL AREA: The wound is healing well. There is no swelling redness or any drainage. EXTREMITIES: No edema of feet. SKIN EXAMINATION: No rash or mass palpable. NEUROLOGICAL: Patient is awake, alert, oriented x3. Mood and affect normal. LABS: Hemoglobin is 14.1, white count 8.2, BUN of 20, creatinine 0.95. D-dimer is 1.24. Elevated CRP as well procalcitonin. Chest x-ray report as mentioned above. DIAGNOSTIC IMPRESSION: The patient admitted to the hospital with increasing shortness of breath and cough in this patient with recent diagnosis with COVID-19 infection now with worsening respiratory status and hypoxemia likely secondary to acute viral pneumonia failing outpatient oral steroid therapy. PLAN: 1. The patient started on remdesivir to continue protocol. 2. Patient may benefit from Solu-Medrol rather than dexamethasone. This will be discussed with Pulmonary and steroids. 3. Droplet isolation and respiratory support. 4. Augmentin 875 mg p.o. twice a day to continue for left perirectal abscess. 5. We will follow his clinical condition and culture to further adjust medication if needed. Thank you for this consultation. Will follow this patient along with you. MMODL / IJN: [id number] /
[2020-03-17 06:26] LABS: Basophils % (A) 0 %; Eosinophils % (A) 0 %; HCT 40.1 % (39.0-53.0); HGB 13.1 gm/dL (13.0-17.5); Lymphocytes # (A) 0.8 k/uL (1.0-4.8); Lymphocytes % (A) 13 %; MCH 31.4 pg (25.0-35.0); MCHC 32.6 g/dL (31.0-37.0); MCV 96.3 fL (80.0-100.0); Mean Platelet Volume 7.3; Monocytes # (A) 0.3 k/uL (0-1.0); Monocytes % (A) 5 %; Neutrophils # (A) 4.8 k/uL (1.3-7.7); Neutrophils % (A) 80 %; Platelet Count 198 k/uL (150-450); RBC 4.16 m/uL (4.30-5.90)
[2020-03-17 06:28] LABS: ALT 26 U/L (4-49); AST 56 U/L (17-59); African American GFR (CKD) >90 (>60 ml/min/1.73 sqM); Albumin 3.1 g/dL (3.5-5.0); Albumin/Globulin Ratio 1.1; Alkaline Phosphatase 103 U/L (38-126); Anion Gap 4 mmol/L; Blood Urea Nitrogen 19 mg/dL (9-20); Calcium 8.5 mg/dL (8.4-10.2); Carbon Dioxide 28 mmol/L (22-30); Chloride 106 mmol/L (98-107); Globulin 2.9 g/dL; Glucose 171 mg/dL (74-99); Non-African American GFR(CKD) >90 (>60 ml/min/1.73 sqM); Potassium 4.7 mmol/L (3.5-5.1); Sodium 138 mmol/L (137-145)
--- NOTE | 2020-03-17 07:36 | P.PN ---
Subjective Progress Note Date: 03/17/20 Principal diagnosis: COVID 19 pneumonitis/pneumonia Acute hypoxic respiratory failure secondary to COVID-19 pneumonia Diabetes mellitus type II GERD Hypertension History of COPD Chronic back pain Osteoarthritis This 64-year-old male is resting comfortably in bed with high flow oxygen titrated to keep oxygen saturations above 94%, he is alert and oriented 3, he states marked improvement has cough with phlegm production at times still states shortness of breath and felt lightheaded when using the restroom, respiratory effort with marked improvement, is tolerating remdesivir and steroids, he had a left perirectal abscess at last admission and states that he has not had dr montiel changed in few days due to illness, Objective - Vital Signs Vital signs: Vital Signs Temp 97.5 F L 03/17/20 05:50 Pulse 50 L 03/17/20 05:50 Resp 18 03/17/20 05:50 BP 133/52 03/17/20 05:50 Pulse Ox 96 03/17/20 05:50 Intake & Output 03/16/20 03/17/20 03/17/20 18:59 06:59 18:59 Intake Total 300 Output Total 400 Balance -100 Weight 108 kg Intake: Oral 300 Output: Urine 400 - Constitutional General appearance: Present: cooperative, mild distress - EENT Ears: bilateral: normal - Neck Neck: Present: normal ROM - Respiratory Respiratory: bilateral: rhonchi (coarse at the bases), wheezing - Cardiovascular Rhythm: regular Heart sounds: normal: S1, S2 - Gastrointestinal General gastrointestinal: Present: normal bowel sounds, soft - Integumentary Integumentary: Present: normal - Neurologic Neurologic: Present: CNII-XII intact - Psychiatric Psychiatric: Present: A&O x's 3, appropriate affect, intact judgment & insight - Labs CBC & Chem 7: 03/17/20 06:00 03/17/20 06:00 Labs: Abnormal Lab Results - Last 24 Hours (Table) 03/16/20 03/16/20 03/16/20 Range/Units 00:49 00:49 04:07 RBC (4.30-5.90) m/uL Lymphocytes # (1.0-4.8) k/uL Glucose (74-99) mg/dL POC Glucose (mg/dL) (75-99) mg/dL Ferritin 574.1 H (22.0-322.0) ng/mL C-Reactive Protein (<10.0) mg/L Total Protein (6.3-8.2) g/dL Albumin (3.5-5.0) g/dL Procalcitonin 0.15 H 0.35 H (0.02-0.09) ng/mL 03/16/20 03/16/20 03/16/20 Range/Units 04:07 13:13 21:59 RBC (4.30-5.90) m/uL Lymphocytes # (1.0-4.8) k/uL Glucose (74-99) mg/dL POC Glucose (mg/dL) 207 H 194 H (75-99) mg/dL Ferritin 540.0 H (22.0-322.0) ng/mL C-Reactive Protein 194.6 H (<10.0) mg/L Total Protein (6.3-8.2) g/dL Albumin (3.5-5.0) g/dL Procalcitonin (0.02-0.09) ng/mL 03/17/20 03/17/20 Range/Units 06:00 06:00 RBC 4.16 L (4.30-5.90) m/uL Lymphocytes # 0.8 L (1.0-4.8) k/uL Glucose 171 H (74-99) mg/dL POC Glucose (mg/dL) (75-99) mg/dL Ferritin (22.0-322.0) ng/mL C-Reactive Protein (<10.0) mg/L Total Protein 6.0 L (6.3-8.2) g/dL Albumin 3.1 L (3.5-5.0) g/dL Procalcitonin (0.02-0.09) ng/mL Microbiology - Last 24 Hours (Table) 03/16/20 01:48 Blood Culture - Preliminary Blood No Growth after 24 hours 03/16/20 00:49 Blood Culture - Preliminary Blood No Growth after 24 hours Assessment and Plan Assessment: COVID 19 pneumonia Acute respiratory failure with hypoxia Diabetes Mellitus type II History of left gluteal abscess with I & D 03/07/2020 Hyperlipidemia Hypertension Coronary Artery Disease Chronic back pain Osteoarthritis (1) Pneumonia due to COVID-19 virus Current Visit: Yes Status: Acute Code(s): U07.1 - COVID-19; J12.89 - OTHER VIRAL PNEUMONIA SNOMED Code(s): [id number] Plan: Continue medications Continue high airflow oxygen therapy to maintain oxygen saturations greater than 94% Continue Pulmonary consultation for recommendations and treatment plan Continue Infectious Disease consultation for recommendations and treatment plan
[2020-03-17] MEDS: INSULIN ASPART (NovoLOG) 100 UNIT/ML VIAL SQ SCH ×4 (07:43→20:59)
[2020-03-17] MEDS: SYMBICORT 160-4.5 MCG INHALER INHALATION SCH ×2 (08:35→20:36)
[2020-03-17] MEDS: ALBUTEROL HFA INHALER INHALATION SCH ×4 (08:35→20:36)
[2020-03-17] MEDS: dexAMETHasone 2 MG TAB PO SCH (09:04)
[2020-03-17] MEDS: lamoTRIgine 100 MG TAB PO SCH ×2 (09:04→20:59)
[2020-03-17] MEDS: FLUoxetine HCL 20 MG CAP PO SCH ×2 (09:04→20:56)
[2020-03-17] MEDS: ATORVASTATIN 40 MG TAB PO SCH (09:05)
[2020-03-17] MEDS: METOPROLOL TARTRATE 25 MG TAB PO SCH (09:05)
[2020-03-17] MEDS: FAMOTIDINE 20 MG TAB PO SCH (09:05)
[2020-03-17] MEDS: OXYBUTYNIN XL 5 MG TAB.ER.24 PO SCH (09:05)
[2020-03-17] MEDS: busPIRone HCl 5 MG TAB PO SCH ×2 (09:05→20:58)
[2020-03-17] MEDS: BACLOFEN 10 MG TAB PO SCH ×2 (09:05→20:59)
[2020-03-17] MEDS: MEMANTINE 5 MG TAB PO SCH ×2 (09:06→20:59)
[2020-03-17] MEDS: ASCORBIC ACID 500 MG TAB PO SCH (09:06)
[2020-03-17] MEDS: oxyCODONE-APAP 10-325MG 1 EACH TAB PO SCH ×2 (09:06→22:09)
[2020-03-17] MEDS: GABAPENTIN 300 MG CAP PO SCH ×3 (09:06→20:59)
[2020-03-17] MEDS: CHOLECALCIFEROL 1,000 UNIT TAB PO SCH (09:06)
[2020-03-17] MEDS: ZINC SULFATE 220 MG CAP PO SCH (09:06)
[2020-03-17] MEDS: PANTOPRAZOLE 40 MG TABLET PO SCH (09:07)
[2020-03-17] MEDS: AMOXIC-POT CLAV 875-125MG 1 EACH TAB PO SCH ×2 (09:07→22:09)
[2020-03-17] MEDS: carBAMazepine 100 MG TAB.ER.12H PO SCH (09:08)
[2020-03-17] MEDS: VALSARTAN 160 MG TAB PO SCH (09:09)
[2020-03-17] MEDS: REMDESIVIR 100 MG in SODIUM CHLORIDE 0.9% 250 ML IVPB SCH (09:09)
[2020-03-17] MEDS: ENOXAPARIN 40 MG/0.4 ML SYRINGE SQ SCH (09:23)
--- NOTE | 2020-03-17 15:04 | P.PN ---
Subjective Progress Note Date: 03/17/20 Principal diagnosis: Shortness of breath, COVID 19 pneumonia 64-year-old white male patient of Dr. Parmjit Murdock, who came into the hospital on 03/16/2020 for evaluation of worsening shortness of breath, fever, chills, cough, muscle aches, joint aches and just not feeling well. Patient was seen yesterday for the first time in consultation, she was ready requiring high flow oxygen at 15 L, his chest x-ray showed diffuse bilateral infiltrates, he had a positive COVID 19 test before [facility]. Patient was started on Remdesivir, steroids, lactic doses of Lovenox, and empiric antibiotics. On today's exam patient is on Airvo at 45%, Fio2 85%, the pulse ox of 97%, but overall feels a bit better. Objective - Vital Signs Vital signs: Vital Signs Temp 97.8 F 03/17/20 09:36 Pulse 52 L 03/17/20 14:00 Resp 22 03/17/20 09:36 BP 136/42 03/17/20 09:36 Pulse Ox 97 03/17/20 09:36 Intake & Output 03/16/20 03/17/20 03/17/20 18:59 06:59 18:59 Intake Total 300 Output Total 400 Balance -100 Weight 108 kg Intake: Oral 300 Output: Urine 400 Other: # Bowel Movements 0 - Exam GENERAL EXAM: Alert, very pleasant 64-year-old white male, on Airvo at 45 l/min, Fio2 89%, pulse ox is 97%, comfortable in no apparent distress. HEAD: Normocephalic/atraumatic. EYES: Normal reaction of pupils, equal size. Conjunctiva pink, sclera white. NOSE: Clear with pink turbinates. THROAT: No erythema or exudates. NECK: No masses, no JVD, no thyroid enlargement, no adenopathy. CHEST: No chest wall deformity. Symmetrical expansion. LUNGS: Equal air entry with no crackles, wheeze, rhonchi or dullness. CVS: Regular rate and rhythm, normal S1 and S2, no gallops, no murmurs, no rubs ABDOMEN: Soft, nontender. No hepatosplenomegaly, normal bowel sounds, no guarding or rigidity. EXTREMITIES: No clubbing, no edema, no cyanosis, 2+ pulses and upper and lower extremities. MUSCULOSKELETAL: Muscle strength and tone normal. SPINE: No scoliosis or deformity SKIN: No rashes CENTRAL NERVOUS SYSTEM: Alert and oriented -3. No focal deficits, tone is normal in all 4 extremities. PSYCHIATRIC: Alert and oriented -3. Appropriate affect. Intact judgment and insight. - Labs CBC & Chem 7: 03/17/20 06:00 03/17/20 06:00 Labs: Abnormal Lab Results - Last 24 Hours (Table) 03/16/20 03/16/20 03/17/20 Range/Units 04:07 21:59 06:00 RBC 4.16 L (4.30-5.90) m/uL Lymphocytes # 0.8 L (1.0-4.8) k/uL Glucose (74-99) mg/dL POC Glucose (mg/dL) 194 H (75-99) mg/dL Ferritin 540.0 H (22.0-322.0) ng/mL Total Protein (6.3-8.2) g/dL Albumin (3.5-5.0) g/dL 03/17/20 Range/Units 06:00 RBC (4.30-5.90) m/uL Lymphocytes # (1.0-4.8) k/uL Glucose 171 H (74-99) mg/dL POC Glucose (mg/dL) (75-99) mg/dL Ferritin (22.0-322.0) ng/mL Total Protein 6.0 L (6.3-8.2) g/dL Albumin 3.1 L (3.5-5.0) g/dL Microbiology - Last 24 Hours (Table) 03/16/20 01:48 Blood Culture - Preliminary Blood No Growth after 24 hours 03/16/20 00:49 Blood Culture - Preliminary Blood No Growth after 24 hours Assessment and Plan Plan: Assessment: #1. Acute and severe hypoxic rest or a failure related to acute COPD pneumonitis, currently on Airvo at 45 L/m, and FiO2 of 88%, currently satting 97%, was started on Remdesivir yesterday on 03/16/2020 in addition to Decadron #2. History of underlying COPD for previous tobacco use #3. History of diabetes mellitus with diabetic neuropathy #4. History of CAD, status post bypass grafting #5. Angina pectoris #6. GERD/reflux #7. Hyperlipidemia #8. Essential hypertension #9. Osteoarthritis #10. Chronic back pain #11. Multiple medical problems and comorbidities Plan: Continue Remdesivir course, continue Decadron, Ativan, vitamin D3, continue anticoagulation and form of Lovenox, follow-up chest x-ray in the morning, patient is feeling slightly better, although still requiring high flow oxygen, we'll continue to monitor the patient, for any worsening dyspnea or oxygenation, will follow I performed a history & physical examination of the patient and discussed their management with my nurse practitioner, Fabienne Lehman. I reviewed the nurse practitioner's note and agree with the documented findings and plan of care. Lung sounds are positive for diminished breath sounds. The findings and the impression was discussed with the patient. I attest to the documentation by the nurse practitioner. Time with Patient: Less than 30
[2020-03-17 17:17] LABS: Glucose,Whole Blood 296 mg/dL (75-99)
[2020-03-17 20:12] LABS: Glucose,Whole Blood 260 mg/dL (75-99)
[2020-03-17] MEDS: traZODone HCL 50 MG TAB PO SCH (20:58)
[2020-03-17] MEDS: MONTELUKAST 10 MG TAB PO SCH (20:59)
--- NOTE | 2020-03-17 23:11 | PN ---
PROGRESS NOTE DATE OF SERVICE: 03/17/2020 REASON FOR FOLLOWUP: 1. COVID-19 pneumonia. 2. Left gluteal wound and recent abscess. INTERVAL HISTORY: The patient is currently afebrile. The patient is breathing slightly comfortably; however, requiring high-flow nasal cannula oxygen. Denies any chest pain. Cough, but not bringing up any sputum. No nausea, no vomiting, no abdominal pain or diarrhea. PHYSICAL EXAMINATION: Blood pressure 146/70 with a pulse of 65, temperature 97.6. He is 97% on 15 L nasal cannula oxygen. General description is a middle-aged male lying in bed in no distress. RESPIRATORY SYSTEM: Unlabored breathing with decreased intensity of breath sounds. No wheeze. HEART: S1, S2. Regular rate and rhythm. ABDOMEN: Soft. No tenderness. LABS: Hemoglobin is 17.9, white count 6.0, BUN of 19, creatinine 0.77. DIAGNOSTIC IMPRESSION AND PLAN: 1. Patient with acute COVID-19 pneumonia in this patient currently being treated with remdesivir, Lovenox, dexamethasone and zinc sulfate; to continue. 2. Left gluteal wound from recent drainage of the abscess. Covered with Augmentin and local care with Aquacel Silver packing of the wound. MMODL / IJN: [id number] /
[2020-03-18] MEDS: LORazepam 2 MG/ML INJ IV PRN ×2 (00:56→12:35)
[2020-03-18] MEDS: MORPHINE SULFATE 4 MG/ML SYRINGE IV PRN ×4 (02:48→21:41)
[2020-03-18 07:18] LABS: Glucose,Whole Blood 163 mg/dL (75-99)
--- NOTE | 2020-03-18 08:01 | XR ---
EXAMINATION TYPE: XR chest 1V portable DATE OF EXAM: 03/18/2020 COMPARISON: 03/16/2020 INDICATION: Covid 19 TECHNIQUE: Single frontal view of the chest is obtained. FINDINGS: The heart size is upper limits of normal. The pulmonary vasculature is prominent. Diffuse increased opacities through the bilateral lung banks. Findings have improved over the interv al. IMPRESSION: 1. Improving bilateral lung infiltrates.
[2020-03-18] MEDS: FLUoxetine HCL 20 MG CAP PO SCH ×2 (08:12→20:24)
[2020-03-18] MEDS: CHOLECALCIFEROL 1,000 UNIT TAB PO SCH (08:13)
[2020-03-18] MEDS: BACLOFEN 10 MG TAB PO SCH ×2 (08:13→20:24)
[2020-03-18] MEDS: OXYBUTYNIN XL 5 MG TAB.ER.24 PO SCH (08:13)
[2020-03-18] MEDS: ASCORBIC ACID 500 MG TAB PO SCH (08:13)
[2020-03-18] MEDS: dexAMETHasone 2 MG TAB PO SCH (08:13)
[2020-03-18] MEDS: busPIRone HCl 5 MG TAB PO SCH ×2 (08:13→20:23)
[2020-03-18] MEDS: FAMOTIDINE 20 MG TAB PO SCH (08:13)
[2020-03-18] MEDS: lamoTRIgine 100 MG TAB PO SCH ×2 (08:14→20:24)
[2020-03-18] MEDS: PANTOPRAZOLE 40 MG TABLET PO SCH (08:14)
[2020-03-18] MEDS: oxyCODONE-APAP 10-325MG 1 EACH TAB PO SCH ×2 (08:14→20:24)
[2020-03-18] MEDS: ZINC SULFATE 220 MG CAP PO SCH (08:14)
[2020-03-18] MEDS: ATORVASTATIN 40 MG TAB PO SCH (08:14)
[2020-03-18] MEDS: METOPROLOL TARTRATE 25 MG TAB PO SCH (08:14)
[2020-03-18] MEDS: MEMANTINE 5 MG TAB PO SCH ×2 (08:14→20:24)
[2020-03-18] MEDS: GABAPENTIN 300 MG CAP PO SCH ×3 (08:14→20:24)
[2020-03-18] MEDS: ENOXAPARIN 40 MG/0.4 ML SYRINGE SQ SCH (08:15)
[2020-03-18] MEDS: VALSARTAN 160 MG TAB PO SCH (08:15)
[2020-03-18] MEDS: carBAMazepine 100 MG TAB.ER.12H PO SCH (08:20)
[2020-03-18] MEDS: AMOXIC-POT CLAV 875-125MG 1 EACH TAB PO SCH ×2 (08:20→20:23)
[2020-03-18] MEDS: REMDESIVIR 100 MG in SODIUM CHLORIDE 0.9% 250 ML IVPB SCH (08:20)
[2020-03-18] MEDS: INSULIN ASPART (NovoLOG) 100 UNIT/ML VIAL SQ SCH ×4 (08:27→20:23)
--- NOTE | 2020-03-18 08:47 | P.PN ---
Subjective Progress Note Date: 03/18/20 Principal diagnosis: COVID 19 pneumonitis Acute hypoxic respiratory failure secondary to COVID-19 pneumonitis Diabetes mellitus type II GERD Hypertension History of COPD Chronic back pain Osteoarthritis This 64-year-old male is resting comfortably in bed with airvo oxygen titrated to keep oxygen saturations above 94%, he is alert and oriented 3, he states marked improvement has cough with phlegm production at times still states shortness of breath, respiratory effort with marked improvement, is tolerating remdesivir and steroids, he had a left perirectal abscess and states that he has had his dressing changed, he states he is feeling better and is using his incentive spirometer Objective - Vital Signs Vital signs: Vital Signs Temp 98.4 F 03/18/20 05:56 Pulse 64 03/18/20 05:56 Resp 19 03/18/20 05:56 BP 138/59 03/18/20 05:56 Pulse Ox 97 03/18/20 05:56 Intake & Output 03/17/20 03/18/20 03/18/20 18:59 06:59 18:59 Output Total 950 Balance -950 Weight 108.2 kg Output: Urine 950 Other: # Voids 1 # Bowel Movements 0 - Constitutional General appearance: Present: mild distress - EENT ENT: Present: hearing grossly normal Ears: bilateral: normal - Neck Neck: Present: normal ROM - Respiratory Respiratory: bilateral: diminished (anterior diminished ), rhonchi (coarse rhonchi bases) - Cardiovascular Rhythm: regular Heart sounds: normal: S1, S2 - Gastrointestinal General gastrointestinal: Present: normal bowel sounds - Integumentary Integumentary: Present: normal - Neurologic Neurologic: Present: CNII-XII intact - Psychiatric Psychiatric: Present: A&O x's 3, appropriate affect, intact judgment & insight - Labs CBC & Chem 7: 03/17/20 06:00 03/17/20 06:00 Labs: Abnormal Lab Results - Last 24 Hours (Table) 03/17/20 03/17/20 03/18/20 Range/Units 17:12 20:10 07:16 POC Glucose (mg/dL) 296 H 260 H 163 H (75-99) mg/dL Microbiology - Last 24 Hours (Table) 03/16/20 01:48 Blood Culture - Preliminary Blood No Growth after 48 hours 03/16/20 00:49 Blood Culture - Preliminary Blood No Growth after 48 hours Assessment and Plan Assessment: COVID 19 pneumonitis Acute respiratory failure with hypoxia Diabetes Mellitus type II History of left gluteal abscess with I & D 03/07/2020 Hyperlipidemia Hypertension Coronary Artery Disease Chronic back pain Osteoarthritis (1) Pneumonia due to COVID-19 virus Current Visit: Yes Status: Acute Code(s): U07.1 - COVID-19; J12.89 - OTHER VIRAL PNEUMONIA SNOMED Code(s): 380167286203526911 Plan: Continue medications Continue airvo oxygen therapy to maintain oxygen saturations greater than 94% Continue Incentive spirometry Continue Pulmonary consultation for recommendations and treatment plan Continue Infectious Disease consultation for recommendations and treatment plan Continue wound care
[2020-03-18] MEDS: SYMBICORT 160-4.5 MCG INHALER INHALATION SCH ×2 (08:51→20:07)
[2020-03-18] MEDS: ALBUTEROL HFA INHALER INHALATION SCH ×4 (08:51→20:07)
[2020-03-18 11:17] LABS: Glucose,Whole Blood 188 mg/dL (75-99)
--- NOTE | 2020-03-18 16:38 | PN ---
PROGRESS NOTE PULMONARY/CRITICAL CARE PROGRESS NOTE: DATE OF SERVICE: 03/18/2020 This is a 64-year-old gentleman with a history of acute hypoxemic respiratory failure related to acute COVID-19 pneumonia. He is currently on AIRVO. He is on AIRVO 45 L/minute and FiO2 of 88%. His saturations are in the mid 90s. He was started on Remdesivir. He was also given Decadron. Currently, he is feeling marginally better. Still very short of breath. Feels weak. Muscle aches and joint aches. Current vital signs are reviewed. His AIRVO set at 45 L/minute, 90% today. His saturations are in the low 90s. Blood pressure 138/75 mean 96, heart rate 61, respiratory rate 20 and temperature 97.6. His T-max was 100.5 back on March 16. Appears in no acute distress. HEENT: Examination is grossly unremarkable. AIRVO cannula noted. NECK: Supple, full range of motion. No adenopathy or thyromegaly. Neck veins are flat. CARDIOVASCULAR: Examination reveals regular rhythm and rate. Heart rate 61 beats per minute. S1, S2 normal. No S3, S4, or murmur. LUNGS: Reveal coarse bilateral rhonchi. No wheezes or crackles. Breath sounds equal. ABDOMEN: Obese. Bowel sounds are heard. EXTREMITIES: Intact. No cyanosis, clubbing, or edema. SKIN: Without rash. NEUROLOGIC: Examination is nonfocal. LABS: Reviewed. Nothing from 03/18 as yet. Microbiology including blood cultures were negative. Chest x-ray from March 18 shows improved bilateral lung infiltrates. MEDICATIONS: Reviewed. He is on Tylenol, albuterol inhaler, Augmentin, ascorbic acid, Lipitor, baclofen, Symbicort, BuSpar, Tegretol, vitamin D3, Decadron, Lovenox, famotidine, Prozac, gabapentin, NovoLog insulin, Lamictal, Ativan, Namenda, metoprolol, Singulair, morphine, Narcan, Zofran, Ditropan, oxycodone, Protonix, Remdesivir, trazodone, valsartan, and zinc. ASSESSMENT: 1. Acute and severe hypoxemic respiratory failure secondary to acute COVID-19 pneumonia/pneumonitis, currently on AIRVO at 45 L/minute and 90%, as well as Remdesivir and Decadron. 2. History of underlying COPD from previous tobacco use. 3. History of diabetes mellitus with diabetic neuropathy. 4. History of CAD, status post bypass grafting. 5. Angina pectoris. 6. Gastroesophageal reflux disease. 7. Hyperlipidemia. 8. Essential hypertension. 9. Degenerative joint disease. 10.Chronic back pain. 11.Multiple medical problems and comorbidities. PLAN: Currently, the patient is receiving full course therapy. He is receiving Remdesivir, Decadron, vitamin D3, vitamin C, zinc, as well as low-molecular weight heparin. Will continue to follow. Prognosis is guarded. Hopefully, he will continue to improve. Chest x-ray is improved. No additional recommendations are made. Prognosis is guarded. MMODL / IJN: [id number] /
[2020-03-18 17:09] LABS: Glucose,Whole Blood 278 mg/dL (75-99)
[2020-03-18 20:11] LABS: Glucose,Whole Blood 231 mg/dL (75-99)
[2020-03-18] MEDS: INSULIN DETEMIR (LEVEMIR) 100 UNIT/ML SYR SQ SCH (20:22)
[2020-03-18] MEDS: MONTELUKAST 10 MG TAB PO SCH (20:24)
[2020-03-18] MEDS: traZODone HCL 50 MG TAB PO SCH (20:24)
--- NOTE | 2020-03-18 23:26 | PN ---
PROGRESS NOTE DATE OF SERVICE: 03/18/2020 REASON FOR FOLLOWUP: 1. COVID-19 pneumonia. 2. Left gluteal wound from drainage of an abscess. INTERVAL HISTORY: Patient is currently afebrile. He mentioned feeling slightly better. However, requiring high-flow nasal cannula as well as non-rebreather. Denies any chest pain. He did have a cough, not bringing any sputum. No nausea. No vomiting. No abdominal pain or diarrhea. PHYSICAL EXAMINATION: Blood pressure 160/71 with a pulse of 65, temperature 98.1. He is 93% on 15 L high- flow oxygen. General description is a middle-aged male lying in bed in no distress. Respiratory system: Unlabored breathing. Coarse breath sounds. No wheeze. Heart S1, S2. Regular rate and rhythm. ABDOMEN: Soft, no tenderness. LABS: No new labs have been obtained today. DIAGNOSTIC IMPRESSION AND PLAN: 1. Patient with acute COVID-19 pneumonia. Chest x-ray showing improving bilateral infiltrate. Patient is covered with dexamethasone and Lovenox Remdesivir to continue along with respiratory support. 2. Left gluteal abscess status post drainage. The patient is currently covered on oral Augmentin. MMODL / IJN: [id number] /
[2020-03-19] MEDS: MORPHINE SULFATE 4 MG/ML SYRINGE IV PRN ×3 (02:04→08:56)
[2020-03-19] MEDS: LORazepam 2 MG/ML INJ IV PRN ×2 (02:10→09:22)
[2020-03-19 05:07] LABS: Allen Test Performed? Yes
[2020-03-19 05:08] LABS: ABG PCO2 36 mmHg (35-45); ABG PH 7.47 (7.35-7.45)
[2020-03-19 05:09] LABS: ABG Base Excess 2.5 mmol/L; ABG HCO3 26 mmol/L (21-25); ABG PO2 53 mmHg (83-108); ABG TCO2 27 mmol/L (19-24)
[2020-03-19 05:10] LABS: ABG Oxygen Saturation 87.1 % (94-97)
[2020-03-19 07:10] LABS: Glucose,Whole Blood 110 mg/dL (75-99)
[2020-03-19] MEDS: INSULIN ASPART (NovoLOG) 100 UNIT/ML VIAL SQ SCH (07:48)
[2020-03-19 08:32] LABS: ABG Base Excess 1.9 mmol/L; ABG HCO3 25 mmol/L (21-25); ABG Oxygen Saturation 87.6 % (94-97); ABG PCO2 34 mmHg (35-45); ABG PH 7.49 (7.35-7.45); ABG TCO2 26 mmol/L (19-24); Allen Test Performed? Yes
[2020-03-19 08:46] LABS: ABG PO2 53 mmHg (83-108)
[2020-03-19] MEDS: FLUoxetine HCL 20 MG CAP PO SCH (09:05)
[2020-03-19] MEDS: ATORVASTATIN 40 MG TAB PO SCH (09:05)
[2020-03-19] MEDS: ENOXAPARIN 40 MG/0.4 ML SYRINGE SQ SCH (09:05)
[2020-03-19] MEDS: MEMANTINE 5 MG TAB PO SCH (09:06)
[2020-03-19] MEDS: dexAMETHasone 2 MG TAB PO SCH (09:06)
[2020-03-19] MEDS: GABAPENTIN 300 MG CAP PO SCH (09:06)
[2020-03-19] MEDS: CHOLECALCIFEROL 1,000 UNIT TAB PO SCH (09:06)
[2020-03-19] MEDS: PANTOPRAZOLE 40 MG TABLET PO SCH (09:06)
[2020-03-19] MEDS: busPIRone HCl 5 MG TAB PO SCH (09:06)
[2020-03-19] MEDS: ZINC SULFATE 220 MG CAP PO SCH (09:06)
[2020-03-19] MEDS: OXYBUTYNIN XL 5 MG TAB.ER.24 PO SCH (09:07)
[2020-03-19] MEDS: FAMOTIDINE 20 MG TAB PO SCH (09:07)
[2020-03-19] MEDS: lamoTRIgine 100 MG TAB PO SCH (09:07)
[2020-03-19] MEDS: ASCORBIC ACID 500 MG TAB PO SCH (09:07)
[2020-03-19] MEDS: BACLOFEN 10 MG TAB PO SCH (09:07)
[2020-03-19] MEDS: carBAMazepine 100 MG TAB.ER.12H PO SCH (09:12)
[2020-03-19] MEDS: AMOXIC-POT CLAV 875-125MG 1 EACH TAB PO SCH (09:12)
[2020-03-19] MEDS: VALSARTAN 160 MG TAB PO SCH (09:12)
[2020-03-19] MEDS: METOPROLOL TARTRATE 25 MG TAB PO SCH (09:28)
[2020-03-19] MEDS: REMDESIVIR 100 MG in SODIUM CHLORIDE 0.9% 250 ML IVPB SCH (09:33)
[2020-03-19] MEDS: ALBUTEROL HFA INHALER INHALATION SCH ×2 (09:42→11:07)
[2020-03-19] MEDS: SYMBICORT 160-4.5 MCG INHALER INHALATION SCH (09:43)
[2020-03-19 09:50] VITALS: BP 173/75; PULSE 62; RESP 36; TEMP 98
[2020-03-19 10:28] LABS: Glucose,Whole Blood 190 mg/dL (75-99)
[2020-03-19] MEDS ORDERED: propofoL 100 ML IV ONE (10:30)
[2020-03-19] MEDS ORDERED: SODIUM BICARB 8.4% 50 ML SYR (1 MEQ/ML) ONE (10:38)
[2020-03-19] MEDS ORDERED: EPINEPHrine 10 ML SYRINGE (0.1 MG/ML) ONE (10:38)
[2020-03-19] MEDS: oxyCODONE-APAP 10-325MG 1 EACH TAB PO SCH (10:39)
--- NOTE | 2020-03-19 11:12 | P.PN ---
Progress Note - Text Progress Note Date: 03/19/20 I responded to [facility] ELIANA called by nursing staff after patient went into cardiac arrest with PEA. Patient was resuscitated. ACLS protocol. He received multiple doses of epinephrine. I called his after 10 minutes of resuscitation efforts and gave her an update and ask her what would she like me to do. His requested to continue resuscitation effort for another 5 minutes and if no return of spontaneous circulation. The patient peacefully. We respected her request and continued CPR and patient was given another dose of epinephrine. He continues to be in PEA with no palpable pulse. Resuscitation efforts terminated and patient at 10:55 AM.
[2020-03-19] MEDS ORDERED: CHLORHEXIDINE GLUCONATE 15 ML CUP MUCOUS MEM SCH (21:00)
== END 2020-03-19 15:45 | disposition expired | DRG 177 ==
LOC: EC 00:08 → 3SCARD 02:03 → 5NMEDONC 17:29 → 4SSUR 17:30 → 2SICU 03-19 10:21
PROVIDERS: ADMIT Family Medicine; ATTEND Family Medicine
PROC: 5A09357 Assistance with Respiratory Ventilation, Less than 24 Consecutive Hours, Continuous Positive Airway Pressure (ICD-10-PCS; 2020-03-16)
PROC: XW033E5 Introduction of Remdesivir Anti-infective into Peripheral Vein, Percutaneous Approach, New Technology Group 5 (ICD-10-PCS; 2020-03-16)
PROC: XW13325 Transfusion of Convalescent Plasma (Nonautologous) into Peripheral Vein, Percutaneous Approach, New Technology Group 5 (ICD-10-PCS; principal; 2020-03-18)
PROC: 0BH17EZ Insertion of Endotracheal Airway into Trachea, Via Natural or Artificial Opening (ICD-10-PCS; 2020-03-19)
PROC: 5A12012 Performance of Cardiac Output, Single, Manual (ICD-10-PCS; 2020-03-19)
DX: U07.1 COVID-19 (principal); J96.01 Acute respiratory failure with hypoxia; J12.89 Other viral pneumonia; E87.2 Acidosis; K61.1 Rectal abscess; J44.0 Chronic obstructive pulmonary disease with (acute) lower respiratory infection; L02.31 Cutaneous abscess of buttock; E11.42 Type 2 diabetes mellitus with diabetic polyneuropathy; I11.9 Hypertensive heart disease without heart failure; I46.9 Cardiac arrest, cause unspecified; I25.119 Atherosclerotic heart disease of native coronary artery with unspecified angina pectoris; Z79.4 Long term (current) use of insulin; E78.5 Hyperlipidemia, unspecified; K21.9 Gastro-esophageal reflux disease without esophagitis; N40.0 Benign prostatic hyperplasia without lower urinary tract symptoms; K57.90 Diverticulosis of intestine, part unspecified, without perforation or abscess without bleeding; G89.4 Chronic pain syndrome; M47.9 Spondylosis, unspecified; G43.909 Migraine, unspecified, not intractable, without status migrainosus; G47.00 Insomnia, unspecified; F32.9 Major depressive disorder, single episode, unspecified; F43.10 Post-traumatic stress disorder, unspecified; F90.9 Attention-deficit hyperactivity disorder, unspecified type; K42.9 Umbilical hernia without obstruction or gangrene; K44.9 Diaphragmatic hernia without obstruction or gangrene; M54.5 Low back pain; F41.9 Anxiety disorder, unspecified; M85.80 Other specified disorders of bone density and structure, unspecified site; K58.9 Irritable bowel syndrome, unspecified; M19.90 Unspecified osteoarthritis, unspecified site; Z79.899 Other long term (current) drug therapy; Z79.891 Long term (current) use of opiate analgesic; Z87.442 Personal history of urinary calculi; Z87.19 Personal history of other diseases of the digestive system; Z87.440 Personal history of urinary (tract) infections; Z87.828 Personal history of other (healed) physical injury and trauma; Z90.49 Acquired absence of other specified parts of digestive tract; Z95.1 Presence of aortocoronary bypass graft; Z87.11 Personal history of peptic ulcer disease; Z98.890 Other specified postprocedural states; Z87.891 Personal history of nicotine dependence; Z88.1 Allergy status to other antibiotic agents; Z88.2 Allergy status to sulfonamides; Z88.8 Allergy status to other drugs, medicaments and biological substances; Z83.3 Family history of diabetes mellitus; Z82.49 Family history of ischemic heart disease and other diseases of the circulatory system
CPT/HCPCS: 36415; 36600; 71045; 80053; 80156; 82550; 82728; 82805; 83605; 83615; 83735; 83880; 84145; 84484; 85025; 85379; 85384; 85610; 85730; 86140; 86850; 86900; 86901; 87040; 92950; 93005; 94640; 94660; 96365; 96366; 96372; 96375; 96376; 99285